=== PATIENT | male | born 1965 | race Caucasian/White ===

== ENCOUNTER 2022-12-29 11:16 | Emergency (ER) | payer MEDICARE, MEDICAID, SELFPAY ==
--- NOTE | ~2022-12-29 | XR_ITS ---
EXAMINATION: XR CHEST CLINICAL INFORMATION: Weakness COMPARISON: 12/10/[address] from 11/22/2015. TECHNIQUE: Frontal view of the chest was obtained. FINDINGS: Cardiac leads overlie the chest. The lungs are well expanded. No consolidation, edema, or effusion. There are adjacent 0.7 cm nodular opacities at the peripheral right base. No pneumothorax. The cardiomediastinal silhouette is within normal limits. Chronic dislocation at the left glenohumeral joint with chronic Hill-Sachs deformity of the left humeral head. XR/XR chest 1V IMPRESSION: 1. No acute pulmonary disease. 2. 0.7 cm nodular opacities at the peripheral right base are not seen on previous. Consider follow-up chest CT.
--- NOTE | ~2022-12-29 | CT_ITS ---
EXAMINATION: CT HEAD WITHOUT CONTRAST CLINICAL INFORMATION: Lethargy. Generalized weakness. COMPARISON: 11/09/2013 TECHNIQUE: Contiguous axial imaging was performed from the skull base to vertex without intravenous contrast. This CT examination was performed using dose optimization techniques as appropriate, variously including the following: * Automated exposure control * Adjustment of mA and/or kV according to patient size (this includes techniques or standardized protocols for targeted exams where dose is matched to indication/reason for exam; i.e. extremities or head) Use of iterative reconstruction technique DLP: 700 mGy-cm. FINDINGS: Postsurgical changes of right frontal craniectomy with mesh. Underlying gliosis which is increased from previous. There is no evidence of acute intracranial hemorrhage or territorial infarction. No abnormal mass effect or midline shift is seen. George to white matter differentiation is well preserved. No extra-axial fluid collections are identified. No hydrocephalus. Proportional prominence of the ventricles and sulcal spaces is consistent with moderate volume loss. Patchy periventricular and deep white matter hypoattenuation is consistent with mild small vessel ischemic changes. No acute osseous or soft tissue abnormality. Multiple sebaceous cysts are identified, increased in size from prior. Overlying the left zygomatic region this measures 2.7 cm. Overlying the right occipital region this measures 4.6 cm.. The mastoid air cells and visualized portions of the paranasal sinuses are well aerated. CT/CT head/brain wo IV con IMPRESSION: No acute intracranial pathology. Chronic volume loss with small vessel ischemic change. Chronic postsurgical changes.
--- NOTE | ~2022-12-29 | CT_ITS ---
EXAMINATION: CT CHEST WITHOUT CONTRAST CLINICAL INFORMATION: Rule out pneumonia. Lethargy. Evaluate opacities. COMPARISON: Radiograph from today. CT 11/22/2015. TECHNIQUE: Multidetector volumetric CT imaging of the chest was done. Axial MIP volume rendering provided. Sagittal and coronal reformatted images were obtained. This CT examination was performed using dose optimization techniques as appropriate, variously including the following: *Automated exposure control *Adjustment of mA and/or kV according to patient size (this includes techniques or standardized protocols for targeted exams where dose is matched to indication/reason for exam; i.e. extremities or head) *Use of iterative reconstruction technique DLP: 752 mGy-cm FINDINGS: LUNGS: The central airways are patent. Dependent atelectasis bilaterally. Mild bronchiectasis in the perihilar regions and lower lobes. No dense consolidation. Some cystic changes are seen along the right major fissure. The nodular densities seen on the prior radiograph likely are associated with the anterior aspect of the right fifth rib. These are present on prior. MEDIASTINUM: Normal heart size. No pericardial effusion. No mediastinal lymphadenopathy. CORONARY ARTERY CALCIFICATION: Mild. PLEURA: There is no pleural effusion. No pneumothorax. AXILLA: No lymphadenopathy. UPPER ABDOMEN: Unremarkable. OSSEOUS STRUCTURES: No acute or suspicious osseous abnormality. Mild degenerative change throughout the spine. CT/CT chest wo IV con IMPRESSION: 1. No acute pulmonary finding. No consolidation. Mild bronchiectasis. 2. The nodular densities seen on the prior radiograph are associated with the anterior aspect of the right fifth rib. These sclerotic foci are present on prior. Fleischner guidelines were followed.
--- NOTE | 2022-12-29 11:35 | ED_ITS ---
HPI - General Adult General Chief complaint: Weakness Stated complaint: Lethargic after breakfast per EMS Time Seen by Provider: 12/29/22 11:35 Source: patient and EMS Mode of arrival: EMS History of Present Illness HPI narrative: 57-year-old male with a past medical history of schizophrenia, diabetes, HLD, dysphagia, anemia, osteoarthritis, hypothyroid, HTN, CVA with left-sided residual deficits, wheelchair-bound, presenting to the ED via EMS from SNF for increased lethargy s/p eating breakfast this morning. Per [facility] staff p atient was increasingly lethargic, reported he was tired, had difficulty transferring from wheelchair to bed which is unlike patient. Denies focal weakness, headache, CP/SOB, abdominal pain, nausea/vomiting, fever, cough Onset (ago): day(s) Related Data Allergies Allergy/AdvReac Type Severity Reaction Status Date / Time piperacillin [From Zosyn] Allergy Mild RASH Unverified 07/15/20 17:36 tazobactam [From Zosyn] Allergy Mild RASH Unverified 07/15/20 17:36 Sulfa (Sulfonamide Allergy Unknown Verified 07/12/16 00:00 Antibiotics) Piperacillin-Tazobactam in Allergy Unknown Uncoded 07/12/16 00:00 D5W Review of Systems Review of Systems: Constitutional: No Fever, No Chills, + Fatigue, + Malaise ENT/Mouth: No Ear Pain, No sore throat, No Rhinorrhea, No Swallowing Difficulty Eyes: No Eye Pain, No Swelling, No Redness, No Vision Changes Cardiovascular: No Chest Pain, No SOB, No Edema, No Palpitations Respiratory: No Cough, No Wheezing, No Dyspnea Gastrointestinal: No Nausea, No Vomiting, No Diarrhea, No Constipation, No Abdominal pain Genitourinary: No irregular bleeding, No Dysuria, No Hematuria, No Urinary Incontinence/retention, No Flank Pain Musculoskeletal: No joint pain, No Myalgias, No Joint Swelling Skin: No Skin Lesions, No rash Neuro: + Weakness, No Numbness, No Paresthesias, No Loss of Consciousness, No Dizziness, No Headache Yes all other systems are reviewed and are negative Constitutional: Constitutional: Reports as per [facility] Past Medical History Attestation statement: The following information was validated with the patient. Social History Social History Alcohol intake: never Smoked in Last 30 Days: No Use of substances other than those prescribed or required for medical reasons: No Advance Directives: No Advance Directives Information Provided: No Physical Exam ED Vital Signs: Vital Signs - 24 hr 12/29/22 11:39 12/29/22 12:50 12/29/22 14:58 Temperature 98.5 F 97.0 F 98.4 F Pulse Rate 67 70 73 Respiratory Rate 18 13 20 Blood Pressure 98/55 L 128/78 108/59 L Pulse Oximetry 100 98 99 Oxygen Delivery Method Room Air Room Air Room Air BMI result Body Mass Index 34.0 Const Other: Easily arousable General: cooperative, comfortable, no acute distress, alert and lethargic Orientation/consciousness: patient oriented x3 and lethargic Limitations: no limitations HENMT Head: Yes normal to inspection and Yes atraumatic Ears: hearing grossly normal bilaterally General nose exam: Normal external nose present Face and sinus: Yes normal facial exam Eyes General: appearance normal, both eyes and all related structures Pupils: Equal, round and reactive pupils present EOM: EOMs intact bilaterally Neck Neck: Yes normal visual inspection and Yes no meningeal signs Resp Effort & Inspection: normal respiratory effort and no respiratory distress Auscultation: clear to auscultation bilaterally, no crackles, no rales, no rhonchi and no wheezes Cardio Rate: regular rate Heart sounds: S1 normal heart sound present and S2 normal heart sound present GI Inspection: Yes normal to inspection Palpation (GI): Soft to palpation, nontender, no guarding and not rigid Skin Rashes: no rashes Wounds: no wounds Neuro Other: Baseline left-sided weakness General: patient oriented x3, tone normal and no meningeal signs Cranial nerves: Yes Equal, round and reactive pupils present Extrem General: Yes normal to inspection and Yes no pedal edema Course Course Course Narrative: -1334--leukocytosis of 14.5 > still low suspicion for severe sepsis at this time. H&H stable. Troponin negative. COVID and influenza negative XR chest 1V IMPRESSION: 1.? No acute pulmonary disease. 2.? 0.7 cm nodular opacities at the peripheral right base are not seen on previous. Consider follow-up chest CT. >> will obtain chest CT for further evaluation CT head/brain wo IV con IMPRESSION: No acute intracranial pathology. Chronic volume loss with small vessel ischemic change. Chronic postsurgical changes. ? -lactic acid negative. Troponin x2 negative. UA negative -1509--on re-evaluation patient awake and alert, conversational, ready for discharge. CT chest wo IV con IMPRESSION: 1.? No acute pulmonary finding. No consolidation. Mild bronchiectasis. 2.? The nodular densities seen on the prior radiograph are associated with the anterior aspect of the right fifth rib. These sclerotic foci are present on prior. ? Fleischner guidelines were followed. >> [facility] Results discussed with patient including worrisome signs and symptoms and strict return precautions, and when to return to the emergency department. They verbalized understanding and feel safe for discharge at this time. Medical Decision Making Medical Decision Making [facility] Narrative: 57-year-old male with a past medical history of schizophrenia, diabetes, HLD, dysphagia, anemia, osteoarthritis, hypothyroid, HTN, CVA with left-sided residual deficits, wheelchair-bound, presenting to the ED via EMS from SNF for increased lethargy s/p eating breakfast this morning. On exam initial blood pressure soft, lethargic however easily arousable, A&O x3, no evidence of trauma, lungs CTA. Concern for metabolic/infectious etiologies vs ?CVA although no focal weakness. Lower suspicion for TIA, encephalitis/meningitis. Low suspicion for severe sepsis at this time Plan: EKG, labs, UA, CXR, head CT, reassess Please refer to course for remaining clinical decision making, interpretation of labs/imaging results, and discussions with consultants and/or family members. Differential Diagnosis Differential Diagnoses: The differential diagnosis associated with the presentation includes as above Admission/Observation Consideration of admission/observation: Escalation of care including admission/observation considered Lab Data [facility] Lab Attestation statement: I reviewed the patient's lab results. 12/29/22 12:25 12/29/22 12:25 Labs: Lab Results 12/29/22 12/29/22 12/29/22 Range/Units 12:25 12:25 12:25 WBC 14.5 H (4.8-10.8) X10*3/uL RBC 4.22 L (4.60-5.80) X10*6/uL Hgb 12.7 L (14.0-18.0) g/dl Hct 38.3 L (42.0-52.0) % MCV 90.8 (80.0-98.0) fL MCH 30.1 (27.0-33.0) pg MCHC 33.2 (31.0-36.0) g/dl RDW 13.1 (11.0-16.0) % Plt Count 190 (160-400) X10*3/uL MPV 9.2 L (9.4-12.4) fL Immature Gran % (Auto) 0.8 H (0.0-0.4) % Neut % (Auto) 74.1 H (45-73) % Lymph % (Auto) 17.8 L (20-40) % [place] % (Auto) 6.6 (2-11) % Eos % (Auto) 0.4 (0-4) % Baso % (Auto) 0.3 (0-2) % Lymph # (Auto) 2.6 (1.2-4.9) X10*3/uL [place] # (Auto) 1.0 (0.1-1.2) X10*3/uL Eos # (Auto) 0.1 (0.0-0.4) X10*3/uL Baso # (Auto) 0.1 (0.0-0.2) X10*3/uL Abs Immat Gran (auto) 0.12 H (0.00-0.03) X10*3/uL Absolute Neuts (auto) 10.7 H (2.0-8.3) x10*3/uL Absolute Nucleated RBC 0.000 (0.0-0.012) X10*3/uL Nucleated RBC % (auto) 0.0 (0.0-0.2) /100WBC PT 13.9 H (10.0-13.1) SEC INR 1.2 H (0.9-1.1) Sodium 136 (135-145) mmol/L Potassium 4.0 (3.3-5.1) mmol/L Chloride 105 (96-108) mmol/L Carbon Dioxide 24 (22-29) mmol/L Anion Gap 11 L (12-20) BUN 17 H (9-16) mg/dL Creatinine 0.79 (0.5-1.4) mg/dL Estim Creat Clear Calc 119.8 Estimated GFR > 60 Random Glucose 97 (60-115) mg/dL Lactic Acid (0.5-2.0) mmol/L Calcium 9.1 (8.4-10.2) mg/dL Magnesium 2.0 (1.6-2.6) mg/dL Total Bilirubin 0.3 (0.0-1.0) mg/dL Direct Bilirubin < 0.2 (0.0-0.5) mg/dL AST 22 (5-37) U/L ALT 39 (0-40) U/L Alkaline Phosphatase 103 (39-117) U/L Ammonia (13-55) umol/L Troponin I High Sens (<3.5-35.0) ng/L B-Natriuretic Peptide (<100) pg/mL Total Protein 6.7 (6.5-8.0) g/dL Albumin 3.6 (3.5-5.0) g/dL Urine Color Urine Appearance Urine pH (5.0-9.0) Ur Specific [place] (1.005-1.025) Urine Protein (Neg-Trace) mg/dL Urine Glucose (UA) (Negative) mg/dL Urine Ketones (Negative) mg/dL Urine Blood (Negative) Urine Nitrite (Negative) Ur Leukocyte Esterase (Negative) Urine Opiates Screen (Not Detect) Urine Fentanyl Screen (Not Detect) Ur Barbiturates Screen (Not Detect) Ur Phencyclidine Scrn (Not Detect) Ur Amphetamines Screen (Not Detect) U Benzodiazepines Scrn (Not Detect) Urine Cocaine Screen (Not Detect) U Marijuana (THC) Screen (Not Detect) COVID-19 (SAMAN) (Negative) COVID-19 Clin Com Influenza Type A (LAMAR) (Negative) Influenza Type B (LAMAR) (Negative) Influenza A & B Note 12/29/22 12/29/22 12/29/22 Range/Units 12:25 12:25 12:25 WBC (4.8-10.8) X10*3/uL RBC (4.60-5.80) X10*6/uL Hgb (14.0-18.0) g/dl Hct (42.0-52.0) % MCV (80.0-98.0) fL MCH (27.0-33.0) pg MCHC (31.0-36.0) g/dl RDW (11.0-16.0) % Plt Count (160-400) X10*3/uL MPV (9.4-12.4) fL Immature Gran % (Auto) (0.0-0.4) % Neut % (Auto) (45-73) % Lymph % (Auto) (20-40) % [place] % (Auto) (2-11) % Eos % (Auto) (0-4) % Baso % (Auto) (0-2) % Lymph # (Auto) (1.2-4.9) X10*3/uL [place] # (Auto) (0.1-1.2) X10*3/uL Eos # (Auto) (0.0-0.4) X10*3/uL Baso # (Auto) (0.0-0.2) X10*3/uL Abs Immat Gran (auto) (0.00-0.03) X10*3/uL Absolute Neuts (auto) (2.0-8.3) x10*3/uL Absolute Nucleated RBC (0.0-0.012) X10*3/uL Nucleated RBC % (auto) (0.0-0.2) /100WBC PT (10.0-13.1) SEC INR (0.9-1.1) Sodium (135-145) mmol/L Potassium (3.3-5.1) mmol/L Chloride (96-108) mmol/L Carbon Dioxide (22-29) mmol/L Anion Gap (12-20) BUN (9-16) mg/dL Creatinine (0.5-1.4) mg/dL Estim Creat Clear Calc Estimated GFR Random Glucose (60-115) mg/dL Lactic Acid (0.5-2.0) mmol/L Calcium (8.4-10.2) mg/dL Magnesium (1.6-2.6) mg/dL Total Bilirubin (0.0-1.0) mg/dL Direct Bilirubin (0.0-0.5) mg/dL AST (5-37) U/L ALT (0-40) U/L Alkaline Phosphatase (39-117) U/L Ammonia 37 (13-55) umol/L Troponin I High Sens < 3.5 (<3.5-35.0) ng/L B-Natriuretic Peptide 30 (<100) pg/mL Total Protein (6.5-8.0) g/dL Albumin (3.5-5.0) g/dL Urine Color Urine Appearance Urine pH (5.0-9.0) Ur Specific [place] (1.005-1.025) Urine Protein (Neg-Trace) mg/dL Urine Glucose (UA) (Negative) mg/dL Urine Ketones (Negative) mg/dL Urine Blood (Negative) Urine Nitrite (Negative) Ur Leukocyte Esterase (Negative) Urine Opiates Screen (Not Detect) Urine Fentanyl Screen (Not Detect) Ur Barbiturates Screen (Not Detect) Ur Phencyclidine Scrn (Not Detect) Ur Amphetamines Screen (Not Detect) U Benzodiazepines Scrn (Not Detect) Urine Cocaine Screen (Not Detect) U Marijuana (THC) Screen (Not Detect) COVID-19 (SAMAN) (Negative) COVID-19 Clin Com Influenza Type A (LAMAR) (Negative) Influenza Type B (LAMAR) (Negative) Influenza A & B Note 12/29/22 12/29/22 12/29/22 Range/Units 12:25 12:25 14:09 WBC (4.8-10.8) X10*3/uL RBC (4.60-5.80) X10*6/uL Hgb (14.0-18.0) g/dl Hct (42.0-52.0) % MCV (80.0-98.0) fL MCH (27.0-33.0) pg MCHC (31.0-36.0) g/dl RDW (11.0-16.0) % Plt Count (160-400) X10*3/uL MPV (9.4-12.4) fL Immature Gran % (Auto) (0.0-0.4) % Neut % (Auto) (45-73) % Lymph % (Auto) (20-40) % [place] % (Auto) (2-11) % Eos % (Auto) (0-4) % Baso % (Auto) (0-2) % Lymph # (Auto) (1.2-4.9) X10*3/uL [place] # (Auto) (0.1-1.2) X10*3/uL Eos # (Auto) (0.0-0.4) X10*3/uL Baso # (Auto) (0.0-0.2) X10*3/uL Abs Immat Gran (auto) (0.00-0.03) X10*3/uL Absolute Neuts (auto) (2.0-8.3) x10*3/uL Absolute Nucleated RBC (0.0-0.012) X10*3/uL Nucleated RBC % (auto) (0.0-0.2) /100WBC PT (10.0-13.1) SEC INR (0.9-1.1) Sodium (135-145) mmol/L Potassium (3.3-5.1) mmol/L Chloride (96-108) mmol/L Carbon Dioxide (22-29) mmol/L Anion Gap (12-20) BUN (9-16) mg/dL Creatinine (0.5-1.4) mg/dL Estim Creat Clear Calc Estimated GFR Random Glucose (60-115) mg/dL Lactic Acid 1.8 (0.5-2.0) mmol/L Calcium (8.4-10.2) mg/dL Magnesium (1.6-2.6) mg/dL Total Bilirubin (0.0-1.0) mg/dL Direct Bilirubin (0.0-0.5) mg/dL AST (5-37) U/L ALT (0-40) U/L Alkaline Phosphatase (39-117) U/L Ammonia (13-55) umol/L Troponin I High Sens (<3.5-35.0) ng/L B-Natriuretic Peptide (<100) pg/mL Total Protein (6.5-8.0) g/dL Albumin (3.5-5.0) g/dL Urine Color Urine Appearance Urine pH (5.0-9.0) Ur Specific [place] (1.005-1.025) Urine Protein (Neg-Trace) mg/dL Urine Glucose (UA) (Negative) mg/dL Urine Ketones (Negative) mg/dL Urine Blood (Negative) Urine Nitrite (Negative) Ur Leukocyte Esterase (Negative) Urine Opiates Screen (Not Detect) Urine Fentanyl Screen (Not Detect) Ur Barbiturates Screen (Not Detect) Ur Phencyclidine Scrn (Not Detect) Ur Amphetamines Screen (Not Detect) U Benzodiazepines Scrn (Not Detect) Urine Cocaine Screen (Not Detect) U Marijuana (THC) Screen (Not Detect) COVID-19 (SAMAN) Negative (Negative) COVID-19 Clin Com See Note Influenza Type A (LAMAR) Negative (Negative) Influenza Type B (LAMAR) Negative (Negative) Influenza A & B Note See Note 12/29/22 12/29/22 12/29/22 Range/Units 14:09 14:21 14:21 WBC (4.8-10.8) X10*3/uL RBC (4.60-5.80) X10*6/uL Hgb (14.0-18.0) g/dl Hct (42.0-52.0) % MCV (80.0-98.0) fL MCH (27.0-33.0) pg MCHC (31.0-36.0) g/dl RDW (11.0-16.0) % Plt Count (160-400) X10*3/uL MPV (9.4-12.4) fL Immature Gran % (Auto) (0.0-0.4) % Neut % (Auto) (45-73) % Lymph % (Auto) (20-40) % [place] % (Auto) (2-11) % Eos % (Auto) (0-4) % Baso % (Auto) (0-2) % Lymph # (Auto) (1.2-4.9) X10*3/uL [place] # (Auto) (0.1-1.2) X10*3/uL Eos # (Auto) (0.0-0.4) X10*3/uL Baso # (Auto) (0.0-0.2) X10*3/uL Abs Immat Gran (auto) (0.00-0.03) X10*3/uL Absolute Neuts (auto) (2.0-8.3) x10*3/uL Absolute Nucleated RBC (0.0-0.012) X10*3/uL Nucleated RBC % (auto) (0.0-0.2) /100WBC PT (10.0-13.1) SEC INR (0.9-1.1) Sodium (135-145) mmol/L Potassium (3.3-5.1) mmol/L Chloride (96-108) mmol/L Carbon Dioxide (22-29) mmol/L Anion Gap (12-20) BUN (9-16) mg/dL Creatinine (0.5-1.4) mg/dL Estim Creat Clear Calc Estimated GFR Random Glucose (60-115) mg/dL Lactic Acid (0.5-2.0) mmol/L Calcium (8.4-10.2) mg/dL Magnesium (1.6-2.6) mg/dL Total Bilirubin (0.0-1.0) mg/dL Direct Bilirubin (0.0-0.5) mg/dL AST (5-37) U/L ALT (0-40) U/L Alkaline Phosphatase (39-117) U/L Ammonia (13-55) umol/L Troponin I High Sens < 3.5 (<3.5-35.0) ng/L B-Natriuretic Peptide (<100) pg/mL Total Protein (6.5-8.0) g/dL Albumin (3.5-5.0) g/dL Urine Color Yellow Urine Appearance Clear Urine pH 7.0 (5.0-9.0) Ur Specific [place] 1.015 (1.005-1.025) Urine Protein Negative (Neg-Trace) mg/dL Urine Glucose (UA) Negative (Negative) mg/dL Urine Ketones Negative (Negative) mg/dL Urine Blood Negative (Negative) Urine Nitrite Negative (Negative) Ur Leukocyte Esterase Negative (Negative) Urine Opiates Screen Not Detected (Not Detect) Urine Fentanyl Screen Not Detected (Not Detect) Ur Barbiturates Screen Not Detected (Not Detect) Ur Phencyclidine Scrn Not Detected (Not Detect) Ur Amphetamines Screen Not Detected (Not Detect) U Benzodiazepines Scrn Not Detected (Not Detect) Urine Cocaine Screen Not Detected (Not Detect) U Marijuana (THC) Screen Not Detected (Not Detect) COVID-19 (SAMAN) (Negative) COVID-19 Clin Com Influenza Type A (ALMAR) (Negative) Influenza Type B (LAMAR) (Negative) Influenza A & B Note Independent Interpretation I performed an independent interpretation of an: EKG Interpretation: My interpretation normal sinus rhythm with right bundle branch block. Rate is 67. QTC 407. No STEMI. External Record Review External record reviewed: Prior outpatient labs, Prior outpatient radiology and Outside ED record Discharge Plan Discharge Clinical Impression: Lethargy Patient Disposition: Xfer SNF Instructions: Fatigue (ED) Additional Instructions: Your blood work and imaging studies were reassuring. Continue home prescribed medications. If symptoms persist or worsen return to the emergency department. Referrals: August Baldwin DO [Primary Care Provider] - 2 days
[2022-12-29 11:39] VITALS: BP 98/55; PULSE 67; RESP 18; TEMP 36.9; O2SAT 100; BMI 34.0
[2022-12-29 11:43] VITALS: BP 108/58; PULSE 73; O2SAT 98
--- NOTE | 2022-12-29 11:44 | ECG_ITS ---
Test Reason : Generalized weakness Blood Pressure : / mmHG Vent. Rate : 067 BPM Atrial Rate : 067 BPM P-R Int : 152 ms QRS Dur : 122 ms QT Int : 386 ms P-R-T Axes : 047 043 049 degrees QTc Int : 407 ms Normal sinus rhythm Right bundle branch block Abnormal ECG When compared with ECG of 16-DEC-2014 15:54, Right bundle branch block has replaced Incomplete right bundle branch block Referred By: Alfreda Jaimes Electronically Signed By:JOSELO CADENA MD
[2022-12-29 12:34] LABS: Basophils Absolute Auto 0.1 X10*3/uL (0.0-0.2); Basophils Percent Auto 0.3 % (0-2); Eosinophils Absolute Auto 0.1 X10*3/uL (0.0-0.4); Eosinophils Percent Auto 0.4 % (0-4); Hematocrit 38.3 % (42.0-52.0); Hemoglobin 12.7 g/dl (14.0-18.0); Imm Gran Abs Auto 0.12 X10*3/uL (0.00-0.03); Imm Gran Pct Auto 0.8 % (0.0-0.4); Lymphocytes Absolute Auto 2.6 X10*3/uL (1.2-4.9); Lymphocytes Percent Auto 17.8 % (20-40); MANUAL DIFF FLAG NO; Mean Corpuscular HGB Conc 33.2 g/dl (31.0-36.0); Mean Corpuscular Hemoglobin 30.1 pg (27.0-33.0); Mean Corpuscular Volume 90.8 fL (80.0-98.0); Mean Platelet Volume 9.2 fL (9.4-12.4); Monocytes Percent Auto 6.6 % (2-11); Neutrophils Absolute Auto 10.7 x10*3/uL (2.0-8.3); Neutrophils Percent Auto 74.1 % (45-73); Platelet Count 190 X10*3/uL (160-400); Red Blood Count 4.22 X10*6/uL (4.60-5.80); Red Cell Distribution Width 13.1 % (11.0-16.0); White Blood Count 14.5 X10*3/uL (4.8-10.8)
[2022-12-29 12:43] LABS: Ammonia 37 umol/L (13-55)
[2022-12-29 12:50] VITALS: BP 128/78; PULSE 70; RESP 13; TEMP 36.1; O2SAT 98
[2022-12-29 12:52] LABS: Alanine Aminotransferase 39 U/L (0-40); Albumin Level 3.6 g/dL (3.5-5.0); Alkaline Phosphatase 103 U/L (39-117); Anion Gap 11 (12-20); Aspartate Amino Transferase 22 U/L (5-37); Bilirubin Direct < 0.2 mg/dL (0.0-0.5); Bilirubin Total 0.3 mg/dL (0.0-1.0); Blood Urea Nitrogen 17 mg/dL (9-16); Calcium 9.1 mg/dL (8.4-10.2); Carbon Dioxide 24 mmol/L (22-29); Chloride 105 mmol/L (96-108); Creatinine Clr Calc Pharmacy 119.8; Estimated Glomerular Filt Rate > 60; Glucose Random 97 mg/dL (60-115); Sodium 136 mmol/L (135-145); Total Protein 6.7 g/dL (6.5-8.0)
[2022-12-29 12:56] LABS: INTERNATIONAL NORM RATIO 1.2 (0.9-1.1); Prothrombin Time 13.9 SEC (10.0-13.1)
[2022-12-29 12:58] LABS: B Type Natriuretic Peptide 30 pg/mL (<100); Troponin-I High Sensitivity < 3.5 ng/L (<3.5-35.0)
[2022-12-29 13:04] LABS: IDNOW Serial# BCCEAD1C; Influenza B2 Negative (Negative)
[2022-12-29 13:05] LABS: COVID-19 Test Negative (Negative); IDNOW Serial# 16C4AD1C; Influenza A Negative (Negative)
[2022-12-29 14:30] LABS: Lactic Acid 1.8 mmol/L (0.5-2.0)
[2022-12-29 14:30] LABS: Appearance Urine Clear; Color Urine Yellow; Glucose Urine UA Negative (Negative); Leukocyte Esterase Urine Negative (Negative); Nitrite Urine Negative (Negative); Specific Gravity - Urine 1.015 (1.005-1.025); Urine Blood Negative (Negative); Urine Ketones Negative (Negative); Urine Protein Negative (Neg-Trace)
[2022-12-29 14:39] LABS: Amphetamine Screen Urine Not Detected (Not Detect); Barbiturates, Urine Not Detected (Not Detect); Benzodiazepines Screen Urine Not Detected (Not Detect); Cannabinoid Screen Urine Not Detected (Not Detect); Cocaine Screen Urine Not Detected (Not Detect); Fentanyl, urine Not Detected (Not Detect); Opiate Screen Urine Not Detected (Not Detect); Phencyclidine Screen Urine Not Detected (Not Detect)
[2022-12-29 14:42] LABS: Troponin-I High Sensitivity < 3.5 ng/L (<3.5-35.0)
--- NOTE | 2022-12-29 14:50 | PC.NURSE ---
pt alert and oriented, speaking in full clear sentences, no visible facial droop, hand grasp at baseline for the pt, slightly weaker on the left-hx of old stroke, no visible drift, moving all extremities, denies headache/pain and nausea
[2022-12-29 14:58] VITALS: BP 108/59; PULSE 73; RESP 20; TEMP 36.9; O2SAT 99
--- NOTE | 2022-12-29 19:25 | PC.NURSE ---
pt continues to await ambulance for transport back to [facility]
[2022-12-29 20:00] VITALS: PULSE 74; RESP 18; O2SAT 97
== END 2022-12-29 20:57 | disposition skilled nursing facility (03) ==
PROVIDERS: Physician Assistant; Emergency Provider Emergency Medicine Emergency Medical Services; PCP Hospitalist
DX: R53.83 Other fatigue (principal); R06.02 Shortness of breath; R51.9 Headache, unspecified; M54.6 Pain in thoracic spine; R94.31 Abnormal electrocardiogram [ECG] [EKG]; Z20.822 Contact with and (suspected) exposure to COVID-19; Z20.828 Contact with and (suspected) exposure to other viral communicable diseases; Z79.899 Other long term (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
CPT/HCPCS: 36415; 70450; 71045; 71250; 80048; 80076; 80307; 81003; 82140; 83605; 83735; 83880; 84484; 85025; 85610; 87040; 87077; 87147; 87186; 87205; 87502; 87635; 93005; 99285

== ENCOUNTER 2022-12-30 10:52 | Observation (INO) | payer MEDICARE, MEDICAID, SELFPAY ==
--- NOTE | ~2022-12-30 | XR_ITS ---
EXAMINATION: XR CHEST CLINICAL INFORMATION: Positive blood culture. Rule out pneumonia COMPARISON: None TECHNIQUE: Frontal view of the chest was obtained. FINDINGS: The lungs are well-expanded and clear of acute process. The heart size and pulmonary vascularity is normal. There is chronic left shoulder dislocation with superimposed degenerative arthritic changes. XR/XR chest 1V IMPRESSION: 1. No acute cardiopulmonary process seen. 2. Chronic left shoulder dislocation with superimposed degenerative arthritic changes.
[2022-12-30 11:06] VITALS: BP 103/61; BP 110/60; PULSE 76; PULSE 90; RESP 16; TEMP 36.4; O2SAT 96; BMI 32.8
[2022-12-30 11:31] VITALS: PULSE 76; RESP 16; TEMP 36.6; O2SAT 96
--- NOTE | 2022-12-30 11:32 | ED_ITS ---
HPI - General Adult General Chief complaint: Recheck/Abnormal Lab/Rx Stated complaint: Abnormal labs per EMS Time Seen by Provider: 12/30/22 11:20 Source: patient, EMS, RN notes reviewed and old records reviewed Mode of arrival: EMS Limitations: no limitations History of Present Illness HPI narrative: 57-year-old male with past medical history significant for schizophrenia, dm, HLD, anemia, osteoarthritis, HTN, CVA with left-sided residual deficits patient is wheelchair bound patient presented by EMS after he was called for growing to positive blood cultures, patient is [facility] resident and according to the [facility] staff patient has been lethargic and confused with generalized weakness. Patient was seen and evaluated in the emergency department 2 days ago for the above symptoms had to blood culture positive with no clear source of infection. Patient otherwise decline any nausea, vomiting, fever, coughing, CP, SOB, or abdominal pain. Related Data Home Medications Medication Instructions Recorded Confirmed acetaminophen 325 mg tablet 650 mg PO Q4H PRN Pain 12/30/22 12/30/22 amlodipine 10 mg tablet 10 mg PO DAILY 12/30/22 12/30/22 aripiprazole 2 mg tablet 1 tab PO DAILY 12/30/22 12/30/22 atorvastatin 10 mg tablet 10 mg PO BEDTIME 12/30/22 12/30/22 clotrimazole-betamethasone 1 1 appl topical BID PRN Rash 12/30/22 12/30/22 %-0.05 % topical cream clozapine 200 mg tablet 200 mg PO BID 12/30/22 12/30/22 clozapine 50 mg tablet 50 mg PO BID 12/30/22 12/30/22 ferrous sulfate 325 mg (65 mg 325 mg PO DAILY 12/30/22 12/30/22 iron) tablet furosemide 40 mg tablet 40 mg PO BID 12/30/22 12/30/22 gabapentin 400 mg capsule 400 mg PO TID 12/30/22 12/30/22 hydrocortisone 1 % topical cream 1 appl topical Q12H PRN ECZEMA 12/30/22 12/30/22 levetiracetam 750 mg tablet 750 mg PO BID 12/30/22 12/30/22 levothyroxine 100 mcg tablet 100 mcg PO DAILY 12/30/22 12/30/22 lisinopril 5 mg tablet 5 mg PO DAILY 12/30/22 12/30/22 metoprolol succinate 25 mg 25 mg PO BID 12/30/22 12/30/22 tablet,extended release 24 hr multivitamin 1 tab PO DAILY 12/30/22 12/30/22 omeprazole 20 mg tablet,delayed 20 mg PO DAILY 12/30/22 12/30/22 release oxycodone-acetaminophen 10 mg-325 1 tab PO TID 12/30/22 12/30/22 mg tablet potassium chloride 20 mEq/15 mL 20 meq PO BID 12/30/22 12/30/22 oral liquid sennosides 8.6 mg tablet (senna) 8.6 mg PO DAILY PRN Constipation 12/30/22 12/30/22 Allergies Allergy/AdvReac Type Severity Reaction Status Date / Time piperacillin [From Zosyn] Allergy Mild RASH Unverified 07/15/20 17:36 tazobactam [From Zosyn] Allergy Mild RASH Unverified 07/15/20 17:36 Sulfa (Sulfonamide Allergy Unknown Verified 07/12/16 00:00 Antibiotics) Piperacillin-Tazobactam in Allergy Unknown Uncoded 07/12/16 00:00 D5W Review of Systems Review of Systems: All other systems are reviewed and are negative Constitutional: Reports as per HPI and Reports no additional constitutional complaints Eyes: Reports as per HPI and Reports no additional eye complaints Reports system reviewed and no additional complaints, except as documented Cardiovascular: Reports as per HPI and Reports no additional cardiovascular complaints Respiratory: Reports as per HPI and Reports no additional respiratory complaints Gastrointestinal: Reports as per HPI and Reports no additional gastrointestinal complaints Genitourinary: Reports no additional female genitourinary complaints Musculoskeletal: Reports no additional musculoskeletal complaints Skin/Breast: Reports system reviewed and no additional complaints, except as docu Psychiatric: Reports no additional psychiatric complaints Endocrine: Reports no additional endocrine complaints Hematologic/Lymphatic: Reports no additional hematologic/lymphatic complaints Allergic/Immunologic: Reports no additional allergic/immunologic complaints Reports system reviewed and no additional complaints, except as documented and Reports Abnormal speech present [facility] Social History Social History Alcohol intake: never Advance Directives: No Advance Directives Information Provided: No Physical Exam ED Vital Signs: Vital Signs - 24 hr 12/30/22 11:06 12/30/22 11:31 12/30/22 12:23 Temperature 97.6 F 97.9 F 98.0 F Pulse Rate 76 76 79 Respiratory Rate 16 16 16 Blood Pressure 103/61 110/72 Pulse Oximetry 96 96 96 Oxygen Delivery Method Room Air Room Air Room Air 12/30/22 13:20 Temperature 98.3 F Pulse Rate 76 Respiratory Rate 18 Blood Pressure 116/68 Pulse Oximetry 98 Oxygen Delivery Method Room Air BMI result Body Mass Index 32.8 Vital signs have been reviewed as appeared to be correct. Blood pressure normal. Heart rate normal. Respiration rate normal. Temperature normal. Oxygen saturation normal. Appearance: Alert. Oriented X3. No acute distress. Head: Normal external exam. Normocephalic. Atraumatic. No Perez signs noted. No raccoon eyes noted Eyes: PERRLA. EOMI. Conjunctiva and sclera normal. Eyelids normal. ENT: TM's Normal. Pharynx normal. Uvula midline. Moist mucous membranes. No trismus noted. No drooling noted. No muffled voice noted. Neck: Normal inspection. Neck supple. FROM. No adenopathy. Thyroid Normal. No meningeal signs. No neck mass noted. CVS: Normal heart rate and rhythm. Heart sound normal. No murmurs noted. Pulses normal throughout. Respiratory: No respiratory distress. Painless inspiration. Breath sounds normal. No wheezes/rales/rhonchi noted. Chest nontender. No accessory muscle usage noted or decreased air movement noted. Abdomen: Soft and nontender. Bowel sounds normal in all 4 quadrants. No distention noted. No organomegaly noted. No visible injury noted. Back: No CVA tenderness. Full range of motion noted. Skin: Skin warm and dry. Normal skin color. Normal skin turgor. No rashes/lesions/lacerations noted. Extremities: No lower extremity edema. Extremities exhibit normal range of motion. Extremities nontender. Neuro: Oriented X 3. Cranial nerve exam: II-XII are grossly intact No motor deficit. No sensory deficit. Reflexes normal. Course Course Course Narrative: 57[facility] blood culture x2, according to the nursing report patient is more confused and incoherent more than his baseline, workup revealed no source of infection patient has leukocytosis. Will start the patient on vancomycin and doxycycline. Medications Administered Generic Name Dose Route Start Last Admin Trade Name Freq PRN Reason Stop Dose Admin Vancomycin HCl 2,000 mg in 520 mls @ 260 mls/hr 12/30/22 12:00 12/30/22 13:38 Vancomycin/Ns IV 12/30/22 13:59 260 mls/hr ONCE ONE Administration Discontinued Medications Generic Name Dose Route Start Last Admin Trade Name Freq PRN Reason Stop Dose Admin Sodium Chloride 1,000 mls @ 999 mls/hr 12/30/22 11:36 12/30/22 13:16 Ns IV 12/30/22 12:36 Infused .Q1H1M ONE Infusion Doxycycline Hyclate 100 mg/ 250 mls @ 166.67 mls/hr 12/30/22 11:36 12/30/22 13:37 Sodium Chloride IV 12/30/22 13:05 Infused ONCE ONE Infusion Medical Decision Making Differential Diagnosis Differential Diagnoses: The differential diagnosis associated with the presentation includes (Bacteremia, UTI, pneumonia.) Admission/Observation Consideration of admission/observation: Escalation of care including admission/observation considered Consult Healthcare Provider Management of the patient was discussed with: Hospitalist Lab Data MDM Lab Attestation statement: I reviewed the patient's lab results. 12/30/22 11:29 12/30/22 11:29 Labs: Lab Results 12/30/22 12/30/22 12/30/22 Range/Units 11:29 11:29 11:29 WBC 13.9 H (4.8-10.8) X10*3/uL RBC 4.47 L (4.60-5.80) X10*6/uL Hgb 13.2 L (14.0-18.0) g/dl Hct 40.1 L (42.0-52.0) % MCV 89.7 (80.0-98.0) fL MCH 29.5 (27.0-33.0) pg MCHC 32.9 (31.0-36.0) g/dl RDW 13.1 (11.0-16.0) % Plt Count 180 (160-400) X10*3/uL MPV 9.3 L (9.4-12.4) fL Absolute Nucleated RBC 0.000 (0.0-0.012) X10*3/uL Nucleated RBC % (auto) 0.0 (0.0-0.2) /100WBC Sodium 142 (135-145) mmol/L Potassium 4.2 (3.3-5.1) mmol/L Chloride 105 (96-108) mmol/L Carbon Dioxide 24 (22-29) mmol/L Anion Gap 17 (12-20) BUN 16 (9-16) mg/dL Creatinine 0.77 (0.5-1.4) mg/dL Estim Creat Clear Calc 99.0 Estimated GFR > 60 Random Glucose 80 (60-115) mg/dL Lactic Acid (0.5-2.0) mmol/L Calcium 9.5 (8.4-10.2) mg/dL Total Bilirubin (0.0-1.0) mg/dL Direct Bilirubin (0.0-0.5) mg/dL AST (5-37) U/L ALT (0-40) U/L Alkaline Phosphatase (39-117) U/L B-Natriuretic Peptide (<100) pg/mL Total Protein (6.5-8.0) g/dL Albumin (3.5-5.0) g/dL Lipase (8-78) U/L Urine Color Urine Appearance Urine pH (5.0-9.0) Ur Specific [place] (1.005-1.025) Urine Protein (Neg-Trace) mg/dL Urine Glucose (UA) (Negative) mg/dL Urine Ketones (Negative) mg/dL Urine Blood (Negative) Urine Nitrite (Negative) Ur Leukocyte Esterase (Negative) COVID-19 (SAMAN) Negative (Negative) COVID-19 Clin Com See Note 12/30/22 12/30/22 12/30/22 Range/Units 11:58 11:58 11:58 WBC (4.8-10.8) X10*3/uL RBC (4.60-5.80) X10*6/uL Hgb (14.0-18.0) g/dl Hct (42.0-52.0) % MCV (80.0-98.0) fL MCH (27.0-33.0) pg MCHC (31.0-36.0) g/dl RDW (11.0-16.0) % Plt Count (160-400) X10*3/uL MPV (9.4-12.4) fL Absolute Nucleated RBC (0.0-0.012) X10*3/uL Nucleated RBC % (auto) (0.0-0.2) /100WBC Sodium 141 (135-145) mmol/L Potassium 4.1 (3.3-5.1) mmol/L Chloride 106 (96-108) mmol/L Carbon Dioxide 25 (22-29) mmol/L Anion Gap 14 (12-20) BUN 16 (9-16) mg/dL Creatinine 0.76 (0.5-1.4) mg/dL Estim Creat Clear Calc 100.3 Estimated GFR > 60 Random Glucose 85 (60-115) mg/dL Lactic Acid 1.1 (0.5-2.0) mmol/L Calcium 9.3 (8.4-10.2) mg/dL Total Bilirubin 0.4 (0.0-1.0) mg/dL Direct Bilirubin < 0.2 (0.0-0.5) mg/dL AST 23 (5-37) U/L ALT 45 H (0-40) U/L Alkaline Phosphatase 103 (39-117) U/L B-Natriuretic Peptide < 10 (<100) pg/mL Total Protein 6.8 (6.5-8.0) g/dL Albumin 3.8 (3.5-5.0) g/dL Lipase 23 (8-78) U/L Urine Color Urine Appearance Urine pH (5.0-9.0) Ur Specific [place] (1.005-1.025) Urine Protein (Neg-Trace) mg/dL Urine Glucose (UA) (Negative) mg/dL Urine Ketones (Negative) mg/dL Urine Blood (Negative) Urine Nitrite (Negative) Ur Leukocyte Esterase (Negative) COVID-19 (SAMAN) (Negative) COVID-19 Clin Com 12/30/22 Range/Units 13:23 WBC (4.8-10.8) X10*3/uL RBC (4.60-5.80) X10*6/uL Hgb (14.0-18.0) g/dl Hct (42.0-52.0) % MCV (80.0-98.0) fL MCH (27.0-33.0) pg MCHC (31.0-36.0) g/dl RDW (11.0-16.0) % Plt Count (160-400) X10*3/uL MPV (9.4-12.4) fL Absolute Nucleated RBC (0.0-0.012) X10*3/uL Nucleated RBC % (auto) (0.0-0.2) /100WBC Sodium (135-145) mmol/L Potassium (3.3-5.1) mmol/L Chloride (96-108) mmol/L Carbon Dioxide (22-29) mmol/L Anion Gap (12-20) BUN (9-16) mg/dL Creatinine (0.5-1.4) mg/dL Estim Creat Clear Calc Estimated GFR Random Glucose (60-115) mg/dL Lactic Acid (0.5-2.0) mmol/L Calcium (8.4-10.2) mg/dL Total Bilirubin (0.0-1.0) mg/dL Direct Bilirubin (0.0-0.5) mg/dL AST (5-37) U/L ALT (0-40) U/L Alkaline Phosphatase (39-117) U/L B-Natriuretic Peptide (<100) pg/mL Total Protein (6.5-8.0) g/dL Albumin (3.5-5.0) g/dL Lipase (8-78) U/L Urine Color Yellow Urine Appearance Clear Urine pH 6.5 (5.0-9.0) Ur Specific [place] 1.015 (1.005-1.025) Urine Protein Negative (Neg-Trace) mg/dL Urine Glucose (UA) Negative (Negative) mg/dL Urine Ketones Negative (Negative) mg/dL Urine Blood Negative (Negative) Urine Nitrite Negative (Negative) Ur Leukocyte Esterase Negative (Negative) COVID-19 (SAMAN) (Negative) COVID-19 Clin Com Independent Interpretation I performed an independent interpretation of an: Plain X-Ray (Chest: No acute intrathoracic pathology.) Radiology Impression Discussion of test interpretation with radiology: I have reviewed the radiologist's reading. Discharge Plan Discharge Clinical Impression: Bacteremia Patient Disposition: Admitted As Inpatient
--- NOTE | 2022-12-30 11:33 | PC.NURSE ---
brought in via ems for 2/2 + blood cx, vss, afebrile, denies fever chills at snf. hx of schizophrenia, alert and oriented x 2 during triage, repeating phrases in between interactions w this rn. ems linens removed, brief removed. pt incontinent of very small amount dry stool. cleaned and placed on l side lying w pillow under r side bottom. iv placed and basic labs drawn and sent. no obvious distress noted. awaiting primary eval.
[2022-12-30 11:34] LABS: Hematocrit 40.1 % (42.0-52.0); Hemoglobin 13.2 g/dl (14.0-18.0); Mean Corpuscular HGB Conc 32.9 g/dl (31.0-36.0); Mean Corpuscular Hemoglobin 29.5 pg (27.0-33.0); Mean Corpuscular Volume 89.7 fL (80.0-98.0); Mean Platelet Volume 9.3 fL (9.4-12.4); Platelet Count 180 X10*3/uL (160-400); Red Blood Count 4.47 X10*6/uL (4.60-5.80); Red Cell Distribution Width 13.1 % (11.0-16.0); White Blood Count 13.9 X10*3/uL (4.8-10.8)
[2022-12-30 11:49] LABS: COVID-19 Test Negative (Negative); IDNOW Serial# 9DB6401D
[2022-12-30 11:52] LABS: Anion Gap 17 (12-20); Blood Urea Nitrogen 16 mg/dL (9-16); Calcium 9.5 mg/dL (8.4-10.2); Carbon Dioxide 24 mmol/L (22-29); Chloride 105 mmol/L (96-108); Estimated Glomerular Filt Rate > 60; Glucose Random 80 mg/dL (60-115); Potassium 4.2 mmol/L (3.3-5.1); Sodium 142 mmol/L (135-145)
[2022-12-30] MEDS: 0.9 % Sodium Chloride 1,000 ML 999 ML IV (12:03)
[2022-12-30 12:20] LABS: Lactic Acid 1.1 mmol/L (0.5-2.0)
[2022-12-30] MEDS: Doxycycline Hyclate 100 MG in 0.9 % Sodium Chloride 250 ML 166.67 MG IV (12:22)
[2022-12-30 12:23] VITALS: BP 110/72; PULSE 79; RESP 16; TEMP 36.7; O2SAT 96
[2022-12-30 12:24] LABS: Alanine Aminotransferase 45 U/L (0-40); Albumin Level 3.8 g/dL (3.5-5.0); Alkaline Phosphatase 103 U/L (39-117); Anion Gap 14 (12-20); Aspartate Amino Transferase 23 U/L (5-37); Bilirubin Direct < 0.2 mg/dL (0.0-0.5); Bilirubin Total 0.4 mg/dL (0.0-1.0); Blood Urea Nitrogen 16 mg/dL (9-16); Calcium 9.3 mg/dL (8.4-10.2); Carbon Dioxide 25 mmol/L (22-29); Chloride 106 mmol/L (96-108); Creatinine Clr Calc Pharmacy 100.3; Estimated Glomerular Filt Rate > 60; Glucose Random 85 mg/dL (60-115); Lipase 23 U/L (8-78); Potassium 4.1 mmol/L (3.3-5.1); Sodium 141 mmol/L (135-145); Total Protein 6.8 g/dL (6.5-8.0)
[2022-12-30 12:30] LABS: B Type Natriuretic Peptide < 10 pg/mL (<100)
--- NOTE | 2022-12-30 12:51 | PHA.MEDREC ---
Pharmacy Consult ? Medication Reconciliation Pharmacy has completed the medication reconciliation. Patient came from [facility] with medication list. Nirmala Bowman, SarahD
[2022-12-30 13:20] VITALS: BP 116/68; PULSE 76; RESP 18; TEMP 36.8; O2SAT 98
[2022-12-30 13:32] LABS: Appearance Urine Clear; Color Urine Yellow; Glucose Urine UA Negative (Negative); Leukocyte Esterase Urine Negative (Negative); Nitrite Urine Negative (Negative); PH 6.5 (5.0-9.0); Specific Gravity - Urine 1.015 (1.005-1.025); Urine Blood Negative (Negative); Urine Ketones Negative (Negative); Urine Protein Negative (Neg-Trace)
[2022-12-30 14:15] LABS: MANUAL DIFF FLAG NO
[2022-12-30 14:16] LABS: Basophils Percent Auto 0.2 % (0-2); Eosinophils Absolute Auto 0.1 X10*3/uL (0.0-0.4); Eosinophils Percent Auto 0.5 % (0-4); Imm Gran Abs Auto 0.13 X10*3/uL (0.00-0.03); Imm Gran Pct Auto 0.9 % (0.0-0.4); Lymphocytes Absolute Auto 2.2 X10*3/uL (1.2-4.9); Lymphocytes Percent Auto 16.1 % (20-40); Monocytes Percent Auto 7.3 % (2-11); Neutrophils Absolute Auto 10.3 x10*3/uL (2.0-8.3)
--- NOTE | 2022-12-30 14:41 | PM.IMHP ---
History of Present Illness Date of Service: 12/30/22 Chief Complaint: blood cultures positive 57M pmh schizophrenia, diabetes, HLD, dysphagia, anemia, osteoarthritis, hypothyroid, HTN, CVA with left-sided residual deficits, wheelchair-bound sent back to hospital for 2/2 GPC in clusters in blood. patient denies any symptoms. afebrile, mild leukocytosis Review of Systems Review of Systems: Yes all other systems are reviewed and are negative [facility] Social History Alcohol intake: never Advance Directives: No Advance Directives Information Provided: No Meds Allergies Allergy/AdvReac Type Severity Reaction Status Date / Time piperacillin [From Zosyn] Allergy Mild RASH Unverified 07/15/20 17:36 tazobactam [From Zosyn] Allergy Mild RASH Unverified 07/15/20 17:36 Sulfa (Sulfonamide Allergy Unknown Unknown Verified 12/30/22 14:41 Antibiotics) Active Medications: Current Medications Amlodipine Besylate (Amlodipine Besylate 10 Mg Tablet) 10 mg PO DAILY RUCHI; Protocol Aripiprazole (Aripiprazole 2 Mg Tablet) 2 mg PO DAILY RUCHI Atorvastatin Calcium (Atorvastatin Calcium 10 Mg Tablet) 10 mg PO BEDTIME RUCHI Clozapine (Clozapine 25 Mg Tablet) 50 mg PO BID RUCHI Clozapine (Clozapine 100 Mg Tablet) 200 mg PO BID RUCHI Enoxaparin Sodium (Enoxaparin Sodium 40 Mg/0.4 Ml Syringe) 40 mg SUBCUT Q24H RUCHI Ferrous Sulfate (Ferrous Sulfate 324 Mg Tablet.Dr) 324 mg PO DAILY RUCHI Furosemide (Furosemide 40 Mg Tablet) 40 mg PO BID RUCHI; Protocol Gabapentin (Gabapentin 400 Mg Capsule) 400 mg PO TID RUCHI Vancomycin HCl 1,000 mg/ (Sodium Chloride) 270 mls @ 270 mls/hr IV Q12H RUCHI Levetiracetam (Levetiracetam 250 Mg Tablet) 750 mg PO BID RUCHI Levothyroxine Sodium (Levothyroxine Sodium 100 Mcg Tablet) 100 mcg PO DAILY@0600 RUCHI Lisinopril (Lisinopril 5 Mg Tablet) 5 mg PO DAILY RUCHI; Protocol Metoprolol Succinate (Metoprolol Succinate Er 25 Mg Tab.Er.24h) 25 mg PO BID RUCHI; Protocol Multivitamins/Vitamin C (Multivitamin Tablet) 1 tab PO DAILY RUCHI Non-Formulary Medication (Potassium Chloride) 20 meq PO BID [facility] Omeprazole (Omeprazole 20 Mg Capsule.) 20 mg PO DAILY@0630 [facility] Pharmacy Consult (Consult Rx Vancomycin Dosing) 1 each MISCELLANE DAILY PRN PRN Reason: Consult order Senna (Sennosides 8.6 Mg Tablet) 8.6 mg PO DAILY PRN PRN Reason: Constipation Sodium Chloride (0.9 % Sodium Chloride Flush 3 Ml Syringe) 3 ml IVFLUSH QSHIFT [facility] Home Medications Medication Instructions Recorded Confirmed Last Taken Type acetaminophen 325 mg tablet 650 mg PO Q4H PRN Pain 12/30/22 12/30/22 Unknown History amlodipine 10 mg tablet 10 mg PO DAILY 12/30/22 12/30/22 Unknown History aripiprazole 2 mg tablet 1 tab PO DAILY 12/30/22 12/30/22 Unknown History atorvastatin 10 mg tablet 10 mg PO BEDTIME 12/30/22 12/30/22 Unknown History clotrimazole-betamethasone 1 1 appl topical BID PRN Rash 12/30/22 12/30/22 Unknown History %-0.05 % topical cream clozapine 200 mg tablet 200 mg PO BID 12/30/22 12/30/22 Unknown History clozapine 50 mg tablet 50 mg PO BID 12/30/22 12/30/22 Unknown History ferrous sulfate 325 mg (65 mg 325 mg PO DAILY 12/30/22 12/30/22 Unknown History iron) tablet furosemide 40 mg tablet 40 mg PO BID 12/30/22 12/30/22 Unknown History gabapentin 400 mg capsule 400 mg PO TID 12/30/22 12/30/22 Unknown History hydrocortisone 1 % topical cream 1 appl topical Q12H PRN ECZEMA 12/30/22 12/30/22 Unknown History levetiracetam 750 mg tablet 750 mg PO BID 12/30/22 12/30/22 Unknown History levothyroxine 100 mcg tablet 100 mcg PO DAILY 12/30/22 12/30/22 Unknown History lisinopril 5 mg tablet 5 mg PO DAILY 12/30/22 12/30/22 Unknown History metoprolol succinate 25 mg 25 mg PO BID 12/30/22 12/30/22 Unknown History tablet,extended release 24 hr multivitamin 1 tab PO DAILY 12/30/22 12/30/22 Unknown History omeprazole 20 mg tablet,delayed 20 mg PO DAILY 12/30/22 12/30/22 Unknown History release oxycodone-acetaminophen 10 mg-325 1 tab PO TID 12/30/22 12/30/22 Unknown History mg tablet potassium chloride 20 mEq/15 mL 20 meq PO BID 12/30/22 12/30/22 Unknown History oral liquid sennosides 8.6 mg tablet (senna) 8.6 mg PO DAILY PRN Constipation 12/30/22 12/30/22 Unknown History Physical Exam Vital Signs and Narrative: Vital Signs: Last Vital Signs Temp 98.3 F 12/30/22 13:20 Pulse 76 12/30/22 13:20 Resp 18 12/30/22 13:20 BP 116/68 12/30/22 13:20 Pulse Ox 98 12/30/22 13:20 O2 Del Method 12/30/22 13:20 BMI result Body Mass Index 32.8 General: AO X 3, no acute distress, large left facial mass, ?lipoma Resp: CTA bilateral, no accessory muscles used CVS: S1,S2,RRR left hemiparesis Results Labs 12/30/22 11:29 12/30/22 11:58 Labs: Laboratory Results - last 24 hr 12/30/22 12/30/22 12/30/22 11:29 11:29 11:29 MCV 89.7 MCH 29.5 MCHC 32.9 RDW 13.1 Plt Count 180 MPV 9.3 L Immature Gran % (Auto) 0.9 H Neut % (Auto) 75.0 H Lymph % (Auto) 16.1 L [place] % (Auto) 7.3 Eos % (Auto) 0.5 Baso % (Auto) 0.2 Lymph # (Auto) 2.2 Grant # (Auto) 1.0 Eos # (Auto) 0.1 Baso # (Auto) 0.0 Abs Immat Gran (auto) 0.13 H Absolute Neuts (auto) 10.3 H Absolute Nucleated RBC 0.000 Nucleated RBC % (auto) 0.0 Anion Gap 17 Estim Creat Clear Calc 99.0 Estimated GFR > 60 Random Glucose 80 Lactic Acid Calcium 9.5 Total Bilirubin Direct Bilirubin AST ALT Alkaline Phosphatase B-Natriuretic Peptide Total Protein Albumin Lipase Urine Color Urine Appearance Urine pH Ur Specific [place] Urine Protein Urine Glucose (UA) Urine Ketones Urine Blood Urine Nitrite Ur Leukocyte Esterase COVID-19 (SAMAN) Negative COVID-19 Clin Com See Note 12/30/22 12/30/22 12/30/22 11:58 11:58 11:58 MCV MCH MCHC RDW Plt Count MPV Immature Gran % (Auto) Neut % (Auto) Lymph % (Auto) [place] % (Auto) Eos % (Auto) Baso % (Auto) Lymph # (Auto) Grant # (Auto) Eos # (Auto) Baso # (Auto) Abs Immat Gran (auto) Absolute Neuts (auto) Absolute Nucleated RBC Nucleated RBC % (auto) Anion Gap 14 Estim Creat Clear Calc 100.3 Estimated GFR > 60 Random Glucose 85 Lactic Acid 1.1 Calcium 9.3 Total Bilirubin 0.4 Direct Bilirubin < 0.2 AST 23 ALT 45 H Alkaline Phosphatase 103 B-Natriuretic Peptide < 10 Total Protein 6.8 Albumin 3.8 Lipase 23 Urine Color Urine Appearance Urine pH Ur Specific [place] Urine Protein Urine Glucose (UA) Urine Ketones Urine Blood Urine Nitrite Ur Leukocyte Esterase COVID-19 (SAMAN) COVID-19 [employer] Com 12/30/22 13:23 MCV MCH MCHC RDW Plt Count MPV Immature Gran % (Auto) Neut % (Auto) Lymph % (Auto) [place] % (Auto) Eos % (Auto) Baso % (Auto) Lymph # (Auto) Grant # (Auto) Eos # (Auto) Baso # (Auto) Abs Immat Gran (auto) Absolute Neuts (auto) Absolute Nucleated RBC Nucleated RBC % (auto) Anion Gap Estim Creat Clear Calc Estimated GFR Random Glucose Lactic Acid Calcium Total Bilirubin Direct Bilirubin AST ALT Alkaline Phosphatase B-Natriuretic Peptide Total Protein Albumin Lipase Urine Color Yellow Urine Appearance Clear Urine pH 6.5 Ur Specific [place] 1.015 Urine Protein Negative Urine Glucose (UA) Negative Urine Ketones Negative Urine Blood Negative Urine Nitrite Negative Ur Leukocyte Esterase Negative COVID-19 (SAMAN) COVID-19 [employer] [facility] Radiologist's Impressions: Impressions Chest X-Ray 12/30/22 12:36 IMPRESSION: 1. No acute cardiopulmonary process seen. 2. Chronic left shoulder dislocation with superimposed degenerative arthritic changes. Assessment and Plan (1) Bacteremia: Status: Acute Plan 57M pmh schizophrenia, diabetes, HLD, dysphagia, anemia, osteoarthritis, hypothyroid, HTN, CVA with left-sided residual deficits gram posistive blood cultures empiric vanc, follow up speciation, repeat ?DM not on meds, not hyperglycemic, check a1c htn toprol, lisinopirl, amlodipine obesity wegith loss schiophrenia continue clozaril, arippirazole, keppra, hld statin dvt prophylais - lovenox full code Time Spent With Patient Time: Total time managing care of this patient today ____ minutes. Quality Stroke Does the patient have a stroke diagnosis?: No VTE Prior VTE?: No VTE Risk Level:: Medical - moderate - high VTE Device Contraindication: Treatment Not Indicated VTE Drug Contraindication: N/A - Med Ordered
[2022-12-30] MEDS: Gabapentin 400 MG CAPSULE PO ×2 (15:47→21:59)
[2022-12-30 16:22] LABS: Estimated Average Glucose 100 mg/dL; Hemoglobin A1c % 5.1 %
[2022-12-30 18:09] VITALS: BP 106/78; PULSE 74; RESP 12; TEMP 36.8; O2SAT 99
--- NOTE | 2022-12-30 19:22 | PC.NURSE ---
assumed care of pt pt calling out to staff instructed pt how to use the call light pt stated he was ready to go to sleep lights dimmed for pt
--- NOTE | 2022-12-30 19:39 | PC.NURSE ---
this nurse changed en and linens pt clean and dry pt repositioned
[2022-12-30 20:00] VITALS: BP 125/63; PULSE 77; RESP 16; TEMP 37.4; O2SAT 97
--- NOTE | 2022-12-30 20:00 | MHC.EDTECH ---
this pct assumed care of pt at 1900 ,pt vitals sign taken pt resting quietly in bed .
--- NOTE | 2022-12-30 20:08 | PC.NURSE ---
pt requested sandwich and anuja ian given
[2022-12-30] MEDS: Potassium Chloride Packet 20 MEQ PACKET PO (21:59)
[2022-12-30] MEDS: Furosemide 40 MG TABLET PO (21:59)
[2022-12-30] MEDS: Metoprolol Succinate ER 25 MG TAB.ER.24H PO (21:59)
[2022-12-30] MEDS: levETIRAcetam 250 MG TABLET 750 MG PO (21:59)
[2022-12-30] MEDS: Atorvastatin Calcium 10 MG TABLET PO (21:59)
--- NOTE | 2022-12-30 21:59 | PC.NURSE ---
called pharmacy- no clozapine in ED pyxis
[2022-12-30] MEDS: cloZAPine 100 MG TABLET 200 MG PO (22:15)
[2022-12-30] MEDS: cloZAPine 25 MG TABLET 50 MG PO (22:15)
--- NOTE | 2022-12-30 22:17 | PC.NURSE ---
pt requested a sunbutter jelly sandwich- given
--- NOTE | 2022-12-30 22:18 | PC.NURSE ---
Ivon Deras RN from [facility] calling for update on pt.
--- NOTE | 2022-12-30 22:20 | MHC.EDTECH ---
PT RANG FOR A SNACK ,HAD SUN BUTTER AND JELLY SANDWICH AND A TENA ANNITA ,DRANK A CAN OF GIINGER ANNITA ,PT WAS HELP TO USE THE URINAL ,VOIDED 500 ML .
--- NOTE | 2022-12-30 23:04 | PC.NURSE ---
pt sleeping, no apparent distress
[2022-12-31] MEDS: 0.9 % Sodium Chloride Flush 3 ML SYRINGE IVFLUSH ×2 (00:26→09:16)
--- NOTE | 2022-12-31 00:26 | PC.NURSE ---
pt soiled pt cleaned, [facility] attire changed pt repositioned to right side and boosted no apparent distress warm blanket provided
[2022-12-31 01:26] VITALS: BP 91/45; PULSE 76; RESP 16; TEMP 36.6; O2SAT 97
[2022-12-31] MEDS: vancomycin HCL 1,000 MG in 0.9 % Sodium Chloride 250 ML 270 MG IV (01:45)
[2022-12-31] MEDS: Levothyroxine Sodium 100 MCG TABLET PO (06:03)
[2022-12-31 06:09] LABS: Hematocrit 39.7 % (42.0-52.0); Hemoglobin 13.1 g/dl (14.0-18.0); Mean Corpuscular Hemoglobin 29.8 pg (27.0-33.0); Mean Corpuscular Volume 90.4 fL (80.0-98.0); Mean Platelet Volume 10.2 fL (9.4-12.4); Platelet Count 183 X10*3/uL (160-400); Red Blood Count 4.39 X10*6/uL (4.60-5.80); Red Cell Distribution Width 13.1 % (11.0-16.0); White Blood Count 12.2 X10*3/uL (4.8-10.8)
[2022-12-31 06:26] LABS: Anion Gap 15 (12-20); Blood Urea Nitrogen 18 mg/dL (9-16); Calcium 9.1 mg/dL (8.4-10.2); Carbon Dioxide 20 mmol/L (22-29); Chloride 109 mmol/L (96-108); Creatinine Clr Calc Pharmacy 103.1; Estimated Glomerular Filt Rate > 60; Glucose Fasting 101 mg/dL (60-99); Sodium 140 mmol/L (135-145)
[2022-12-31] MEDS: Omeprazole 20 MG CAPSULE.DR PO (07:18)
[2022-12-31 07:53] VITALS: BP 121/70; PULSE 87; RESP 12; TEMP 36.8; O2SAT 100
--- NOTE | 2022-12-31 09:00 | PC.NURSE ---
Pt repositioned in the bed, multiple requests for cereal. Voided 100mL.
[2022-12-31] MEDS: cloZAPine 100 MG TABLET 200 MG PO (09:14)
[2022-12-31] MEDS: cloZAPine 25 MG TABLET 50 MG PO (09:14)
[2022-12-31] MEDS: ARIPiprazole 2 MG TABLET PO (09:14)
[2022-12-31] MEDS: Multivitamin TABLET 1 TAB PO (09:15)
[2022-12-31] MEDS: Gabapentin 400 MG CAPSULE PO (09:15)
[2022-12-31] MEDS: Furosemide 40 MG TABLET PO (09:15)
[2022-12-31] MEDS: lisinopriL 5 MG TABLET PO (09:15)
[2022-12-31] MEDS: Ferrous Sulfate 324 MG TABLET.DR PO (09:15)
[2022-12-31] MEDS: levETIRAcetam 250 MG TABLET 750 MG PO (09:15)
[2022-12-31] MEDS: Potassium Chloride Packet 20 MEQ PACKET PO (09:15)
[2022-12-31] MEDS: amLODIPine Besylate 10 MG TABLET PO (09:15)
[2022-12-31] MEDS: Metoprolol Succinate ER 25 MG TAB.ER.24H PO (09:16)
--- NOTE | 2022-12-31 09:43 | PC.NURSE ---
Ate breakfast with assistance, purewick in place. Took medications individually, watching tv with call chew in reach.
--- NOTE | 2022-12-31 09:50 | P.DS_ITS ---
DS: Providers Provider Date of Service: 12/31/22 Date of admission: 12/30/22 14:39 Primary care physician: August Baldwin DO DS: Diagnosis Discharge Diagnosis (1) Bacteremia: Status: Acute DS: Summary Hospital Course Hospital Course: 57M pmh schizophrenia, diabetes, HLD, dysphagia, anemia, osteoarthritis, hypothyroid, HTN, CVA with left-sided residual deficits, wheelchair-bound sent back to hospital for 2/2 GPC in clusters in blood. patient denies any symptoms. afebrile, mild leukocytosis hospital course: Patient was observed on empiric IV vancomycin for 2/2 blood culture positive for gram-positive cocci in clusters. Species came back as coag-negative Staph, lik sanket contaminant, no further treatment is indicated. Diabetes was mentioned in his past medical history, however, he is not on meds and hemoglobin A1c is 5.1, currently no evidence of active diabetes. For hypertension he was continued on Toprol, lisinopril, amlodipine. For obesity weight loss recommended. For schizophrenia he was continue on Clozaril, aripiprazole, Keppra. For his hyperlipidemia is continue on statin. Patient will be discharged back to [facility]. Time Spent with Patient Time attestation: Total time managing care of this patient today ____ minutes. Discharge coordination time: Greater than 30 minutes Quality: Safe Use of Opioids Does Pt have an Active Cancer Diagnosis on the Problem List?: No Quality: Stroke Does the patient have a stroke diagnosis?: No Physical Exam Vital Signs: Vital Signs: Last Vital Signs Temp 98.2 F 12/31/22 07:53 Pulse 87 12/31/22 07:53 Resp 12 12/31/22 07:53 BP 121/70 12/31/22 07:53 Pulse Ox 100 12/31/22 07:53 O2 Del Method 12/31/22 07:53 BMI result Body Mass Index 32.8 General: AO X 3, no acute distress, large left facial mass, ?lipoma Resp:? CTA bilateral, no accessory muscles used CVS: S1,S2,RRR left hemiparesis DS: Data Data Completed and Pending Labs on day of discharge: Laboratory Results - last 24 hr 12/30/22 12/30/22 12/30/22 11:29 11:29 11:29 WBC 13.9 H RBC 4.47 L Hgb 13.2 L Hct 40.1 L MCV 89.7 MCH 29.5 MCHC 32.9 RDW 13.1 Plt Count 180 MPV 9.3 L Immature Gran % (Auto) 0.9 H Neut % (Auto) 75.0 H Lymph % (Auto) 16.1 L Mccormick % (Auto) 7.3 Eos % (Auto) 0.5 Baso % (Auto) 0.2 Lymph # (Auto) 2.2 Mccormick # (Auto) 1.0 Eos # (Auto) 0.1 Baso # (Auto) 0.0 Abs Immat Gran (auto) 0.13 H Absolute Neuts (auto) 10.3 H Absolute Nucleated RBC 0.000 Nucleated RBC % (auto) 0.0 Sodium 142 Potassium 4.2 Chloride 105 Carbon Dioxide 24 Anion Gap 17 BUN 16 Creatinine 0.77 Estim Creat Clear Calc 99.0 Estimated GFR > 60 Random Glucose 80 Fasting Glucose Estimat Average Glucose Hemoglobin A1c % Lactic Acid Calcium 9.5 Total Bilirubin Direct Bilirubin AST ALT Alkaline Phosphatase B-Natriuretic Peptide Total Protein Albumin Lipase Urine Color Urine Appearance Urine pH Ur Specific Gilead Urine Protein Urine Glucose (UA) Urine Ketones Urine Blood Urine Nitrite Ur Leukocyte Esterase COVID-19 (SAMAN) Negative COVID-19 Clin Com See Note 12/30/22 12/30/22 12/30/22 11:29 11:58 11:58 WBC RBC Hgb Hct MCV MCH MCHC RDW Plt Count MPV Immature Gran % (Auto) Neut % (Auto) Lymph % (Auto) Mccormick % (Auto) Eos % (Auto) Baso % (Auto) Lymph # (Auto) Mccormick # (Auto) Eos # (Auto) Baso # (Auto) Abs Immat Gran (auto) Absolute Neuts (auto) Absolute Nucleated RBC Nucleated RBC % (auto) Sodium 141 Potassium 4.1 Chloride 106 Carbon Dioxide 25 Anion Gap 14 BUN 16 Creatinine 0.76 Estim Creat Clear Calc 100.3 Estimated GFR > 60 Random Glucose 85 Fasting Glucose Estimat Average Glucose 100 Hemoglobin A1c % 5.1 Lactic Acid 1.1 Calcium 9.3 Total Bilirubin 0.4 Direct Bilirubin < 0.2 AST 23 ALT 45 H Alkaline Phosphatase 103 B-Natriuretic Peptide Total Protein 6.8 Albumin 3.8 Lipase 23 Urine Color Urine Appearance Urine pH Ur Specific Gilead Urine Protein Urine Glucose (UA) Urine Ketones Urine Blood Urine Nitrite Ur Leukocyte Esterase COVID-19 (SAMAN) COVID-19 Network Game Interaction Com 12/30/22 12/30/22 12/31/22 11:58 13:23 05:29 WBC 12.2 H RBC 4.39 L Hgb 13.1 L Hct 39.7 L MCV 90.4 MCH 29.8 MCHC 33.0 RDW 13.1 Plt Count 183 MPV 10.2 Immature Gran % (Auto) Neut % (Auto) Lymph % (Auto) Mccormick % (Auto) Eos % (Auto) Baso % (Auto) Lymph # (Auto) Mccormick # (Auto) Eos # (Auto) Baso # (Auto) Abs Immat Gran (auto) Absolute Neuts (auto) Absolute Nucleated RBC 0.000 Nucleated RBC % (auto) 0.0 Sodium Potassium Chloride Carbon Dioxide Anion Gap BUN Creatinine Estim Creat Clear Calc Estimated GFR Random Glucose Fasting Glucose Estimat Average Glucose Hemoglobin A1c % Lactic Acid Calcium Total Bilirubin Direct Bilirubin AST ALT Alkaline Phosphatase B-Natriuretic Peptide < 10 Total Protein Albumin Lipase Urine Color Yellow Urine Appearance Clear Urine pH 6.5 Ur Specific Gilead 1.015 Urine Protein Negative Urine Glucose (UA) Negative Urine Ketones Negative Urine Blood Negative Urine Nitrite Negative Ur Leukocyte Esterase Negative COVID-19 (SAMAN) COVID-19 Network Game Interaction Com 12/31/22 05:29 WBC RBC Hgb Hct MCV MCH MCHC RDW Plt Count MPV Immature Gran % (Auto) Neut % (Auto) Lymph % (Auto) Mccormick % (Auto) Eos % (Auto) Baso % (Auto) Lymph # (Auto) Mccormick # (Auto) Eos # (Auto) Baso # (Auto) Abs Immat Gran (auto) Absolute Neuts (auto) Absolute Nucleated RBC Nucleated RBC % (auto) Sodium 140 Potassium 4.0 Chloride 109 H Carbon Dioxide 20 L Anion Gap 15 BUN 18 H Creatinine 0.74 Estim Creat Clear Calc 103.1 Estimated GFR > 60 Random Glucose Fasting Glucose 101 H Estimat Average Glucose Hemoglobin A1c % Lactic Acid Calcium 9.1 Total Bilirubin Direct Bilirubin AST ALT Alkaline Phosphatase B-Natriuretic Peptide Total Protein Albumin Lipase Urine Color Urine Appearance Urine pH Ur Specific Gilead Urine Protein Urine Glucose (UA) Urine Ketones Urine Blood Urine Nitrite Ur Leukocyte Esterase COVID-19 (SAMAN) COVID-19 Clin Com Discharge Plan Discharge Anticipated Discharge Date/Time: 12/31/22 09:49 Patient Disposition: Xfer [facility] Discharge Diagnosis: coag negative contaminant in blood culture Referrals: August Baldwin DO [Primary Care Provider] - 1 Week Discharge Medications: Continued multivitamin Tablet 1 tab PO DAILY furosemide 40 mg Tablet 40 mg PO BID sennosides [senna] 8.6 mg Tablet 8.6 mg PO DAILY PRN (Reason: Constipation) acetaminophen 325 mg Tablet 650 mg PO Q4H PRN (Reason: Pain) atorvastatin 10 mg Tablet 10 mg PO BEDTIME gabapentin 400 mg Capsule 400 mg PO TID potassium chloride 20 mEq/15 mL Liquid 20 meq PO BID levothyroxine 100 mcg Tablet 100 mcg PO DAILY oxycodone-acetaminophen 10-325 mg Tablet 1 tab PO TID amlodipine 10 mg Tablet 10 mg PO DAILY hydrocortisone 1 % Cream 1 appl TOPICAL Q12H PRN (Reason: ECZEMA) ferrous sulfate 325 mg (65 mg iron) Tablet 325 mg PO DAILY clotrimazole-betamethasone 1-0.05 % Cream 1 appl TOPICAL BID PRN (Reason: Rash) levetiracetam 750 mg Tablet 750 mg PO BID lisinopril 5 mg Tablet 5 mg PO DAILY metoprolol succinate 25 mg Tablet Extended Release 24 Hr 25 mg PO BID clozapine 50 mg tablet 50 mg PO BID aripiprazole 2 mg tablet 1 tab PO DAILY clozapine 200 mg tablet 200 mg PO BID omeprazole 20 mg Tablet,Delayed Release (Dr/Ec) 20 mg PO DAILY Discharge Orders: Discharge Order (Routine); Ordered 12/31/22 Ordered By: Hipolito Dailey Diet: Advance to usual diet Activity on Discharge: As tolerated Stand Alone Forms: Patient Portal Discharge page Care Plan Goals: no acute issues Health Concerns: chronic comorbidities Plan of Treatment: no changes Assessment: see above
== END 2022-12-31 11:18 | disposition skilled nursing facility (03) ==
LOC: HO.ED 13:55 → HO.EDOVER 14:49
PROVIDERS: Admitting Provider Internal Medicine; Emergency Provider Emergency Medicine; PCP Hospitalist; Visit Provider Internal Medicine
DX: R78.81 Bacteremia (principal); I69.354 Hemiplegia and hemiparesis following cerebral infarction affecting left non-dominant side; I10 Essential (primary) hypertension; F20.9 Schizophrenia, unspecified; Z99.3 Dependence on wheelchair; E78.5 Hyperlipidemia, unspecified; E11.9 Type 2 diabetes mellitus without complications; M19.90 Unspecified osteoarthritis, unspecified site; Z79.899 Other long term (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; D72.829 Elevated white blood cell count, unspecified; Z20.822 Contact with and (suspected) exposure to COVID-19
CPT/HCPCS: 36415; 71045; 80048; 80076; 81003; 83036; 83605; 83690; 83880; 85025; 85027; 87040; 87635; 96365; 96367; 99221; 99285; J3370

== ENCOUNTER 2024-12-24 09:54 | Outpatient (AMB) | payer MEDICARE, MEDICAID, SELFPAY ==
[2024-12-24 10:03] VITALS: BP 87/55; PULSE 73
--- NOTE | 2024-12-24 10:03 | A.OFFVIS_ITS ---
Vital Signs 12/24/24 10:03 Height 5 ft 3 in BMI Reason not done Patient refused/unable BP 87/55 L Blood Pressure Location Lt brachial Position Sitting Pulse 73 Comment wheelchair bound Intake Visit Reasons: pre colonoscopy Intake Note: Norris presents in office today as a new patient for colonoscopy screening. CC: Denies having any GI symptoms or concerns today. Banquet Prep Cook Required: No Accompanied by: Employee Allergies piperacillin [From Zosyn] Allergy (Mild, Verified 12/24/24 10:04) RASH tazobactam [From Zosyn] Allergy (Mild, Verified 12/24/24 10:04) RASH Sulfa (Sulfonamide Antibiotics) Allergy (Unknown, Verified 12/24/24 10:04) Unknown sulfamethoxazole [From Bactrim] Allergy (Unknown, Verified 12/24/24 10:26) Unknown trimethoprim [From Bactrim] Allergy (Unknown, Verified 12/24/24 10:26) Unknown HPI HPI pre colonoscopy: Details: 59-year-old male will with past medical history of schizophrenia, history of head injury, seizures, anemia, lymphedema, hypertension, hyperlipidemia, hyperthyroidism, diabetes is here today for pre colonoscopy screening.? Patient was sent to us by his PCP.? This is his first colonoscopy screening.? Patient is here from [facility]. Patient is accompanied by staff member who does not know the patient. She works on a different floor. Call made to speak with patient is nurse. All information pertaining to patient was ask of the nurse. Known known history of colonoscopy in the past. No issues with moving his bowels. Occasional Senokot given about wants to twice a day month as needed. Patient is on daily omeprazole and is not complaining of any acid reflux. No blood reported in his stools. No known family history of CRC. Patient denies any gastrointestinal symptoms in the past or at present.?Denies history of difficulty with sedation or anesthesia in the past.? Negative for history of sleep apnea.? No documented history of cardiac, renal, pulmonary, or hepatic disease.?? No history of infectious? diseases like hepatitis A, B, C, HIV or tuberculosis.? Patient is not on any anticoagulation PFSH Social History Alcohol intake: unknown Patient Tobacco Use Status: Tobacco use Unknown Review of Systems Const Denies weight gain and Denies weight loss ENT Reports no additional complaints, Denies dysphagia and Denies odynophagia Card Reports no additional complaints Resp Reports no additional complaints GI Denies abdominal pain, Denies belching, Denies melena, Denies bloating, Denies change in bowel habits, Denies dysphagia, Denies excessive flatus, Denies dyspepsia, Denies heartburn, Denies diarrhea, Denies loose stools, Denies nausea, Denies odynophagia and Denies vomiting Reports no additional complaints Musc Reports no additional complaints Neuro Reports no additional complaints Psych Reports no additional complaints Endo Reports no additional complaints Physical Exam Vital Signs: Last Vital Signs Pulse 73 12/24/24 10:03 BP 87/55 L 12/24/24 10:03 Const Other: Patient is sitting in the wheelchair General: healthy appearing and no acute distress Nutritional Appearance: well nourished Resp Effort & Inspection: normal respiratory effort, able to speak in complete sentences, no tracheal deviation and symmetric chest movement Auscultation: clear to auscultation bilaterally Cardio Rate: regular rate GI Inspection: Yes normal to inspection and No distended Palpation (GI): Soft to palpation, not firm, nontender and No hepatosplenomegaly present Auscultation: normal bowel sounds General: Yes no CVA tenderness Back/Spine/Pelvis Back: no CVA tenderness Skin General skin exam: elasticity normal, turgor normal and dry skin Psych Appearance: grossly normal Mental Status: mental status grossly normal Assessment & Plan Assessment & Plan (1) Screen for colon cancer: Code(s): Z12.11 - Encounter for screening for malignant neoplasm of colon Plan Patient denies any GI, cardiac or respiratory symptoms.? Denies any issues with anesthesia in the past.? Denies any history of sleep apnea.? No history infectious diseases in the past or present.? Not on any anticoagulation therapy.? No family or personal history of colon cancer or polyps.? Patient denies melena, hematochezia, unintentional weight loss or ribbon like stools.? Discussed at length the pre-procedure,? prep, diet & medications as well as what to expect prior, during and after the procedure with staff. Informational pamphlet given to staff member with additional instructions.?? Stressed the importance of good bowel prep.? Recommended the use of Vaseline or Calmoseptine OTC & baby wipes with bowel movements to promote comfort.? ?Patient verbalizes understanding and agrees to plan of care.? Both patient and staff member were given the opportunity to ask questions and all questions answered. Thank you for allowing me to participate in his care Medications: New bisacodyl (Dulcolax (bisacodyl)) take 4 tabs at noon the day before your colonoscopy 20 mg (4 x 5 mg) PO ONCE 1 day 4 tabs 0RF Z12.11 - Encounter for screening for malignant neoplasm of colon polyethylene glycol 3350 (Miralax) As directed by gastroenterology department at [facility] 238 grams PO ONCE 238 grams 0RF Z12.11 - Encounter for screening for malignant neoplasm of colon Coding Level of Care Code New Pt Level 3 (00951) Diagnoses Screen for colon cancer Z12.11 Time Spent (min) 40 Comment 30 minutes spent with patient and additional 10 minutes spent reviewing his records
--- OUTSIDE RECORDS SUMMARY | 2024-12-24 11:46 | XMS_ITS | Encounter Summary ---
Author Organization [facility] Address [address] [place] [address] Care Team Providers Care Underwriting Service Representative Name Role Phone August Baldwin MD Primary Care Provider [phone] Encounter Details Date Type Department Care Team (Late st Contact Info) Description 09/05/2024 Lab Requisition [facility] - Main Lab [address] [place] [address] August Baldwin MD [address] [place] [address] [address] [place], [place] Essential (primary) hypertension Social History Tobacco Use Types Packs/Day Years Used Date Smoking Tobacco: Never Assessed Sex and Gender Information Value Date Recorded Sex Assigned at Not on file Legal Sex Male 10:29 AM EST Gender Identity Not on file Sexual Orientation Not on file documented as of this encounter Plan of Treatment Not on file documented as of this encounter Procedures Procedure Name Priority Date/Time Associated Diagnosis Comments MAGNESIUM Routine 09/05/2024 5:05 AM EST Essential (primary) hypertension BASIC METABOLIC PANEL Routine 09/05/2024 5:05 AM EST Essential (primary) hypertension documented in this encounter Results * Magnesium (09/05/2024 5:05 AM EST) Magnesium 2.3 1.9 - 2.6 mg/dL LAB CHEMISTRY METHOD 09/05/2024 7:08 AM EST [facility] ([facility] Blood Venous blood specimen / Unknown 09/05/2024 5:05 AM EST 09/05/2024 6:01 AM EST us August Baldwin MD LAB BLOOD ORDERABLES Final Resul t [facility] [address] [place] [address], * (ABNORMAL) Basic metabolic panel (09/05/2024 5:05 AM EST) Sodium 137 133 - 145 mmol/L LAB CHEMISTRY METHOD 09/05/2024 7:[address] [facility] Potassium 3.4(L) 3.5 - 5.5 mmol/L LAB CHEMISTRY METHOD 09/05/2024 7:[address] [facility] Chloride 101 96 - 110 mmol/L LAB CHEMISTRY METHOD 09/05/2024 7:[address] [facility] CO2 28 21 - 32 mmol/L LAB CHEMISTRY METHOD 09/05/2024 7:[address] [facility] Anion Gap 8 3 - 11 LAB CHEMISTRY METHOD 09/05/2024 7:[address] [facility] Glucose 77 70 - 100 mg/dL LAB CHEMISTRY METHOD 09/05/2024 7:[address] [facility] BUN 20 5 - 25 mg/dL LAB CHEMISTRY METHOD 09/05/2024 7:[address] [facility] Creatinine 0.94 0.70 - 1.30 mg/dL LAB CHEMISTRY METHOD 09/05/2024 7:[address] [facility] eGFR 92 >=60 mL/min/1. 73m2 LAB CHEMISTRY METHOD 09/05/2024 7:[address] [facility] Comment:Calculation based on the??Chronic Kidney Disease Epidemiology Collaboration (CKD-EPI) equation refit??without adjustment for race. BUN/Creatinine Ratio 21.3 LAB CHEMISTRY METHOD 09/05/2024 7:[address] [facility] Calcium 9.8 8.5 - 10.5 mg/dL LAB CHEMISTRY METHOD 09/05/2024 7:[address] [facility] Blood Venous blood specimen / Unknown 09/05/2024 5:05 AM EST 09/05/2024 6:01 AM EST August Baldwin MD LAB BLOOD ORDERABLES Final Resul t [facility] ([facility]) [facility] [address] [place] [address], documented in this encounter Visit Diagnoses Diagnosis Essential (primary) hypertension Unspecified essential hypertension documented in this encounter Care Teams Underwriting Service Representative Relationship Specialty Start Date End Date August Baldwin MD [address] [place] [address] Dr [address] [place], [place] PCP - General Internal Medicine 12/09/24 documented as of this encounter
--- OUTSIDE RECORDS SUMMARY | 2024-12-24 11:46 | XMS_ITS | Encounter Summary ---
Author Organization [facility] Address [address] [place] [id number] Care Team Providers Care Production Staff Worker Name Role Phone August Baldwin MD Primary Care Provider [phone] Encounter Details Date Type Department Care Team (Late st Contact Info) Description 10/23/2024 Lab Requisition [facility] Lab [address] [place] [address] August Baldwin MD [address] [place] [address] [address] [place], [place] Schizophrenia, unspecified (CMS/HCC) Social History Tobacco Use Types Packs/Day Years [...] Procedure Name Priority Date/Time Associated Diagnosis Comments BASIC METABOLIC PANEL Routine 10/23/2024 1:10 PM EST Schizophrenia, unspecified (CMS/HCC) documented in this encounter Results * (ABNORMAL) Basic metabolic panel (10/23/2024 1:10 PM EST) Sodium 136 133 - 145 mmol/L LAB CHEMISTRY METHOD 10/23/2024 2:25 PM EST [facility] Potassium 4.0 3.5 - 5.5 mmol/L LAB CHEMISTRY METHOD 10/23/2024 2:25 PM EST [facility] Chloride 104 96 - 110 mmol/L LAB CHEMISTRY METHOD 10/23/2024 2:25 PM EST [facility] CO2 28 21 - 32 mmol/L LAB CHEMISTRY METHOD 10/23/2024 2:25 PM [facility] Anion Gap 4 3 - 11 LAB CHEMISTRY METHOD 10/23/2024 2:25 PM [facility] Glucose 114(H) 70 - 100 mg/dL LAB CHEMISTRY METHOD 10/23/2024 2:25 PM [facility] BUN 19 5 - 25 mg/dL LAB CHEMISTRY METHOD 10/23/2024 2:25 PM [facility] Creatinine 0.76 0.70 - 1.30 mg/dL LAB CHEMISTRY METHOD 10/23/2024 2:25 PM [facility] eGFR 102 >=60 mL/min/1. 73m2 LAB CHEMISTRY METHOD 10/23/2024 2:25 PM [facility] Comment:Calculation based on the??Chronic Kidney Disease Epidemiology Collaboration (CKD-EPI) equation refit??without adjustment for race. BUN/Creatinine Ratio 25.0 LAB CHEMISTRY METHOD 10/23/2024 2:25 PM [facility] Calcium 9.0 8.5 - 10.5 mg/dL LAB CHEMISTRY METHOD 10/23/2024 2:25 PM [facility] Blood Venous blood specimen / Unknown 10/23/2024 1:10 PM EST 10/23/2024 1:52 PM EST us August Baldwin MD LAB BLOOD ORDERABLES Final Resul t [facility] [address] [place] [address], documented in this encounter Visit Diagnoses Diagnosis Schizophrenia, unspecified (CMS/HCC) documented in this encounter Care Teams Production Staff Worker Relationship Specialty Start Date End Date August Baldwin MD [address] [place] [address] Dr [place] [place] THI Sparks PCP - General Internal Medicine 12/09/24 documented as of this encounter
--- OUTSIDE RECORDS SUMMARY | 2024-12-24 11:46 | XMS_ITS | Encounter Summary ---
Author Organization [facility] Address [address] [place] [id number] Care Team Providers Care Printed Circuit Board Panels Trimmer Name Role Phone August Baldwin MD Primary Care Provider Encounter Details Date Type Department Care Team (Late st Contact Info) Description 10/14/2024 Lab Requisition [facility] - Main Lab [address] [place] [address] August Baldwin MD [address] [place] [address] [address] [place] Other long term care administrator (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 Social History Tobacco Use Types Packs/Day Years [...] Procedure Name Priority Date/Time Associated Diagnosis Comments CBC WITH AUTO DIFFERENTIAL Routine 10/14/2024 7:26 AM EST Other care home (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 CBC AND DIFFERENTIAL Routine 10/14/2024 7:26 AM EST Other care home (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 documented in this encounter Results * (ABNORMAL) CBC auto differential (10/14/2024 7:26 AM EST) WBC 14.2(H) 4.8 - 10.8 K/[facility] LAB HEMETOLOGY METHOD 10/14/2024 8:26 AM EST [facility] RBC 4.40(L) 4.50 - 5.50 M/[facility] LAB HEMETOLOGY METHOD 10/14/2024 8:26 AM EST [facility] Hemoglobin 12.9(L) 13.5 - 17.5 g/dL LAB HEMETOLOGY METHOD 10/14/2024 8:[address] [facility] Hematocrit 40.2(L) 42.0 - 54.0 % LAB HEMETOLOGY METHOD 10/14/2024 8:[address] [facility] MCV 91.6 79.0 - 98.0 FL LAB HEMETOLOGY METHOD 10/14/2024 8:[address] [facility] MCH 29.4 27.0 - 32.0 pcg LAB HEMETOLOGY METHOD 10/14/2024 8:[address] [facility] MCHC 32.1 32.0 - 37.0 g/dL LAB HEMETOLOGY METHOD 10/14/2024 8:[address] [facility] RDW 13.3 11.0 - 15.0 % LAB HEMETOLOGY METHOD 10/14/2024 8:[address] [facility] Platelets 202 130 - 400 K/mcL LAB HEMETOLOGY METHOD 10/14/2024 8:[address] [facility] MPV 9.8 7.0 - 11.0 FL LAB HEMETOLOGY METHOD 10/14/2024 8:[address] [facility] NRBC 0.0 <1.0 % LAB HEMETOLOGY METHOD 10/14/2024 8:[address] [facility] NRBC Absolute 0.00 <0.10 K/mcL LAB HEMETOLOGY METHOD 10/14/2024 8:[address] [facility] Neutrophils Relative 71.8 % LAB HEMETOLOGY METHOD 10/14/2024 8:[address] [facility] Lymphocytes Relative 17.7 % LAB HEMETOLOGY METHOD 10/14/2024 8:[address] [facility] Monocytes Relative 7.8 % LAB HEMETOLOGY METHOD 10/14/2024 8:26 AM EST [facility] Eosinophils Relative 1.1 % LAB HEMETOLOGY METHOD 10/14/2024 8:[address] [facility] Basophils Relative 0.4 % LAB HEMETOLOGY METHOD 10/14/2024 8:[address] [facility] Immature Granulocytes Relative 1.2 % LAB HEMETOLOGY METHOD 10/14/2024 8:[address] [facility] Neutrophils Absolute 10.16(H) 1.50 - 7.00 K/mcL LAB HEMETOLOGY METHOD 10/14/2024 8:[address] [facility] Lymphocytes Absolute 2.50 1.00 - 5.00 K/mcL LAB HEMETOLOGY METHOD 10/14/2024 8:[address] [facility] Monocytes Absolute 1.10(H) 0.20 - 1.00 K/mcL LAB HEMETOLOGY METHOD 10/14/2024 8:[address] [facility] Eosinophils Absolute 0.16 0.00 - 0.50 K/mcL LAB HEMETOLOGY METHOD 10/14/2024 8:[address] [facility] Basophils Absolute 0.06 0.00 - 0.20 K/mcL LAB HEMETOLOGY METHOD 10/14/2024 8:[address] [facility] Immature Granulocytes Absolute 0.17(H) 0.00 - 0.03 K/mcL LAB HEMETOLOGY METHOD 10/14/2024 8:[address] [facility] Blood Venous blood specimen / Unknown 10/14/2024 7:26 AM EST 10/14/2024 8:12 AM EST us August Baldwin MD LAB BLOOD ORDERABLES Final Resul t [facility] [address] [place] [address], documented in this encounter Visit Diagnoses Diagnosis Other care home (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 documented in this encounter Care Teams Printed Circuit Board Panels Trimmer Relationship Specialty Start Date End Date August Baldwin MD [address] THI Sparks PCP - General Internal Medicine 12/09/24 documented as of this encounter
--- OUTSIDE RECORDS SUMMARY | 2024-12-24 11:46 | XMS_ITS | Encounter Summary ---
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 Social History Tobacco Use [...] Diagnosis Comments CBC WITH AUTO DIFFERENTIAL Routine 12/09/2024 6:05 AM EST Essential (primary) hypertension Hypothyroidism, unspecified 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 CBC AND DIFFERENTIAL Routine 12/09/2024 6:05 AM EST Essential (primary) hypertension Hypothyroidism, unspecified 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 THYROID STIMULATING HORMONE Routine 12/09/2024 6:05 AM EST Essential (primary) hypertension Hypothyroidism, unspecified Other residential (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 THYROXINE FREE Routine 12/09/2024 6:05 AM EST Essential (primary) hypertension Hypothyroidism, unspecified Other residential (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 MAGNESIUM Routine 12/09/2024 6:05 AM EST Essential (primary) hypertension Hypothyroidism, unspecified Other residential (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 BASIC METABOLIC PANEL Routine 12/09/2024 6:05 AM EST Essential (primary) hypertension Hypothyroidism, unspecified Other residential (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 documented in this encounter Results * (ABNORMAL) CBC auto differential (12/09/2024 6:05 AM EST) [facility] WBC 12.1(H) 4.8 - 10.8 K/mcL LAB HEMETOLOGY METHOD 12/09/2024 6:48 AM [facility] RBC 4.00(L) 4.50 - 5.50 M/mcL LAB HEMETOLOGY METHOD 12/09/2024 6:48 AM [facility] Hemoglobin 11.9(L) 13.5 - 17.5 g/dL LAB HEMETOLOGY METHOD 12/09/2024 6:48 AM [facility] Hematocrit 36.6(L) 42.0 - 54.0 % LAB HEMETOLOGY METHOD 12/09/2024 6:48 AM [facility] MCV 92.0 79.0 - 98.0 FL LAB HEMETOLOGY METHOD 12/09/2024 6:48 AM [facility] LAB MCH 29.9 27.0 - 32.0 pcg LAB HEMETOLOGY METHOD 12/09/2024 6:48 AM [facility] LAB MCHC 32.5 32.0 - 37.0 g/dL LAB HEMETOLOGY METHOD 12/09/2024 6:48 AM [facility] RDW 13.4 11.0 - 15.0 % LAB HEMETOLOGY METHOD 12/09/2024 6:48 AM [facility] Platelets 169 130 - 400 K/mcL LAB HEMETOLOGY METHOD 12/09/2024 6:48 AM [facility] MPV 9.6 7.0 - 11.0 FL LAB HEMETOLOGY METHOD 12/09/2024 6:48 AM [facility] NRBC 0.0 <1.0 % LAB HEMETOLOGY METHOD 12/09/2024 6:48 AM [facility] NRBC Absolute 0.00 <0.10 K/mcL LAB HEMETOLOGY METHOD 12/09/2024 6:48 AM [facility] Neutrophils Relative 68.1 % LAB HEMETOLOGY METHOD 12/09/2024 6:48 AM [facility] Lymphocytes Relative 17.7 % LAB HEMETOLOGY METHOD 12/09/2024 6:48 AM [facility] Monocytes Relative 11.9 % LAB HEMETOLOGY METHOD 12/09/2024 6:48 AM [facility] Eosinophils Relative 1.1 % LAB HEMETOLOGY METHOD 12/09/2024 6:48 AM [facility] Basophils Relative 0.4 % LAB HEMETOLOGY METHOD 12/09/2024 6:48 AM [facility] Immature Granulocytes Relative 0.8 % LAB HEMETOLOGY METHOD 12/09/2024 6:48 AM [facility] Neutrophils Absolute 8.22(H) 1.50 - 7.00 K/mcL LAB HEMETOLOGY METHOD 12/09/2024 6:48 AM [facility] Lymphocytes Absolute 2.14 1.00 - 5.00 K/mcL LAB HEMETOLOGY METHOD 12/09/2024 6:48 AM [facility] Monocytes Absolute 1.44(H) 0.20 - 1.00 K/mcL LAB HEMETOLOGY METHOD 12/09/2024 6:48 AM [facility] Eosinophils Absolute 0.13 0.00 - 0.50 K/mcL LAB HEMETOLOGY METHOD 12/09/2024 6:48 AM [facility] Basophils Absolute 0.05 0.00 - 0.20 K/[facility] LAB HEMETOLOGY METHOD 12/09/2024 6:48 AM EST [facility] Immature Granulocytes Absolute 0.10(H) 0.00 - 0.03 K/[facility] LAB HEMETOLOGY METHOD 12/09/2024 6:48 AM EST [facility] Blood Venous blood specimen / Unknown 12/09/2024 6:05 AM EST 12/09/2024 6:36 AM EST us August Baldwin MD LAB BLOOD ORDERABLES Final Resul t [facility] [address] [place] [address], [place] [phone] * Thyroid stimulating hormone (12/09/2024 6:05 AM EST) TSH 1.50 0.40 - 4.00 mcIU/mL LAB CHEMISTRY METHOD 12/09/2024 7:31 AM EST [facility] Blood Venous blood specimen / Unknown 12/09/2024 6:05 AM EST 12/09/2024 6:36 AM EST us August Baldwin MD LAB BLOOD ORDERABLES Final Resul t [facility] [address] [place] [address], [place] [phone] * (ABNORMAL) Magnesium (12/09/2024 6:05 AM EST) Magnesium 1.8(L) 1.9 - 2.6 mg/dL LAB CHEMISTRY METHOD 12/09/2024 7:18 AM EST [facility] Blood Venous blood specimen / Unknown 12/09/2024 6:05 AM EST 12/09/2024 6:36 AM EST us August Baldwin MD LAB BLOOD ORDERABLES Final Resul t Performing Organization Address [facility]/ZIP Co de Phone Number [facility] [address] [place] [address], * Thyroxine free (12/09/2024 6:05 AM EST) Free T4 1.10 0.70 - 1.80 ng/dL LAB CHEMISTRY METHOD 12/09/2024 7:31 AM EST [facility] Blood Venous blood specimen / Unknown 12/09/2024 6:05 AM EST 12/09/2024 6:36 AM EST August Baldwin MD LAB BLOOD ORDERABLES Final Resul t Performing Organization Address [facility] de Phone Number [facility] [address] [place] [address], [place] [phone] * (ABNORMAL) Basic metabolic panel (12/09/2024 6:05 AM EST) Pathologist [facility] Sodium 137 133 - 145 mmol/L LAB CHEMISTRY METHOD 12/09/2024 7:18 AM [facility] Potassium 3.4(L) 3.5 - 5.5 mmol/L LAB CHEMISTRY METHOD 12/09/2024 7:18 AM [facility] Chloride 105 96 - 110 mmol/L LAB CHEMISTRY METHOD 12/09/2024 7:18 AM [facility] CO2 27 21 - 32 mmol/L LAB CHEMISTRY METHOD 12/09/2024 7:18 AM [facility] Anion Gap 5 3 - 11 LAB CHEMISTRY METHOD 12/09/2024 7:18 AM [facility] Glucose 88 70 - 100 mg/dL LAB CHEMISTRY METHOD 12/09/2024 7:18 AM [facility] BUN 20 5 - 25 mg/dL LAB CHEMISTRY METHOD 12/09/2024 7:18 AM [facility] Creatinine 0.74 0.70 - 1.30 mg/dL LAB CHEMISTRY METHOD 12/09/2024 7:18 AM EST [facility] eGFR 103 >=60 mL/min/1. 73m2 LAB CHEMISTRY METHOD 12/09/2024 7:18 AM [facility] Comment:Calculation based on the??Chronic Kidney Disease Epidemiology Collaboration (CKD-EPI) equation refit??without adjustment for race. BUN/Creatinine Ratio 27.0 LAB CHEMISTRY METHOD 12/09/2024 7:18 AM [facility] Calcium 8.9 8.5 - 10.5 mg/dL LAB CHEMISTRY METHOD 12/09/2024 7:18 AM [facility] Blood Venous blood specimen / Unknown 12/09/2024 6:05 AM EST 12/09/2024 6:36 AM EST us August Baldwin MD LAB BLOOD ORDERABLES Final Resul t [facility] [address] [place] [address], documented in this encounter Visit Diagnoses Diagnosis Essential (primary) hypertension Unspecified essential hypertension Hypothyroidism, unspecified Other residential (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 documented in this encounter Care Teams Financial Foundations Associate Relationship Specialty Start Date End Date August Baldwin MD [address] [place] [address] Dr [address] [place] PCP - General Internal Medicine 12/09/24 documented as of this encounter
--- OUTSIDE RECORDS SUMMARY | 2024-12-24 11:47 | XMS_ITS | Encounter Summary ---
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 Social History Tobacco Use [...] Diagnosis Comments CBC WITH AUTO DIFFERENTIAL Routine 09/16/2024 7:00 AM EST Other penitentiary (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 CBC AND DIFFERENTIAL Routine 09/16/2024 7:00 AM EST Other penitentiary (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 documented in this encounter Results * (ABNORMAL) CBC auto differential (09/16/2024 7:00 AM EST) WBC 16.5(H) 4.8 - 10.8 K/[facility] LAB HEMETOLOGY METHOD 09/16/2024 8:31 AM EST [facility] RBC 4.10(L) 4.50 - 5.50 M/[facility] LAB HEMETOLOGY METHOD 09/16/2024 8:31 AM EST [facility] Hemoglobin 12.1(L) 13.5 - 17.5 g/dL LAB HEMETOLOGY METHOD 09/16/2024 8:31 AM [facility] LAB Hematocrit 38.6(L) 42.0 - 54.0 % LAB HEMETOLOGY METHOD 09/16/2024 8:31 AM [facility] LAB MCV 93.9 79.0 - 98.0 FL LAB HEMETOLOGY METHOD 09/16/2024 8:31 AM [facility] MCH 29.4 27.0 - 32.0 pcg LAB HEMETOLOGY METHOD 09/16/2024 8:31 AM [facility] LAB MCHC 31.3(L) 32.0 - 37.0 g/dL LAB HEMETOLOGY METHOD 09/16/2024 8:31 AM [facility] RDW 13.8 11.0 - 15.0 % LAB HEMETOLOGY METHOD 09/16/2024 8:31 AM [facility] Platelets 202 130 - 400 K/mcL LAB HEMETOLOGY METHOD 09/16/2024 8:31 AM [facility] MPV 10.1 7.0 - 11.0 FL LAB HEMETOLOGY METHOD 09/16/2024 8:31 AM [facility] NRBC 0.0 <1.0 % LAB HEMETOLOGY METHOD 09/16/2024 8:31 AM [facility] NRBC Absolute 0.00 <0.10 K/mcL LAB HEMETOLOGY METHOD 09/16/2024 8:31 AM [facility] Neutrophils Relative 68.3 % LAB HEMETOLOGY METHOD 09/16/2024 8:31 AM [facility] Lymphocytes Relative 19.9 % LAB HEMETOLOGY METHOD 09/16/2024 8:31 AM [facility] Monocytes Relative 9.2 % LAB HEMETOLOGY METHOD 09/16/2024 8:31 AM EST [facility] Eosinophils Relative 1.2 % LAB HEMETOLOGY METHOD 09/16/2024 8:31 AM [facility] Basophils Relative 0.4 % LAB HEMETOLOGY METHOD 09/16/2024 8:31 AM [facility] Immature Granulocytes Relative 1.0 % LAB HEMETOLOGY METHOD 09/16/2024 8:31 AM EST [facility] Neutrophils Absolute 11.25(H) 1.50 - 7.00 K/mcL LAB HEMETOLOGY METHOD 09/16/2024 8:31 AM [facility] Lymphocytes Absolute 3.27 1.00 - 5.00 K/mcL LAB HEMETOLOGY METHOD 09/16/2024 8:31 AM [facility] Monocytes Absolute 1.52(H) 0.20 - 1.00 K/mcL LAB HEMETOLOGY METHOD 09/16/2024 8:31 AM EST [facility] Eosinophils Absolute 0.20 0.00 - 0.50 K/mcL LAB HEMETOLOGY METHOD 09/16/2024 8:31 AM EST [facility] Basophils Absolute 0.07 0.00 - 0.20 K/mcL LAB HEMETOLOGY METHOD 09/16/2024 8:31 AM [facility] Immature Granulocytes Absolute 0.16(H) 0.00 - 0.03 K/mcL LAB HEMETOLOGY METHOD 09/16/2024 8:31 AM EST [facility] Blood Venous blood specimen / Unknown 09/16/2024 7:00 AM EST 09/16/2024 8:04 AM EST us August Baldwin MD LAB BLOOD ORDERABLES Final Resul t [facility] [address] [place] [address], documented in this encounter Visit Diagnoses Diagnosis Other penitentiary (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 documented in this encounter Care Teams Marketing Budget Analyst Relationship Specialty Start Date End Date August Baldwin MD [address] [place] [address] Dr [address] [place] PCP - General Internal Medicine 12/09/24 documented as of this encounter
--- OUTSIDE RECORDS SUMMARY | 2024-12-24 11:47 | XMS_ITS | Encounter Summary ---
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; Type 2 diabetes mellitus without complications (CMS/HCC) Social History Tobacco Use Types Packs/Day [...] Diagnosis Comments CBC WITH AUTO DIFFERENTIAL Routine 11/07/2024 12:00 AM EST Other halfway (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 Type 2 diabetes mellitus without complications (CMS/HCC) LAVENDER - EDTA Routine 11/07/2024 12:00 AM EST Other halfway (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 Type 2 diabetes mellitus without complications (CMS/HCC) CBC AND DIFFERENTIAL Routine 11/07/2024 12:00 AM EST Other halfway (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 Type 2 diabetes mellitus without complications (CMS/HCC) MAGNESIUM Routine 11/07/2024 12:00 AM EST 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 11/07/2024 9:01 AM EST [facility] Comment:Auto resulted. Blood Venous blood specimen / Unknown 11/07/2024 11/07/2024 7:28 AM EST us August Baldwin MD LAB BLOOD ORDERABLES Final Resul t [facility] [address] [place] [address], [place] [phone] * (ABNORMAL) CBC auto differential (11/07/2024 12:00 AM EST) [facility] WBC 14.3(H) 4.8 - 10.8 K/mcL LAB HEMETOLOGY METHOD 11/07/2024 7:39 AM [facility] RBC 4.10(L) 4.50 - 5.50 M/mcL LAB HEMETOLOGY METHOD 11/07/2024 7:39 AM [facility] Hemoglobin 12.0(L) 13.5 - 17.5 g/dL LAB HEMETOLOGY METHOD 11/07/2024 7:39 AM [facility] Hematocrit 37.6(L) 42.0 - 54.0 % LAB HEMETOLOGY METHOD 11/07/2024 7:39 AM [facility] MCV 92.6 79.0 - 98.0 FL LAB HEMETOLOGY METHOD 11/07/2024 7:39 AM [facility] MCH 29.6 27.0 - 32.0 pcg LAB HEMETOLOGY METHOD 11/07/2024 7:39 AM [facility] MCHC 31.9(L) 32.0 - 37.0 g/dL LAB HEMETOLOGY METHOD 11/07/2024 7:39 AM [facility] RDW 13.0 11.0 - 15.0 % LAB HEMETOLOGY METHOD 11/07/2024 7:39 AM [facility] Platelets 200 130 - 400 K/mcL LAB HEMETOLOGY METHOD 11/07/2024 7:39 AM [facility] MPV 9.7 7.0 - 11.0 FL LAB HEMETOLOGY METHOD 11/07/2024 7:39 AM [facility] NRBC 0.0 <1.0 % LAB HEMETOLOGY METHOD 11/07/2024 7:39 AM [facility] NRBC Absolute 0.00 <0.10 K/mcL LAB HEMETOLOGY METHOD 11/07/2024 7:39 AM [facility] Neutrophils Relative 67.3 % LAB HEMETOLOGY METHOD 11/07/2024 7:39 AM [facility] Lymphocytes Relative 21.2 % LAB HEMETOLOGY METHOD 11/07/2024 7:39 AM [facility] Monocytes Relative 8.5 % LAB HEMETOLOGY METHOD 11/07/2024 7:39 AM [facility] Eosinophils Relative 1.3 % LAB HEMETOLOGY METHOD 11/07/2024 7:39 AM [facility] Basophils Relative 0.4 % LAB HEMETOLOGY METHOD 11/07/2024 7:39 AM [facility] Immature Granulocytes Relative 1.3 % LAB HEMETOLOGY METHOD 11/07/2024 7:39 AM [facility] Neutrophils Absolute 9.58(H) 1.50 - 7.00 K/mcL LAB HEMETOLOGY METHOD 11/07/2024 7:39 AM EST [facility] Lymphocytes Absolute 3.02 1.00 - 5.00 K/mcL LAB HEMETOLOGY METHOD 11/07/2024 7:39 AM EST [facility] Monocytes Absolute 1.21(H) 0.20 - 1.00 K/mcL LAB HEMETOLOGY METHOD 11/07/2024 7:39 AM EST [facility] Eosinophils Absolute 0.19 0.00 - 0.50 K/[facility] LAB HEMETOLOGY METHOD 11/07/2024 7:39 AM EST [facility] Basophils Absolute 0.06 0.00 - 0.20 K/mcL LAB HEMETOLOGY METHOD 11/07/2024 7:39 AM [facility] Immature Granulocytes Absolute 0.19(H) 0.00 - 0.03 K/[facility] LAB HEMETOLOGY METHOD 11/07/2024 7:39 AM EST [facility] Blood Venous blood specimen / Unknown 11/07/2024 11/07/2024 7:28 AM EST us August Baldwin MD LAB BLOOD ORDERABLES Final Resul t Performing Organization Address City/[facility]/ZIP Co de Phone Number [facility] [address] [place] [address], * Magnesium (11/07/2024 12:00 AM EST) Magnesium 2.2 1.9 - 2.6 mg/dL LAB CHEMISTRY METHOD 11/07/2024 8:14 AM EST [facility] Blood Venous blood specimen / Unknown 11/07/2024 11/07/2024 7:28 AM EST us August Baldwin MD LAB BLOOD ORDERABLES Final Resul t [facility] [address] [place] [address], [place] [phone] * Hemoglobin A1c (11/07/2024 12:00 AM EST) Hemoglobin A1C 5.4 <6.5 % LAB CHEMISTRY METHOD 11/07/2024 12:49 PM EST [facility] Mean Bld Glu Estim. 108 mg/dL LAB CHEMISTRY METHOD 11/07/2024 12:49 PM [facility] Blood Venous blood specimen / Unknown 11/07/2024 11/07/2024 7:28 AM EST August Baldwin MD LAB BLOOD ORDERABLES Final Resul t Performing Organization Address [facility] de Phone Number [facility] [address] [place] [address], [place] [phone] * (ABNORMAL) Basic metabolic panel (11/07/2024 12:00 AM EST) Pathologist [facility] Sodium 136 133 - 145 mmol/L LAB CHEMISTRY METHOD 11/07/2024 8:14 AM [facility] Potassium 3.4(L) 3.5 - 5.5 mmol/L LAB CHEMISTRY METHOD 11/07/2024 8:14 AM [facility] Chloride 102 96 - 110 mmol/L LAB CHEMISTRY METHOD 11/07/2024 8:14 AM [facility] CO2 28 21 - 32 mmol/L LAB CHEMISTRY METHOD 11/07/2024 8:14 AM [facility] Anion Gap 6 3 - 11 LAB CHEMISTRY METHOD 11/07/2024 8:14 AM [facility] Glucose 83 70 - 100 mg/dL LAB CHEMISTRY METHOD 11/07/2024 8:14 AM [facility] BUN 19 5 - 25 mg/dL LAB CHEMISTRY METHOD 11/07/2024 8:14 AM EST [facility] Creatinine 0.81 0.70 - 1.30 mg/dL LAB CHEMISTRY METHOD 11/07/2024 8:14 AM EST [facility] eGFR 100 >=60 mL/min/1. 73m2 LAB CHEMISTRY METHOD 11/07/2024 8:14 AM [facility] Comment:Calculation based on the??Chronic Kidney Disease Epidemiology Collaboration (CKD-EPI) equation refit??without adjustment for race. BUN/Creatinine Ratio 23.5 LAB CHEMISTRY METHOD 11/07/2024 8:14 AM [facility] Calcium 8.9 8.5 - 10.5 mg/dL LAB CHEMISTRY METHOD 11/07/2024 8:14 AM [facility] Blood Venous blood specimen / Unknown 11/07/2024 11/07/2024 7:28 AM EST us August Baldwin MD LAB BLOOD ORDERABLES Final Resul t [facility] [address] [place] [address], documented in this encounter Visit Diagnoses Diagnosis Other halfway (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 Type 2 diabetes mellitus without complications (CMS/HCC) documented in this encounter Care Teams [employer] Relationship Specialty Start Date End Date August Baldwin MD [address] [place], [place] PCP - General Internal Medicine 12/09/24 documented as of this encounter
--- OUTSIDE RECORDS SUMMARY | 2024-12-24 11:47 | XMS_ITS | Clinical Summary ---
Author Organization [address] Address [address] [place] [address] Phone Care Team Providers Care Liver Trimmer Name Role Phone August Baldwin MD Primary Care Provider [phone] Encounters Date Type Department Care Team Description 12/09/2024 Lab Requisition [facility] Lab [address] [place] [phone] August Baldwin MD Essential (primary) hypertension; Hypothyroidism, unspecified; Other residential (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 12/01/2024 Lab Requisition [facility] Lab [address] [place] [phone] August Baldwin MD Other residential (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 11/07/2024 Lab Requisition [facility] Lab [address] [place] [phone] August Baldwin MD Other residential (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; Type 2 diabetes mellitus without complications ([facility]) 10/23/2024 Lab Requisition [facility] Lab [address] [place] [phone] August Baldwin MD Schizophrenia, unspecified (CMS/HCC) 10/14/2024 Lab Requisition [facility] Main Lab [address] [place] [phone] August Baldwin MD Other residential (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 10/07/2024 Lab Requisition [facility] Lab [address] [place] [phone] August Baldwin MD Diarrhea, unspecified from Last 3 Months Social History Tobacco Use Types Packs/Day Years Used Date Smoking Tobacco: Never Assessed Sex and Gender Information Value Date Recorded Sex Assigned at Not on file Legal Sex Male 10:29 AM EST Gender Identity Not on file Sexual Orientation Not on file Plan of Treatment Health Maintenance Due Date Last Done Comments Diabetes: Annual Foot Exam 1973 Diabetes: Annual Retina Eye Exam 1973 DTaP,Tdap,and Td Vaccines (1 - Tdap) 1982 Pneumococcal Vaccine: 50+ Years (1 of 2 - PCV) 1982 Pneumococcal Vaccine: Pediatrics (0 to 5 Years) and At-Risk Patients (6 to 64 Years) (1 of 2 - PCV) 1982 Zoster Vaccines (1 of 2) 2013 Cholesterol Screening (Lipid Panel) 09/26/2022 Colorectal Cancer Screening: Colonoscopy 09/26/2022 Depression Screening 09/26/2022 HIV Screening 09/26/2022 Hepatitis C Screening 09/26/2022 Medicare Annual Wellness Visit 09/26/2022 Social Influencers of Health Screening 09/26/2022 COVID-19 Vaccine ( - 2023- season) 2024 Influenza Vaccine (#1) 2024 Diabetes: Annual Urine Albumin-Creatinine Ratio (uACR) 11/07/2024 Diabetes: Blood Sugar Control Test (HGBA1C) 05/07/2025 11/07/2024 Diabetes: Annual GFR (Glomerular Filtration Rate) 12/09/2025 12/09/2024, 11/07/2024, 10/23/2024, Additional history exists Hypertension/CHF/CAD Annual BMP Blood Test 12/09/2025 12/09/2024, 11/07/2024, 10/23/2024, Additional history exists RSV Immunization Patients 60+ Years Old (1 - 1-dose 75+ series) 2038 HIB Vaccines Aged Out No longer eligi ble based on patient's age to complete this topic HPV Vaccines Aged Out No longer eligi ble based on patient's age to complete this topic Hepatitis A Vaccines Aged Out No long er eligible based on patient's age to complete this topic Hepatitis B Vaccines Aged Out No long er eligible based on patient's age to complete this topic IPV Vaccines Aged Out No longer eligi ble based on patient's age to complete this topic MMR Vaccines Aged Out No longer eligi ble based on patient's age to complete this topic Meningococcal ACWY Vaccine Aged Out N o longer eligible based on patient's age to complete this topic Meningococcal B Vacine Aged Out No lo nger eligible based on patient's age to complete this topic RSV Immunization Patients Under 20 months Aged Out No longer eligible based on patient's age to complete this topic Varicella Vaccines Aged Out No longer eligible based on patient's age to complete this topic Procedures Procedure Name Priority Date/Time Associated Diagnosis Comments CBC WITH AUTO DIFFERENTIAL Routine 12/09/2024 6:05 AM EST Essential (primary) hypertension Hypothyroidism, unspecified Other world travel counselor (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 THYROID STIMULATING HORMONE Routine 12/09/2024 6:05 AM EST Essential (primary) hypertension Hypothyroidism, unspecified Other residential (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 MAGNESIUM Routine 12/09/2024 6:05 AM EST Essential (primary) hypertension Hypothyroidism, unspecified Other world travel counselor (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 THYROXINE FREE Routine 12/09/2024 6:05 AM EST Essential (primary) hypertension Hypothyroidism, unspecified Other residential (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 CBC AND DIFFERENTIAL Routine 12/09/2024 6:05 AM EST Essential (primary) hypertension Hypothyroidism, unspecified Other residential (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 BASIC METABOLIC PANEL Routine 12/09/2024 6:05 AM EST Essential (primary) hypertension Hypothyroidism, unspecified Other world travel counselor (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 LEVETIRACETAM LEVEL Routine 12/01/2024 6 :40 AM EST Other residential (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 LAVENDER - EDTA Routine 11/07/2024 12:00 AM EST Other world travel counselor (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 Type 2 diabetes mellitus without complications (CMS/HCC) CBC WITH AUTO DIFFERENTIAL Routine 11/07/2024 12:00 AM EST Other residential (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 Type 2 diabetes mellitus without complications (CMS/HCC) MAGNESIUM Routine 11/07/2024 12:00 AM EST Other residential (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 Type 2 diabetes mellitus without complications (CMS/HCC) HEMOGLOBIN A1C Routine 11/07/2024 12:00 AM EST Other world travel counselor (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 Type 2 diabetes mellitus without complications (CMS/HCC) CBC AND DIFFERENTIAL Routine 11/07/2024 12:00 AM EST Other world travel counselor (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 Type 2 diabetes mellitus without complications (CMS/HCC) BASIC METABOLIC PANEL Routine 11/07/2024 12:00 AM EST Other residential (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 Type 2 diabetes mellitus without complications (CMS/HCC) BASIC METABOLIC PANEL Routine 10/23/2024 1:10 PM EST Schizophrenia, unspecified (CMS/HCC) CBC WITH AUTO DIFFERENTIAL Routine 10/14/2024 7:26 AM EST Other world travel counselor (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 CBC AND DIFFERENTIAL Routine 10/14/2024 7:26 AM EST Other world travel counselor (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 MAGNESIUM Routine 10/07/2024 5:55 AM EST Diarrhea, unspecified BASIC METABOLIC PANEL Routine 10/07/2024 5:55 AM EST Diarrhea, unspecified from Last 3 Months Results * (ABNORMAL) CBC auto differential (12/09/2024 6:05 AM EST) Only the most recent of3 resultswithin the time period is included. WBC 12.1(H) 4.8 - 10.8 K/mcL LAB HEMETOLOGY METHOD 12/09/2024 6:48 AM EST [facility] RBC 4.00(L) 4.50 - 5.50 M/mcL LAB HEMETOLOGY METHOD 12/09/2024 6:48 AM EST [facility] Hemoglobin 11.9(L) 13.5 - 17.5 g/dL LAB HEMETOLOGY METHOD 12/09/2024 6:48 AM [facility] Hematocrit 36.6(L) 42.0 - 54.0 % LAB HEMETOLOGY METHOD 12/09/2024 6:48 AM [facility] MCV 92.0 79.0 - 98.0 FL LAB HEMETOLOGY METHOD 12/09/2024 6:48 AM [facility] MCH 29.9 27.0 - 32.0 pcg LAB HEMETOLOGY METHOD 12/09/2024 6:48 AM [facility] MCHC 32.5 32.0 - 37.0 g/dL LAB HEMETOLOGY METHOD 12/09/2024 6:48 AM [facility] RDW 13.4 11.0 - 15.0 % LAB HEMETOLOGY METHOD 12/09/2024 6:48 AM [facility] Platelets 169 130 - 400 K/mcL LAB HEMETOLOGY METHOD 12/09/2024 6:48 AM [facility] MPV 9.6 7.0 - 11.0 FL LAB HEMETOLOGY METHOD 12/09/2024 6:48 AM [facility] NRBC 0.0 <1.0 % LAB HEMETOLOGY METHOD 12/09/2024 6:48 AM [facility] NRBC Absolute 0.00 <0.10 K/mcL LAB HEMETOLOGY METHOD 12/09/2024 6:48 AM [facility] Neutrophils Relative 68.1 % LAB HEMETOLOGY METHOD 12/09/2024 6:48 AM [facility] Lymphocytes Relative 17.7 % LAB HEMETOLOGY METHOD 12/09/2024 6:48 AM [facility] Monocytes Relative 11.9 % LAB HEMETOLOGY METHOD 12/09/2024 6:48 AM [facility] Eosinophils Relative 1.1 % LAB HEMETOLOGY METHOD 12/09/2024 6:48 AM [facility] Basophils Relative 0.4 % LAB HEMETOLOGY METHOD 12/09/2024 6:48 AM [facility] Immature Granulocytes Relative 0.8 % LAB HEMETOLOGY METHOD 12/09/2024 6:48 AM [facility] Neutrophils Absolute 8.22(H) 1.50 - 7.00 K/mcL LAB HEMETOLOGY METHOD 12/09/2024 6:48 AM [facility] Lymphocytes Absolute 2.14 1.00 - 5.00 K/mcL LAB HEMETOLOGY METHOD 12/09/2024 6:48 AM [facility] Monocytes Absolute 1.44(H) 0.20 - 1.00 K/mcL LAB HEMETOLOGY METHOD 12/09/2024 6:48 AM [facility] Eosinophils Absolute 0.13 0.00 - 0.50 K/mcL LAB HEMETOLOGY METHOD 12/09/2024 6:48 AM [facility] Basophils Absolute 0.05 0.00 - 0.20 K/mcL LAB HEMETOLOGY METHOD 12/09/2024 6:48 AM [facility] Immature Granulocytes Absolute 0.10(H) 0.00 - 0.03 K/mcL LAB HEMETOLOGY METHOD 12/09/2024 6:48 AM [facility] Blood Venous blood specimen / Unknown 12/09/2024 6:05 AM EST 12/09/2024 6:36 AM EST us August Baldwin MD LAB BLOOD ORDERABLES Final Resul t [facility] [address] [place] [address], * Thyroid stimulating hormone (12/09/2024 6:05 AM EST) TSH 1.50 0.40 - 4.00 mcIU/mL LAB CHEMISTRY METHOD 12/09/2024 7:31 AM EST [facility] Blood Venous blood specimen / Unknown 12/09/2024 6:05 AM EST 12/09/2024 6:36 AM EST us August Baldwin MD LAB BLOOD ORDERABLES Final Resul t Performing Organization Address [facility] de Phone Number [facility] [address] [place] [address], [place] [phone] * Thyroxine free (12/09/2024 6:05 AM EST) Free T4 1.10 0.70 - 1.80 ng/dL LAB CHEMISTRY METHOD 12/09/2024 7:31 AM EST [facility] Blood Venous blood specimen / Unknown 12/09/2024 6:05 AM EST 12/09/2024 6:36 AM EST us August Baldwin MD LAB BLOOD ORDERABLES Final Resul t Performing Organization Address [facility] de Phone Number [facility] [address] [place] [address], [place] [phone] * (ABNORMAL) Magnesium (12/09/2024 6:05 AM EST) Only the most recent of3 resultswithin the time period is included. Pathologist [facility] Magnesium 1.8(L) 1.9 - 2.6 mg/dL LAB CHEMISTRY METHOD 12/09/2024 7:18 AM EST [facility] Blood Venous blood specimen / Unknown 12/09/2024 6:05 AM EST 12/09/2024 6:36 AM EST us August Baldwin MD LAB BLOOD ORDERABLES Final Resul t Performing Organization Address [facility] Co de Phone Number [facility] [address] [place] [address], * (ABNORMAL) Basic metabolic panel (12/09/2024 6:05 AM EST) Only the most recent of4 resultswithin the time period is included. Sodium 137 133 - 145 mmol/L LAB CHEMISTRY METHOD 12/09/2024 7:18 AM [facility] Potassium 3.4(L) 3.5 - 5.5 mmol/L LAB CHEMISTRY METHOD 12/09/2024 7:18 AM [facility] Chloride 105 96 - 110 mmol/L LAB CHEMISTRY METHOD 12/09/2024 7:18 AM [facility] CO2 27 21 - 32 mmol/L LAB CHEMISTRY METHOD 12/09/2024 7:18 AM [facility] Anion Gap 5 3 - 11 LAB CHEMISTRY METHOD 12/09/2024 7:18 AM [facility] Glucose 88 70 - 100 mg/dL LAB CHEMISTRY METHOD 12/09/2024 7:18 AM [facility] BUN 20 5 - 25 mg/dL LAB CHEMISTRY METHOD 12/09/2024 7:18 AM [facility] Creatinine 0.74 0.70 - 1.30 mg/dL LAB CHEMISTRY METHOD 12/09/2024 7:18 AM [facility] eGFR 103 >=60 mL/min/1. 73m2 LAB CHEMISTRY METHOD 12/09/2024 7:18 AM [facility] Comment:Calculation based on the??Chronic Kidney Disease Epidemiology Collaboration (CKD-EPI) equation refit??without adjustment for race. BUN/Creatinine Ratio 27.0 LAB CHEMISTRY METHOD 12/09/2024 7:18 AM [facility] Calcium 8.9 8.5 - 10.5 mg/dL LAB CHEMISTRY METHOD 12/09/2024 7:18 AM [facility] Blood Venous blood specimen / Unknown 12/09/2024 6:05 AM EST 12/09/2024 6:36 AM EST us August Baldwin MD LAB BLOOD ORDERABLES Final Resul t Performing Organization Address [facility] Co de Phone Number [facility] [address] [place] [address], [place] [phone] * Levetiracetam level (12/01/2024 6:40 AM EST) Levetiracetam 21.8 3.0 - 60.0 ug/mL 12/03/2024 7:12 AM EST [facility] Comment: Steady state trough serum or plasma levels following doses of 1000 to 3000 mg/Day: ??3 to 37 ug/mL. The same dosage regimen will typically result in peak levels of 10 to 60 ug/mL, at approximately 1.5 hours post dose. If applicable, any drug confirmation testing reported here was developed and the performance characteristics determined by [facility]. This confirmation testing has not been cleared or approved by the FDA. The laboratory is regulated under CLIA as qualified to perform high-complexity testing. This test is used for patient testing purposes. It should not be regarded as investigational or for research. Test performed at [facility], [address] , [place], [place] ??[address] ? [phone] Mckenna Lubin MD, PhD - Donor Services Team Leader Blood Venous blood specimen / Unknown 12/01/2024 6:40 AM EST 12/01/2024 7:27 AM EST us August Baldwin MD LAB BLOOD ORDERABLES Final Resul t [facility] [address] [place] [address] * Lavender tube (11/07/2024 12:00 AM EST) Extra Tube Hold for add-ons. 11/07/2024 9:01 AM EST [facility] Comment:Auto resulted. Blood Venous blood specimen / Unknown 11/07/2024 11/07/2024 7:28 AM EST us August Baldwin MD LAB BLOOD ORDERABLES Final Resul t Performing Organization Address [facility]/ZIP Co de Phone Number [facility] [address] [place] [address], [place] [phone] * Hemoglobin A1c (11/07/2024 12:00 AM EST) Hemoglobin A1C 5.4 <6.5 % LAB CHEMISTRY METHOD 11/07/2024 12:49 PM EST [facility] Mean Bld Glu Estim. 108 mg/dL LAB CHEMISTRY METHOD 11/07/2024 12:49 PM EST [facility] Blood Venous blood specimen / Unknown 11/07/2024 11/07/2024 7:28 AM EST us August Baldwin MD LAB BLOOD ORDERABLES Final Resul t Performing Organization Address [facility]/ZIP Co de Phone Number [facility] [address] [place] [address], [place] [phone] from Last [address] [place] [address] MEDICARE Care Teams Liver Trimmer Relationship Specialty Start Date End Date August Baldwin MD [address] [place] [address] Dr [address] [place] [address] [place] PCP - General Internal Medicine 12/09/24
--- OUTSIDE RECORDS SUMMARY | 2024-12-24 11:47 | XMS_ITS | Encounter Summary ---
Author Organization [facility] Address [id number] [place] [address] Care Team Providers Care Chemical Operations And Training Name Role Phone August Baldwin MD Primary Care Provider [phone] Encounter Details Date Type Department Care Team (Late st Contact Info) Description 12/01/2024 Lab Requisition [facility] - Main Lab [address] [facility] [place] [address] August Baldwin MD [address] [place] [address] Dr [address] [place] Other marine oil terminal superintendent (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 Social History Tobacco Use [...] Procedure Name Priority Date/Time Associated Diagnosis Comments LEVETIRACETAM LEVEL Routine 12/01/2024 6 :40 AM EST Other prison (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 documented in this encounter Results * Levetiracetam level (12/01/2024 6:40 AM EST) Levetiracetam 21.8 3.0 - 60.0 ug/mL 12/03/2024 7:12 AM EST [facility] Comment: Steady state trough serum or plasma levels following doses of 1000 to 3000 mg/Day: ??3 to 37 ug/mL. The same dosage regimen will typically result in peak levels of 10 to 60 ug/mL, at approximately 1.5 hours post dose. If applicable, any drug confirmation testing reported here was developed and the performance characteristics determined by [facility]. This confirmation testing has not been cleared or approved by the FDA. The laboratory is regulated under CLIA as qualified to perform high-complexity testing. This test is used for patient testing purposes. It should not be regarded as investigational or for research. Test performed at [facility], [address] [place], [place], [place] ??[address] ? [phone] Mckenna Lubin MD, PhD - Internet Network Specialist Blood Venous blood specimen / Unknown 12/01/2024 6:40 AM EST 12/01/2024 7:27 AM EST us August Baldwin MD LAB BLOOD ORDERABLES Final Resul t [facility] [address] [place] [address] documented in this encounter Visit Diagnoses Diagnosis Other marine oil terminal superintendent (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 documented in this encounter Care Teams Chemical Operations And Training Relationship Specialty Start Date End Date August Baldwin MD [address] [place] [address] Dr [address] [place] PCP - General Internal Medicine 12/09/24 documented as of this encounter
--- OUTSIDE RECORDS SUMMARY | 2024-12-24 11:47 | XMS_ITS | Encounter Summary ---
Author Organization [facility] Address [address] [place] [address] Care Team Providers Care Port Warden Name Role Phone August Baldwin MD Primary Care Provider [phone] Encounter Details Date Type Department Care Team (Late st Contact Info) Description 10/07/2024 Lab Requisition [facility] - Main Lab [address] [place] [address] August Baldwin MD [address] [place] [address] [address] [place], [place] Diarrhea, unspecified Social History Tobacco Use Types Packs/Day Years [...] Priority Date/Time Associated Diagnosis Comments MAGNESIUM Routine 10/07/2024 5:55 AM EST Diarrhea, unspecified BASIC METABOLIC PANEL Routine 10/07/2024 5:55 AM EST Diarrhea, unspecified documented in this encounter Results * Magnesium (10/07/2024 5:55 AM EST) Magnesium 2.2 1.9 - 2.6 mg/dL LAB CHEMISTRY METHOD 10/07/2024 7:04 AM EST [facility] Blood Venous blood specimen / Unknown 10/07/2024 5:55 AM EST 10/07/2024 6:33 AM EST us August Baldwin MD LAB BLOOD ORDERABLES Final Resul t [facility] [address] [place] [address], [place] [phone] * Basic metabolic panel (10/07/2024 5:55 AM EST) Sodium 140 133 - 145 mmol/L LAB CHEMISTRY METHOD 10/07/2024 7:04 AM [facility] Potassium 3.8 3.5 - 5.5 mmol/L LAB CHEMISTRY METHOD 10/07/2024 7:04 AM [facility] Chloride 104 96 - 110 mmol/L LAB CHEMISTRY METHOD 10/07/2024 7:04 AM [facility] CO2 27 21 - 32 mmol/L LAB CHEMISTRY METHOD 10/07/2024 7:04 AM [facility] Anion Gap 9 3 - 11 LAB CHEMISTRY METHOD 10/07/2024 7:04 AM [facility] Glucose 88 70 - 100 mg/dL LAB CHEMISTRY METHOD 10/07/2024 7:04 AM [facility] BUN 13 5 - 25 mg/dL LAB CHEMISTRY METHOD 10/07/2024 7:04 AM [facility] Creatinine 0.96 0.70 - 1.30 mg/dL LAB CHEMISTRY METHOD 10/07/2024 7:04 AM [facility] eGFR 90 >=60 mL/min/1. 73m2 LAB CHEMISTRY METHOD 10/07/2024 7:04 AM [facility] Comment:Calculation based on the??Chronic Kidney Disease Epidemiology Collaboration (CKD-EPI) equation refit??without adjustment for race. BUN/Creatinine Ratio 13.5 LAB CHEMISTRY METHOD 10/07/2024 7:04 AM [facility] Calcium 9.8 8.5 - 10.5 mg/dL LAB CHEMISTRY METHOD 10/07/2024 7:04 AM [facility] Blood Venous blood specimen / Unknown 10/07/2024 5:55 AM EST 10/07/2024 6:33 AM EST us August Baldwin MD LAB BLOOD ORDERABLES [facility] [address] [place] [address], documented in this encounter Visit Diagnoses Diagnosis Diarrhea, unspecified documented in this encounter Care Teams Port Warden Relationship Specialty Start Date End Date August Baldwin MD [address] [place] [address] [address] [place], [place] PCP - General Internal Medicine 12/09/24 documented as of this encounter
== END 2024-12-24 11:07 | disposition home or self-care (01) ==
PROVIDERS: Visit Provider Nurse Practitioner Family
DX: Z01.818 Encounter for other preprocedural examination (principal); Z12.11 Encounter for screening for malignant neoplasm of colon
CPT/HCPCS: 99024

== ENCOUNTER → 2024-12-24 09:54 | Outpatient (BNVA) | payer MEDICARE, MEDICAID, SELFPAY | PROVIDERS: Visit Provider Nurse Practitioner Family | DX: Z01.818 Encounter for other preprocedural examination (principal) | CPT/HCPCS: 99212 ==

== ENCOUNTER 2025-07-02 14:42 | Outpatient (AMB) | payer MEDICARE, SELFPAY ==
--- NOTE | 2025-07-02 14:49 | MHC.OFFVIS ---
Vital Signs 07/02/25 14:57 BP 102/55 L Blood Pressure Location Rt brachial Position Sitting Pulse 88 Intake Visit Reasons: cyst on left cheek Intake Note: Patient referred by Dr. Baldwin for evaluation of cyst on left cheek. Present for 8mo. Patient c/o: oozing, bleeding, tender to touch. Inside Barrel Polisher Required: No Accompanied by: Patsy Muñoz at [place]. Allergies piperacillin (From Zosyn) Allergy (Mild, Verified 07/02/25 14:55) RASH Sulfa (Sulfonamide Antibiotics) Allergy (Mild, Verified 07/02/25 14:55) Rash sulfamethoxazole (From Bactrim) Allergy (Mild, Verified 07/02/25 14:55) Rash tazobactam (From Zosyn) Allergy (Mild, Verified 07/02/25 14:55) RASH trimethoprim (From Bactrim) Allergy (Mild, Verified 07/02/25 14:55) Rash HPI HPI cyst on left cheek: Details: 60-year-old male referred for a left cheek cyst. He has had this for several months. This keeps draining and getting swollen periodically. This has been bothering him and he wants this removed. He does have a history of multiple cysts in the past. He has other subcutaneous masses on the rest of this body but he says this has only 1 that bothers him. He is a resident of [facility]. He has multiple medical problems including schizophrenia, hidradenitis suppurativa, and has limited level of activity. He is mostly in a wheelchair although he is able to transfer with difficulty. [facility] Medical History (Updated 07/02/25 @ 15:26 by ASHLYN Ponce) Hyperlipidemia, unspecified Unspecified dislocation of left shoulder joint, subsequent encounter Type 2 diabetes mellitus without complication Lymphedema, not elsewhere classified Unspecified convulsions Cataracts, bilateral Hidradenitis suppurativa Epidermal cyst of face History of head injury Anemia Lymphedema Diabetes Hypothyroid Seizures Elevated cholesterol HTN (hypertension) Schizophrenia Surgical History History of surgery History of bone marrow biopsy Social History Alcohol intake: unknown Patient Tobacco Use Status: Tobacco use Unknown Review of Systems Const Denies chills and Denies fever(s) Card Denies chest pain Resp Denies cough GI Denies abdominal pain Denies dysuria Musc Reports abnormal gait and Reports muscle weakness Skin/Breast Details: Has had multiple cysts in the past with a hidradenitis Neuro Reports abnormal gait Physical Exam Vital Signs: Last Vital Signs Pulse 88 07/02/25 14:57 BP 102/55 L 07/02/25 14:57 Const Other: On wheelchair, answers simple questions General: comfortable and no acute distress HEENT Other: Large cystic induration in the left cyst, about 3 cm, with note of sinus and scanty discharge, purulent Resp Effort & Inspection: normal respiratory effort Cardio Rate: regular rate GI Palpation (GI): Soft to palpation, not firm and nontender Assessment & Plan Assessment & Plan (1) Epidermal cyst of face: Code(s): L72.0 - Epidermal cyst Category: Medical Plan: He has this large cyst in the left cheek which he has had for several months. This keeps swelling up and draining. He says that he wants to proceed with the excision in view of this recurrent problem. I explained the technique of excision under anesthesia in view of the size of the cyst. I reviewed the risks including but not limited to bleeding, infections, scar formation and deformity. I actually discussed this with his mom Brooke Cervantes ([phone]) who is the responsible constitution party for him. He says he understands the above and has given the consent on his behalf. We will schedule this for him in the OR under anesthesia. Coding Level of Care Code New Pt Level 3 (02934) Diagnoses Epidermal cyst of face L72.0
[2025-07-02 14:57] VITALS: BP 102/55; PULSE 88
--- OUTSIDE RECORDS SUMMARY | 2025-07-02 15:54 | XMS_ITS | Encounter Summary ---
Author Organization [facility] Address [address] [place] [address] Care Team Providers Care Supervisor Vat House Name Role Phone August Baldwin MD Primary Care Provider [phone] Encounter Details Date Type Department Care Team (Late st Contact Info) Description 10/07/2024 Lab Requisition [facility] - Main Lab [address] [place] [address] August Baldwin MD [address] [place] [address] Dr [address] THI Sparks Diarrhea, unspecified Social History Tobacco Use Types [...] LAB CHEMISTRY METHOD 10/07/2024 7:04 AM EST [facility] [place] ([facility]) [facility] Blood Venous blood specimen / Unknown 10/07/2024 5:55 AM EST 10/07/2024 6:33 AM EST us August Baldwin MD LAB BLOOD ORDERABLES Final Resul t [facility] [address] [place] [address], * Basic metabolic panel (10/07/2024 5:55 AM EST) Sodium 140 133 - 145 mmol/L LAB CHEMISTRY METHOD 10/07/2024 7:04 AM [facility] Potassium 3.8 3.5 - 5.5 mmol/L LAB CHEMISTRY METHOD 10/07/2024 7:04 AM [facility] Chloride 104 96 - 110 mmol/L LAB CHEMISTRY METHOD 10/07/2024 7:04 AM [facility] CO2 27 21 - 32 mmol/L LAB CHEMISTRY METHOD 10/07/2024 7:04 AM [facility] Anion Gap 9 3 - 11 LAB CHEMISTRY METHOD 10/07/2024 7:04 AM [facility] Glucose 88 70 - 100 mg/dL LAB CHEMISTRY METHOD 10/07/2024 7:04 AM [facility] BUN 13 5 - 25 mg/dL LAB CHEMISTRY METHOD 10/07/2024 7:04 AM [facility] Creatinine 0.96 0.70 - 1.30 mg/dL LAB CHEMISTRY METHOD 10/07/2024 7:04 AM [facility] eGFR 90 >=60 mL/min/1. 73m2 LAB CHEMISTRY METHOD 10/07/2024 7:04 AM [facility] Comment:Calculation based on the Chronic Kidney Disease Epidemiology Collaboration (CKD-EPI) equation refit without adjustment for race. BUN/Creatinine Ratio 13.5 LAB CHEMISTRY METHOD 10/07/2024 7:04 AM [facility] Calcium 9.8 8.5 - 10.5 mg/dL LAB CHEMISTRY METHOD 10/07/2024 7:04 AM [facility] Blood Venous blood specimen / Unknown 10/07/2024 5:55 AM EST 10/07/2024 6:33 AM EST us August Baldwin MD LAB BLOOD ORDERABLES Final Resul t [facility] ([facility]) [facility] [address] [place] [address], documented in this encounter Visit Diagnoses Diagnosis Diarrhea, unspecified documented in this encounter Care Teams Supervisor Vat House Relationship Specialty Start Date End Date August Baldwin MD [address] [place] [address] Dr [address] [place], [place] PCP - General Internal Medicine 12/09/24 documented as of this encounter
--- OUTSIDE RECORDS SUMMARY | 2025-07-02 15:54 | XMS_ITS | Encounter Summary ---
Author Organization [facility] Address [address] [place] [address] Care Team Providers Care Reinforced Steel Placing Supervisor Name Role Phone August Baldwin MD Primary Care Provider [phone] Encounter Details Date Type Department Care Team (Late st Contact Info) Description 09/05/2024 Lab Requisition [facility] - Main Lab [address] [place] [address] August Baldwin MD [address] [place] [address] Dr [address] [place], [place] Essential (primary) hypertension Social History Tobacco Use [...] LAB CHEMISTRY METHOD 09/05/2024 7:08 AM EST [facility] ([facility] Blood Venous blood specimen / Unknown 09/05/2024 5:05 AM EST 09/05/2024 6:01 AM EST us August Baldwin MD LAB BLOOD ORDERABLES Final Resul t [facility] [address] [place] [address], * (ABNORMAL) Basic metabolic panel (09/05/2024 5:05 AM EST) Sodium 137 133 - 145 mmol/L LAB CHEMISTRY METHOD 09/05/2024 7:08 AM [facility] Potassium 3.4(L) 3.5 - 5.5 mmol/L LAB CHEMISTRY METHOD 09/05/2024 7:08 AM [facility] Chloride 101 96 - 110 mmol/L LAB CHEMISTRY METHOD 09/05/2024 7:08 AM [facility] CO2 28 21 - 32 mmol/L LAB CHEMISTRY METHOD 09/05/2024 7:08 AM [facility] Anion Gap 8 3 - 11 LAB CHEMISTRY METHOD 09/05/2024 7:08 AM [facility] Glucose 77 70 - 100 mg/dL LAB CHEMISTRY METHOD 09/05/2024 7:08 AM [facility] BUN 20 5 - 25 mg/dL LAB CHEMISTRY METHOD 09/05/2024 7:08 AM [facility] Creatinine 0.94 0.70 - 1.30 mg/dL LAB CHEMISTRY METHOD 09/05/2024 7:08 AM [facility] eGFR 92 >=60 mL/min/1. 73m2 LAB CHEMISTRY METHOD 09/05/2024 7:08 AM [facility] Comment:Calculation based on the Chronic Kidney Disease Epidemiology Collaboration (CKD-EPI) equation refit without adjustment for race. BUN/Creatinine Ratio 21.3 LAB CHEMISTRY METHOD 09/05/2024 7:08 AM [facility] Calcium 9.8 8.5 - 10.5 mg/dL LAB CHEMISTRY METHOD 09/05/2024 7:08 AM [facility] Blood Venous blood specimen / Unknown 09/05/2024 5:05 AM EST 09/05/2024 6:01 AM EST us August Baldwin MD LAB BLOOD ORDERABLES Final Resul t [facility] ([facility]) [facility] [address] [place] [address], [place] [phone] documented in this encounter Visit Diagnoses Diagnosis Essential (primary) hypertension Unspecified essential hypertension documented in this encounter Care Teams Reinforced Steel Placing Supervisor Relationship Specialty Start Date End Date August Baldwin MD [address] [place] [address] Dr [address] [place] PCP - General Internal Medicine 12/09/24 documented as of this encounter
--- OUTSIDE RECORDS SUMMARY | 2025-07-02 15:54 | XMS_ITS | Encounter Summary ---
Author Organization Address [address] [place] [address] Care Team Providers Care Geospatial Systems Integrator Name Role Phone August Baldwin MD Primary Care Provider [phone] Encounter Details Date Type Department Care Team (Late st Contact Info) Description 11/07/2024 Lab Requisition [facility] - Main Lab [address] [facility] [place] [address] August Baldwin MD [address] [place] [address] [address] THI Sparks Other prison (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; Type 2 diabetes mellitus without complications (CMS/HCC V24, CMS/HCC V28) Social History Tobacco Use Types Packs/Day Years [...] DIFFERENTIAL Routine 11/07/2024 12:00 AM EST Other [employer] (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 Type 2 diabetes mellitus without complications (CMS/HCC) LAVENDER - EDTA Routine 11/07/2024 12:00 AM EST Other prison (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 Type 2 diabetes mellitus without complications (CMS/HCC) CBC AND DIFFERENTIAL Routine 11/07/2024 12:00 AM EST Other [employer] (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 Type 2 diabetes mellitus without complications (CMS/HCC) MAGNESIUM Routine 11/07/2024 12:00 AM EST Other [employer] (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 Type 2 diabetes mellitus without complications (CMS/HCC) HEMOGLOBIN A1C Routine 11/07/2024 12:00 AM EST Other [employer] (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 Type 2 diabetes mellitus without complications (CMS/HCC) BASIC METABOLIC PANEL Routine 11/07/2024 12:00 AM EST Other prison (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 Type 2 diabetes mellitus without complications (CMS/HCC) documented in this encounter Results * Lavender tube (11/07/2024 12:00 AM EST) Pathologist [facility] Extra Tube Hold for add-ons. 11/07/2024 9:01 AM EST [facility] Comment:Auto resulted. Blood Venous blood specimen / Unknown 11/07/2024 11/07/2024 7:28 AM EST us August Baldwin MD LAB BLOOD ORDERABLES Final Resul t [facility] [address] [place] [address], [place] [phone] * (ABNORMAL) CBC auto differential (11/07/2024 12:00 AM EST) [facility] WBC 14.3(H) 4.8 - 10.8 K/mcL LAB HEMETOLOGY METHOD 11/07/2024 7:39 AM [facility] RBC 4.10(L) 4.50 - 5.50 M/mcL LAB HEMETOLOGY METHOD 11/07/2024 7:39 AM [facility] Hemoglobin 12.0(L) 13.5 - 17.5 g/dL LAB HEMETOLOGY METHOD 11/07/2024 7:39 AM [facility] Hematocrit 37.6(L) 42.0 - 54.0 % LAB HEMETOLOGY METHOD 11/07/2024 7:39 AM [facility] MCV 92.6 79.0 - 98.0 FL LAB HEMETOLOGY METHOD 11/07/2024 7:39 AM [facility] MCH 29.6 27.0 - 32.0 pcg LAB HEMETOLOGY METHOD 11/07/2024 7:39 AM [facility] MCHC 31.9(L) 32.0 - 37.0 g/dL LAB HEMETOLOGY METHOD 11/07/2024 7:39 AM [facility] RDW 13.0 11.0 - 15.0 % LAB HEMETOLOGY METHOD 11/07/2024 7:39 AM [facility] Platelets 200 130 - 400 K/mcL LAB HEMETOLOGY METHOD 11/07/2024 7:39 AM [facility] MPV 9.7 7.0 - 11.0 FL LAB HEMETOLOGY METHOD 11/07/2024 7:39 AM [facility] NRBC 0.0 <1.0 % LAB HEMETOLOGY METHOD 11/07/2024 7:39 AM [facility] NRBC Absolute 0.00 <0.10 K/mcL LAB HEMETOLOGY METHOD 11/07/2024 7:39 AM [facility] Neutrophils Relative 67.3 % LAB HEMETOLOGY METHOD 11/07/2024 7:39 AM [facility] Lymphocytes Relative 21.2 % LAB HEMETOLOGY METHOD 11/07/2024 7:39 AM [facility] Monocytes Relative 8.5 % LAB HEMETOLOGY METHOD 11/07/2024 7:39 AM [facility] Eosinophils Relative 1.3 % LAB HEMETOLOGY METHOD 11/07/2024 7:39 AM [facility] Basophils Relative 0.4 % LAB HEMETOLOGY METHOD 11/07/2024 7:39 AM [facility] Immature Granulocytes Relative 1.3 % LAB HEMETOLOGY METHOD 11/07/2024 7:39 AM [facility] Neutrophils Absolute 9.58(H) 1.50 - 7.00 K/mcL LAB HEMETOLOGY METHOD 11/07/2024 7:39 AM EST [facility] Lymphocytes Absolute 3.02 1.00 - 5.00 K/mcL LAB HEMETOLOGY METHOD 11/07/2024 7:39 AM EST [facility] Monocytes Absolute 1.21(H) 0.20 - 1.00 K/mcL LAB HEMETOLOGY METHOD 11/07/2024 7:39 AM EST [facility] Eosinophils Absolute 0.19 0.00 - 0.50 K/[facility] LAB HEMETOLOGY METHOD 11/07/2024 7:39 AM EST [facility] Basophils Absolute 0.06 0.00 - 0.20 K/mcL LAB HEMETOLOGY METHOD 11/07/2024 7:39 AM [facility] Immature Granulocytes Absolute 0.19(H) 0.00 - 0.03 K/[facility] LAB HEMETOLOGY METHOD 11/07/2024 7:39 AM EST [facility] Blood Venous blood specimen / Unknown 11/07/2024 11/07/2024 7:28 AM EST us August Baldwin MD LAB BLOOD ORDERABLES Final Resul t Performing Organization Address City/[facility]/ZIP Co de Phone Number [facility] [address] [place] [address], * Magnesium (11/07/2024 12:00 AM EST) Magnesium 2.2 1.9 - 2.6 mg/dL LAB CHEMISTRY METHOD 11/07/2024 8:14 AM EST [facility] Blood Venous blood specimen / Unknown 11/07/2024 11/07/2024 7:28 AM EST us August Baldwin MD LAB BLOOD ORDERABLES Final Resul t [facility] [address] [place] [address], [place] [phone] * Hemoglobin A1c (11/07/2024 12:00 AM EST) Hemoglobin A1C 5.4 <6.5 % LAB CHEMISTRY METHOD 11/07/2024 12:49 PM EST [facility] Mean Bld Glu Estim. 108 mg/dL LAB CHEMISTRY METHOD 11/07/2024 12:49 PM [facility] Blood Venous blood specimen / Unknown 11/07/2024 11/07/2024 7:28 AM EST August Baldwin MD LAB BLOOD ORDERABLES Final Resul t Performing Organization Address [facility] de Phone Number [facility] [address] [place] [address], [place] [phone] * (ABNORMAL) Basic metabolic panel (11/07/2024 12:00 AM EST) Pathologist [facility] Sodium 136 133 - 145 mmol/L LAB CHEMISTRY METHOD 11/07/2024 8:14 AM [facility] Potassium 3.4(L) 3.5 - 5.5 mmol/L LAB CHEMISTRY METHOD 11/07/2024 8:14 AM [facility] Chloride 102 96 - 110 mmol/L LAB CHEMISTRY METHOD 11/07/2024 8:14 AM [facility] CO2 28 21 - 32 mmol/L LAB CHEMISTRY METHOD 11/07/2024 8:14 AM [facility] Anion Gap 6 3 - 11 LAB CHEMISTRY METHOD 11/07/2024 8:14 AM [facility] Glucose 83 70 - 100 mg/dL LAB CHEMISTRY METHOD 11/07/2024 8:14 AM [facility] BUN 19 5 - 25 mg/dL LAB CHEMISTRY METHOD 11/07/2024 8:14 AM EST [facility] Creatinine 0.81 0.70 - 1.30 mg/dL LAB CHEMISTRY METHOD 11/07/2024 8:14 AM EST [facility] eGFR 100 >=60 mL/min/1. 73m2 LAB CHEMISTRY METHOD 11/07/2024 8:14 AM [facility] Comment:Calculation based on the Chronic Kidney Disease Epidemiology Collaboration (CKD-EPI) equation refit without adjustment for race. BUN/Creatinine Ratio 23.5 LAB CHEMISTRY METHOD 11/07/2024 8:14 AM EST [facility] Calcium 8.9 8.5 - 10.5 mg/dL LAB CHEMISTRY METHOD 11/07/2024 8:14 AM [facility] Blood Venous blood specimen / Unknown 11/07/2024 11/07/2024 7:28 AM EST us August Baldwin MD LAB BLOOD ORDERABLES Final Resul t [facility] [address] [place] [address], documented in this encounter Visit Diagnoses Diagnosis Other [employer] (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 Type 2 diabetes mellitus without complications (CMS/HCC V24, CMS/HCC V28) documented in this encounter Care Teams Geospatial Systems Integrator Relationship Specialty Start Date End Date August Baldwin MD [address] [place] [address] Dr [address] [place] PCP - General Internal Medicine 12/09/24 documented as of this encounter
--- OUTSIDE RECORDS SUMMARY | 2025-07-02 15:54 | XMS_ITS | Encounter Summary ---
Author Organization [facility] Address [address] [place] [address] Care Team Providers Care Lead Driver Name Role Phone August Baldwin MD Primary Care Provider Encounter Details Date Type Department Care Team (Late st Contact Info) Description 01/21/2025 Lab Requisition [facility] - Main Lab [address] [place] [address] August Baldwin MD [address] [place] [address] Dr [address] [place] Essential (primary) hypertension Social History Tobacco Use [...] Procedure Name Priority Date/Time Associated Diagnosis Comments COMPREHENSIVE METABOLIC PANEL Routine 01/21/2025 5:00 AM EDT Essential (primary) hypertension documented in this encounter Results * (ABNORMAL) Comprehensive metabolic panel (01/21/2025 5:00 AM EDT) Sodium 138 133 - 145 mmol/L LAB CHEMISTRY METHOD 01/21/2025 6:03 AM EDT [facility] Potassium 5.0 3.5 - 5.5 mmol/L LAB CHEMISTRY METHOD 01/21/2025 6:03 AM EDT [facility] Comment:Hemolysis present Chloride 107 96 - 110 mmol/L LAB CHEMISTRY METHOD 01/21/2025 6:[address] [facility] CO2 26 21 - 32 mmol/L LAB CHEMISTRY METHOD 01/21/2025 6:[address] [facility] Anion Gap 5 3 - 11 LAB CHEMISTRY METHOD 01/21/2025 6:[address] [facility] Glucose 82 70 - 100 mg/dL LAB CHEMISTRY METHOD 01/21/2025 6:[address] [facility] BUN 12 5 - 25 mg/dL LAB CHEMISTRY METHOD 01/21/2025 6:[address] [facility] Creatinine 0.76 0.70 - 1.30 mg/dL LAB CHEMISTRY METHOD 01/21/2025 6:[address] [facility] eGFR 102 >=60 mL/min/1. 73m2 LAB CHEMISTRY METHOD 01/21/2025 6:[address] [facility] Comment:Calculation based on the Chronic Kidney Disease Epidemiology Collaboration (CKD-EPI) equation refit without adjustment for race. BUN/Creatinine Ratio 15.8 LAB CHEMISTRY METHOD 01/21/2025 6:[address] [facility] Calcium 9.1 8.5 - 10.5 mg/dL LAB CHEMISTRY METHOD 01/21/2025 6:[address] [facility] AST (SGOT) 44(H) 10 - 42 unit/L LAB CHEMISTRY METHOD 01/21/2025 6:[address] [facility] Comment:Hemolysis present ALT (SGPT) 48 10 - 60 unit/L LAB CHEMISTRY METHOD 01/21/2025 6:[address] [facility] Alkaline Phosphatase 123(H) 42 - 121 unit/L LAB CHEMISTRY METHOD 01/21/2025 6:[address] [facility] Total Protein 7.1 6.0 - 8.0 g/dL LAB CHEMISTRY METHOD 01/21/2025 6:[address] [facility] Albumin 3.1(L) 3.2 - 5.0 g/dL LAB CHEMISTRY METHOD 01/21/2025 6:[address] [facility] Total Bilirubin 0.5 0.0 - 1.4 mg/dL LAB CHEMISTRY METHOD 01/21/2025 6:03 AM EDT [facility] Blood Venous blood specimen / Unknown 01/21/2025 5:00 AM EDT 01/21/2025 5:25 AM EDT us August Baldwin MD LAB BLOOD ORDERABLES Final Resul t [facility] [address] [place] [address], [place] [phone] documented in this encounter Visit Diagnoses Diagnosis Essential (primary) hypertension Unspecified essential hypertension documented in this encounter Care Teams Lead Driver Relationship Specialty Start Date End Date August Baldwin MD [address] [place] [address] Dr [address] [place] PCP - General Internal Medicine 12/09/24 documented as of this encounter
--- OUTSIDE RECORDS SUMMARY | 2025-07-02 15:54 | XMS_ITS | Encounter Summary ---
Author Organization [facility] Address [address] [place] [address] Care Team Providers Care Job Site Superintendent Name Role Phone August Baldwin MD Primary Care Provider [phone] Encounter Details Date Type Department Care Team (Late st Contact Info) Description 05/25/2025 Lab Requisition [facility] - Main Lab [address] [place] [address] August Baldwin MD [address] [place] [address] Dr [address] THI Sparks Other assisted (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 Social History Tobacco Use [...] Diagnosis Comments CBC WITH AUTO DIFFERENTIAL Routine 05/25/2025 6:50 AM EDT Other termite control representative (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 CBC AND DIFFERENTIAL Routine 05/25/2025 6:50 AM EDT Other assisted (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 MAGNESIUM Routine 05/25/2025 6:50 AM EDT Other termite control representative (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 BASIC METABOLIC PANEL Routine 05/25/2025 6:50 AM EDT Other termite control representative (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 documented in this encounter Results * (ABNORMAL) CBC auto differential (05/25/2025 6:50 AM EDT) WBC 10.6 4.8 - 10.8 K/[facility] LAB HEMETOLOGY METHOD 05/25/2025 7:16 AM [facility] RBC 4.10(L) 4.50 - 5.50 M/mcL LAB HEMETOLOGY METHOD 05/25/2025 7:16 AM [facility] Hemoglobin 12.2(L) 13.5 - 17.5 g/dL LAB HEMETOLOGY METHOD 05/25/2025 7:16 AM [facility] LAB Hematocrit 37.4(L) 42.0 - 54.0 % LAB HEMETOLOGY METHOD 05/25/2025 7:16 AM [facility] MCV 90.8 79.0 - 98.0 FL LAB HEMETOLOGY METHOD 05/25/2025 7:16 AM [facility] LAB MCH 29.6 27.0 - 32.0 pcg LAB HEMETOLOGY METHOD 05/25/2025 7:16 AM [facility] MCHC 32.6 32.0 - 37.0 g/dL LAB HEMETOLOGY METHOD 05/25/2025 7:16 AM [facility] RDW 13.5 11.0 - 15.0 % LAB HEMETOLOGY METHOD 05/25/2025 7:16 AM [facility] Platelets 188 130 - 400 K/mcL LAB HEMETOLOGY METHOD 05/25/2025 7:16 AM [facility] LAB MPV 9.6 7.0 - 11.0 FL LAB HEMETOLOGY METHOD 05/25/2025 7:16 AM [facility] NRBC 0.0 <1.0 % LAB HEMETOLOGY METHOD 05/25/2025 7:16 AM [facility] NRBC Absolute 0.00 <0.10 K/mcL LAB HEMETOLOGY METHOD 05/25/2025 7:16 AM [facility] Neutrophils Relative 64.0 % LAB HEMETOLOGY METHOD 05/25/2025 7:16 AM [facility] Lymphocytes Relative 25.7 % LAB HEMETOLOGY METHOD 05/25/2025 7:16 AM [facility] Monocytes Relative 7.2 % LAB HEMETOLOGY METHOD 05/25/2025 7:16 AM [facility] Eosinophils Relative 1.6 % LAB HEMETOLOGY METHOD 05/25/2025 7:16 AM [facility] Basophils Relative 0.6 % LAB HEMETOLOGY METHOD 05/25/2025 7:16 AM [facility] Immature Granulocytes Relative 0.9 % LAB HEMETOLOGY METHOD 05/25/2025 7:16 AM [facility] Neutrophils Absolute 6.79 1.50 - 7.00 K/mcL LAB HEMETOLOGY METHOD 05/25/2025 7:16 AM [facility] Lymphocytes Absolute 2.72 1.00 - 5.00 K/mcL LAB HEMETOLOGY METHOD 05/25/2025 7:16 AM [facility] Monocytes Absolute 0.76 0.20 - 1.00 K/mcL LAB HEMETOLOGY METHOD 05/25/2025 7:16 AM [facility] Eosinophils Absolute 0.17 0.00 - 0.50 K/mcL LAB HEMETOLOGY METHOD 05/25/2025 7:16 AM [facility] Basophils Absolute 0.06 0.00 - 0.20 K/mcL LAB HEMETOLOGY METHOD 05/25/2025 7:16 AM [facility] Immature Granulocytes Absolute 0.10(H) 0.00 - 0.03 K/mcL LAB HEMETOLOGY METHOD 05/25/2025 7:16 AM [facility] Blood Venous blood specimen / Unknown 05/25/2025 6:50 AM EDT 05/25/2025 6:51 AM EDT us August Baldwin MD LAB BLOOD ORDERABLES Final Resul t Performing Organization Address City/[facility]/ZIP Co de Phone Number [facility] [address] [place] [address], [place] [phone] * Magnesium (05/25/2025 6:50 AM EDT) Pathologist [facility] Magnesium 2.3 1.9 - 2.6 mg/dL LAB CHEMISTRY METHOD 05/25/2025 7:47 AM EDT [facility] Blood Venous blood specimen / Unknown 05/25/2025 6:50 AM EDT 05/25/2025 6:51 AM EDT us August Baldwin MD LAB BLOOD ORDERABLES Final Resul t Performing Organization Address [facility] Co de Phone Number [facility] [address] [place] [address], [place] [phone] * Basic metabolic panel (05/25/2025 6:50 AM EDT) Pathologist [facility] Sodium 138 133 - 145 mmol/L LAB CHEMISTRY METHOD 05/25/2025 7:47 AM [facility] Potassium 4.1 3.5 - 5.5 mmol/L LAB CHEMISTRY METHOD 05/25/2025 7:47 AM [facility] Chloride 109 96 - 110 mmol/L LAB CHEMISTRY METHOD 05/25/2025 7:47 AM [facility] CO2 25 21 - 32 mmol/L LAB CHEMISTRY METHOD 05/25/2025 7:47 AM [facility] Anion Gap 4 3 - 11 LAB CHEMISTRY METHOD 05/25/2025 7:47 AM [facility] Glucose 76 70 - 100 mg/dL LAB CHEMISTRY METHOD 05/25/2025 7:47 AM [facility] BUN 12 5 - 25 mg/dL LAB CHEMISTRY METHOD 05/25/2025 7:47 AM EDT [facility] Creatinine 0.76 0.70 - 1.30 mg/dL LAB CHEMISTRY METHOD 05/25/2025 7:47 AM EDT [facility] eGFR 102 >=60 mL/min/1. 73m2 LAB CHEMISTRY METHOD 05/25/2025 7:47 AM EDT [facility] Comment:Calculation based on the Chronic Kidney Disease Epidemiology Collaboration (CKD-EPI) equation refit without adjustment for race. BUN/Creatinine Ratio 15.8 LAB CHEMISTRY METHOD 05/25/2025 7:47 AM T [facility] Calcium 9.5 8.5 - 10.5 mg/dL LAB CHEMISTRY METHOD 05/25/2025 7:47 AM T [facility] Blood Venous blood specimen / Unknown 05/25/2025 6:50 AM EDT 05/25/2025 6:51 AM EDT us August Baldwin MD LAB BLOOD ORDERABLES Final Resul t [facility] [address] [place] [address], documented in this encounter Visit Diagnoses Diagnosis Other assisted (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 documented in this encounter Care Teams Job Site Superintendent Relationship Specialty Start Date End Date August Baldwin MD [address] [place] [address] Dr Teresa [facility] [place], [place] PCP - General Internal Medicine 12/09/24 documented as of this encounter
--- OUTSIDE RECORDS SUMMARY | 2025-07-02 15:54 | XMS_ITS | Encounter Summary ---
Author Organization [facility] Address [address] [place] [address] Care Team Providers Care Personal Care Worker Name Role Phone August Baldwin MD Primary Care Provider Encounter Details Date Type Department Care Team (Late st Contact Info) Description 12/09/2024 Lab Requisition [facility] - Main Lab [address] [facility] [place] [address] August Baldwin MD [address] [place] [address] [address] THI Sparks Essential (primary) hypertension; Hypothyroidism, unspecified; Other halfway (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 Social History Tobacco Use [...] EST Essential (primary) hypertension Hypothyroidism, unspecified Other halfway (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 CBC AND DIFFERENTIAL Routine 12/09/2024 6:05 AM EST Essential (primary) hypertension Hypothyroidism, unspecified Other intermediate designer (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 THYROID STIMULATING HORMONE Routine 12/09/2024 6:05 AM EST Essential (primary) hypertension Hypothyroidism, unspecified Other halfway (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 THYROXINE FREE Routine 12/09/2024 6:05 AM EST Essential (primary) hypertension Hypothyroidism, unspecified Other halfway (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 MAGNESIUM Routine 12/09/2024 6:05 AM EST Essential (primary) hypertension Hypothyroidism, unspecified Other halfway (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 BASIC METABOLIC PANEL Routine 12/09/2024 6:05 AM EST Essential (primary) hypertension Hypothyroidism, unspecified Other intermediate designer (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 documented in this encounter Results * (ABNORMAL) CBC auto differential (12/09/2024 6:05 AM EST) WBC 12.1(H) 4.8 - 10.8 K/mcL LAB HEMETOLOGY METHOD 12/09/2024 6:48 AM [facility] RBC 4.00(L) 4.50 - 5.50 M/mcL LAB HEMETOLOGY METHOD 12/09/2024 6:48 AM [facility] Hemoglobin 11.9(L) 13.5 - 17.5 g/dL LAB HEMETOLOGY METHOD 12/09/2024 6:48 AM [facility] Hematocrit 36.6(L) 42.0 - 54.0 % LAB HEMETOLOGY METHOD 12/09/2024 6:48 AM [facility] LAB MCV 92.0 79.0 - 98.0 FL LAB HEMETOLOGY METHOD 12/09/2024 6:48 AM [facility] MCH 29.9 27.0 - 32.0 pcg LAB HEMETOLOGY METHOD 12/09/2024 6:48 AM [facility] MCHC 32.5 32.0 - 37.0 g/dL LAB HEMETOLOGY METHOD 12/09/2024 6:48 AM [facility] RDW 13.4 11.0 - 15.0 % LAB HEMETOLOGY METHOD 12/09/2024 6:48 AM [facility] Platelets 169 130 - 400 K/mcL LAB HEMETOLOGY METHOD 12/09/2024 6:48 AM [facility] MPV 9.6 7.0 - 11.0 FL LAB HEMETOLOGY METHOD 12/09/2024 6:48 AM [facility] NRBC 0.0 <1.0 % LAB HEMETOLOGY METHOD 12/09/2024 6:48 AM [facility] NRBC Absolute 0.00 <0.10 K/mcL LAB HEMETOLOGY METHOD 12/09/2024 6:48 AM [facility] Neutrophils Relative 68.1 % LAB HEMETOLOGY METHOD 12/09/2024 6:48 AM [facility] Lymphocytes Relative 17.7 % LAB HEMETOLOGY METHOD 12/09/2024 6:48 AM [facility] Monocytes Relative 11.9 % LAB HEMETOLOGY METHOD 12/09/2024 6:48 AM [facility] Eosinophils Relative 1.1 % LAB HEMETOLOGY METHOD 12/09/2024 6:48 AM [facility] Basophils Relative 0.4 % LAB HEMETOLOGY METHOD 12/09/2024 6:48 AM [facility] Immature Granulocytes Relative 0.8 % LAB HEMETOLOGY METHOD 12/09/2024 6:48 AM [facility] Neutrophils Absolute 8.22(H) 1.50 - 7.00 K/mcL LAB HEMETOLOGY METHOD 12/09/2024 6:48 AM [facility] Lymphocytes Absolute 2.14 1.00 - 5.00 K/mcL LAB HEMETOLOGY METHOD 12/09/2024 6:48 AM [facility] Monocytes Absolute 1.44(H) 0.20 - 1.00 K/mcL LAB HEMETOLOGY METHOD 12/09/2024 6:48 AM [facility] Eosinophils Absolute 0.13 0.00 - 0.50 K/mcL LAB HEMETOLOGY METHOD 12/09/2024 6:48 AM [facility] Basophils Absolute 0.05 0.00 - 0.20 K/mcL LAB HEMETOLOGY METHOD 12/09/2024 6:48 AM EST [facility] Immature Granulocytes Absolute 0.10(H) 0.00 - 0.03 K/mcL LAB HEMETOLOGY METHOD 12/09/2024 6:48 AM EST [facility] Blood Venous blood specimen / Unknown 12/09/2024 6:05 AM EST 12/09/2024 6:36 AM EST us August Baldwin MD LAB BLOOD ORDERABLES Final Resul t Performing Organization Address [facility] Co de Phone Number [facility] [address] [place] [address], [place] [phone] * Thyroid stimulating hormone (12/09/2024 6:05 AM EST) TSH 1.50 0.40 - 4.00 mcIU/mL LAB CHEMISTRY METHOD 12/09/2024 7:31 AM EST [facility] Blood Venous blood specimen / Unknown 12/09/2024 6:05 AM EST 12/09/2024 6:36 AM EST us August Baldwin MD LAB BLOOD ORDERABLES Final Resul t Performing Organization Address [facility] de Phone Number [facility] [address] [place] [address], [place] [phone] * (ABNORMAL) Magnesium (12/09/2024 6:05 AM EST) Magnesium 1.8(L) 1.9 - 2.6 mg/dL LAB CHEMISTRY METHOD 12/09/2024 7:18 AM EST [facility] Blood Venous blood specimen / Unknown 12/09/2024 6:05 AM EST 12/09/2024 6:36 AM EST us August Baldwin MD LAB BLOOD ORDERABLES Final Resul t Performing Organization Address City/[facility]/ZIP Co de Phone Number [facility] [address] [place] [address], [place] [phone] * Thyroxine free (12/09/2024 6:05 AM EST) Free T4 1.10 0.70 - 1.80 ng/dL LAB CHEMISTRY METHOD 12/09/2024 7:31 AM EST [facility] Blood Venous blood specimen / Unknown 12/09/2024 6:05 AM EST 12/09/2024 6:36 AM EST August Baldwin MD LAB BLOOD ORDERABLES Final Resul t Performing Organization Address [facility] Co de Phone Number [facility] [address] [place] [address], [place] [phone] * (ABNORMAL) Basic metabolic panel (12/09/2024 6:05 AM EST) [facility] Sodium 137 133 - 145 mmol/L LAB CHEMISTRY METHOD 12/09/2024 7:18 AM [facility] Potassium 3.4(L) 3.5 - 5.5 mmol/L LAB CHEMISTRY METHOD 12/09/2024 7:18 AM [facility] Chloride 105 96 - 110 mmol/L LAB CHEMISTRY METHOD 12/09/2024 7:18 AM [facility] CO2 27 21 - 32 mmol/L LAB CHEMISTRY METHOD 12/09/2024 7:18 AM [facility] Anion Gap 5 3 - 11 LAB CHEMISTRY METHOD 12/09/2024 7:18 AM [facility] Glucose 88 70 - 100 mg/dL LAB CHEMISTRY METHOD 12/09/2024 7:18 AM [facility] BUN 20 5 - 25 mg/dL LAB CHEMISTRY METHOD 12/09/2024 7:18 AM [facility] Creatinine 0.74 0.70 - 1.30 mg/dL LAB CHEMISTRY METHOD 12/09/2024 7:18 AM EST [facility] eGFR 103 >=60 mL/min/1. 73m2 LAB CHEMISTRY METHOD 12/09/2024 7:18 AM EST [facility] Comment:Calculation based on the Chronic Kidney Disease Epidemiology Collaboration (CKD-EPI) equation refit without adjustment for race. BUN/Creatinine Ratio 27.0 LAB CHEMISTRY METHOD 12/09/2024 7:18 AM EST [facility] Calcium 8.9 8.5 - 10.5 mg/dL LAB CHEMISTRY METHOD 12/09/2024 7:18 AM [facility] Blood Venous blood specimen / Unknown 12/09/2024 6:05 AM EST 12/09/2024 6:36 AM EST us August Baldwin MD LAB BLOOD ORDERABLES Final Resul t [facility] [address] [place] [address], documented in this encounter Visit Diagnoses Diagnosis Essential (primary) hypertension Unspecified essential hypertension Hypothyroidism, unspecified Other halfway (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 documented in this encounter Care Teams Personal Care Worker Relationship Specialty Start Date End Date August Baldwin MD [address] [place] [address] [address] [place], [place] PCP - General Internal Medicine 12/09/24 documented as of this encounter
--- OUTSIDE RECORDS SUMMARY | 2025-07-02 15:54 | XMS_ITS | Encounter Summary ---
Author Organization [facility] Address [address] [place] [address] Care Team Providers Care Spreader Box Operator Name Role Phone August Baldwin MD Primary Care Provider [phone] Encounter Details Date Type Department Care Team (Late st Contact Info) Description 10/14/2024 Lab Requisition [facility] - Main Lab [address] [place] [address] August Baldwin MD [address] [place] [address] [address] THI Sparks Other group home (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 Social History Tobacco Use [...] DIFFERENTIAL Routine 10/14/2024 7:26 AM EST Other oil heaterman (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 CBC AND DIFFERENTIAL Routine 10/14/2024 7:26 AM EST Other group home (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 documented in this encounter Results * (ABNORMAL) CBC auto differential (10/14/2024 7:26 AM EST) WBC 14.2(H) 4.8 - 10.8 K/[facility] LAB HEMETOLOGY METHOD 10/14/2024 8:26 AM EST [facility] RBC 4.40(L) 4.50 - 5.50 M/[facility] LAB HEMETOLOGY METHOD 10/14/2024 8:26 AM EST [facility] Hemoglobin 12.9(L) 13.5 - 17.5 g/dL LAB HEMETOLOGY METHOD 10/14/2024 8:26 AM [facility] Hematocrit 40.2(L) 42.0 - 54.0 % LAB HEMETOLOGY METHOD 10/14/2024 8:26 AM [facility] MCV 91.6 79.0 - 98.0 FL LAB HEMETOLOGY METHOD 10/14/2024 8:26 AM [facility] MCH 29.4 27.0 - 32.0 pcg LAB HEMETOLOGY METHOD 10/14/2024 8:26 AM [facility] MCHC 32.1 32.0 - 37.0 g/dL LAB HEMETOLOGY METHOD 10/14/2024 8:26 AM [facility] RDW 13.3 11.0 - 15.0 % LAB HEMETOLOGY METHOD 10/14/2024 8:26 AM [facility] Platelets 202 130 - 400 K/mcL LAB HEMETOLOGY METHOD 10/14/2024 8:26 AM [facility] MPV 9.8 7.0 - 11.0 FL LAB HEMETOLOGY METHOD 10/14/2024 8:26 AM [facility] NRBC 0.0 <1.0 % LAB HEMETOLOGY METHOD 10/14/2024 8:26 AM [facility] NRBC Absolute 0.00 <0.10 K/mcL LAB HEMETOLOGY METHOD 10/14/2024 8:26 AM [facility] Neutrophils Relative 71.8 % LAB HEMETOLOGY METHOD 10/14/2024 8:26 AM [facility] Lymphocytes Relative 17.7 % LAB HEMETOLOGY METHOD 10/14/2024 8:26 AM [facility] Monocytes Relative 7.8 % LAB HEMETOLOGY METHOD 10/14/2024 8:26 AM [facility] Eosinophils Relative 1.1 % LAB HEMETOLOGY METHOD 10/14/2024 8:26 AM [facility] Basophils Relative 0.4 % LAB HEMETOLOGY METHOD 10/14/2024 8:26 AM [facility] Immature Granulocytes Relative 1.2 % LAB HEMETOLOGY METHOD 10/14/2024 8:26 AM [facility] Neutrophils Absolute 10.16(H) 1.50 - 7.00 K/mcL LAB HEMETOLOGY METHOD 10/14/2024 8:26 AM [facility] Lymphocytes Absolute 2.50 1.00 - 5.00 K/mcL LAB HEMETOLOGY METHOD 10/14/2024 8:26 AM [facility] Monocytes Absolute 1.10(H) 0.20 - 1.00 K/mcL LAB HEMETOLOGY METHOD 10/14/2024 8:26 AM [facility] Eosinophils Absolute 0.16 0.00 - 0.50 K/mcL LAB HEMETOLOGY METHOD 10/14/2024 8:26 AM [facility] Basophils Absolute 0.06 0.00 - 0.20 K/mcL LAB HEMETOLOGY METHOD 10/14/2024 8:26 AM [facility] Immature Granulocytes Absolute 0.17(H) 0.00 - 0.03 K/mcL LAB HEMETOLOGY METHOD 10/14/2024 8:26 AM [facility] Blood Venous blood specimen / Unknown 10/14/2024 7:26 AM EST 10/14/2024 8:12 AM EST us August Baldwin MD LAB BLOOD ORDERABLES Final Resul t [facility] [address] [place] [address], documented in this encounter Visit Diagnoses Diagnosis Other oil heaterman (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 documented in this encounter Care Teams Spreader Box Operator Relationship Specialty Start Date End Date August Baldwin MD [address] [place] [address] Dr [address] THI Sparks PCP - General Internal Medicine 12/09/24 documented as of this encounter
--- OUTSIDE RECORDS SUMMARY | 2025-07-02 15:54 | XMS_ITS | Encounter Summary ---
Author Organization [facility] Address [address] [place] [address] Care Team Providers Care Spray Gun Striper Name Role Phone August Baldwin MD Primary Care Provider [phone] Encounter Details Date Type Department Care Team (Late st Contact Info) Description 06/01/2025 Lab Requisition [facility] - Main Lab [address] [facility] [place] [address] August Baldwin MD [address] [place] [address] Dr [address] THI Sparks Hypothyroidism, unspecified; Other skilled nursing (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 Social History Tobacco Use [...] Date/Time Associated Diagnosis Comments LEVETIRACETAM LEVEL Routine 06/01/2025 6 :16 AM EDT Hypothyroidism, unspecified Other terminal gauger supervisor (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 THYROID STIMULATING HORMONE Routine 06/01/2025 6:16 AM EDT Hypothyroidism, unspecified Other terminal gauger supervisor (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 THYROXINE FREE Routine 06/01/2025 6:16 AM EDT Hypothyroidism, unspecified Other terminal gauger supervisor (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 MAGNESIUM Routine 06/01/2025 6:16 AM EDT Hypothyroidism, unspecified Other skilled nursing (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 BASIC METABOLIC PANEL Routine 06/01/2025 6:16 AM EDT Hypothyroidism, unspecified Other skilled nursing (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 documented in this encounter Results * Magnesium (06/01/2025 6:16 AM EDT) Magnesium 2.1 1.9 - 2.6 mg/dL LAB CHEMISTRY METHOD 06/02/2025 8:16 AM [facility] Blood Venous blood specimen / Unknown 06/01/2025 6:16 AM EDT 06/01/2025 7:59 AM EDT us August Baldwin MD LAB BLOOD ORDERABLES Final Resul t [facility] [address] [place] [address], [place] [phone] * Basic metabolic panel (06/01/2025 6:16 AM EDT) Sodium 137 133 - 145 mmol/L LAB CHEMISTRY METHOD 06/02/2025 8:16 AM [facility] Potassium 3.8 3.5 - 5.5 mmol/L LAB CHEMISTRY METHOD 06/02/2025 8:16 AM [facility] Chloride 102 96 - 110 mmol/L LAB CHEMISTRY METHOD 06/02/2025 8:16 AM [facility] CO2 26 21 - 32 mmol/L LAB CHEMISTRY METHOD 06/02/2025 8:16 AM [facility] Anion Gap 9 3 - 11 LAB CHEMISTRY METHOD 06/02/2025 8:16 AM [facility] Glucose 73 70 - 100 mg/dL LAB CHEMISTRY METHOD 06/02/2025 8:16 AM [facility] BUN 15 5 - 25 mg/dL LAB CHEMISTRY METHOD 06/02/2025 8:16 AM [facility] Creatinine 0.80 0.70 - 1.30 mg/dL LAB CHEMISTRY METHOD 06/02/2025 8:16 AM [facility] eGFR 100 >=60 mL/min/1. 73m2 LAB CHEMISTRY METHOD 06/02/2025 8:[address] [facility] Comment:Calculation based on the Chronic Kidney Disease Epidemiology Collaboration (CKD-EPI) equation refit without adjustment for race. BUN/Creatinine Ratio 18.8 LAB CHEMISTRY METHOD 06/02/2025 8:[address] [facility] Calcium 9.2 8.5 - 10.5 mg/dL LAB CHEMISTRY METHOD 06/02/2025 8:[address] [facility] Blood Venous blood specimen / Unknown 06/01/2025 6:16 AM EDT 06/01/2025 7:59 AM EDT us August Baldwin MD LAB BLOOD ORDERABLES Final Resul t Performing Organization Address [facility]/ZIP Co de Phone Number [facility] [address] [place] [address], [place] [phone] * Thyroxine free (06/01/2025 6:16 AM EDT) Free T4 1.16 0.70 - 1.80 ng/dL LAB CHEMISTRY METHOD 06/01/2025 9:[address] [facility] Blood Venous blood specimen / Unknown 06/01/2025 6:16 AM EDT 06/01/2025 7:59 AM EDT us August Baldwin MD LAB BLOOD ORDERABLES Final Resul t Performing Organization Address City/[facility]/ZIP Co de Phone Number [facility] [address] [place] [address], [place] [phone] * Levetiracetam level (06/01/2025 6:16 AM EDT) Levetiracetam 26.8 3.0 - 60.0 ug/mL 06/03/2025 6:00 AM EDT [facility] Comment: Steady state trough serum or plasma levels following doses of 1000 to 3000 mg/Day: 3 to 37 ug/mL. The same dosage regimen will typically result in peak levels of 10 to 60 ug/mL, at approximately 1.5 hours post dose. If applicable, any drug confirmation testing reported here was developed and the performance characteristics determined by [facility]. This confirmation testing has not been cleared or approved by the FDA. The laboratory is regulated under CLIA as qualified to perform high-complexity testing. This test is used for patient testing purposes. It should not be regarded as investigational or for research. Test performed at [facility], [address] , [place] [address] Mckenna Lubin MD, PhD - Sas Administrator Blood Venous blood specimen / Unknown 06/01/2025 6:16 AM EDT 06/01/2025 7:59 AM EDT us August Baldwin MD LAB BLOOD ORDERABLES Final Resul t Performing Organization Address City/[facility]/ZIP Co de Phone Number [facility] [address] [place] [address] * Thyroid stimulating hormone (06/01/2025 6:16 AM EDT) TSH 2.14 0.40 - 4.00 mcIU/mL LAB CHEMISTRY METHOD 06/01/2025 9:[address] [facility] Blood Venous blood specimen / Unknown 06/01/2025 6:16 AM EDT 06/01/2025 7:59 AM EDT us August Baldwin MD LAB BLOOD ORDERABLES Final Resul t [facility] [address] [place] [address], [place] [phone] documented in this encounter Visit Diagnoses Diagnosis Hypothyroidism, unspecified Other skilled nursing (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 documented in this encounter Care Teams Spray Gun Striper Relationship Specialty Start Date End Date August Baldwin MD [address] [place] [address] Dr Suite [facility] [place] [place] PCP - General Internal Medicine 12/09/24 documented as of this encounter
--- OUTSIDE RECORDS SUMMARY | 2025-07-02 15:54 | XMS_ITS | Encounter Summary ---
Author Organization [facility] Address [address] [place] [address] Care Team Providers Care Oyster Sorter Name Role Phone August Baldwin MD Primary Care Provider [phone] Encounter Details Date Type Department Care Team (Late st Contact Info) Description 02/03/[address] [facility] Lab [address] [facility] [place] [address] August Baldwin MD [address] [place] [address] [address] THI Sparks Type 2 diabetes mellitus without complications (CMS/HCC V24, CMS/HCC V28); Essential (primary) hypertension; Other detention (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 Social History Tobacco Use [...] Diagnosis Comments CBC WITH AUTO DIFFERENTIAL Routine 02/03/2025 7:00 AM EDT Type 2 diabetes mellitus without complications Essential (primary) hypertension Other detention (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 CBC AND DIFFERENTIAL Routine 02/03/2025 7:00 AM EDT Type 2 diabetes mellitus without complications Essential (primary) hypertension Other salvage determiner (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 MAGNESIUM Routine 02/03/2025 7:00 AM EDT Type 2 diabetes mellitus without complications Essential (primary) hypertension Other salvage determiner (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 HEMOGLOBIN A1C Routine 02/03/2025 7:00 AM EDT Type 2 diabetes mellitus without complications Essential (primary) hypertension Other detention (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 BASIC METABOLIC PANEL Routine 02/03/2025 7:00 AM EDT Type 2 diabetes mellitus without complications Essential (primary) hypertension Other detention (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 documented in this encounter Results * Hemoglobin A1c (02/03/2025 7:00 AM EDT) [facility] Hemoglobin A1C 5.4 <6.5 % LAB CHEMISTRY METHOD 02/03/2025 1:55 PM EDT [facility] Mean Bld Glu Estim. 108 mg/dL LAB CHEMISTRY METHOD 02/03/2025 1:55 PM EDT [facility] Blood Venous blood specimen / Unknown 02/03/2025 7:00 AM EDT 02/03/2025 7:50 AM EDT us August Baldwin MD LAB BLOOD ORDERABLES Final Resul t [facility] [address] [place] [address], [place] [phone] * (ABNORMAL) CBC auto differential (02/03/2025 7:00 AM EDT) [facility] WBC 14.4(H) 4.8 - 10.8 K/mcL LAB HEMETOLOGY METHOD 02/03/2025 7:56 AM EDT [facility] RBC 4.40(L) 4.50 - 5.50 M/mcL LAB HEMETOLOGY METHOD 02/03/2025 7:56 AM EDT [facility] Hemoglobin 12.9(L) 13.5 - 17.5 g/dL LAB HEMETOLOGY METHOD 02/03/2025 7:56 AM EDT [facility] Hematocrit 40.2(L) 42.0 - 54.0 % LAB HEMETOLOGY METHOD 02/03/2025 7:56 AM EDT [facility] MCV 91.8 79.0 - 98.0 FL LAB HEMETOLOGY METHOD 02/03/2025 7:[address] [facility] MCH 29.5 27.0 - 32.0 pcg LAB HEMETOLOGY METHOD 02/03/2025 7:[address] [facility] MCHC 32.1 32.0 - 37.0 g/dL LAB HEMETOLOGY METHOD 02/03/2025 7:[address] [facility] RDW 14.1 11.0 - 15.0 % LAB HEMETOLOGY METHOD 02/03/2025 7:[address] [facility] Platelets 185 130 - 400 K/mcL LAB HEMETOLOGY METHOD 02/03/2025 7:[address] [facility] MPV 9.4 7.0 - 11.0 FL LAB HEMETOLOGY METHOD 02/03/2025 7:[address] [facility] NRBC 0.0 <1.0 % LAB HEMETOLOGY METHOD 02/03/2025 7:[address] [facility] NRBC Absolute 0.00 <0.10 K/mcL LAB HEMETOLOGY METHOD 02/03/2025 7:[address] [facility] Neutrophils Relative 73.4 % LAB HEMETOLOGY METHOD 02/03/2025 7:[address] [facility] Lymphocytes Relative 17.3 % LAB HEMETOLOGY METHOD 02/03/2025 7:[address] [facility] Monocytes Relative 6.9 % LAB HEMETOLOGY METHOD 02/03/2025 7:[address] [facility] Eosinophils Relative 1.1 % LAB HEMETOLOGY METHOD 02/03/2025 7:[address] [facility] Basophils Relative 0.5 % LAB HEMETOLOGY METHOD 02/03/2025 7:[address] [facility] Immature Granulocytes Relative 0.8 % LAB HEMETOLOGY METHOD 02/03/2025 7:56 AM EDT [facility] Neutrophils Absolute 10.56(H) 1.50 - 7.00 K/[facility] LAB HEMETOLOGY METHOD 02/03/2025 7:56 AM EDT [facility] Lymphocytes Absolute 2.49 1.00 - 5.00 K/[facility] LAB HEMETOLOGY METHOD 02/03/2025 7:56 AM EDT [facility] Monocytes Absolute 1.00 0.20 - 1.00 K/[facility] LAB HEMETOLOGY METHOD 02/03/2025 7:56 AM EDT [facility] Eosinophils Absolute 0.16 0.00 - 0.50 K/[facility] LAB HEMETOLOGY METHOD 02/03/2025 7:56 AM EDT [facility] Basophils Absolute 0.07 0.00 - 0.20 K/[facility] LAB HEMETOLOGY METHOD 02/03/2025 7:56 AM EDT [facility] Immature Granulocytes Absolute 0.12(H) 0.00 - 0.03 K/[facility] LAB HEMETOLOGY METHOD 02/03/2025 7:56 AM EDT [facility] Blood Venous blood specimen / Unknown 02/03/2025 7:00 AM EDT 02/03/2025 7:50 AM EDT August Baldwin MD LAB BLOOD ORDERABLES Final Resul t [facility] [address] [place] [address], * Magnesium (02/03/2025 7:00 AM EDT) Magnesium 2.1 1.9 - 2.6 mg/dL LAB CHEMISTRY METHOD 02/03/2025 8:19 AM EDT [facility] Blood Venous blood specimen / Unknown 02/03/2025 7:00 AM EDT 02/03/2025 7:50 AM EDT us August Baldwin MD LAB BLOOD ORDERABLES Final Resul t [facility] [address] [place] [address], [place] [phone] * (ABNORMAL) Basic metabolic panel (02/03/2025 7:00 AM EDT) Sodium 139 133 - 145 mmol/L LAB CHEMISTRY METHOD 02/03/2025 8:[address] [facility] Potassium 3.8 3.5 - 5.5 mmol/L LAB CHEMISTRY METHOD 02/03/2025 8:[address] [facility] Chloride 105 96 - 110 mmol/L LAB CHEMISTRY METHOD 02/03/2025 8:[address] [facility] CO2 28 21 - 32 mmol/L LAB CHEMISTRY METHOD 02/03/2025 8:[address] [facility] Anion Gap 6 3 - 11 LAB CHEMISTRY METHOD 02/03/2025 8:[address] [facility] Glucose 87 70 - 100 mg/dL LAB CHEMISTRY METHOD 02/03/2025 8:[address] [facility] BUN 13 5 - 25 mg/dL LAB CHEMISTRY METHOD 02/03/2025 8:[address] [facility] Creatinine 0.67(L) 0.70 - 1.30 mg/dL LAB CHEMISTRY METHOD 02/03/2025 8:[address] [facility] eGFR 106 >=60 mL/min/1. 73m2 LAB CHEMISTRY METHOD 02/03/2025 8:[address] [facility] Comment:Calculation based on the Chronic Kidney Disease Epidemiology Collaboration (CKD-EPI) equation refit without adjustment for race. BUN/Creatinine Ratio 19.4 LAB CHEMISTRY METHOD 02/03/2025 8:[address] [facility] Calcium 9.7 8.5 - 10.5 mg/dL LAB CHEMISTRY METHOD 02/03/2025 8:19 AM EDT [facility] Blood Venous blood specimen / Unknown 02/03/2025 7:00 AM EDT 02/03/2025 7:50 AM EDT us August Baldwin MD LAB BLOOD ORDERABLES Final Resul t [facility] [address] [place] [address], [place] [phone] documented in this encounter Visit Diagnoses Diagnosis Type 2 diabetes mellitus without complications (CMS/HCC V24, CMS/HCC V28) Essential (primary) hypertension Unspecified essential hypertension Other salvage determiner (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 documented in this encounter Care Teams Oyster Sorter Relationship Specialty Start Date End Date August Baldwin MD [address] [facility] [place], [place] PCP - General Internal Medicine 12/09/24 documented as of this encounter
--- OUTSIDE RECORDS SUMMARY | 2025-07-02 15:54 | XMS_ITS | Clinical Summary ---
Author Organization [address] Address [address] [place] [address] Phone Care Team Providers Care Head Waitress Name Role Phone August Baldwin MD Primary Care Provider [phone] Encounters Date Type Department Care Team Description 06/22/2025 Lab Requisition [facility] [address] [place] [phone] August Baldwin MD Other longterm (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 06/01/2025 Lab Requisition [facility] [address] [place] [phone] August Baldwin MD Hypothyroidism, unspecified; Other watermelon inspector (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 05/25/2025 Lab Requisition [facility] [address] [place] [phone] August Baldwin MD Other watermelon inspector (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 04/27/2025 Lab Requisition [facility] [address] [place] [phone] August Baldwin MD Other watermelon inspector (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; Type 2 diabetes mellitus without complications (CMS/HCC V24, CMS/HCC V28) from Last 3 Months Social History Tobacco [...] Years (1 of 2 - PCV) 1982 Zoster Vaccines (1 of 2) 2013 Cholesterol Screening (Lipid Panel) 09/26/2022 Colorectal Cancer Screening: Colonoscopy 09/26/2022 HIV Screening 09/26/2022 Hepatitis C Screening 09/26/2022 Medicare Annual Wellness Visit 09/26/2022 Social Influencers of Health Screening 09/26/2022 COVID-19 Vaccine ( season) 2024 Depression Screening 10/29/2024 Diabetes: Annual Urine Albumin-Creatinine Ratio (uACR) 11/07/2024 Influenza Vaccine (#1) 2025 Diabetes: Blood Sugar Control Test (HGBA1C) 10/27/2025 04/27/2025, 02/03/2025, 11/07/2024 Diabetes: Annual GFR (Glomerular Filtration Rate) 06/22/2026 06/22/2025, 06/01/2025, 05/25/2025, Additional history exists Hypertension/CHF/CAD Annual BMP Blood Test 06/22/2026 06/22/2025, 06/01/2025, 05/25/2025, Additional history exists RSV Immunization Adult Patients (1 - 1-dose 75+ series) 2038 HIB [...] age to complete this topic Meningococcal B Vaccine Aged Out No l onger eligible based on patient's age to complete this topic RSV Immunization Patients Under 20 months Aged Out No longer eligible based on patient's age to complete this topic Varicella Vaccines Aged Out No longer eligible based on patient's age to complete this topic Procedures Procedure Name Priority Date/Time Associated Diagnosis Comments CBC WITH AUTO DIFFERENTIAL Routine 06/22/2025 6:50 AM EDT Other longterm (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 MAGNESIUM Routine 06/22/2025 6:50 AM EDT Other watermelon inspector (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 CBC AND DIFFERENTIAL Routine 06/22/2025 6:50 AM EDT Other longterm (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 BASIC METABOLIC PANEL Routine 06/22/2025 6:50 AM EDT Other longterm (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 MAGNESIUM Routine 06/01/2025 6:16 AM EDT Hypothyroidism, unspecified Other watermelon inspector (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 BASIC METABOLIC PANEL Routine 06/01/2025 6:16 AM EDT Hypothyroidism, unspecified Other longterm (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 THYROXINE FREE Routine 06/01/2025 6:16 AM EDT Hypothyroidism, unspecified Other longterm (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 LEVETIRACETAM LEVEL Routine 06/01/2025 6 :16 AM EDT Hypothyroidism, unspecified Other longterm (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 THYROID STIMULATING HORMONE Routine 06/01/2025 6:16 AM EDT Hypothyroidism, unspecified Other watermelon inspector (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 CBC WITH AUTO DIFFERENTIAL Routine 05/25/2025 6:50 AM EDT Other longterm (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 MAGNESIUM Routine 05/25/2025 6:50 AM EDT Other watermelon inspector (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 CBC AND DIFFERENTIAL Routine 05/25/2025 6:50 AM EDT Other longterm (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 BASIC METABOLIC PANEL Routine 05/25/2025 6:50 AM EDT Other longterm (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 CBC WITH AUTO DIFFERENTIAL Routine 04/27/2025 6:00 AM EDT Other watermelon inspector (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 Type 2 diabetes mellitus without complications (CMS/HCC V24, CMS/HCC V28) MAGNESIUM Routine 04/27/2025 6:00 AM EDT Other longterm (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 Type 2 diabetes mellitus without complications (CMS/HCC V24, CMS/HCC V28) HEMOGLOBIN A1C Routine 04/27/2025 6:00 AM EDT Other watermelon inspector (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 Type 2 diabetes mellitus without complications (CMS/HCC V24, CMS/HCC V28) CBC AND DIFFERENTIAL Routine 04/27/2025 6:00 AM EDT Other longterm (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 Type 2 diabetes mellitus without complications (CMS/HCC V24, CMS/HCC V28) COMPREHENSIVE METABOLIC PANEL Routine 04/27/2025 6:00 AM EDT Other watermelon inspector (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 Type 2 diabetes mellitus without complications (CMS/HCC V24, CMS/HCC V28) from Last 3 Months Results * (ABNORMAL) CBC auto differential (06/22/2025 6:50 AM EDT) Only the most recent of3 resultswithin the time period is included. WBC 13.6(H) 4.8 - 10.8 K/mcL LAB HEMETOLOGY METHOD 06/22/2025 7:21 AM T [facility] RBC 4.30(L) 4.50 - 5.50 M/mcL LAB HEMETOLOGY METHOD 06/22/2025 7:21 AM T [facility] Hemoglobin 12.5(L) 13.5 - 17.5 g/dL LAB HEMETOLOGY METHOD 06/22/2025 7:21 AM [facility] Hematocrit 38.4(L) 42.0 - 54.0 % LAB HEMETOLOGY METHOD 06/22/2025 7:21 AM [facility] MCV 89.9 79.0 - 98.0 FL LAB HEMETOLOGY METHOD 06/22/2025 7:21 AM [facility] MCH 29.3 27.0 - 32.0 pcg LAB HEMETOLOGY METHOD 06/22/2025 7:21 AM [facility] MCHC 32.6 32.0 - 37.0 g/dL LAB HEMETOLOGY METHOD 06/22/2025 7:21 AM [facility] RDW 13.3 11.0 - 15.0 % LAB HEMETOLOGY METHOD 06/22/2025 7:21 AM [facility] Platelets 203 130 - 400 K/mcL LAB HEMETOLOGY METHOD 06/22/2025 7:21 AM [facility] MPV 9.4 7.0 - 11.0 FL LAB HEMETOLOGY METHOD 06/22/2025 7:21 AM [facility] NRBC 0.0 <1.0 % LAB HEMETOLOGY METHOD 06/22/2025 7:21 AM [facility] NRBC Absolute 0.00 <0.10 K/mcL LAB HEMETOLOGY METHOD 06/22/2025 7:21 AM [facility] Neutrophils Relative 71.6 % LAB HEMETOLOGY METHOD 06/22/2025 7:21 AM [facility] Lymphocytes Relative 18.4 % LAB HEMETOLOGY METHOD 06/22/2025 7:21 AM [facility] Monocytes Relative 7.3 % LAB HEMETOLOGY METHOD 06/22/2025 7:21 AM [facility] Eosinophils Relative 1.1 % LAB HEMETOLOGY METHOD 06/22/2025 7:21 AM [facility] Basophils Relative 0.4 % LAB HEMETOLOGY METHOD 06/22/2025 7:21 AM [facility] Immature Granulocytes Relative 1.2 % LAB HEMETOLOGY METHOD 06/22/2025 7:21 AM EDT [facility] Neutrophils Absolute 9.74(H) 1.50 - 7.00 K/mcL LAB HEMETOLOGY METHOD 06/22/2025 7:21 AM EDT [facility] Lymphocytes Absolute 2.50 1.00 - 5.00 K/mcL LAB HEMETOLOGY METHOD 06/22/2025 7:21 AM EDT [facility] Monocytes Absolute 0.99 0.20 - 1.00 K/mcL LAB HEMETOLOGY METHOD 06/22/2025 7:21 AM EDT [facility] Eosinophils Absolute 0.15 0.00 - 0.50 K/[facility] LAB HEMETOLOGY METHOD 06/22/2025 7:21 AM EDT [facility] Basophils Absolute 0.06 0.00 - 0.20 K/mcL LAB HEMETOLOGY METHOD 06/22/2025 7:21 AM EDT [facility] Immature Granulocytes Absolute 0.17(H) 0.00 - 0.03 K/[facility] LAB HEMETOLOGY METHOD 06/22/2025 7:21 AM EDT [facility] Blood Venous blood specimen / Unknown 06/22/2025 6:50 AM EDT 06/22/2025 7:12 AM EDT us August Baldwin MD LAB BLOOD ORDERABLES Final Resul t [facility] [address] [place] [address], * Magnesium (06/22/2025 6:50 AM EDT) Only the most recent of4 resultswithin the time period is included. Magnesium 2.4 1.9 - 2.6 mg/dL LAB CHEMISTRY METHOD 06/22/2025 7:38 AM EDT [facility] Blood Venous blood specimen / Unknown 06/22/2025 6:50 AM EDT 06/22/2025 7:12 AM EDT us August Baldwin MD LAB BLOOD ORDERABLES Final Resul t [facility] [address] [place] [address], [place] [phone] * Basic metabolic panel (06/22/2025 6:50 AM EDT) Only the most recent of3 resultswithin the time period is included. Sodium 137 133 - 145 mmol/L LAB CHEMISTRY METHOD 06/22/2025 7:38 AM [facility] Potassium 3.9 3.5 - 5.5 mmol/L LAB CHEMISTRY METHOD 06/22/2025 7:38 AM [facility] Chloride 102 96 - 110 mmol/L LAB CHEMISTRY METHOD 06/22/2025 7:38 AM [facility] CO2 29 21 - 32 mmol/L LAB CHEMISTRY METHOD 06/22/2025 7:38 AM [facility] Anion Gap 6 3 - 11 LAB CHEMISTRY METHOD 06/22/2025 7:38 AM [facility] Glucose 90 70 - 100 mg/dL LAB CHEMISTRY METHOD 06/22/2025 7:38 AM [facility] BUN 17 5 - 25 mg/dL LAB CHEMISTRY METHOD 06/22/2025 7:38 AM [facility] Creatinine 0.73 0.70 - 1.30 mg/dL LAB CHEMISTRY METHOD 06/22/2025 7:38 AM [facility] eGFR 103 >=60 mL/min/1. 73m2 LAB CHEMISTRY METHOD 06/22/2025 7:38 AM [facility] Comment:Calculation based on the Chronic Kidney Disease Epidemiology Collaboration (CKD-EPI) equation refit without adjustment for race. BUN/Creatinine Ratio 23.3 LAB CHEMISTRY METHOD 06/22/2025 7:38 AM EDT [facility] Calcium 9.8 8.5 - 10.5 mg/dL LAB CHEMISTRY METHOD 06/22/2025 7:38 AM EDT [facility] Blood Venous blood specimen / Unknown 06/22/2025 6:50 AM EDT 06/22/2025 7:12 AM EDT us August Baldwin MD LAB BLOOD ORDERABLES Final Resul t Performing Organization Address [facility] Co de Phone Number [facility] [address] [place] [address], [place] [phone] * Levetiracetam level (06/01/2025 6:16 AM EDT) Levetiracetam 26.8 3.0 - 60.0 ug/mL 06/03/2025 6:00 AM EDT [facility] Comment: Steady state trough serum or plasma levels following doses of 1000 to 3000 mg/Day: 3 to 37 ug/mL. The same dosage regimen will typically result in peak levels of 10 to 60 ug/mL, at approximately 1.5 hours post dose. If applicable, any drug confirmation testing reported here was developed and the performance characteristics determined by [facility]. This confirmation testing has not been cleared or approved by the FDA. The laboratory is regulated under CLIA as qualified to perform high-complexity testing. This test is used for patient testing purposes. It should not be regarded as investigational or for research. Test performed at [facility], [address], [place] [address] Mckenna Lubin MD, PhD - General Maintenance Technician Blood Venous blood specimen / Unknown 06/01/2025 6:16 AM EDT 06/01/2025 7:59 AM EDT us August Baldwin MD LAB BLOOD ORDERABLES Final Resul t Performing Organization Address [facility]/ZIP Co de Phone Number [facility] [address] [place] [address] * Thyroid stimulating hormone (06/01/2025 6:16 AM EDT) TSH 2.14 0.40 - 4.00 mcIU/mL LAB CHEMISTRY METHOD 06/01/2025 9:59 AM EDT [facility] Blood Venous blood specimen / Unknown 06/01/2025 6:16 AM EDT 06/01/2025 7:59 AM EDT us August Baldwin MD LAB BLOOD ORDERABLES Final Resul t Performing Organization Address City/[facility]/ZIP Co de Phone Number [facility] [address] [place] [address], * Thyroxine free (06/01/2025 6:16 AM EDT) Free T4 1.16 0.70 - 1.80 ng/dL LAB CHEMISTRY METHOD 06/01/2025 9:59 AM EDT [facility] Blood Venous blood specimen / Unknown 06/01/2025 6:16 AM EDT 06/01/2025 7:59 AM EDT us August Baldwin MD LAB BLOOD ORDERABLES Final Resul t Performing Organization Address City/[facility]/ZIP Co de Phone Number [facility] [address] [place] [address], [place] [phone] * Hemoglobin A1c (04/27/2025 6:00 AM EDT) Pathologist [facility] Hemoglobin A1C 5.5 <6.5 % LAB CHEMISTRY METHOD 04/27/2025 12:43 PM EDT [facility] Mean Bld Glu Estim. 111 mg/dL LAB CHEMISTRY METHOD 04/27/2025 12:43 PM EDT [facility] Blood Venous blood specimen / Unknown 04/27/2025 6:00 AM EDT 04/27/2025 6:52 AM EDT us August Baldwin MD LAB BLOOD ORDERABLES Final Resul t [facility] [address] [place] [address], * (ABNORMAL) Comprehensive metabolic panel (04/27/2025 6:00 AM EDT) Sodium 136 133 - 145 mmol/L LAB CHEMISTRY METHOD 04/27/2025 7:51 AM [facility] Potassium 3.8 3.5 - 5.5 mmol/L LAB CHEMISTRY METHOD 04/27/2025 7:51 AM [facility] Chloride 102 96 - 110 mmol/L LAB CHEMISTRY METHOD 04/27/2025 7:51 AM [facility] CO2 26 21 - 32 mmol/L LAB CHEMISTRY METHOD 04/27/2025 7:51 AM [facility] Anion Gap 8 3 - 11 LAB CHEMISTRY METHOD 04/27/2025 7:51 AM [facility] Glucose 87 70 - 100 mg/dL LAB CHEMISTRY METHOD 04/27/2025 7:51 AM [facility] BUN 18 5 - 25 mg/dL LAB CHEMISTRY METHOD 04/27/2025 7:51 AM [facility] Creatinine 0.85 0.70 - 1.30 mg/dL LAB CHEMISTRY METHOD 04/27/2025 7:51 AM [facility] eGFR 98 >=60 mL/min/1. 73m2 LAB CHEMISTRY METHOD 04/27/2025 7:51 AM [facility] Comment:Calculation based on the Chronic Kidney Disease Epidemiology Collaboration (CKD-EPI) equation refit without adjustment for race. BUN/Creatinine Ratio 21.2 LAB CHEMISTRY METHOD 04/27/2025 7:51 AM [facility] Calcium 9.4 8.5 - 10.5 mg/dL LAB CHEMISTRY METHOD 04/27/2025 7:51 AM EDT [facility] AST (SGOT) 28 10 - 42 unit/L LAB CHEMISTRY METHOD 04/27/2025 7:51 AM EDT [facility] ALT (SGPT) 44 10 - 60 unit/L LAB CHEMISTRY METHOD 04/27/2025 7:51 AM EDT [facility] Alkaline Phosphatase 139(H) 42 - 121 unit/L LAB CHEMISTRY METHOD 04/27/2025 7:51 AM EDT [facility] Total Protein 7.2 6.0 - 8.0 g/dL LAB CHEMISTRY METHOD 04/27/2025 7:51 AM EDT [facility] Albumin 3.6 3.2 - 5.0 g/dL LAB CHEMISTRY METHOD 04/27/2025 7:51 AM T [facility] Total Bilirubin 0.4 0.0 - 1.4 mg/dL LAB CHEMISTRY METHOD 04/27/2025 7:51 AM EDT [facility] Blood Venous blood specimen / Unknown 04/27/2025 6:00 AM EDT 04/27/2025 6:52 AM EDT us August Baldwin MD LAB BLOOD ORDERABLES Final Resul t [facility] [address] [place] [address], from Last 3 Months Insurance MEDICARE MEDICAID - [place] Care Teams Head Waitress Relationship Specialty Start Date End Date August Baldwin MD [address] [place] [address] Dr [address] THI Sparks PCP - General Internal Medicine 12/09/24
--- OUTSIDE RECORDS SUMMARY | 2025-07-02 15:54 | XMS_ITS | Encounter Summary ---
Author Organization [facility] Address [address] [place] [address] Care Team Providers Care Fruit Rancher Name Role Phone August Baldwin MD Primary Care Provider [phone] Encounter Details Date Type Department Care Team (Late st Contact Info) Description 10/23/2024 Lab Requisition [facility] - Main Lab [address] [place] [address] August Baldwin MD [address] [place] [address] Dr [address] THI Sparks Schizophrenia, unspecified (CMS/HCC V24, CMS/HCC V28) Social History Tobacco [...] LAB CHEMISTRY METHOD 10/23/2024 2:25 PM EST [facility] Potassium 4.0 3.5 - 5.5 mmol/L LAB CHEMISTRY METHOD 10/23/2024 2:25 PM EST [facility] Chloride 104 96 - 110 mmol/L LAB CHEMISTRY METHOD 10/23/2024 2:25 PM EST [facility] CO2 28 21 - 32 mmol/L LAB CHEMISTRY METHOD 10/23/2024 2:[address] [facility] Anion Gap 4 3 - 11 LAB CHEMISTRY METHOD 10/23/2024 2:[address] [facility] Glucose 114(H) 70 - 100 mg/dL LAB CHEMISTRY METHOD 10/23/2024 2:[address] [facility] BUN 19 5 - 25 mg/dL LAB CHEMISTRY METHOD 10/23/2024 2:[address] [facility] Creatinine 0.76 0.70 - 1.30 mg/dL LAB CHEMISTRY METHOD 10/23/2024 2:[address] [facility] eGFR 102 >=60 mL/min/1. 73m2 LAB CHEMISTRY METHOD 10/23/2024 2:[address] [facility] Comment:Calculation based on the Chronic Kidney Disease Epidemiology Collaboration (CKD-EPI) equation refit without adjustment for race. BUN/Creatinine Ratio 25.0 LAB CHEMISTRY METHOD 10/23/2024 2:[address] [facility] Calcium 9.0 8.5 - 10.5 mg/dL LAB CHEMISTRY METHOD 10/23/2024 2:[address] [facility] Blood Venous blood specimen / Unknown 10/23/2024 1:10 PM EST 10/23/2024 1:52 PM EST us August Baldwin MD LAB BLOOD ORDERABLES Final Resul t [facility] [address] [place] [address], documented in this encounter Visit Diagnoses Diagnosis Schizophrenia, unspecified (CMS/HCC V24, CMS/HCC V28) documented in this encounter Care Teams Fruit Rancher Relationship Specialty Start Date End Date August Baldwin MD [address] [place] [address] Dr Malick Sparks [place] PCP - General Internal Medicine 12/09/24 documented as of this encounter
--- OUTSIDE RECORDS SUMMARY | 2025-07-02 15:54 | XMS_ITS | Encounter Summary ---
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 CBC AND DIFFERENTIAL Routine 09/16/2024 7:00 AM EST Other snf (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 documented in this encounter Results * (ABNORMAL) CBC auto differential (09/16/2024 7:00 AM EST) WBC 16.5(H) 4.8 - 10.8 K/[facility] LAB HEMETOLOGY METHOD 09/16/2024 8:31 AM EST [facility] RBC 4.10(L) 4.50 - 5.50 /[facility] LAB HEMETOLOGY METHOD 09/16/2024 8:31 AM EST [facility] Hemoglobin 12.1(L) 13.5 - 17.5 g/dL LAB HEMETOLOGY METHOD 09/16/2024 8:31 AM [facility] Hematocrit 38.6(L) 42.0 - 54.0 % LAB HEMETOLOGY METHOD 09/16/2024 8:31 AM [facility] MCV 93.9 79.0 - 98.0 FL LAB HEMETOLOGY METHOD 09/16/2024 8:31 AM [facility] MCH 29.4 27.0 - 32.0 pcg LAB HEMETOLOGY METHOD 09/16/2024 8:31 AM [facility] MCHC 31.3(L) 32.0 - 37.0 g/dL LAB HEMETOLOGY METHOD 09/16/2024 8:31 AM [facility] RDW 13.8 11.0 - 15.0 % LAB HEMETOLOGY METHOD 09/16/2024 8:31 AM [facility] Platelets 202 130 - 400 K/mcL LAB HEMETOLOGY METHOD 09/16/2024 8:31 AM [facility] MPV 10.1 7.0 - 11.0 FL LAB HEMETOLOGY METHOD 09/16/2024 8:31 AM [facility] NRBC 0.0 <1.0 % LAB HEMETOLOGY METHOD 09/16/2024 8:31 AM [facility] NRBC Absolute 0.00 <0.10 K/mcL LAB HEMETOLOGY METHOD 09/16/2024 8:31 AM [facility] Neutrophils Relative 68.3 % LAB HEMETOLOGY METHOD 09/16/2024 8:31 AM [facility] Lymphocytes Relative 19.9 % LAB HEMETOLOGY METHOD 09/16/2024 8:31 AM [facility] Monocytes Relative 9.2 % LAB HEMETOLOGY METHOD 09/16/2024 8:31 AM EST [facility] Eosinophils Relative 1.2 % LAB HEMETOLOGY METHOD 09/16/2024 8:31 AM [facility] Basophils Relative 0.4 % LAB HEMETOLOGY METHOD 09/16/2024 8:31 AM [facility] Immature Granulocytes Relative 1.0 % LAB HEMETOLOGY METHOD 09/16/2024 8:31 AM [facility] Neutrophils Absolute 11.25(H) 1.50 - 7.00 K/mcL LAB HEMETOLOGY METHOD 09/16/2024 8:31 AM [facility] Lymphocytes Absolute 3.27 1.00 - 5.00 K/mcL LAB HEMETOLOGY METHOD 09/16/2024 8:31 AM [facility] Monocytes Absolute 1.52(H) 0.20 - 1.00 K/mcL LAB HEMETOLOGY METHOD 09/16/2024 8:31 AM [facility] Eosinophils Absolute 0.20 0.00 - 0.50 K/mcL LAB HEMETOLOGY METHOD 09/16/2024 8:31 AM [facility] Basophils Absolute 0.07 0.00 - 0.20 K/mcL LAB HEMETOLOGY METHOD 09/16/2024 8:31 AM [facility] Immature Granulocytes Absolute 0.16(H) 0.00 - 0.03 K/mcL LAB HEMETOLOGY METHOD 09/16/2024 8:31 AM [facility] Blood Venous blood specimen / Unknown 09/16/2024 7:00 AM EST 09/16/2024 8:04 AM EST us August Baldwin MD LAB BLOOD ORDERABLES Final Resul t [facility] [address] [place] [address], documented in this encounter Visit Diagnoses Diagnosis Other snf (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 documented in this encounter Care Teams Rn Discharge Relationship Specialty Start Date End Date August Baldwin MD [address] [place] [address] Dr [address] THI Sparks PCP - General Internal Medicine 12/09/24 documented as of this encounter
--- OUTSIDE RECORDS SUMMARY | 2025-07-02 15:54 | XMS_ITS | Encounter Summary ---
Author Organization [facility] Address [address] [place] [address] Care Team Providers Care Mining Plant Operator Name Role Phone August Baldwin MD Primary Care Provider [phone] Encounter Details Date Type Department Care Team (Late st Contact Info) Description 03/02/2025 Lab Requisition [facility] - Main Lab [address] [facility] [place] [address] August Baldwin MD [address] [place] [address] Dr [address] THI Sparks Other residential (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; Essential (primary) hypertension Social History Tobacco Use [...] Diagnosis Comments CBC WITH AUTO DIFFERENTIAL Routine 03/02/2025 5:07 AM EDT Other residential (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 Essential (primary) hypertension CBC AND DIFFERENTIAL Routine 03/02/2025 5:07 AM EDT Other residential (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 Essential (primary) hypertension MAGNESIUM Routine 03/02/2025 5:07 AM EDT Other residential (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 Essential (primary) hypertension BASIC METABOLIC PANEL Routine 03/02/2025 5:07 AM EDT Other residential (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 Essential (primary) hypertension documented in this encounter Results * (ABNORMAL) CBC auto differential (03/02/2025 5:07 AM EDT) WBC 13.0(H) 4.8 - 10.8 K/mcL LAB HEMETOLOGY METHOD 03/02/2025 6:59 AM [facility] RBC 4.10(L) 4.50 - 5.50 M/mcL LAB HEMETOLOGY METHOD 03/02/2025 6:59 AM [facility] Hemoglobin 11.8(L) 13.5 - 17.5 g/dL LAB HEMETOLOGY METHOD 03/02/2025 6:59 AM [facility] Hematocrit 36.7(L) 42.0 - 54.0 % LAB HEMETOLOGY METHOD 03/02/2025 6:59 AM [facility] MCV 90.6 79.0 - 98.0 FL LAB HEMETOLOGY METHOD 03/02/2025 6:59 AM [facility] MCH 29.1 27.0 - 32.0 pcg LAB HEMETOLOGY METHOD 03/02/2025 6:59 AM [facility] MCHC 32.2 32.0 - 37.0 g/dL LAB HEMETOLOGY METHOD 03/02/2025 6:59 AM [facility] RDW 13.5 11.0 - 15.0 % LAB HEMETOLOGY METHOD 03/02/2025 6:59 AM [facility] Platelets 201 130 - 400 K/mcL LAB HEMETOLOGY METHOD 03/02/2025 6:59 AM [facility] MPV 9.8 7.0 - 11.0 FL LAB HEMETOLOGY METHOD 03/02/2025 6:59 AM [facility] NRBC 0.0 <1.0 % LAB HEMETOLOGY METHOD 03/02/2025 6:59 AM [facility] NRBC Absolute 0.00 <0.10 K/mcL LAB HEMETOLOGY METHOD 03/02/2025 6:59 AM [facility] Neutrophils Relative 67.3 % LAB HEMETOLOGY METHOD 03/02/2025 6:59 AM [facility] Lymphocytes Relative 21.9 % LAB HEMETOLOGY METHOD 03/02/2025 6:59 AM [facility] Monocytes Relative 7.8 % LAB HEMETOLOGY METHOD 03/02/2025 6:59 AM [facility] Eosinophils Relative 1.3 % LAB HEMETOLOGY METHOD 03/02/2025 6:59 AM [facility] Basophils Relative 0.5 % LAB HEMETOLOGY METHOD 03/02/2025 6:59 AM [facility] Immature Granulocytes Relative 1.2 % LAB HEMETOLOGY METHOD 03/02/2025 6:59 AM [facility] Neutrophils Absolute 8.74(H) 1.50 - 7.00 K/mcL LAB HEMETOLOGY METHOD 03/02/2025 6:59 AM [facility] Lymphocytes Absolute 2.85 1.00 - 5.00 K/mcL LAB HEMETOLOGY METHOD 03/02/2025 6:59 AM [facility] Monocytes Absolute 1.02(H) 0.20 - 1.00 K/mcL LAB HEMETOLOGY METHOD 03/02/2025 6:59 AM [facility] Eosinophils Absolute 0.17 0.00 - 0.50 K/mcL LAB HEMETOLOGY METHOD 03/02/2025 6:59 AM [facility] Basophils Absolute 0.07 0.00 - 0.20 K/mcL LAB HEMETOLOGY METHOD 03/02/2025 6:59 AM [facility] Immature Granulocytes Absolute 0.15(H) 0.00 - 0.03 K/mcL LAB HEMETOLOGY METHOD 03/02/2025 6:59 AM [facility] Blood Venous blood specimen / Unknown 03/02/2025 5:07 AM EDT 03/02/2025 6:24 AM EDT us August Baldwin MD LAB BLOOD ORDERABLES Final Resul t Performing Organization Address [facility]/ZIP Co de Phone Number [facility] [address] [place] [address], [place] [phone] * Magnesium (03/02/2025 5:07 AM EDT) Magnesium 2.1 1.9 - 2.6 mg/dL LAB CHEMISTRY METHOD 03/02/2025 6:[address] [facility] Blood Venous blood specimen / Unknown 03/02/2025 5:07 AM EDT 03/02/2025 6:24 AM EDT us August Baldwin MD LAB BLOOD ORDERABLES Final Resul t Performing Organization Address [facility]/ZIP Co de Phone Number [facility] [address] [place] [address], [place] [phone] * Basic metabolic panel (03/02/2025 5:07 AM EDT) Sodium 137 133 - 145 mmol/L LAB CHEMISTRY METHOD 03/02/2025 6:[address] [facility] Potassium 3.5 3.5 - 5.5 mmol/L LAB CHEMISTRY METHOD 03/02/2025 6:[address] [facility] Chloride 104 96 - 110 mmol/L LAB CHEMISTRY METHOD 03/02/2025 6:[address] [facility] CO2 28 21 - 32 mmol/L LAB CHEMISTRY METHOD 03/02/2025 6:[address] [facility] Anion Gap 5 3 - 11 LAB CHEMISTRY METHOD 03/02/2025 6:[address] [facility] Glucose 82 70 - 100 mg/dL LAB CHEMISTRY METHOD 03/02/2025 6:[address] [facility] BUN 15 5 - 25 mg/dL LAB CHEMISTRY METHOD 03/02/2025 6:[address] [facility] Creatinine 0.76 0.70 - 1.30 mg/dL LAB CHEMISTRY METHOD 03/02/2025 6:[address] [facility] eGFR 102 >=60 mL/min/1. 73m2 LAB CHEMISTRY METHOD 03/02/2025 6:[address] [facility] Comment:Calculation based on the Chronic Kidney Disease Epidemiology Collaboration (CKD-EPI) equation refit without adjustment for race. BUN/Creatinine Ratio 19.7 LAB CHEMISTRY METHOD 03/02/2025 6:[address] [facility] Calcium 9.6 8.5 - 10.5 mg/dL LAB CHEMISTRY METHOD 03/02/2025 6:[address] [facility] Blood Venous blood specimen / Unknown 03/02/2025 5:07 AM EDT 03/02/2025 6:24 AM EDT us August Baldwin MD LAB BLOOD ORDERABLES Final Resul t [facility] [address] [place] [address], documented in this encounter Visit Diagnoses Diagnosis Other supervisor intermediates (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 Essential (primary) hypertension Unspecified essential hypertension documented in this encounter Care Teams Mining Plant Operator Relationship Specialty Start Date End Date August Baldwin MD [address] [facility] [address] THI Sparks PCP - General Internal Medicine 12/09/24 documented as of this encounter
--- OUTSIDE RECORDS SUMMARY | 2025-07-02 15:54 | XMS_ITS | Encounter Summary ---
Author Organization [facility] Address [address] [place] [address] Care Team Providers Care Furnace Roaster Name Role Phone August Baldwin MD Primary Care Provider [phone] Encounter Details Date Type Department Care Team (Late st Contact Info) Description 04/27/2025 Lab Requisition [facility] - Main Lab [address] [facility] [place] [address] August Baldwin MD [address] [place] [address] [address] THI Sparks Other custodial (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; Type 2 diabetes mellitus [...] Diagnosis Comments CBC WITH AUTO DIFFERENTIAL Routine 04/27/2025 6:00 AM EDT Other dedicated intermodal truck driver (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 Type 2 diabetes mellitus without complications (CMS/HCC V24, CMS/HCC V28) CBC AND DIFFERENTIAL Routine 04/27/2025 6:00 AM EDT Other dedicated intermodal truck driver (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 Type 2 diabetes mellitus without complications (CMS/HCC V24, CMS/HCC V28) MAGNESIUM Routine 04/27/2025 6:00 AM EDT Other dedicated intermodal truck driver (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 Type 2 diabetes mellitus without complications (CMS/HCC V24, CMS/HCC V28) HEMOGLOBIN A1C Routine 04/27/2025 6:00 AM EDT Other custodial (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 Type 2 diabetes mellitus without complications (CMS/HCC V24, CMS/HCC V28) COMPREHENSIVE METABOLIC PANEL Routine 04/27/2025 6:00 AM EDT Other custodial (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 Type 2 diabetes mellitus without complications (CMS/HCC V24, CMS/HCC V28) documented in this encounter Results * (ABNORMAL) CBC auto differential (04/27/2025 6:00 AM EDT) [facility] WBC 15.5(H) 4.8 - 10.8 K/mcL LAB HEMETOLOGY METHOD 04/27/2025 6:58 AM [facility] RBC 4.30(L) 4.50 - 5.50 M/mcL LAB HEMETOLOGY METHOD 04/27/2025 6:58 AM [facility] Hemoglobin 13.0(L) 13.5 - 17.5 g/dL LAB HEMETOLOGY METHOD 04/27/2025 6:58 AM [facility] Hematocrit 39.8(L) 42.0 - 54.0 % LAB HEMETOLOGY METHOD 04/27/2025 6:58 AM [facility] MCV 92.1 79.0 - 98.0 FL LAB HEMETOLOGY METHOD 04/27/2025 6:58 AM [facility] MCH 30.1 27.0 - 32.0 pcg LAB HEMETOLOGY METHOD 04/27/2025 6:58 AM [facility] MCHC 32.7 32.0 - 37.0 g/dL LAB HEMETOLOGY METHOD 04/27/2025 6:58 AM [facility] RDW 13.4 11.0 - 15.0 % LAB HEMETOLOGY METHOD 04/27/2025 6:58 AM [facility] Platelets 203 130 - 400 K/mcL LAB HEMETOLOGY METHOD 04/27/2025 6:[address] [facility] MPV 9.9 7.0 - 11.0 FL LAB HEMETOLOGY METHOD 04/27/2025 6:58 AM [facility] NRBC 0.0 <1.0 % LAB HEMETOLOGY METHOD 04/27/2025 6:58 AM [facility] NRBC Absolute 0.00 <0.10 K/mcL LAB HEMETOLOGY METHOD 04/27/2025 6:58 AM [facility] Neutrophils Relative 77.0 % LAB HEMETOLOGY METHOD 04/27/2025 6:58 AM [facility] Lymphocytes Relative 13.9 % LAB HEMETOLOGY METHOD 04/27/2025 6:58 AM [facility] Monocytes Relative 7.5 % LAB HEMETOLOGY METHOD 04/27/2025 6:58 AM [facility] Eosinophils Relative 0.6 % LAB HEMETOLOGY METHOD 04/27/2025 6:58 AM [facility] Basophils Relative 0.3 % LAB HEMETOLOGY METHOD 04/27/2025 6:58 AM [facility] Immature Granulocytes Relative 0.7 % LAB HEMETOLOGY METHOD 04/27/2025 6:58 AM [facility] Neutrophils Absolute 11.96(H) 1.50 - 7.00 K/mcL LAB HEMETOLOGY METHOD 04/27/2025 6:58 AM [facility] Lymphocytes Absolute 2.16 1.00 - 5.00 K/mcL LAB HEMETOLOGY METHOD 04/27/2025 6:58 AM [facility] Monocytes Absolute 1.16(H) 0.20 - 1.00 K/mcL LAB HEMETOLOGY METHOD 04/27/2025 6:58 AM [facility] Eosinophils Absolute 0.09 0.00 - 0.50 K/mcL LAB HEMETOLOGY METHOD 04/27/2025 6:[address] [facility] Basophils Absolute 0.04 0.00 - 0.20 K/[facility] LAB HEMETOLOGY METHOD 04/27/2025 6:[address] [facility] Immature Granulocytes Absolute 0.11(H) 0.00 - 0.03 K/[facility] LAB HEMETOLOGY METHOD 04/27/2025 6:[address] [facility] Blood Venous blood specimen / Unknown 04/27/2025 6:00 AM EDT 04/27/2025 6:52 AM EDT us August Baldwin MD LAB BLOOD ORDERABLES Final Resul t Performing Organization Address [facility]/ZIP Co de Phone Number [facility] [address] [place] [address], [place] [phone] * Magnesium (04/27/2025 6:00 AM EDT) Magnesium 2.2 1.9 - 2.6 mg/dL LAB CHEMISTRY METHOD 04/27/2025 7:[address] [facility] Blood Venous blood specimen / Unknown 04/27/2025 6:00 AM EDT 04/27/2025 6:52 AM EDT us August Baldwin MD LAB BLOOD ORDERABLES Final Resul t Performing Organization Address City/[facility]/ZIP Co de Phone Number [facility] [address] [place] [address], [place] [phone] * Hemoglobin A1c (04/27/2025 6:00 AM EDT) Hemoglobin A1C 5.5 <6.5 % LAB CHEMISTRY METHOD 04/27/2025 12:[address] [facility] Mean Bld Glu Estim. 111 mg/dL LAB CHEMISTRY METHOD 04/27/2025 12:[address] [facility] Blood Venous blood specimen / Unknown 04/27/2025 6:00 AM EDT 04/27/2025 6:52 AM EDT us August Baldwin MD LAB BLOOD ORDERABLES Final Resul t [facility] [address] [place] [address], * (ABNORMAL) Comprehensive metabolic panel (04/27/2025 6:00 AM EDT) Sodium 136 133 - 145 mmol/L LAB CHEMISTRY METHOD 04/27/2025 7:51 AM [facility] Potassium 3.8 3.5 - 5.5 mmol/L LAB CHEMISTRY METHOD 04/27/2025 7:51 AM [facility] Chloride 102 96 - 110 mmol/L LAB CHEMISTRY METHOD 04/27/2025 7:51 AM [facility] CO2 26 21 - 32 mmol/L LAB CHEMISTRY METHOD 04/27/2025 7:51 AM [facility] Anion Gap 8 3 - 11 LAB CHEMISTRY METHOD 04/27/2025 7:51 AM [facility] Glucose 87 70 - 100 mg/dL LAB CHEMISTRY METHOD 04/27/2025 7:51 AM [facility] BUN 18 5 - 25 mg/dL LAB CHEMISTRY METHOD 04/27/2025 7:51 AM [facility] Creatinine 0.85 0.70 - 1.30 mg/dL LAB CHEMISTRY METHOD 04/27/2025 7:51 AM [facility] eGFR 98 >=60 mL/min/1. 73m2 LAB CHEMISTRY METHOD 04/27/2025 7:51 AM [facility] Comment:Calculation based on the Chronic Kidney Disease Epidemiology Collaboration (CKD-EPI) equation refit without adjustment for race. BUN/Creatinine Ratio 21.2 LAB CHEMISTRY METHOD 04/27/2025 7:51 AM [facility] Calcium 9.4 8.5 - 10.5 mg/dL LAB CHEMISTRY METHOD 04/27/2025 7:51 AM [facility] AST (SGOT) 28 10 - 42 unit/L LAB CHEMISTRY METHOD 04/27/2025 7:51 AM [facility] ALT (SGPT) 44 10 - 60 unit/L LAB CHEMISTRY METHOD 04/27/2025 7:51 AM [facility] Alkaline Phosphatase 139(H) 42 - 121 unit/L LAB CHEMISTRY METHOD 04/27/2025 7:51 AM [facility] Total Protein 7.2 6.0 - 8.0 g/dL LAB CHEMISTRY METHOD 04/27/2025 7:51 AM [facility] Albumin 3.6 3.2 - 5.0 g/dL LAB CHEMISTRY METHOD 04/27/2025 7:51 AM [facility] Total Bilirubin 0.4 0.0 - 1.4 mg/dL LAB CHEMISTRY METHOD 04/27/2025 7:51 AM [facility] Blood Venous blood specimen / Unknown 04/27/2025 6:00 AM EDT 04/27/2025 6:52 AM EDT us August Baldwin MD LAB BLOOD ORDERABLES Final Resul t [facility] [address] [place] [address], [place] [phone] documented in this encounter Visit Diagnoses Diagnosis Other custodial (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 Type 2 diabetes mellitus without complications (CMS/HCC V24, CMS/HCC V28) documented in this encounter Care Teams Furnace Roaster Relationship Specialty Start Date End Date August Baldwin MD [address] [facility] [place] PCP - General Internal Medicine 12/09/24 documented as of this encounter
--- OUTSIDE RECORDS SUMMARY | 2025-07-02 15:54 | XMS_ITS | Encounter Summary ---
Author Organization [facility] Address [address] [place] [address] Care Team Providers Care Nickel Plater Name Role Phone August Baldwin MD Primary Care Provider [phone] Encounter Details Date Type Department Care Team (Late st Contact Info) Description 03/30/2025 Lab Requisition [facility] - Main Lab [address] [facility] [place] [address] August Baldwin MD [address] [place] [address] [address] THI Sparks Encounter for therapeutic drug level monitoring; Essential (primary) hypertension Social History Tobacco Use [...] Diagnosis Comments CBC WITH AUTO DIFFERENTIAL Routine 03/30/2025 6:53 AM EDT Encounter for therapeutic drug level monitoring Essential (primary) hypertension CBC AND DIFFERENTIAL Routine 03/30/2025 6:53 AM EDT Encounter for therapeutic drug level monitoring Essential (primary) hypertension MAGNESIUM Routine 03/30/2025 6:53 AM EDT Encounter for therapeutic drug level monitoring Essential (primary) hypertension BASIC METABOLIC PANEL Routine 03/30/2025 6:53 AM EDT Encounter for therapeutic drug level monitoring Essential (primary) hypertension documented in this encounter Results * (ABNORMAL) CBC auto differential (03/30/2025 6:53 AM EDT) WBC 11.0(H) 4.8 - 10.8 K/mcL LAB HEMETOLOGY METHOD 03/30/2025 7:56 AM [facility] RBC 4.40(L) 4.50 - 5.50 M/mcL LAB HEMETOLOGY METHOD 03/30/2025 7:56 AM [facility] Hemoglobin 13.2(L) 13.5 - 17.5 g/dL LAB HEMETOLOGY METHOD 03/30/2025 7:56 AM [facility] Hematocrit 40.3(L) 42.0 - 54.0 % LAB HEMETOLOGY METHOD 03/30/2025 7:56 AM [facility] MCV 91.0 79.0 - 98.0 FL LAB HEMETOLOGY METHOD 03/30/2025 7:56 AM [facility] MCH 29.8 27.0 - 32.0 pcg LAB HEMETOLOGY METHOD 03/30/2025 7:56 AM [facility] MCHC 32.8 32.0 - 37.0 g/dL LAB HEMETOLOGY METHOD 03/30/2025 7:56 AM [facility] RDW 13.1 11.0 - 15.0 % LAB HEMETOLOGY METHOD 03/30/2025 7:56 AM [facility] Platelets 195 130 - 400 K/mcL LAB HEMETOLOGY METHOD 03/30/2025 7:56 AM [facility] MPV 9.6 7.0 - 11.0 FL LAB HEMETOLOGY METHOD 03/30/2025 7:56 AM [facility] NRBC 0.0 <1.0 % LAB HEMETOLOGY METHOD 03/30/2025 7:56 AM [facility] NRBC Absolute 0.00 <0.10 K/mcL LAB HEMETOLOGY METHOD 03/30/2025 7:56 AM [facility] Neutrophils Relative 67.6 % LAB HEMETOLOGY METHOD 03/30/2025 7:56 AM [facility] Lymphocytes Relative 21.1 % LAB HEMETOLOGY METHOD 03/30/2025 7:56 AM [facility] Monocytes Relative 7.9 % LAB HEMETOLOGY METHOD 03/30/2025 7:56 AM [facility] Eosinophils Relative 1.4 % LAB HEMETOLOGY METHOD 03/30/2025 7:56 AM [facility] Basophils Relative 0.5 % LAB HEMETOLOGY METHOD 03/30/2025 7:56 AM [facility] Immature Granulocytes Relative 1.5 % LAB HEMETOLOGY METHOD 03/30/2025 7:56 AM [facility] Neutrophils Absolute 7.44(H) 1.50 - 7.00 K/mcL LAB HEMETOLOGY METHOD 03/30/2025 7:56 AM [facility] Lymphocytes Absolute 2.32 1.00 - 5.00 K/mcL LAB HEMETOLOGY METHOD 03/30/2025 7:56 AM [facility] Monocytes Absolute 0.87 0.20 - 1.00 K/mcL LAB HEMETOLOGY METHOD 03/30/2025 7:56 AM [facility] Eosinophils Absolute 0.15 0.00 - 0.50 K/mcL LAB HEMETOLOGY METHOD 03/30/2025 7:56 AM [facility] Basophils Absolute 0.05 0.00 - 0.20 K/mcL LAB HEMETOLOGY METHOD 03/30/2025 7:56 AM [facility] Immature Granulocytes Absolute 0.16(H) 0.00 - 0.03 K/mcL LAB HEMETOLOGY METHOD 03/30/2025 7:56 AM [facility] Blood Venous blood specimen / Unknown 03/30/2025 6:53 AM EDT 03/30/2025 7:31 AM EDT us August Baldwin MD LAB BLOOD ORDERABLES Final Resul t Performing Organization Address [facility]/ZIP Co de Phone Number [facility] [address] [place] [address], [place] [phone] * Magnesium (03/30/2025 6:53 AM EDT) Pathologist [facility] Magnesium 2.2 1.9 - 2.6 mg/dL LAB CHEMISTRY METHOD 03/30/2025 8:21 AM EDT [facility] Blood Venous blood specimen / Unknown 03/30/2025 6:53 AM EDT 03/30/2025 7:31 AM EDT us August Baldwin MD LAB BLOOD ORDERABLES Final Resul t Performing Organization Address [facility]/ZIP Co de Phone Number [facility] [address] [place] [address], [place] [phone] * (ABNORMAL) Basic metabolic panel (03/30/2025 6:53 AM EDT) [facility] Sodium 135 133 - 145 mmol/L LAB CHEMISTRY METHOD 03/30/2025 8:21 AM T [facility] Potassium 3.6 3.5 - 5.5 mmol/L LAB CHEMISTRY METHOD 03/30/2025 8:21 AM EDT [facility] Chloride 103 96 - 110 mmol/L LAB CHEMISTRY METHOD 03/30/2025 8:21 AM EDT [facility] CO2 26 21 - 32 mmol/L LAB CHEMISTRY METHOD 03/30/2025 8:21 AM T [facility] Anion Gap 6 3 - 11 LAB CHEMISTRY METHOD 03/30/2025 8:21 AM T [facility] Glucose 105(H) 70 - 100 mg/dL LAB CHEMISTRY METHOD 03/30/2025 8:21 AM EDT [facility] BUN 13 5 - 25 mg/dL LAB CHEMISTRY METHOD 03/30/2025 8:21 AM T [facility] Creatinine 0.66(L) 0.70 - 1.30 mg/dL LAB CHEMISTRY METHOD 03/30/2025 8:21 AM [facility] eGFR 107 >=60 mL/min/1. 73m2 LAB CHEMISTRY METHOD 03/30/2025 8:21 AM T [facility] Comment:Calculation based on the Chronic Kidney Disease Epidemiology Collaboration (CKD-EPI) equation refit without adjustment for race. BUN/Creatinine Ratio 19.7 LAB CHEMISTRY METHOD 03/30/2025 8:21 AM [facility] Calcium 9.6 8.5 - 10.5 mg/dL LAB CHEMISTRY METHOD 03/30/2025 8:21 AM [facility] Blood Venous blood specimen / Unknown 03/30/2025 6:53 AM EDT 03/30/2025 7:31 AM EDT us August Baldwin MD LAB BLOOD ORDERABLES Final Resul t [facility] [address] [place] [address], documented in this encounter Visit Diagnoses Diagnosis Encounter for therapeutic drug level monitoring Essential (primary) hypertension Unspecified essential hypertension documented in this encounter Care Teams Nickel Plater Relationship Specialty Start Date End Date August Baldwin MD [address] [facility] [address] [place] PCP - General Internal Medicine 12/09/24 documented as of this encounter
--- OUTSIDE RECORDS SUMMARY | 2025-07-02 15:54 | XMS_ITS | Encounter Summary ---
Author Organization [facility] Address [address] [place] [address] Care Team Providers Care On Awake Counselor Name Role Phone August Baldwin MD Primary Care Provider [phone] Encounter Details Date Type Department Care Team (Late st Contact Info) Description 06/22/2025 Lab Requisition [facility] - Main Lab [address] [place] [address] August Baldwin MD [address] [place] [address] Dr [address] THI Sparks Other correction (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 Social History Tobacco Use [...] DIFFERENTIAL Routine 06/22/2025 6:50 AM EDT Other terminal computer operator (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 CBC AND DIFFERENTIAL Routine 06/22/2025 6:50 AM EDT Other correction (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 MAGNESIUM Routine 06/22/2025 6:50 AM EDT Other terminal computer operator (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 BASIC METABOLIC PANEL Routine 06/22/2025 6:50 AM EDT Other terminal computer operator (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 documented in this encounter Results * (ABNORMAL) CBC auto differential (06/22/2025 6:50 AM EDT) WBC 13.6(H) 4.8 - 10.8 K/[facility] LAB HEMETOLOGY METHOD 06/22/2025 7:21 AM [facility] RBC 4.30(L) 4.50 - 5.50 M/mcL LAB HEMETOLOGY METHOD 06/22/2025 7:21 AM [facility] Hemoglobin 12.5(L) 13.5 - 17.5 g/dL LAB HEMETOLOGY METHOD 06/22/2025 7:21 AM [facility] Hematocrit 38.4(L) 42.0 - 54.0 % LAB HEMETOLOGY METHOD 06/22/2025 7:21 AM [facility] MCV 89.9 79.0 - 98.0 FL LAB HEMETOLOGY METHOD 06/22/2025 7:21 AM [facility] MCH 29.3 27.0 - 32.0 pcg LAB HEMETOLOGY METHOD 06/22/2025 7:21 AM [facility] MCHC 32.6 32.0 - 37.0 g/dL LAB HEMETOLOGY METHOD 06/22/2025 7:21 AM [facility] RDW 13.3 11.0 - 15.0 % LAB HEMETOLOGY METHOD 06/22/2025 7:21 AM [facility] Platelets 203 130 - 400 K/mcL LAB HEMETOLOGY METHOD 06/22/2025 7:21 AM [facility] MPV 9.4 7.0 - 11.0 FL LAB HEMETOLOGY METHOD 06/22/2025 7:21 AM [facility] NRBC 0.0 <1.0 % LAB HEMETOLOGY METHOD 06/22/2025 7:21 AM [facility] NRBC Absolute 0.00 <0.10 K/mcL LAB HEMETOLOGY METHOD 06/22/2025 7:21 AM [facility] Neutrophils Relative 71.6 % LAB HEMETOLOGY METHOD 06/22/2025 7:21 AM [facility] Lymphocytes Relative 18.4 % LAB HEMETOLOGY METHOD 06/22/2025 7:21 AM [facility] Monocytes Relative 7.3 % LAB HEMETOLOGY METHOD 06/22/2025 7:21 AM [facility] Eosinophils Relative 1.1 % LAB HEMETOLOGY METHOD 06/22/2025 7:21 AM [facility] Basophils Relative 0.4 % LAB HEMETOLOGY METHOD 06/22/2025 7:21 AM [facility] Immature Granulocytes Relative 1.2 % LAB HEMETOLOGY METHOD 06/22/2025 7:21 AM [facility] Neutrophils Absolute 9.74(H) 1.50 - 7.00 K/mcL LAB HEMETOLOGY METHOD 06/22/2025 7:21 AM [facility] Lymphocytes Absolute 2.50 1.00 - 5.00 K/mcL LAB HEMETOLOGY METHOD 06/22/2025 7:21 AM [facility] Monocytes Absolute 0.99 0.20 - 1.00 K/mcL LAB HEMETOLOGY METHOD 06/22/2025 7:21 AM [facility] Eosinophils Absolute 0.15 0.00 - 0.50 K/mcL LAB HEMETOLOGY METHOD 06/22/2025 7:21 AM [facility] Basophils Absolute 0.06 0.00 - 0.20 K/mcL LAB HEMETOLOGY METHOD 06/22/2025 7:21 AM [facility] Immature Granulocytes Absolute 0.17(H) 0.00 - 0.03 K/mcL LAB HEMETOLOGY METHOD 06/22/2025 7:21 AM [facility] Blood Venous blood specimen / Unknown 06/22/2025 6:50 AM EDT 06/22/2025 7:12 AM EDT us August Baldwin MD LAB BLOOD ORDERABLES Final Resul t Performing Organization Address City/[facility]/ZIP Co de Phone Number [facility] [address] [place] [address], [place] [phone] * Magnesium (06/22/2025 6:50 AM EDT) [facility] Magnesium 2.4 1.9 - 2.6 mg/dL LAB CHEMISTRY METHOD 06/22/2025 7:38 AM EDT [facility] Blood Venous blood specimen / Unknown 06/22/2025 6:50 AM EDT 06/22/2025 7:12 AM EDT us August Baldwin MD LAB BLOOD ORDERABLES Final Resul t Performing Organization Address [facility] de Phone Number [facility] [address] [place] [address], [place] [phone] * Basic metabolic panel (06/22/2025 6:50 AM EDT) [facility] Sodium 137 133 - 145 mmol/L LAB CHEMISTRY METHOD 06/22/2025 7:38 AM [facility] Potassium 3.9 3.5 - 5.5 mmol/L LAB CHEMISTRY METHOD 06/22/2025 7:38 AM [facility] Chloride 102 96 - 110 mmol/L LAB CHEMISTRY METHOD 06/22/2025 7:38 AM [facility] CO2 29 21 - 32 mmol/L LAB CHEMISTRY METHOD 06/22/2025 7:38 AM [facility] Anion Gap 6 3 - 11 LAB CHEMISTRY METHOD 06/22/2025 7:38 AM [facility] Glucose 90 70 - 100 mg/dL LAB CHEMISTRY METHOD 06/22/2025 7:38 AM [facility] BUN 17 5 - 25 mg/dL LAB CHEMISTRY METHOD 06/22/2025 7:38 AM EDT [facility] Creatinine 0.73 0.70 - 1.30 mg/dL LAB CHEMISTRY METHOD 06/22/2025 7:38 AM EDT [facility] eGFR 103 >=60 mL/min/1. 73m2 LAB CHEMISTRY METHOD 06/22/2025 7:38 AM EDT [facility] Comment:Calculation based on the Chronic Kidney Disease Epidemiology Collaboration (CKD-EPI) equation refit without adjustment for race. BUN/Creatinine Ratio 23.3 LAB CHEMISTRY METHOD 06/22/2025 7:38 AM EDT [facility] Calcium 9.8 8.5 - 10.5 mg/dL LAB CHEMISTRY METHOD 06/22/2025 7:38 AM EDT [facility] Blood Venous blood specimen / Unknown 06/22/2025 6:50 AM EDT 06/22/2025 7:12 AM EDT us August Baldwin MD LAB BLOOD ORDERABLES Final Resul t [facility] [address] [place] [address], documented in this encounter Visit Diagnoses Diagnosis Other terminal computer operator (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 documented in this encounter Care Teams On Awake Counselor Relationship Specialty Start Date End Date Augsut Baldwin MD [address] [place] [address] Dr Teresa [facility] [place], [place] PCP - General Internal Medicine 12/09/24 documented as of this encounter
--- OUTSIDE RECORDS SUMMARY | 2025-07-02 15:54 | XMS_ITS | Encounter Summary ---
Author Organization [facility] Address [address] [place] [address] Care Team Providers Care Mounted Police Name Role Phone August Baldwin MD Primary Care Provider [phone] Encounter Details Date Type Department Care Team (Late st Contact Info) Description 01/05/2025 Lab Requisition [facility] - Main Lab [address] [place] [address] August Baldwin MD [address] [place] [address] [address] THI Sparks Urinary tract infection, site not specified Social History Tobacco Use Types Packs/Day Years [...] Diagnosis Comments CBC WITH AUTO DIFFERENTIAL Routine 01/05/2025 6:55 AM EDT Urinary tract infection, site not specified CBC AND DIFFERENTIAL Routine 01/05/2025 6:55 AM EDT Urinary tract infection, site not specified MAGNESIUM Routine 01/05/2025 6:55 AM EDT Urinary tract infection, site not specified BASIC METABOLIC PANEL Routine 01/05/2025 6:55 AM EDT Urinary tract infection, site not specified documented in this encounter Results * (ABNORMAL) CBC auto differential (01/05/2025 6:55 AM EDT) WBC 12.9(H) 4.8 - 10.8 K/[facility] LAB HEMETOLOGY METHOD 01/05/2025 8:[address] [facility] RBC 4.00(L) 4.50 - 5.50 M/mcL LAB HEMETOLOGY METHOD 01/05/2025 8:[address] [facility] Hemoglobin 11.8(L) 13.5 - 17.5 g/dL LAB HEMETOLOGY METHOD 01/05/2025 8:[address] [facility] Hematocrit 36.8(L) 42.0 - 54.0 % LAB HEMETOLOGY METHOD 01/05/2025 8:[address] [facility] MCV 91.3 79.0 - 98.0 FL LAB HEMETOLOGY METHOD 01/05/2025 8:[address] [facility] MCH 29.3 27.0 - 32.0 pcg LAB HEMETOLOGY METHOD 01/05/2025 8:[address] [facility] MCHC 32.1 32.0 - 37.0 g/dL LAB HEMETOLOGY METHOD 01/05/2025 8:[address] [facility] RDW 13.8 11.0 - 15.0 % LAB HEMETOLOGY METHOD 01/05/2025 8:[address] [facility] Platelets 189 130 - 400 K/mcL LAB HEMETOLOGY METHOD 01/05/2025 8:[address] [facility] MPV 10.0 7.0 - 11.0 FL LAB HEMETOLOGY METHOD 01/05/2025 8:[address] [facility] NRBC 0.0 <1.0 % LAB HEMETOLOGY METHOD 01/05/2025 8:[address] [facility] NRBC Absolute 0.00 <0.10 K/mcL LAB HEMETOLOGY METHOD 01/05/2025 8:[address] [facility] Neutrophils Relative 69.2 % LAB HEMETOLOGY METHOD 01/05/2025 8:[address] [facility] Lymphocytes Relative 20.6 % LAB HEMETOLOGY METHOD 01/05/2025 8:[address] [facility] Monocytes Relative 7.6 % LAB HEMETOLOGY METHOD 01/05/2025 8:[address] [facility] Eosinophils Relative 1.2 % LAB HEMETOLOGY METHOD 01/05/2025 8:[address] [facility] Basophils Relative 0.4 % LAB HEMETOLOGY METHOD 01/05/2025 8:[address] [facility] Immature Granulocytes Relative 1.0 % LAB HEMETOLOGY METHOD 01/05/2025 8:[address] [facility] Neutrophils Absolute 8.92(H) 1.50 - 7.00 K/mcL LAB HEMETOLOGY METHOD 01/05/2025 8:[address] [facility] Lymphocytes Absolute 2.66 1.00 - 5.00 K/mcL LAB HEMETOLOGY METHOD 01/05/2025 8:[address] [facility] Monocytes Absolute 0.98 0.20 - 1.00 K/mcL LAB HEMETOLOGY METHOD 01/05/2025 8:[address] [facility] Eosinophils Absolute 0.16 0.00 - 0.50 K/mcL LAB HEMETOLOGY METHOD 01/05/2025 8:[address] [facility] Basophils Absolute 0.05 0.00 - 0.20 K/mcL LAB HEMETOLOGY METHOD 01/05/2025 8:[address] [facility] Immature Granulocytes Absolute 0.13(H) 0.00 - 0.03 K/mcL LAB HEMETOLOGY METHOD 01/05/2025 8:[address] [facility] Blood Venous blood specimen / Unknown 01/05/2025 6:55 AM EDT 01/05/2025 7:56 AM EDT us August Baldwin MD LAB BLOOD ORDERABLES Final Resul t [facility] [address] [place] [address], * Basic metabolic panel (01/05/2025 6:55 AM EDT) Sodium 137 133 - 145 mmol/L LAB CHEMISTRY METHOD 01/05/2025 8:[address] [facility] Potassium 3.6 3.5 - 5.5 mmol/L LAB CHEMISTRY METHOD 01/05/2025 8:[address] [facility] Chloride 101 96 - 110 mmol/L LAB CHEMISTRY METHOD 01/05/2025 8:[address] [facility] CO2 28 21 - 32 mmol/L LAB CHEMISTRY METHOD 01/05/2025 8:[address] [facility] Anion Gap 8 3 - 11 LAB CHEMISTRY METHOD 01/05/2025 8:[address] [facility] Glucose 76 70 - 100 mg/dL LAB CHEMISTRY METHOD 01/05/2025 8:[address] [facility] BUN 13 5 - 25 mg/dL LAB CHEMISTRY METHOD 01/05/2025 8:[address] [facility] Creatinine 0.71 0.70 - 1.30 mg/dL LAB CHEMISTRY METHOD 01/05/2025 8:[address] [facility] eGFR 104 >=60 mL/min/1. 73m2 LAB CHEMISTRY METHOD 01/05/2025 8:[address] [facility] Comment:Calculation based on the Chronic Kidney Disease Epidemiology Collaboration (CKD-EPI) equation refit without adjustment for race. BUN/Creatinine Ratio 18.3 LAB CHEMISTRY METHOD 01/05/2025 8:[address] [facility] Calcium 9.5 8.5 - 10.5 mg/dL LAB CHEMISTRY METHOD 01/05/2025 8:47 AM EDT [facility] Blood Venous blood specimen / Unknown 01/05/2025 6:55 AM EDT 01/05/2025 7:56 AM EDT us August Baldwin MD LAB BLOOD ORDERABLES Final Resul t Performing Organization Address City/[facility]/ZIP Co de Phone Number [facility] [address] [place] [address], [place] [phone] * Magnesium (01/05/2025 6:55 AM EDT) Magnesium 2.4 1.9 - 2.6 mg/dL LAB CHEMISTRY METHOD 01/05/2025 8:47 AM EDT [facility] Blood Venous blood specimen / Unknown 01/05/2025 6:55 AM EDT 01/05/2025 7:56 AM EDT us August Baldwin MD LAB BLOOD ORDERABLES Final Resul t Performing Organization Address City/[facility]/ZIP Co de Phone Number [facility] [address] [place] [address], [place] [phone] documented in this encounter Visit Diagnoses Diagnosis Urinary tract infection, site not specified documented in this encounter Care Teams Mounted Police Relationship Specialty Start Date End Date August Baldwin MD [address] [facility] [address] [facility] [place], [place] PCP - General Internal Medicine 12/09/24 documented as of this encounter
--- OUTSIDE RECORDS SUMMARY | 2025-07-02 15:54 | XMS_ITS | Encounter Summary ---
Author Organization [facility] Address [address] [place] [address] Care Team Providers Care Mortgage Assistant Name Role Phone August Baldwin MD Primary Care Provider [phone] Encounter Details Date Type Department Care Team (Late st Contact Info) Description 12/01/2024 Lab Requisition [facility] - Main Lab [address] [place] [address] August Baldwin MD [address] [place] [address] Dr [address] THI Sparks [facility] [place] [facility] (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 Social History Tobacco Use [...] Routine 12/01/2024 6 :40 AM EST Other [place] [facility] (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 documented in this encounter [...] developed and the performance characteristics determined by [facility]. This confirmation testing has not been cleared or approved by the FDA. The laboratory is regulated under CLIA as qualified to perform high-complexity testing. This test is used for patient testing purposes. It should not be regarded as investigational or for research. Test performed at [facility], [address], [place], [place] [id number] Mckenna Lubin MD, PhD - Compliance Clerk Blood Venous blood specimen / Unknown 12/01/2024 6:40 AM EST 12/01/2024 7:27 AM EST us August Baldwin MD LAB BLOOD ORDERABLES Final Resul t [facility] [address] [place] [address] documented in this encounter Visit Diagnoses Diagnosis Other terminal operator (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 documented in this encounter Care Teams Mortgage Assistant Relationship Specialty Start Date End Date August Baldwin MD [address] [place], [place] PCP - General Internal Medicine 12/09/24 documented as of this encounter
== END 2025-07-02 15:09 | disposition home or self-care (01) ==
LOC: HO.HGS 14:43
PROVIDERS: PCP Hospitalist; Visit Provider Surgery
DX: L72.0 Epidermal cyst (principal)
CPT/HCPCS: 99203

== ENCOUNTER → 2025-07-02 14:42 | Outpatient (BNVA) | payer MEDICARE, SELFPAY | PROVIDERS: PCP Hospitalist; Visit Provider Surgery | DX: L72.0 Epidermal cyst (principal) | CPT/HCPCS: 99202 ==

== ENCOUNTER 2025-07-31 12:47 | Day surgery (SDC) | payer MEDICARE, MEDICAID, SELFPAY ==
--- OUTSIDE RECORDS SUMMARY | 2025-07-08 15:53 | XMS_ITS | Encounter Summary ---
Author Organization [facility] Address [address] [place] [address] Care Team Providers Care Mine Boss Name Role Phone August Baldwin MD Primary Care Provider [phone] Encounter Details Date Type Department Care Team (Late st Contact Info) Description 10/14/2024 Lab Requisition [facility] - Main Lab [address] [place] [address] August Baldwin MD [address] [place] [address] Dr [address] THI Sparks Other fci (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 Social History Tobacco Use [...] DIFFERENTIAL Routine 10/14/2024 7:26 AM EST Other fci (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 CBC AND DIFFERENTIAL Routine 10/14/2024 7:26 AM EST Other fci (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 documented in this encounter Results * (ABNORMAL) CBC auto differential (10/14/2024 7:26 AM EST) WBC 14.2(H) 4.8 - 10.8 K/[facility] LAB HEMETOLOGY METHOD 10/14/2024 8:26 AM EST [facility] RBC 4.40(L) 4.50 - 5.50 M/[facility] LAB HEMETOLOGY METHOD 10/14/2024 8:26 AM EST [facility] Hemoglobin 12.9(L) 13.5 - 17.5 g/dL LAB HEMETOLOGY METHOD 10/14/2024 8:26 AM [facility] LAB Hematocrit 40.2(L) 42.0 - 54.0 % LAB HEMETOLOGY METHOD 10/14/2024 8:26 AM [facility] LAB MCV 91.6 79.0 - 98.0 FL LAB HEMETOLOGY METHOD 10/14/2024 8:26 AM [facility] LAB MCH 29.4 27.0 - 32.0 pcg LAB HEMETOLOGY METHOD 10/14/2024 8:26 AM [facility] LAB MCHC 32.1 32.0 - 37.0 g/dL LAB HEMETOLOGY METHOD 10/14/2024 8:26 AM [facility] LAB RDW 13.3 11.0 - 15.0 % LAB HEMETOLOGY METHOD 10/14/2024 8:26 AM [facility] LAB Platelets 202 130 - 400 K/mcL LAB HEMETOLOGY METHOD 10/14/2024 8:26 AM [facility] LAB MPV 9.8 7.0 - 11.0 FL LAB HEMETOLOGY METHOD 10/14/2024 8:26 AM [facility] LAB NRBC 0.0 <1.0 % LAB HEMETOLOGY METHOD 10/14/2024 8:26 AM [facility] LAB NRBC Absolute 0.00 <0.10 K/mcL LAB HEMETOLOGY METHOD 10/14/2024 8:26 AM [facility] Neutrophils Relative 71.8 % LAB HEMETOLOGY METHOD 10/14/2024 8:26 AM [facility] Lymphocytes Relative 17.7 % LAB HEMETOLOGY METHOD 10/14/2024 8:26 AM [facility] Monocytes Relative 7.8 % LAB HEMETOLOGY METHOD 10/14/2024 8:26 AM [facility] Eosinophils Relative 1.1 % LAB HEMETOLOGY METHOD 10/14/2024 8:26 AM [facility] Basophils Relative 0.4 % LAB HEMETOLOGY METHOD 10/14/2024 8:26 AM [facility] LAB Immature Granulocytes Relative 1.2 % LAB HEMETOLOGY METHOD 10/14/2024 8:26 AM [facility] LAB Neutrophils Absolute 10.16(H) 1.50 - 7.00 K/mcL LAB HEMETOLOGY METHOD 10/14/2024 8:26 AM [facility] LAB Lymphocytes Absolute 2.50 1.00 - 5.00 K/mcL LAB HEMETOLOGY METHOD 10/14/2024 8:26 AM [facility] LAB Monocytes Absolute 1.10(H) 0.20 - 1.00 K/mcL LAB HEMETOLOGY METHOD 10/14/2024 8:26 AM [facility] LAB Eosinophils Absolute 0.16 0.00 - 0.50 K/mcL LAB HEMETOLOGY METHOD 10/14/2024 8:26 AM [facility] Basophils Absolute 0.06 0.00 - 0.20 K/mcL LAB HEMETOLOGY METHOD 10/14/2024 8:26 AM [facility] LAB Immature Granulocytes Absolute 0.17(H) 0.00 - 0.03 K/mcL LAB HEMETOLOGY METHOD 10/14/2024 8:26 AM [facility] Blood Venous blood specimen / Unknown 10/14/2024 7:26 AM EST 10/14/2024 8:12 AM EST us August Baldwin MD LAB BLOOD ORDERABLES Final Resul t [facility] [address] [place] [address], documented in this encounter Visit Diagnoses Diagnosis Other fci (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 documented in this encounter Care Teams Mine Boss Relationship Specialty Start Date End Date August Baldwin MD [address] [place] [address] Dr [address] THI Sparks PCP - General Internal Medicine 12/09/24 documented as of this encounter
--- OUTSIDE RECORDS SUMMARY | 2025-07-08 15:53 | XMS_ITS | Encounter Summary ---
Author Organization [facility] Address [address] [place] [address] Care Team Providers Care Proof Technician Helper Name Role Phone August Baldwin MD Primary Care Provider [phone] Encounter Details Date Type Department Care Team (Late st Contact Info) Description 05/25/2025 Lab Requisition [facility] - Main Lab [address] [place] [address] August Baldwin MD [address] [place] [address] Dr [address] THI Sparks Other fpc (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 Social History Tobacco Use [...] DIFFERENTIAL Routine 05/25/2025 6:50 AM EDT Other fpc (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 CBC AND DIFFERENTIAL Routine 05/25/2025 6:50 AM EDT Other fpc (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 MAGNESIUM Routine 05/25/2025 6:50 AM EDT Other fpc (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 BASIC METABOLIC PANEL Routine 05/25/2025 6:50 AM EDT Other long term care phlebotomist (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 documented in this encounter Results * (ABNORMAL) CBC auto differential (05/25/2025 6:50 AM EDT) WBC 10.6 4.8 - 10.8 K/[facility] LAB HEMETOLOGY METHOD 05/25/2025 7:16 AM [facility] RBC 4.10(L) 4.50 - 5.50 M/mcL LAB HEMETOLOGY METHOD 05/25/2025 7:16 AM [facility] Hemoglobin 12.2(L) 13.5 - 17.5 g/dL LAB HEMETOLOGY METHOD 05/25/2025 7:16 AM [facility] LAB Hematocrit 37.4(L) 42.0 - 54.0 % LAB HEMETOLOGY METHOD 05/25/2025 7:16 AM [facility] LAB MCV 90.8 79.0 - 98.0 FL LAB HEMETOLOGY METHOD 05/25/2025 7:16 AM [facility] LAB MCH 29.6 27.0 - 32.0 pcg LAB HEMETOLOGY METHOD 05/25/2025 7:16 AM [facility] LAB MCHC 32.6 32.0 - 37.0 g/dL LAB HEMETOLOGY METHOD 05/25/2025 7:16 AM [facility] RDW 13.5 11.0 - 15.0 % LAB HEMETOLOGY METHOD 05/25/2025 7:16 AM [facility] Platelets 188 130 - 400 K/mcL LAB HEMETOLOGY METHOD 05/25/2025 7:16 AM [facility] LAB MPV 9.6 7.0 - 11.0 FL LAB HEMETOLOGY METHOD 05/25/2025 7:16 AM [facility] NRBC 0.0 <1.0 % LAB HEMETOLOGY METHOD 05/25/2025 7:16 AM [facility] NRBC Absolute 0.00 <0.10 K/mcL LAB HEMETOLOGY METHOD 05/25/2025 7:16 AM [facility] Neutrophils Relative 64.0 % LAB HEMETOLOGY METHOD 05/25/2025 7:16 AM [facility] Lymphocytes Relative 25.7 % LAB HEMETOLOGY METHOD 05/25/2025 7:16 AM [facility] Monocytes Relative 7.2 % LAB HEMETOLOGY METHOD 05/25/2025 7:16 AM [facility] Eosinophils Relative 1.6 % LAB HEMETOLOGY METHOD 05/25/2025 7:16 AM [facility] Basophils Relative 0.6 % LAB HEMETOLOGY METHOD 05/25/2025 7:16 AM [facility] Immature Granulocytes Relative 0.9 % LAB HEMETOLOGY METHOD 05/25/2025 7:16 AM [facility] Neutrophils Absolute 6.79 1.50 - 7.00 K/mcL LAB HEMETOLOGY METHOD 05/25/2025 7:16 AM [facility] Lymphocytes Absolute 2.72 1.00 - 5.00 K/mcL LAB HEMETOLOGY METHOD 05/25/2025 7:16 AM [facility] Monocytes Absolute 0.76 0.20 - 1.00 K/mcL LAB HEMETOLOGY METHOD 05/25/2025 7:16 AM [facility] Eosinophils Absolute 0.17 0.00 - 0.50 K/mcL LAB HEMETOLOGY METHOD 05/25/2025 7:16 AM [facility] Basophils Absolute 0.06 0.00 - 0.20 K/mcL LAB HEMETOLOGY METHOD 05/25/2025 7:16 AM [facility] Immature Granulocytes Absolute 0.10(H) 0.00 - 0.03 K/mcL LAB HEMETOLOGY METHOD 05/25/2025 7:16 AM [facility] Blood Venous blood specimen / Unknown 05/25/2025 6:50 AM EDT 05/25/2025 6:51 AM EDT us August Baldwin MD LAB BLOOD ORDERABLES Final Resul t Performing Organization Address City/[facility]/ZIP Co de Phone Number [facility] [address] [place] [address], [place] [phone] * Magnesium (05/25/2025 6:50 AM EDT) Pathologist [facility] Magnesium 2.3 1.9 - 2.6 mg/dL LAB CHEMISTRY METHOD 05/25/2025 7:47 AM EDT [facility] Blood Venous blood specimen / Unknown 05/25/2025 6:50 AM EDT 05/25/2025 6:51 AM EDT us August Baldwin MD LAB BLOOD ORDERABLES Final Resul t Performing Organization Address [facility] Co de Phone Number [facility] [address] [place] [address], [place] [phone] * Basic metabolic panel (05/25/2025 6:50 AM EDT) Pathologist [facility] Sodium 138 133 - 145 mmol/L LAB CHEMISTRY METHOD 05/25/2025 7:47 AM [facility] Potassium 4.1 3.5 - 5.5 mmol/L LAB CHEMISTRY METHOD 05/25/2025 7:47 AM [facility] Chloride 109 96 - 110 mmol/L LAB CHEMISTRY METHOD 05/25/2025 7:47 AM [facility] CO2 25 21 - 32 mmol/L LAB CHEMISTRY METHOD 05/25/2025 7:47 AM [facility] Anion Gap 4 3 - 11 LAB CHEMISTRY METHOD 05/25/2025 7:47 AM [facility] Glucose 76 70 - 100 mg/dL LAB CHEMISTRY METHOD 05/25/2025 7:47 AM [facility] BUN 12 5 - 25 mg/dL LAB CHEMISTRY METHOD 05/25/2025 7:47 AM EDT [facility] Creatinine 0.76 0.70 - 1.30 mg/dL LAB CHEMISTRY METHOD 05/25/2025 7:47 AM EDT [facility] eGFR 102 >=60 mL/min/1. 73m2 LAB CHEMISTRY METHOD 05/25/2025 7:47 AM EDT [facility] Comment:Calculation based on the Chronic Kidney Disease Epidemiology Collaboration (CKD-EPI) equation refit without adjustment for race. BUN/Creatinine Ratio 15.8 LAB CHEMISTRY METHOD 05/25/2025 7:47 AM T [facility] Calcium 9.5 8.5 - 10.5 mg/dL LAB CHEMISTRY METHOD 05/25/2025 7:47 AM T [facility] Blood Venous blood specimen / Unknown 05/25/2025 6:50 AM EDT 05/25/2025 6:51 AM EDT us August Baldwin MD LAB BLOOD ORDERABLES Final Resul t [facility] [address] [place] [address], documented in this encounter Visit Diagnoses Diagnosis Other long term care phlebotomist (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 documented in this encounter Care Teams Proof Technician Helper Relationship Specialty Start Date End Date August Baldwin MD [address] [place] [address] Dr [facility] [place], [place] PCP - General Internal Medicine 12/09/24 documented as of this encounter
--- OUTSIDE RECORDS SUMMARY | 2025-07-08 15:53 | XMS_ITS | Encounter Summary ---
Author Organization Address [address] [place] [address] Care Team Providers Care Assistant Manager/Embalmer Name Role Phone August Baldwin MD Primary Care Provider [phone] Encounter Details Date Type Department Care Team (Late st Contact Info) Description 09/16/2024 Lab Requisition [facility] - Main Lab [address] [place] [address] August Baldwin MD [address] [place] [address] Dr [address] THI Sparks Other fpc [...] DIFFERENTIAL Routine 09/16/2024 7:00 AM EST Other fpc (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 CBC AND DIFFERENTIAL Routine 09/16/2024 7:00 AM EST Other fpc (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 documented in this encounter Results * (ABNORMAL) CBC auto differential (09/16/2024 7:00 AM EST) WBC 16.5(H) 4.8 - 10.8 K/[facility] LAB HEMETOLOGY METHOD 09/16/2024 8:31 AM EST [facility] RBC 4.10(L) 4.50 - 5.50 /[facility] LAB HEMETOLOGY METHOD 09/16/2024 8:31 AM EST [facility] Hemoglobin 12.1(L) 13.5 - 17.5 g/dL LAB HEMETOLOGY METHOD 09/16/2024 8:31 AM [facility] Hematocrit 38.6(L) 42.0 - 54.0 % LAB HEMETOLOGY METHOD 09/16/2024 8:31 AM [facility] MCV 93.9 79.0 - 98.0 FL LAB HEMETOLOGY METHOD 09/16/2024 8:31 AM [facility] MCH 29.4 27.0 - 32.0 pcg LAB HEMETOLOGY METHOD 09/16/2024 8:31 AM [facility] MCHC 31.3(L) 32.0 - 37.0 g/dL LAB HEMETOLOGY METHOD 09/16/2024 8:31 AM [facility] RDW 13.8 11.0 - 15.0 % LAB HEMETOLOGY METHOD 09/16/2024 8:31 AM [facility] Platelets 202 130 - 400 K/mcL LAB HEMETOLOGY METHOD 09/16/2024 8:31 AM [facility] MPV 10.1 7.0 - 11.0 FL LAB HEMETOLOGY METHOD 09/16/2024 8:31 AM [facility] NRBC 0.0 <1.0 % LAB HEMETOLOGY METHOD 09/16/2024 8:31 AM [facility] NRBC Absolute 0.00 <0.10 K/mcL LAB HEMETOLOGY METHOD 09/16/2024 8:31 AM [facility] Neutrophils Relative 68.3 % LAB HEMETOLOGY METHOD 09/16/2024 8:31 AM [facility] Lymphocytes Relative 19.9 % LAB HEMETOLOGY METHOD 09/16/2024 8:31 AM [facility] Monocytes Relative 9.2 % LAB HEMETOLOGY METHOD 09/16/2024 8:31 AM EST [facility] Eosinophils Relative 1.2 % LAB HEMETOLOGY METHOD 09/16/2024 8:31 AM [facility] Basophils Relative 0.4 % LAB HEMETOLOGY METHOD 09/16/2024 8:31 AM [facility] Immature Granulocytes Relative 1.0 % LAB HEMETOLOGY METHOD 09/16/2024 8:31 AM [facility] Neutrophils Absolute 11.25(H) 1.50 - 7.00 K/mcL LAB HEMETOLOGY METHOD 09/16/2024 8:31 AM [facility] Lymphocytes Absolute 3.27 1.00 - 5.00 K/mcL LAB HEMETOLOGY METHOD 09/16/2024 8:31 AM [facility] Monocytes Absolute 1.52(H) 0.20 - 1.00 K/mcL LAB HEMETOLOGY METHOD 09/16/2024 8:31 AM [facility] Eosinophils Absolute 0.20 0.00 - 0.50 K/mcL LAB HEMETOLOGY METHOD 09/16/2024 8:31 AM [facility] Basophils Absolute 0.07 0.00 - 0.20 K/mcL LAB HEMETOLOGY METHOD 09/16/2024 8:31 AM [facility] Immature Granulocytes Absolute 0.16(H) 0.00 - 0.03 K/mcL LAB HEMETOLOGY METHOD 09/16/2024 8:31 AM [facility] Blood Venous blood specimen / Unknown 09/16/2024 7:00 AM EST 09/16/2024 8:04 AM EST us August Baldwin MD LAB BLOOD ORDERABLES Final Resul t [facility] [address] [place] [address], documented in this encounter Visit Diagnoses Diagnosis Other bed bug exterminator (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 documented in this encounter Care Teams Assistant Manager/Embalmer Relationship Specialty Start Date End Date August Baldwin MD [address] [place] [address] Dr [address] THI Sparks PCP - General Internal Medicine 12/09/24 documented as of this encounter
--- OUTSIDE RECORDS SUMMARY | 2025-07-08 15:53 | XMS_ITS | Encounter Summary ---
Author Organization [facility] Address [address] [place] [address] Care Team Providers Care Commissary Assistant Name Role Phone August Baldwin MD Primary Care Provider Encounter Details Date Type Department Care Team (Late st Contact Info) Description 04/27/2025 Lab Requisition [facility] - Main Lab [address] [facility] [place] [address] August Baldwin MD [address] [place] [address] Dr [address] THI Sparks Other correction (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; Type 2 diabetes mellitus [...] DIFFERENTIAL Routine 04/27/2025 6:00 AM EDT Other watermaster (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 Type 2 diabetes mellitus without complications (CMS/HCC V24, CMS/HCC V28) CBC AND DIFFERENTIAL Routine 04/27/2025 6:00 AM EDT Other watermaster (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 Type 2 diabetes mellitus without complications (CMS/HCC V24, CMS/HCC V28) MAGNESIUM Routine 04/27/2025 6:00 AM EDT Other watermaster (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 Type 2 diabetes mellitus without complications (CMS/HCC V24, CMS/HCC V28) HEMOGLOBIN A1C Routine 04/27/2025 6:00 AM EDT Other correction (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 Type 2 diabetes mellitus without complications (CMS/HCC V24, CMS/HCC V28) COMPREHENSIVE METABOLIC PANEL Routine 04/27/2025 6:00 AM EDT Other correction (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 Type 2 diabetes mellitus without complications (CMS/HCC V24, CMS/HCC V28) documented in this encounter Results * (ABNORMAL) CBC auto differential (04/27/2025 6:00 AM EDT) [facility] WBC 15.5(H) 4.8 - 10.8 K/mcL LAB HEMETOLOGY METHOD 04/27/2025 6:58 AM [facility] RBC 4.30(L) 4.50 - 5.50 M/mcL LAB HEMETOLOGY METHOD 04/27/2025 6:58 AM [facility] Hemoglobin 13.0(L) 13.5 - 17.5 g/dL LAB HEMETOLOGY METHOD 04/27/2025 6:58 AM [facility] Hematocrit 39.8(L) 42.0 - 54.0 % LAB HEMETOLOGY METHOD 04/27/2025 6:58 AM [facility] MCV 92.1 79.0 - 98.0 FL LAB HEMETOLOGY METHOD 04/27/2025 6:58 AM [facility] MCH 30.1 27.0 - 32.0 pcg LAB HEMETOLOGY METHOD 04/27/2025 6:58 AM [facility] MCHC 32.7 32.0 - 37.0 g/dL LAB HEMETOLOGY METHOD 04/27/2025 6:58 AM [facility] RDW 13.4 11.0 - 15.0 % LAB HEMETOLOGY METHOD 04/27/2025 6:58 AM [facility] Platelets 203 130 - 400 K/mcL LAB HEMETOLOGY METHOD 04/27/2025 6:58 AM EDT [facility] MPV 9.9 7.0 - 11.0 FL LAB HEMETOLOGY METHOD 04/27/2025 6:58 AM [facility] NRBC 0.0 <1.0 % LAB HEMETOLOGY METHOD 04/27/2025 6:58 AM [facility] NRBC Absolute 0.00 <0.10 K/mcL LAB HEMETOLOGY METHOD 04/27/2025 6:58 AM [facility] Neutrophils Relative 77.0 % LAB HEMETOLOGY METHOD 04/27/2025 6:58 AM [facility] Lymphocytes Relative 13.9 % LAB HEMETOLOGY METHOD 04/27/2025 6:58 AM [facility] Monocytes Relative 7.5 % LAB HEMETOLOGY METHOD 04/27/2025 6:58 AM [facility] Eosinophils Relative 0.6 % LAB HEMETOLOGY METHOD 04/27/2025 6:58 AM [facility] Basophils Relative 0.3 % LAB HEMETOLOGY METHOD 04/27/2025 6:58 AM [facility] Immature Granulocytes Relative 0.7 % LAB HEMETOLOGY METHOD 04/27/2025 6:58 AM [facility] Neutrophils Absolute 11.96(H) 1.50 - 7.00 K/mcL LAB HEMETOLOGY METHOD 04/27/2025 6:58 AM [facility] Lymphocytes Absolute 2.16 1.00 - 5.00 K/mcL LAB HEMETOLOGY METHOD 04/27/2025 6:58 AM [facility] Monocytes Absolute 1.16(H) 0.20 - 1.00 K/mcL LAB HEMETOLOGY METHOD 04/27/2025 6:58 AM [facility] Eosinophils Absolute 0.09 0.00 - 0.50 K/mcL LAB HEMETOLOGY METHOD 04/27/2025 6:58 AM EDT [facility] Basophils Absolute 0.04 0.00 - 0.20 K/[facility] LAB HEMETOLOGY METHOD 04/27/2025 6:58 AM EDT [facility] Immature Granulocytes Absolute 0.11(H) 0.00 - 0.03 K/[facility] LAB HEMETOLOGY METHOD 04/27/2025 6:58 AM EDT [facility] Blood Venous blood specimen / Unknown 04/27/2025 6:00 AM EDT 04/27/2025 6:52 AM EDT us August Baldwin MD LAB BLOOD ORDERABLES Final Resul t Performing Organization Address [facility]/ZIP Co de Phone Number [facility] [address] [place] [address], [place] [phone] * Magnesium (04/27/2025 6:00 AM EDT) Magnesium 2.2 1.9 - 2.6 mg/dL LAB CHEMISTRY METHOD 04/27/2025 7:51 AM EDT [facility] Blood Venous blood specimen / Unknown 04/27/2025 6:00 AM EDT 04/27/2025 6:52 AM EDT us August Baldwin MD LAB BLOOD ORDERABLES Final Resul t Performing Organization Address City/[facility]/ZIP Co de Phone Number [facility] [address] [place] [address], [place] [phone] * Hemoglobin A1c (04/27/2025 6:00 AM EDT) Hemoglobin A1C 5.5 <6.5 % LAB CHEMISTRY METHOD 04/27/2025 12:43 PM EDT [facility] Mean Bld Glu Estim. 111 mg/dL LAB CHEMISTRY METHOD 04/27/2025 12:43 PM EDT [facility] Blood Venous blood specimen / Unknown 04/27/2025 6:00 AM EDT 04/27/2025 6:52 AM EDT us August Baldwin MD LAB BLOOD ORDERABLES Final Resul t [facility] [address] [place] [address], * (ABNORMAL) Comprehensive metabolic panel (04/27/2025 6:00 AM EDT) Sodium 136 133 - 145 mmol/L LAB CHEMISTRY METHOD 04/27/2025 7:51 AM [facility] Potassium 3.8 3.5 - 5.5 mmol/L LAB CHEMISTRY METHOD 04/27/2025 7:51 AM [facility] Chloride 102 96 - 110 mmol/L LAB CHEMISTRY METHOD 04/27/2025 7:51 AM [facility] CO2 26 21 - 32 mmol/L LAB CHEMISTRY METHOD 04/27/2025 7:51 AM [facility] Anion Gap 8 3 - 11 LAB CHEMISTRY METHOD 04/27/2025 7:51 AM [facility] Glucose 87 70 - 100 mg/dL LAB CHEMISTRY METHOD 04/27/2025 7:51 AM [facility] BUN 18 5 - 25 mg/dL LAB CHEMISTRY METHOD 04/27/2025 7:51 AM [facility] Creatinine 0.85 0.70 - 1.30 mg/dL LAB CHEMISTRY METHOD 04/27/2025 7:51 AM [facility] eGFR 98 >=60 mL/min/1. 73m2 LAB CHEMISTRY METHOD 04/27/2025 7:51 AM [facility] Comment:Calculation based on the Chronic Kidney Disease Epidemiology Collaboration (CKD-EPI) equation refit without adjustment for race. BUN/Creatinine Ratio 21.2 LAB CHEMISTRY METHOD 04/27/2025 7:51 AM [facility] Calcium 9.4 8.5 - 10.5 mg/dL LAB CHEMISTRY METHOD 04/27/2025 7:51 AM [facility] AST (SGOT) 28 10 - 42 unit/L LAB CHEMISTRY METHOD 04/27/2025 7:51 AM [facility] ALT (SGPT) 44 10 - 60 unit/L LAB CHEMISTRY METHOD 04/27/2025 7:51 AM [facility] Alkaline Phosphatase 139(H) 42 - 121 unit/L LAB CHEMISTRY METHOD 04/27/2025 7:51 AM [facility] Total Protein 7.2 6.0 - 8.0 g/dL LAB CHEMISTRY METHOD 04/27/2025 7:51 AM [facility] Albumin 3.6 3.2 - 5.0 g/dL LAB CHEMISTRY METHOD 04/27/2025 7:51 AM [facility] Total Bilirubin 0.4 0.0 - 1.4 mg/dL LAB CHEMISTRY METHOD 04/27/2025 7:51 AM [facility] Blood Venous blood specimen / Unknown 04/27/2025 6:00 AM EDT 04/27/2025 6:52 AM EDT us August Baldwin MD LAB BLOOD ORDERABLES Final Resul t [facility] [address] [place] [address], [place] [phone] documented in this encounter Visit Diagnoses Diagnosis Other watermaster (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 Type 2 diabetes mellitus without complications (CMS/HCC V24, CMS/HCC V28) documented in this encounter Care Teams Commissary Assistant Relationship Specialty Start Date End Date August Baldwin MD [address] [place] PCP - General Internal Medicine 12/09/24 documented as of this encounter
--- OUTSIDE RECORDS SUMMARY | 2025-07-08 15:53 | XMS_ITS | Encounter Summary ---
Author Organization [facility] Address [address] [place] [address] Care Team Providers Care X Ray Technologist Name Role Phone August Baldwin MD Primary Care Provider [phone] Encounter Details Date Type Department Care Team (Late st Contact Info) Description 12/01/2024 Lab Requisition [facility] - Main Lab [address] [place] [address] August Baldwin MD [address] [place] [address] Dr [address] THI Sparks Other fpc [...] Routine 12/01/2024 6 :40 AM EST Other long term care administrator (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 documented in this encounter [...] developed and the performance characteristics determined by [facility]. This confirmation testing has not been cleared or approved by the FDA. The laboratory is regulated under CLIA as qualified to perform high-complexity testing. This test is used for patient testing purposes. It should not be regarded as investigational or for research. Test performed at [facility], [address], [place], [place] [id number] Mckenna Lubin MD, PhD - Corporate Treasurer Blood Venous blood specimen / Unknown 12/01/2024 6:40 AM EST 12/01/2024 7:27 AM EST us August Baldwin MD LAB BLOOD ORDERABLES Final Resul t [facility] [address] [place] [address] documented in this encounter Visit Diagnoses Diagnosis Other long term care administrator (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 documented in this encounter Care Teams X Ray Technologist Relationship Specialty Start Date End Date August Baldwin MD [address] [place], [place] PCP - General Internal Medicine 12/09/24 documented as of this encounter
--- OUTSIDE RECORDS SUMMARY | 2025-07-08 15:53 | XMS_ITS | Encounter Summary ---
Author Organization [facility] Address [address] [place] [address] Care Team Providers Care Director Of Sales Marketing Name Role Phone August Baldwin MD Primary Care Provider [phone] Encounter Details Date Type Department Care Team (Late st Contact Info) Description 01/05/2025 Lab Requisition [facility] - Main Lab [address] [place] [address] August Baldwin MD [address] [place] [address] Dr [address] THI Sparks Urinary tract [...] AM EDT) WBC 12.9(H) 4.8 - 10.8 K/[facility] LAB HEMETOLOGY METHOD 01/05/2025 8:27 AM [facility] LAB RBC 4.00(L) 4.50 - 5.50 M/mcL LAB HEMETOLOGY METHOD 01/05/2025 8:27 AM [facility] LAB Hemoglobin 11.8(L) 13.5 - 17.5 g/dL LAB HEMETOLOGY METHOD 01/05/2025 8:27 AM [facility] LAB Hematocrit 36.8(L) 42.0 - 54.0 % LAB HEMETOLOGY METHOD 01/05/2025 8:27 AM [facility] LAB MCV 91.3 79.0 - 98.0 FL LAB HEMETOLOGY METHOD 01/05/2025 8:27 AM [facility] LAB MCH 29.3 27.0 - 32.0 pcg LAB HEMETOLOGY METHOD 01/05/2025 8:27 AM [facility] LAB MCHC 32.1 32.0 - 37.0 g/dL LAB HEMETOLOGY METHOD 01/05/2025 8:27 AM [facility] LAB RDW 13.8 11.0 - 15.0 % LAB HEMETOLOGY METHOD 01/05/2025 8:27 AM [facility] LAB Platelets 189 130 - 400 K/mcL LAB HEMETOLOGY METHOD 01/05/2025 8:27 AM [facility] LAB MPV 10.0 7.0 - 11.0 FL LAB HEMETOLOGY METHOD 01/05/2025 8:27 AM [facility] LAB NRBC 0.0 <1.0 % LAB HEMETOLOGY METHOD 01/05/2025 8:27 AM [facility] LAB NRBC Absolute 0.00 <0.10 K/mcL LAB HEMETOLOGY METHOD 01/05/2025 8:27 AM [facility] Neutrophils Relative 69.2 % LAB HEMETOLOGY METHOD 01/05/2025 8:27 AM [facility] Lymphocytes Relative 20.6 % LAB HEMETOLOGY METHOD 01/05/2025 8:27 AM [facility] Monocytes Relative 7.6 % LAB HEMETOLOGY METHOD 01/05/2025 8:27 AM [facility] Eosinophils Relative 1.2 % LAB HEMETOLOGY METHOD 01/05/2025 8:27 AM [facility] Basophils Relative 0.4 % LAB HEMETOLOGY METHOD 01/05/2025 8:27 AM [facility] Immature Granulocytes Relative 1.0 % LAB HEMETOLOGY METHOD 01/05/2025 8:27 AM [facility] Neutrophils Absolute 8.92(H) 1.50 - 7.00 K/mcL LAB HEMETOLOGY METHOD 01/05/2025 8:27 AM [facility] Lymphocytes Absolute 2.66 1.00 - 5.00 K/mcL LAB HEMETOLOGY METHOD 01/05/2025 8:27 AM [facility] Monocytes Absolute 0.98 0.20 - 1.00 K/mcL LAB HEMETOLOGY METHOD 01/05/2025 8:27 AM [facility] Eosinophils Absolute 0.16 0.00 - 0.50 K/mcL LAB HEMETOLOGY METHOD 01/05/2025 8:27 AM [facility] Basophils Absolute 0.05 0.00 - 0.20 K/mcL LAB HEMETOLOGY METHOD 01/05/2025 8:27 AM [facility] LAB Immature Granulocytes Absolute 0.13(H) 0.00 - 0.03 K/mcL LAB HEMETOLOGY METHOD 01/05/2025 8:27 AM [facility] Blood Venous blood specimen / Unknown 01/05/2025 6:55 AM EDT 01/05/2025 7:56 AM EDT us August Baldwin MD LAB BLOOD ORDERABLES Final Resul t [facility] [address] [place] [address], * Basic metabolic panel (01/05/2025 6:55 AM EDT) Sodium 137 133 - 145 mmol/L LAB CHEMISTRY METHOD 01/05/2025 8:47 AM [facility] Potassium 3.6 3.5 - 5.5 mmol/L LAB CHEMISTRY METHOD 01/05/2025 8:47 AM [facility] Chloride 101 96 - 110 mmol/L LAB CHEMISTRY METHOD 01/05/2025 8:47 AM [facility] CO2 28 21 - 32 mmol/L LAB CHEMISTRY METHOD 01/05/2025 8:47 AM [facility] Anion Gap 8 3 - 11 LAB CHEMISTRY METHOD 01/05/2025 8:47 AM [facility] Glucose 76 70 - 100 mg/dL LAB CHEMISTRY METHOD 01/05/2025 8:47 AM [facility] BUN 13 5 - 25 mg/dL LAB CHEMISTRY METHOD 01/05/2025 8:47 AM [facility] Creatinine 0.71 0.70 - 1.30 mg/dL LAB CHEMISTRY METHOD 01/05/2025 8:47 AM [facility] LAB eGFR 104 >=60 mL/min/1. 73m2 LAB CHEMISTRY METHOD 01/05/2025 8:47 AM [facility] LAB Comment:Calculation based on the Chronic Kidney Disease Epidemiology Collaboration (CKD-EPI) equation refit without adjustment for race. BUN/Creatinine Ratio 18.3 LAB CHEMISTRY METHOD 01/05/2025 8:47 AM [facility] Calcium 9.5 8.5 - 10.5 mg/dL LAB CHEMISTRY METHOD 01/05/2025 8:47 AM EDT [facility] LAB Blood Venous blood specimen / Unknown 01/05/2025 6:55 AM EDT 01/05/2025 7:56 AM EDT us August Baldwin MD LAB BLOOD ORDERABLES Final Resul t Performing Organization Address [facility]/ZIP Co de Phone Number [facility] LAB [address] [place] [address], [place] [phone] * Magnesium (01/05/2025 6:55 AM EDT) Magnesium 2.4 1.9 - 2.6 mg/dL LAB CHEMISTRY METHOD 01/05/2025 8:47 AM EDT [facility] Blood Venous blood specimen / Unknown 01/05/2025 6:55 AM EDT 01/05/2025 7:56 AM EDT us August Baldwin MD LAB BLOOD ORDERABLES Final Resul t Performing Organization Address [facility]/ZIP Co de Phone Number [facility] [address] [place] [address], [place] [phone] documented in this encounter Visit Diagnoses Diagnosis Urinary tract infection, site not specified documented in this encounter Care Teams Director Of Sales Marketing Relationship Specialty Start Date End Date August Baldwin MD [address] [facility] [place], [place] PCP - General Internal Medicine 12/09/24 documented as of this encounter
--- OUTSIDE RECORDS SUMMARY | 2025-07-08 15:53 | XMS_ITS | Clinical Summary ---
Author Organization [address] Address [address] [place] [address] Phone Care Team Providers Care Pharmacy Messenger Name Role Phone August Baldwin MD Primary Care Provider [phone] Encounters Date Type Department Care Team Description 07/03/2025 Lab Requisition [facility] Lab [address] [place] [phone] August Baldwin MD Encounter for therapeutic drug level monitoring 06/22/2025 Lab Requisition [facility] Lab [address] [place] [phone] August Baldwin MD Other terminal computer operator (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 06/01/2025 Lab Requisition [facility] Lab [address] [place] [phone] August Baldwin MD Hypothyroidism, unspecified; Other terminal computer operator (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 05/25/2025 Lab Requisition [facility] [address] [place] [phone] August Baldwin MD Other terminal computer operator (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 04/27/2025 Lab Requisition [facility] [address] [place] [phone] August Baldwin MD Other terminal computer operator (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; Type 2 diabetes mellitus [...] 09/26/2022 Social Influencers of Health Screening 09/26/2022 Depression Screening 10/29/2024 Diabetes: Annual Urine Albumin-Creatinine Ratio (uACR) 11/07/2024 COVID-19 Vaccine ( season) 2025 Influenza Vaccine (#1) 2025 Diabetes: Blood Sugar Control Test (HGBA1C) 10/27/2025 04/27/2025, 02/03/2025, 11/07/2024 Diabetes: Annual GFR (Glomerular Filtration Rate) 07/03/2026 07/03/2025, 06/22/2025, 06/01/2025, Additional history exists Hypertension/CHF/CAD Annual BMP Blood Test 07/03/2026 07/03/2025, 06/22/2025, 06/01/2025, Additional history exists RSV Immunization Adult Patients [...] Associated Diagnosis Comments BASIC METABOLIC PANEL Routine 07/03/2025 7:20 AM EDT Encounter for therapeutic drug level monitoring CBC WITH AUTO DIFFERENTIAL Routine 06/22/2025 6:50 AM EDT Other mcc (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 MAGNESIUM Routine 06/22/2025 6:50 AM EDT Other mcc (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 CBC AND DIFFERENTIAL Routine 06/22/2025 6:50 AM EDT Other terminal computer operator (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 BASIC METABOLIC PANEL Routine 06/22/2025 6:50 AM EDT Other terminal computer operator (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 MAGNESIUM Routine 06/01/2025 6:16 AM EDT Hypothyroidism, unspecified Other terminal computer operator (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 BASIC METABOLIC PANEL Routine 06/01/2025 6:16 AM EDT Hypothyroidism, unspecified Other mcc (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 THYROXINE FREE Routine 06/01/2025 6:16 AM EDT Hypothyroidism, unspecified Other terminal computer operator (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 LEVETIRACETAM LEVEL Routine 06/01/2025 6 :16 AM EDT Hypothyroidism, unspecified Other terminal computer operator (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 THYROID STIMULATING HORMONE Routine 06/01/2025 6:16 AM EDT Hypothyroidism, unspecified Other mcc (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 CBC WITH AUTO DIFFERENTIAL Routine 05/25/2025 6:50 AM EDT Other terminal computer operator (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 MAGNESIUM Routine 05/25/2025 6:50 AM EDT Other terminal computer operator (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 CBC AND DIFFERENTIAL Routine 05/25/2025 6:50 AM EDT Other mcc (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 BASIC METABOLIC PANEL Routine 05/25/2025 6:50 AM EDT Other mcc (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 CBC WITH AUTO DIFFERENTIAL Routine 04/27/2025 6:00 AM EDT Other mcc (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 Type 2 diabetes mellitus without complications (CMS/HCC V24, CMS/HCC V28) MAGNESIUM Routine 04/27/2025 6:00 AM EDT Other mcc (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 Type 2 diabetes mellitus without complications (CMS/HCC V24, CMS/HCC V28) HEMOGLOBIN A1C Routine 04/27/2025 6:00 AM EDT Other terminal computer operator (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 Type 2 diabetes mellitus without complications (CMS/HCC V24, CMS/HCC V28) CBC AND DIFFERENTIAL Routine 04/27/2025 6:00 AM EDT Other mcc (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 Type 2 diabetes mellitus without complications (CMS/HCC V24, CMS/HCC V28) COMPREHENSIVE METABOLIC PANEL Routine 04/27/2025 6:00 AM EDT Other terminal computer operator (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 Type 2 diabetes mellitus without complications (CMS/HCC V24, CMS/HCC V28) from Last 3 Months Results * Basic metabolic panel (07/03/2025 7:20 AM EDT) Only the most recent of4 resultswithin the time period is included. Sodium 136 133 - 145 mmol/L LAB CHEMISTRY METHOD 07/03/2025 9:01 AM T [facility] Potassium 3.6 3.5 - 5.5 mmol/L LAB CHEMISTRY METHOD 07/03/2025 9:01 AM EDT [facility] Chloride 101 96 - 110 mmol/L LAB CHEMISTRY METHOD 07/03/2025 9:01 AM [facility] CO2 28 21 - 32 mmol/L LAB CHEMISTRY METHOD 07/03/2025 9:01 AM [facility] Anion Gap 7 3 - 11 LAB CHEMISTRY METHOD 07/03/2025 9:01 AM [facility] Glucose 90 70 - 100 mg/dL LAB CHEMISTRY METHOD 07/03/2025 9:01 AM [facility] BUN 13 5 - 25 mg/dL LAB CHEMISTRY METHOD 07/03/2025 9:01 AM [facility] Creatinine 0.73 0.70 - 1.30 mg/dL LAB CHEMISTRY METHOD 07/03/2025 9:01 AM [facility] eGFR 103 >=60 mL/min/1. 73m2 LAB CHEMISTRY METHOD 07/03/2025 9:01 AM [facility] Comment:Calculation based on the Chronic Kidney Disease Epidemiology Collaboration (CKD-EPI) equation refit without adjustment for race. BUN/Creatinine Ratio 17.8 LAB CHEMISTRY METHOD 07/03/2025 9:01 AM [facility] Calcium 9.4 8.5 - 10.5 mg/dL LAB CHEMISTRY METHOD 07/03/2025 9:01 AM [facility] Blood Venous blood specimen / Unknown 07/03/2025 7:20 AM EDT 07/03/2025 8:14 AM EDT us August Baldwin MD LAB BLOOD ORDERABLES Final Resul t [facility] [address] [place] [address], * (ABNORMAL) CBC auto differential (06/22/2025 6:50 AM EDT) Only the most recent of3 resultswithin the time period is included. WBC 13.6(H) 4.8 - 10.8 K/mcL LAB HEMETOLOGY METHOD 06/22/2025 7:21 AM EDT [facility] RBC 4.30(L) 4.50 - 5.50 M/mcL LAB HEMETOLOGY METHOD 06/22/2025 7:21 AM [facility] Hemoglobin 12.5(L) 13.5 - 17.5 g/dL LAB HEMETOLOGY METHOD 06/22/2025 7:21 AM [facility] Hematocrit 38.4(L) 42.0 - 54.0 % LAB HEMETOLOGY METHOD 06/22/2025 7:21 AM [facility] MCV 89.9 79.0 - 98.0 FL LAB HEMETOLOGY METHOD 06/22/2025 7:21 AM [facility] LAB MCH 29.3 27.0 - 32.0 pcg LAB HEMETOLOGY METHOD 06/22/2025 7:21 AM [facility] MCHC 32.6 32.0 - 37.0 g/dL LAB HEMETOLOGY METHOD 06/22/2025 7:21 AM [facility] RDW 13.3 11.0 - 15.0 % LAB HEMETOLOGY METHOD 06/22/2025 7:21 AM [facility] Platelets 203 130 - 400 K/mcL LAB HEMETOLOGY METHOD 06/22/2025 7:21 AM [facility] MPV 9.4 7.0 - 11.0 FL LAB HEMETOLOGY METHOD 06/22/2025 7:21 AM [facility] NRBC 0.0 <1.0 % LAB HEMETOLOGY METHOD 06/22/2025 7:21 AM [facility] NRBC Absolute 0.00 <0.10 K/mcL LAB HEMETOLOGY METHOD 06/22/2025 7:21 AM [facility] Neutrophils Relative 71.6 % LAB HEMETOLOGY METHOD 06/22/2025 7:21 AM [facility] Lymphocytes Relative 18.4 % LAB HEMETOLOGY METHOD 06/22/2025 7:21 AM [facility] Monocytes Relative 7.3 % LAB HEMETOLOGY METHOD 06/22/2025 7:21 AM [facility] Eosinophils Relative 1.1 % LAB HEMETOLOGY METHOD 06/22/2025 7:21 AM [facility] Basophils Relative 0.4 % LAB HEMETOLOGY METHOD 06/22/2025 7:21 AM [facility] Immature Granulocytes Relative 1.2 % LAB HEMETOLOGY METHOD 06/22/2025 7:21 AM [facility] Neutrophils Absolute 9.74(H) 1.50 - 7.00 K/mcL LAB HEMETOLOGY METHOD 06/22/2025 7:21 AM [facility] Lymphocytes Absolute 2.50 1.00 - 5.00 K/mcL LAB HEMETOLOGY METHOD 06/22/2025 7:21 AM [facility] Monocytes Absolute 0.99 0.20 - 1.00 K/mcL LAB HEMETOLOGY METHOD 06/22/2025 7:21 AM [facility] Eosinophils Absolute 0.15 0.00 - 0.50 K/mcL LAB HEMETOLOGY METHOD 06/22/2025 7:21 AM [facility] Basophils Absolute 0.06 0.00 - 0.20 K/mcL LAB HEMETOLOGY METHOD 06/22/2025 7:21 AM [facility] Immature Granulocytes Absolute 0.17(H) 0.00 - 0.03 K/mcL LAB HEMETOLOGY METHOD 06/22/2025 7:21 AM [facility] Blood Venous blood specimen / Unknown 06/22/2025 6:50 AM EDT 06/22/2025 7:12 AM EDT us August Baldwin MD LAB BLOOD ORDERABLES Final Resul t Performing Organization Address [facility] Co de Phone Number [facility] [address] [place] [address], [place] [phone] * Magnesium (06/22/2025 6:50 AM EDT) Only the most recent of4 resultswithin the time period is included. Magnesium 2.4 1.9 - 2.6 mg/dL LAB CHEMISTRY METHOD 06/22/2025 7:38 AM EDT [facility] Blood Venous blood specimen / Unknown 06/22/2025 6:50 AM EDT 06/22/2025 7:12 AM EDT us August Baldwin MD LAB BLOOD ORDERABLES Final Resul t Performing Organization Address [facility] de Phone Number [facility] [address] [place] [address], [place] [phone] * Levetiracetam level (06/01/2025 6:16 AM EDT) Levetiracetam 26.8 3.0 - 60.0 ug/mL 06/03/2025 6:00 AM EDT [facility] Comment: Steady state trough serum or plasma levels following doses of 1000 to 3000 mg/Day: 3 to 37 ug/mL. The same dosage regimen will typically result in peak levels of 10 to 60 ug/mL, at approximately 1.5 hours post dose. If applicable, any drug confirmation testing reported here was developed and the performance characteristics determined by [facility]. This confirmation testing has not been cleared or approved by the FDA. The laboratory is regulated under CLIA as qualified to perform high-complexity testing. This test is used for patient testing purposes. It should not be regarded as investigational or for research. Test performed at [facility], [address] , [place] [address] Mckenna Lubin MD, PhD - [employer] Blood Venous blood specimen / Unknown 06/01/2025 6:16 AM EDT 06/01/2025 7:59 AM EDT us August Baldwin MD LAB BLOOD ORDERABLES Final Resul t Performing Organization Address City/[facility]/ZIP Co de Phone [place] [address] [place] [address] * Thyroid stimulating hormone (06/01/2025 6:16 AM EDT) TSH 2.14 0.40 - 4.00 mcIU/mL LAB CHEMISTRY METHOD 06/01/2025 9:59 AM EDT [facility] Blood Venous blood specimen / Unknown 06/01/2025 6:16 AM EDT 06/01/2025 7:59 AM EDT us August Baldwin MD LAB BLOOD ORDERABLES Final Resul t Performing Organization Address [facility] de Phone Number [facility] [address] [place] [address], [place] [phone] * Thyroxine free (06/01/2025 6:16 AM EDT) Free T4 1.16 0.70 - 1.80 ng/dL LAB CHEMISTRY METHOD 06/01/2025 9:59 AM EDT [facility] Blood Venous blood specimen / Unknown 06/01/2025 6:16 AM EDT 06/01/2025 7:59 AM EDT us August Baldwin MD LAB BLOOD ORDERABLES Final Resul t Performing Organization Address [facility] Co de Phone Number [facility] [address] [place] [address], [place] [phone] * Hemoglobin A1c (04/27/2025 6:00 AM EDT) Hemoglobin A1C 5.5 <6.5 % LAB CHEMISTRY METHOD 04/27/2025 12:43 PM EDT [facility] Mean Bld Glu Estim. 111 mg/dL LAB CHEMISTRY METHOD 04/27/2025 12:43 PM [facility] Blood Venous blood specimen / Unknown 04/27/2025 6:00 AM EDT 04/27/2025 6:52 AM EDT us August Baldwin MD LAB BLOOD ORDERABLES Final Resul t [facility] [address] [place] [address], [place] [phone] * (ABNORMAL) Comprehensive metabolic panel (04/27/2025 6:00 AM EDT) Sodium 136 133 - 145 mmol/L LAB CHEMISTRY METHOD 04/27/2025 7:51 AM [facility] Potassium 3.8 3.5 - 5.5 mmol/L LAB CHEMISTRY METHOD 04/27/2025 7:51 AM [facility] Chloride 102 96 - 110 mmol/L LAB CHEMISTRY METHOD 04/27/2025 7:51 AM [facility] CO2 26 21 - 32 mmol/L LAB CHEMISTRY METHOD 04/27/2025 7:51 AM [facility] Anion Gap 8 3 - 11 LAB CHEMISTRY METHOD 04/27/2025 7:51 AM [facility] Glucose 87 70 - 100 mg/dL LAB CHEMISTRY METHOD 04/27/2025 7:51 AM [facility] BUN 18 5 - 25 mg/dL LAB CHEMISTRY METHOD 04/27/2025 7:51 AM [facility] Creatinine 0.85 0.70 - 1.30 mg/dL LAB CHEMISTRY METHOD 04/27/2025 7:51 AM [facility] eGFR 98 >=60 mL/min/1. 73m2 LAB CHEMISTRY METHOD 04/27/2025 7:51 AM [facility] Comment:Calculation based on the Chronic Kidney Disease Epidemiology Collaboration (CKD-EPI) equation refit without adjustment for race. BUN/Creatinine Ratio 21.2 LAB CHEMISTRY METHOD 04/27/2025 7:51 AM [facility] Calcium 9.4 8.5 - 10.5 mg/dL LAB CHEMISTRY METHOD 04/27/2025 7:51 AM [facility] AST (SGOT) 28 10 - 42 unit/L LAB CHEMISTRY METHOD 04/27/2025 7:51 AM [facility] ALT (SGPT) 44 10 - 60 unit/L LAB CHEMISTRY METHOD 04/27/2025 7:51 AM [facility] Alkaline Phosphatase 139(H) 42 - 121 unit/L LAB CHEMISTRY METHOD 04/27/2025 7:51 AM [facility] Total Protein 7.2 6.0 - 8.0 g/dL LAB CHEMISTRY METHOD 04/27/2025 7:51 AM [facility] Albumin 3.6 3.2 - 5.0 g/dL LAB CHEMISTRY METHOD 04/27/2025 7:51 AM [facility] Total Bilirubin 0.4 0.0 - 1.4 mg/dL LAB CHEMISTRY METHOD 04/27/2025 7:51 AM [facility] Blood Venous blood specimen / Unknown 04/27/2025 6:00 AM EDT 04/27/2025 6:52 AM EDT us August Baldwin MD LAB BLOOD ORDERABLES Final Resul t [facility] [address] [place] [address], from Last 3 Months Insurance MEDICARE MEDICAID - [place] Care Teams Pharmacy Messenger Relationship Specialty Start Date End Date August Baldwin MD [address] [place] [address] [address] THI Sparks PCP - General Internal Medicine 12/09/24
--- OUTSIDE RECORDS SUMMARY | 2025-07-08 15:53 | XMS_ITS | Encounter Summary ---
Author Organization [facility] Address [address] [place] [address] Care Team Providers Care Assistant Professor Of Surgery Name Role Phone August Baldwin MD Primary Care Provider [phone] Encounter Details Date Type Department Care Team (Late st Contact Info) Description 07/03/2025 Lab Requisition [facility] - Main Lab [address] [place] [address] August Baldwin MD [address] [place] [address] [address] [place], [place] Encounter for therapeutic drug level monitoring Social History Tobacco Use Types Packs/Day Years [...] EDT Encounter for therapeutic drug level monitoring documented in this encounter Results * Basic metabolic panel (07/03/2025 7:20 AM EDT) Sodium 136 133 - 145 mmol/L LAB CHEMISTRY METHOD 07/03/2025 9:01 AM EDT [facility] Potassium 3.6 3.5 - 5.5 mmol/L LAB CHEMISTRY METHOD 07/03/2025 9:01 AM EDT [facility] Chloride 101 96 - 110 mmol/L LAB CHEMISTRY METHOD 07/03/2025 9:01 AM EDT [facility] CO2 28 21 - 32 mmol/L LAB CHEMISTRY METHOD 07/03/2025 9:01 AM T [facility] Anion Gap 7 3 - 11 LAB CHEMISTRY METHOD 07/03/2025 9:01 AM [facility] Glucose 90 70 - 100 mg/dL LAB CHEMISTRY METHOD 07/03/2025 9:01 AM [facility] BUN 13 5 - 25 mg/dL LAB CHEMISTRY METHOD 07/03/2025 9:01 AM [facility] Creatinine 0.73 0.70 - 1.30 mg/dL LAB CHEMISTRY METHOD 07/03/2025 9:01 AM [facility] eGFR 103 >=60 mL/min/1. 73m2 LAB CHEMISTRY METHOD 07/03/2025 9:01 AM [facility] Comment:Calculation based on the Chronic Kidney Disease Epidemiology Collaboration (CKD-EPI) equation refit without adjustment for race. BUN/Creatinine Ratio 17.8 LAB CHEMISTRY METHOD 07/03/2025 9:01 AM [facility] Calcium 9.4 8.5 - 10.5 mg/dL LAB CHEMISTRY METHOD 07/03/2025 9:01 AM [facility] Blood Venous blood specimen / Unknown 07/03/2025 7:20 AM EDT 07/03/2025 8:14 AM EDT us August Baldwin MD LAB BLOOD ORDERABLES Final Resul t [facility] [address] [place] [address], documented in this encounter Visit Diagnoses Diagnosis Encounter for therapeutic drug level monitoring documented in this encounter Care Teams Assistant Professor Of Surgery Relationship Specialty Start Date End Date August Baldwin MD [address] [place] [address] Dr Teresa [facility] [place] PCP - General Internal Medicine 12/09/24 documented as of this encounter
--- OUTSIDE RECORDS SUMMARY | 2025-07-08 15:53 | XMS_ITS | Encounter Summary ---
Author Organization [facility] Address [address] [place] [address] Care Team Providers Care Senior Policy Advisor Name Role Phone August Baldwin MD Primary Care Provider [phone] Encounter Details Date Type Department Care Team (Late st Contact Info) Description 11/07/2024 Lab Requisition [facility] - Main Lab 299 [facility] [place] [address] August Baldwin MD [address] [place] [address] [address] THI Sparks Other care home (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; Type 2 diabetes mellitus [...] DIFFERENTIAL Routine 11/07/2024 12:00 AM EST Other care home (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 Type 2 diabetes mellitus without complications (CMS/HCC) LAVENDER - EDTA Routine 11/07/2024 12:00 AM EST Other care home (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 Type 2 diabetes mellitus without complications (CMS/HCC) CBC AND DIFFERENTIAL Routine 11/07/2024 12:00 AM EST Other care home (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 Type 2 diabetes mellitus without complications (CMS/HCC) MAGNESIUM Routine 11/07/2024 12:00 AM EST Other care home (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 Type 2 diabetes mellitus without complications (CMS/HCC) HEMOGLOBIN A1C Routine 11/07/2024 12:00 AM EST Other care home (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 Type 2 diabetes mellitus without complications (CMS/HCC) BASIC METABOLIC PANEL Routine 11/07/2024 12:00 AM EST Other termite inspector (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 Type 2 diabetes mellitus without complications (CMS/HCC) documented in this encounter Results * Lavender tube (11/07/2024 12:00 AM EST) Pathologist [facility] [place] Extra Tube Hold for add-ons. 11/07/2024 9:01 AM EST [facility] Comment:Auto resulted. Blood Venous blood specimen / Unknown 11/07/2024 11/07/2024 7:28 AM EST us August Baldwin MD LAB BLOOD ORDERABLES Final Resul t [facility] [address] [place] [address], [place] [phone] * (ABNORMAL) CBC auto differential (11/07/2024 12:00 AM EST) [facility] WBC 14.3(H) 4.8 - 10.8 K/mcL LAB HEMETOLOGY METHOD 11/07/2024 7:39 AM [facility] RBC 4.10(L) 4.50 - 5.50 M/mcL LAB HEMETOLOGY METHOD 11/07/2024 7:39 AM [facility] Hemoglobin 12.0(L) 13.5 - 17.5 g/dL LAB HEMETOLOGY METHOD 11/07/2024 7:39 AM [facility] Hematocrit 37.6(L) 42.0 - 54.0 % LAB HEMETOLOGY METHOD 11/07/2024 7:39 AM [facility] MCV 92.6 79.0 - 98.0 FL LAB HEMETOLOGY METHOD 11/07/2024 7:39 AM [facility] MCH 29.6 27.0 - 32.0 pcg LAB HEMETOLOGY METHOD 11/07/2024 7:39 AM [facility] MCHC 31.9(L) 32.0 - 37.0 g/dL LAB HEMETOLOGY METHOD 11/07/2024 7:39 AM [facility] RDW 13.0 11.0 - 15.0 % LAB HEMETOLOGY METHOD 11/07/2024 7:39 AM [facility] Platelets 200 130 - 400 K/mcL LAB HEMETOLOGY METHOD 11/07/2024 7:39 AM [facility] MPV 9.7 7.0 - 11.0 FL LAB HEMETOLOGY METHOD 11/07/2024 7:39 AM [facility] NRBC 0.0 <1.0 % LAB HEMETOLOGY METHOD 11/07/2024 7:39 AM [facility] NRBC Absolute 0.00 <0.10 K/mcL LAB HEMETOLOGY METHOD 11/07/2024 7:39 AM [facility] Neutrophils Relative 67.3 % LAB HEMETOLOGY METHOD 11/07/2024 7:39 AM [facility] Lymphocytes Relative 21.2 % LAB HEMETOLOGY METHOD 11/07/2024 7:39 AM [facility] Monocytes Relative 8.5 % LAB HEMETOLOGY METHOD 11/07/2024 7:39 AM [facility] Eosinophils Relative 1.3 % LAB HEMETOLOGY METHOD 11/07/2024 7:39 AM [facility] Basophils Relative 0.4 % LAB HEMETOLOGY METHOD 11/07/2024 7:39 AM [facility] Immature Granulocytes Relative 1.3 % LAB HEMETOLOGY METHOD 11/07/2024 7:39 AM [facility] Neutrophils Absolute 9.58(H) 1.50 - 7.00 K/mcL LAB HEMETOLOGY METHOD 11/07/2024 7:39 AM EST [facility] Lymphocytes Absolute 3.02 1.00 - 5.00 K/mcL LAB HEMETOLOGY METHOD 11/07/2024 7:39 AM EST [facility] Monocytes Absolute 1.21(H) 0.20 - 1.00 K/mcL LAB HEMETOLOGY METHOD 11/07/2024 7:39 AM EST [facility] Eosinophils Absolute 0.19 0.00 - 0.50 K/[facility] LAB HEMETOLOGY METHOD 11/07/2024 7:39 AM EST [facility] Basophils Absolute 0.06 0.00 - 0.20 K/mcL LAB HEMETOLOGY METHOD 11/07/2024 7:39 AM [facility] Immature Granulocytes Absolute 0.19(H) 0.00 - 0.03 K/[facility] LAB HEMETOLOGY METHOD 11/07/2024 7:39 AM EST [facility] Blood Venous blood specimen / Unknown 11/07/2024 11/07/2024 7:28 AM EST us August Baldwin MD LAB BLOOD ORDERABLES Final Resul t Performing Organization Address City/[facility]/ZIP Co de Phone Number [facility] [address] [place] [address], * Magnesium (11/07/2024 12:00 AM EST) Magnesium 2.2 1.9 - 2.6 mg/dL LAB CHEMISTRY METHOD 11/07/2024 8:14 AM EST [facility] Blood Venous blood specimen / Unknown 11/07/2024 11/07/2024 7:28 AM EST us August Baldwin MD LAB BLOOD ORDERABLES Final Resul t [facility] [address] [place] [address], [place] [phone] * Hemoglobin A1c (11/07/2024 12:00 AM EST) Hemoglobin A1C 5.4 <6.5 % LAB CHEMISTRY METHOD 11/07/2024 12:49 PM EST [facility] Mean Bld Glu Estim. 108 mg/dL LAB CHEMISTRY METHOD 11/07/2024 12:49 PM [facility] Blood Venous blood specimen / Unknown 11/07/2024 11/07/2024 7:28 AM EST August Baldwin MD LAB BLOOD ORDERABLES Final Resul t Performing Organization Address [facility] de Phone Number [facility] [address] [place] [address], [place] [phone] * (ABNORMAL) Basic metabolic panel (11/07/2024 12:00 AM EST) Pathologist [facility] [place] Sodium 136 133 - 145 mmol/L LAB CHEMISTRY METHOD 11/07/2024 8:14 AM [facility] Potassium 3.4(L) 3.5 - 5.5 mmol/L LAB CHEMISTRY METHOD 11/07/2024 8:14 AM [facility] Chloride 102 96 - 110 mmol/L LAB CHEMISTRY METHOD 11/07/2024 8:14 AM [facility] CO2 28 21 - 32 mmol/L LAB CHEMISTRY METHOD 11/07/2024 8:14 AM [facility] Anion Gap 6 3 - 11 LAB CHEMISTRY METHOD 11/07/2024 8:14 AM [facility] Glucose 83 70 - 100 mg/dL LAB CHEMISTRY METHOD 11/07/2024 8:14 AM [facility] BUN 19 5 - 25 mg/dL LAB CHEMISTRY METHOD 11/07/2024 8:14 AM EST [facility] Creatinine 0.81 0.70 - 1.30 mg/dL LAB CHEMISTRY METHOD 11/07/2024 8:14 AM EST [facility] eGFR 100 >=60 mL/min/1. 73m2 LAB CHEMISTRY METHOD 11/07/2024 8:14 AM [facility] Comment:Calculation based on the Chronic Kidney Disease Epidemiology Collaboration (CKD-EPI) equation refit without adjustment for race. BUN/Creatinine Ratio 23.5 LAB CHEMISTRY METHOD 11/07/2024 8:14 AM EST [facility] Calcium 8.9 8.5 - 10.5 mg/dL LAB CHEMISTRY METHOD 11/07/2024 8:14 AM [facility] Blood Venous blood specimen / Unknown 11/07/2024 11/07/2024 7:28 AM EST us August Baldwin MD LAB BLOOD ORDERABLES Final Resul t [facility] [address] [place] [address], documented in this encounter Visit Diagnoses Diagnosis Other care home (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 Type 2 diabetes mellitus without complications (CMS/HCC V24, CMS/HCC V28) documented in this encounter Care Teams Senior Policy Advisor Relationship Specialty Start Date End Date August Baldwin MD [address] [place] [address] Dr [address] [place] PCP - General Internal Medicine 12/09/24 documented as of this encounter
--- OUTSIDE RECORDS SUMMARY | 2025-07-08 15:53 | XMS_ITS | Encounter Summary ---
Author Organization [facility] Address [address] [place] [address] Care Team Providers Care Rn House Supervisor Name Role Phone Aguust Baldwin MD Primary Care Provider [phone] Encounter Details Date Type Department Care Team (Late st Contact Info) Description 06/01/2025 Lab Requisition [facility] - Main Lab 299 [facility] [place] [address] August Baldwin MD [address] [place] [address] Dr [address] THI Sparks Hypothyroidism, unspecified; Other correction (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 Social History [...] 6 :16 AM EDT Hypothyroidism, unspecified Other correction (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 THYROID STIMULATING HORMONE Routine 06/01/2025 6:16 AM EDT Hypothyroidism, unspecified Other correction (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 THYROXINE FREE Routine 06/01/2025 6:16 AM EDT Hypothyroidism, unspecified Other continuous churn buttermaker (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 MAGNESIUM Routine 06/01/2025 6:16 AM EDT Hypothyroidism, unspecified Other correction (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 BASIC METABOLIC PANEL Routine 06/01/2025 6:16 AM EDT Hypothyroidism, unspecified Other continuous churn buttermaker (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 documented in this encounter Results * Magnesium (06/01/2025 6:16 AM EDT) Magnesium 2.1 1.9 - 2.6 mg/dL LAB CHEMISTRY METHOD 06/02/2025 8:16 AM [facility] Blood Venous blood specimen / Unknown 06/01/2025 6:16 AM EDT 06/01/2025 7:59 AM EDT us August Baldwin MD LAB BLOOD ORDERABLES Final Resul t [facility] [address] [place] [address], [place] [phone] * Basic metabolic panel (06/01/2025 6:16 AM EDT) Sodium 137 133 - 145 mmol/L LAB CHEMISTRY METHOD 06/02/2025 8:16 AM [facility] Potassium 3.8 3.5 - 5.5 mmol/L LAB CHEMISTRY METHOD 06/02/2025 8:16 AM [facility] Chloride 102 96 - 110 mmol/L LAB CHEMISTRY METHOD 06/02/2025 8:16 AM [facility] CO2 26 21 - 32 mmol/L LAB CHEMISTRY METHOD 06/02/2025 8:16 AM [facility] Anion Gap 9 3 - 11 LAB CHEMISTRY METHOD 06/02/2025 8:16 AM [facility] Glucose 73 70 - 100 mg/dL LAB CHEMISTRY METHOD 06/02/2025 8:16 AM [facility] BUN 15 5 - 25 mg/dL LAB CHEMISTRY METHOD 06/02/2025 8:16 AM [facility] Creatinine 0.80 0.70 - 1.30 mg/dL LAB CHEMISTRY METHOD 06/02/2025 8:16 AM [facility] eGFR 100 >=60 mL/min/1. 73m2 LAB CHEMISTRY METHOD 06/02/2025 8:16 AM EDT [facility] Comment:Calculation based on the Chronic Kidney Disease Epidemiology Collaboration (CKD-EPI) equation refit without adjustment for race. BUN/Creatinine Ratio 18.8 LAB CHEMISTRY METHOD 06/02/2025 8:16 AM EDT [facility] Calcium 9.2 8.5 - 10.5 mg/dL LAB CHEMISTRY METHOD 06/02/2025 8:16 AM EDT [facility] Blood Venous blood specimen / Unknown 06/01/2025 6:16 AM EDT 06/01/2025 7:59 AM EDT us August Baldwin MD LAB BLOOD ORDERABLES Final Resul t Performing Organization Address [facility]/ZIP Co de Phone Number [facility] [address] [place] [address], [place] [phone] * Thyroxine free (06/01/2025 6:16 AM EDT) Free T4 1.16 0.70 - 1.80 ng/dL LAB CHEMISTRY METHOD 06/01/2025 9:59 AM EDT [facility] Blood Venous blood specimen / Unknown 06/01/2025 6:16 AM EDT 06/01/2025 7:59 AM EDT us August Baldwin MD LAB BLOOD ORDERABLES Final Resul t Performing Organization Address City/[facility]/ZIP Co de Phone Number [facility] [address] [place] [address], [place] [phone] * Levetiracetam level (06/01/2025 6:16 AM EDT) [...] developed and the performance characteristics determined by [facility]. This confirmation testing has not been cleared or approved by the FDA. The laboratory is regulated under CLIA as qualified to perform high-complexity testing. This test is used for patient testing purposes. It should not be regarded as investigational or for research. Test performed at [facility], [address] , [place] [address] Mckenna Lubin MD, PhD - Cyber Workforce Developer And Manager Blood Venous blood specimen / Unknown 06/01/2025 6:16 AM EDT 06/01/2025 7:59 AM EDT us August Baldwin MD LAB BLOOD ORDERABLES Final Resul t Performing Organization Address City/[facility]/ZIP Co de Phone Number [facility] [address] [place] [address] * Thyroid stimulating hormone (06/01/2025 6:16 AM EDT) TSH 2.14 0.40 - 4.00 mcIU/mL LAB CHEMISTRY METHOD 06/01/2025 9:59 AM EDT [facility] Blood Venous blood specimen / Unknown 06/01/2025 6:16 AM EDT 06/01/2025 7:59 AM EDT us August Baldwin MD LAB BLOOD ORDERABLES Final Resul t [facility] [address] [place] [address], [place] [phone] documented in this encounter Visit Diagnoses Diagnosis Hypothyroidism, unspecified Other continuous churn buttermaker (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 documented in this encounter Care Teams Rn House Supervisor Relationship Specialty Start Date End Date August Baldwin MD [address] [place] [address] Dr [address] [facility] [place] PCP - General Internal Medicine 12/09/24 documented as of this encounter
--- OUTSIDE RECORDS SUMMARY | 2025-07-08 15:53 | XMS_ITS | Encounter Summary ---
Author Organization [facility] Address [address] [place] [address] Care Team Providers Care Wallpaper Hanger Helper Name Role Phone August Baldwin MD Primary Care Provider [phone] Encounter Details Date Type Department Care Team (Late st Contact Info) Description 03/30/2025 Lab Requisition [facility] - Main Lab 299 [facility] [place] [address] August Baldwin MD [address] [place] [address] Dr [address] THI Sparks Encounter for [...] K/mcL LAB HEMETOLOGY METHOD 03/30/2025 7:56 AM [facility] RBC 4.40(L) 4.50 - 5.50 M/mcL LAB HEMETOLOGY METHOD 03/30/2025 7:56 AM [facility] Hemoglobin 13.2(L) 13.5 - 17.5 g/dL LAB HEMETOLOGY METHOD 03/30/2025 7:56 AM [facility] Hematocrit 40.3(L) 42.0 - 54.0 % LAB HEMETOLOGY METHOD 03/30/2025 7:56 AM [facility] MCV 91.0 79.0 - 98.0 FL LAB HEMETOLOGY METHOD 03/30/2025 7:56 AM [facility] MCH 29.8 27.0 - 32.0 pcg LAB HEMETOLOGY METHOD 03/30/2025 7:56 AM [facility] MCHC 32.8 32.0 - 37.0 g/dL LAB HEMETOLOGY METHOD 03/30/2025 7:56 AM [facility] RDW 13.1 11.0 - 15.0 % LAB HEMETOLOGY METHOD 03/30/2025 7:56 AM [facility] Platelets 195 130 - 400 K/mcL LAB HEMETOLOGY METHOD 03/30/2025 7:56 AM [facility] MPV 9.6 7.0 - 11.0 FL LAB HEMETOLOGY METHOD 03/30/2025 7:56 AM [facility] NRBC 0.0 <1.0 % LAB HEMETOLOGY METHOD 03/30/2025 7:56 AM [facility] NRBC Absolute 0.00 <0.10 K/mcL LAB HEMETOLOGY METHOD 03/30/2025 7:56 AM [facility] Neutrophils Relative 67.6 % LAB HEMETOLOGY METHOD 03/30/2025 7:56 AM [facility] Lymphocytes Relative 21.1 % LAB HEMETOLOGY METHOD 03/30/2025 7:56 AM [facility] Monocytes Relative 7.9 % LAB HEMETOLOGY METHOD 03/30/2025 7:56 AM [facility] Eosinophils Relative 1.4 % LAB HEMETOLOGY METHOD 03/30/2025 7:56 AM [facility] Basophils Relative 0.5 % LAB HEMETOLOGY METHOD 03/30/2025 7:56 AM [facility] Immature Granulocytes Relative 1.5 % LAB HEMETOLOGY METHOD 03/30/2025 7:56 AM [facility] Neutrophils Absolute 7.44(H) 1.50 - 7.00 K/mcL LAB HEMETOLOGY METHOD 03/30/2025 7:56 AM [facility] Lymphocytes Absolute 2.32 1.00 - 5.00 K/mcL LAB HEMETOLOGY METHOD 03/30/2025 7:56 AM [facility] Monocytes Absolute 0.87 0.20 - 1.00 K/mcL LAB HEMETOLOGY METHOD 03/30/2025 7:56 AM [facility] Eosinophils Absolute 0.15 0.00 - 0.50 K/mcL LAB HEMETOLOGY METHOD 03/30/2025 7:56 AM [facility] Basophils Absolute 0.05 0.00 - 0.20 K/mcL LAB HEMETOLOGY METHOD 03/30/2025 7:56 AM [facility] Immature Granulocytes Absolute 0.16(H) 0.00 - 0.03 K/mcL LAB HEMETOLOGY METHOD 03/30/2025 7:56 AM [facility] Blood Venous blood specimen / Unknown 03/30/2025 6:53 AM EDT 03/30/2025 7:31 AM EDT us August Baldwin MD LAB BLOOD ORDERABLES Final Resul t Performing Organization Address [facility]/ZIP Co de Phone Number [facility] [address] [place] [address], [place] [phone] * Magnesium (03/30/2025 6:53 AM EDT) Pathologist [facility] Magnesium 2.2 1.9 - 2.6 mg/dL LAB CHEMISTRY METHOD 03/30/2025 8:21 AM EDT [facility] Blood Venous blood specimen / Unknown 03/30/2025 6:53 AM EDT 03/30/2025 7:31 AM EDT us August Baldwin MD LAB BLOOD ORDERABLES Final Resul t Performing Organization Address [facility]/ZIP Co de Phone Number [facility] [address] [place] [address], [place] [phone] * (ABNORMAL) Basic metabolic panel (03/30/2025 6:53 AM EDT) [facility] Sodium 135 133 - 145 mmol/L LAB CHEMISTRY METHOD 03/30/2025 8:21 AM T [facility] Potassium 3.6 3.5 - 5.5 mmol/L LAB CHEMISTRY METHOD 03/30/2025 8:21 AM EDT [facility] Chloride 103 96 - 110 mmol/L LAB CHEMISTRY METHOD 03/30/2025 8:21 AM EDT [facility] CO2 26 21 - 32 mmol/L LAB CHEMISTRY METHOD 03/30/2025 8:21 AM T [facility] Anion Gap 6 3 - 11 LAB CHEMISTRY METHOD 03/30/2025 8:21 AM T [facility] Glucose 105(H) 70 - 100 mg/dL LAB CHEMISTRY METHOD 03/30/2025 8:21 AM EDT [facility] BUN 13 5 - 25 mg/dL LAB CHEMISTRY METHOD 03/30/2025 8:21 AM T [facility] Creatinine 0.66(L) 0.70 - 1.30 mg/dL LAB CHEMISTRY METHOD 03/30/2025 8:21 AM [facility] eGFR 107 >=60 mL/min/1. 73m2 LAB CHEMISTRY METHOD 03/30/2025 8:21 AM T [facility] Comment:Calculation based on the Chronic Kidney Disease Epidemiology Collaboration (CKD-EPI) equation refit without adjustment for race. BUN/Creatinine Ratio 19.7 LAB CHEMISTRY METHOD 03/30/2025 8:21 AM [facility] Calcium 9.6 8.5 - 10.5 mg/dL LAB CHEMISTRY METHOD 03/30/2025 8:21 AM [facility] Blood Venous blood specimen / Unknown 03/30/2025 6:53 AM EDT 03/30/2025 7:31 AM EDT us August Baldwin MD LAB BLOOD ORDERABLES Final Resul t [facility] [address] [place] [address], documented in this encounter Visit Diagnoses Diagnosis Encounter for therapeutic drug level monitoring Essential (primary) hypertension Unspecified essential hypertension documented in this encounter Care Teams Wallpaper Hanger Helper Relationship Specialty Start Date End Date August Baldwin MD [address] [place] PCP - General Internal Medicine 12/09/24 documented as of this encounter
--- OUTSIDE RECORDS SUMMARY | 2025-07-08 15:53 | XMS_ITS | Encounter Summary ---
Author Organization [facility] Address [address] [place] [address] Care Team Providers Care Trauma Coordinator Name Role Phone Auguts Baldwin MD Primary Care Provider [phone] Encounter Details Date Type Department Care Team (Late st Contact Info) Description 10/07/2024 Lab Requisition [facility] - Main Lab [address] [place] [address] August Baldwin MD [address] [place] [address] [address] THI Sparks Diarrhea, unspecified [...] 10/07/2024 7:04 AM EST PRICILLA BRADEN [place] ([facility]) [facility] Blood Venous blood specimen / Unknown 10/07/2024 5:55 AM EST 10/07/2024 6:33 AM EST us August Baldwin MD LAB BLOOD ORDERABLES Final Resul t [facility] [address] [place] [address], * Basic metabolic panel (10/07/2024 5:55 AM EST) Sodium 140 133 - 145 mmol/L LAB CHEMISTRY METHOD 10/07/2024 7:04 AM [facility] Potassium 3.8 3.5 - 5.5 mmol/L LAB CHEMISTRY METHOD 10/07/2024 7:04 AM [facility] Chloride 104 96 - 110 mmol/L LAB CHEMISTRY METHOD 10/07/2024 7:04 AM [facility] CO2 27 21 - 32 mmol/L LAB CHEMISTRY METHOD 10/07/2024 7:04 AM [facility] Anion Gap 9 3 - 11 LAB CHEMISTRY METHOD 10/07/2024 7:04 AM [facility] Glucose 88 70 - 100 mg/dL LAB CHEMISTRY METHOD 10/07/2024 7:04 AM [facility] BUN 13 5 - 25 mg/dL LAB CHEMISTRY METHOD 10/07/2024 7:04 AM [facility] Creatinine 0.96 0.70 - 1.30 mg/dL LAB CHEMISTRY METHOD 10/07/2024 7:04 AM [facility] eGFR 90 >=60 mL/min/1. 73m2 LAB CHEMISTRY METHOD 10/07/2024 7:04 AM [facility] Comment:Calculation based on the Chronic Kidney Disease Epidemiology Collaboration (CKD-EPI) equation refit without adjustment for race. BUN/Creatinine Ratio 13.5 LAB CHEMISTRY METHOD 10/07/2024 7:04 AM [facility] Calcium 9.8 8.5 - 10.5 mg/dL LAB CHEMISTRY METHOD 10/07/2024 7:04 AM [facility] Blood Venous blood specimen / Unknown 10/07/2024 5:55 AM EST 10/07/2024 6:33 AM EST us August Baldwin MD LAB BLOOD ORDERABLES Final Resul t [facility] ([facility]) [facility] [address] [place] [address], documented in this encounter Visit Diagnoses Diagnosis Diarrhea, unspecified documented in this encounter Care Teams Trauma Coordinator Relationship Specialty Start Date End Date August Baldwin MD [address] [place] [address] [address] [place], [place] PCP - General Internal Medicine 12/09/24 documented as of this encounter
--- OUTSIDE RECORDS SUMMARY | 2025-07-08 15:53 | XMS_ITS | Encounter Summary ---
Author Organization [facility] Address [address] [place] [address] Care Team Providers Care Public Welfare Worker Name Role Phone August Baldwin MD Primary Care Provider [phone] Encounter Details Date Type Department Care Team (Late st Contact Info) Description 03/02/2025 Lab Requisition [facility] - Main Lab 299 [facility] [place] [address] August Baldwin MD [address] [place] [address] [address] THI Sparks Other senior living (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; Essential (primary) hypertension Social [...] DIFFERENTIAL Routine 03/02/2025 5:07 AM EDT 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 Essential (primary) hypertension CBC AND DIFFERENTIAL Routine 03/02/2025 5:07 AM EDT Other senior living (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 Essential (primary) hypertension MAGNESIUM Routine 03/02/2025 5:07 AM EDT 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 Essential (primary) hypertension BASIC METABOLIC PANEL Routine 03/02/2025 5:07 AM EDT Other senior living (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 Essential (primary) hypertension documented in this encounter Results * (ABNORMAL) CBC auto differential (03/02/2025 5:07 AM EDT) WBC 13.0(H) 4.8 - 10.8 K/mcL LAB HEMETOLOGY METHOD 03/02/2025 6:59 AM [facility] RBC 4.10(L) 4.50 - 5.50 M/mcL LAB HEMETOLOGY METHOD 03/02/2025 6:59 AM [facility] Hemoglobin 11.8(L) 13.5 - 17.5 g/dL LAB HEMETOLOGY METHOD 03/02/2025 6:59 AM [facility] Hematocrit 36.7(L) 42.0 - 54.0 % LAB HEMETOLOGY METHOD 03/02/2025 6:59 AM [facility] MCV 90.6 79.0 - 98.0 FL LAB HEMETOLOGY METHOD 03/02/2025 6:59 AM [facility] MCH 29.1 27.0 - 32.0 pcg LAB HEMETOLOGY METHOD 03/02/2025 6:59 AM [facility] MCHC 32.2 32.0 - 37.0 g/dL LAB HEMETOLOGY METHOD 03/02/2025 6:59 AM [facility] RDW 13.5 11.0 - 15.0 % LAB HEMETOLOGY METHOD 03/02/2025 6:59 AM [facility] Platelets 201 130 - 400 K/mcL LAB HEMETOLOGY METHOD 03/02/2025 6:59 AM [facility] MPV 9.8 7.0 - 11.0 FL LAB HEMETOLOGY METHOD 03/02/2025 6:59 AM [facility] NRBC 0.0 <1.0 % LAB HEMETOLOGY METHOD 03/02/2025 6:59 AM [facility] NRBC Absolute 0.00 <0.10 K/mcL LAB HEMETOLOGY METHOD 03/02/2025 6:59 AM [facility] Neutrophils Relative 67.3 % LAB HEMETOLOGY METHOD 03/02/2025 6:59 AM [facility] Lymphocytes Relative 21.9 % LAB HEMETOLOGY METHOD 03/02/2025 6:59 AM [facility] Monocytes Relative 7.8 % LAB HEMETOLOGY METHOD 03/02/2025 6:59 AM [facility] Eosinophils Relative 1.3 % LAB HEMETOLOGY METHOD 03/02/2025 6:59 AM [facility] Basophils Relative 0.5 % LAB HEMETOLOGY METHOD 03/02/2025 6:59 AM [facility] Immature Granulocytes Relative 1.2 % LAB HEMETOLOGY METHOD 03/02/2025 6:59 AM [facility] Neutrophils Absolute 8.74(H) 1.50 - 7.00 K/mcL LAB HEMETOLOGY METHOD 03/02/2025 6:59 AM [facility] Lymphocytes Absolute 2.85 1.00 - 5.00 K/mcL LAB HEMETOLOGY METHOD 03/02/2025 6:59 AM [facility] Monocytes Absolute 1.02(H) 0.20 - 1.00 K/mcL LAB HEMETOLOGY METHOD 03/02/2025 6:59 AM [facility] Eosinophils Absolute 0.17 0.00 - 0.50 K/mcL LAB HEMETOLOGY METHOD 03/02/2025 6:59 AM [facility] Basophils Absolute 0.07 0.00 - 0.20 K/mcL LAB HEMETOLOGY METHOD 03/02/2025 6:59 AM [facility] Immature Granulocytes Absolute 0.15(H) 0.00 - 0.03 K/mcL LAB HEMETOLOGY METHOD 03/02/2025 6:59 AM [facility] Blood Venous blood specimen / Unknown 03/02/2025 5:07 AM EDT 03/02/2025 6:24 AM EDT us August Baldwin MD LAB BLOOD ORDERABLES Final Resul t Performing Organization Address [facility]/ZIP Co de Phone Number [facility] [address] [place] [address], [place] [phone] * Magnesium (03/02/2025 5:07 AM EDT) Magnesium 2.1 1.9 - 2.6 mg/dL LAB CHEMISTRY METHOD 03/02/2025 6:49 AM EDT [facility] Blood Venous blood specimen / Unknown 03/02/2025 5:07 AM EDT 03/02/2025 6:24 AM EDT us August Baldwin MD LAB BLOOD ORDERABLES Final Resul t Performing Organization Address [facility]/ZIP Co de Phone Number [facility] [address] [place] [address], [place] [phone] * Basic metabolic panel (03/02/2025 5:07 AM EDT) Sodium 137 133 - 145 mmol/L LAB CHEMISTRY METHOD 03/02/2025 6:49 AM EDT [facility] Potassium 3.5 3.5 - 5.5 mmol/L LAB CHEMISTRY METHOD 03/02/2025 6:49 AM EDT [facility] Chloride 104 96 - 110 mmol/L LAB CHEMISTRY METHOD 03/02/2025 6:49 AM EDT [facility] CO2 28 21 - 32 mmol/L LAB CHEMISTRY METHOD 03/02/2025 6:49 AM EDT [facility] Anion Gap 5 3 - 11 LAB CHEMISTRY METHOD 03/02/2025 6:49 AM EDT [facility] Glucose 82 70 - 100 mg/dL LAB CHEMISTRY METHOD 03/02/2025 6:49 AM EDT [facility] BUN 15 5 - 25 mg/dL LAB CHEMISTRY METHOD 03/02/2025 6:49 AM EDT [facility] Creatinine 0.76 0.70 - 1.30 mg/dL LAB CHEMISTRY METHOD 03/02/2025 6:49 AM EDT [facility] eGFR 102 >=60 mL/min/1. 73m2 LAB CHEMISTRY METHOD 03/02/2025 6:49 AM EDT [facility] Comment:Calculation based on the Chronic Kidney Disease Epidemiology Collaboration (CKD-EPI) equation refit without adjustment for race. 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
--- OUTSIDE RECORDS SUMMARY | 2025-07-08 15:53 | XMS_ITS | Encounter Summary ---
Author Organization [facility] Address [address] [place] [address] Care Team Providers Care District Traffic Chief Name Role Phone August Baldwin MD Primary Care Provider [phone] Encounter Details Date Type Department Care Team (Late st Contact Info) Description 09/05/2024 Lab Requisition [facility] - Main Lab [address] [place] [address] August Baldwin MD [address] [place] [address] Dr [address] [place], [place] Essential (primary) hypertension Social History Tobacco Use [...] LAB CHEMISTRY METHOD 09/05/2024 7:08 AM EST [id number] Blood Venous blood specimen / Unknown 09/05/2024 5:05 AM EST 09/05/2024 6:01 AM EST us August Baldwin MD LAB BLOOD ORDERABLES Final Resul t [facility] [address] [place] [address], * (ABNORMAL) Basic metabolic panel (09/05/2024 5:05 AM EST) Sodium 137 133 - 145 mmol/L LAB CHEMISTRY METHOD 09/05/2024 7:08 AM [facility] Potassium 3.4(L) 3.5 - 5.5 mmol/L LAB CHEMISTRY METHOD 09/05/2024 7:08 AM [facility] Chloride 101 96 - 110 mmol/L LAB CHEMISTRY METHOD 09/05/2024 7:08 AM [facility] CO2 28 21 - 32 mmol/L LAB CHEMISTRY METHOD 09/05/2024 7:08 AM [facility] Anion Gap 8 3 - 11 LAB CHEMISTRY METHOD 09/05/2024 7:08 AM [facility] Glucose 77 70 - 100 mg/dL LAB CHEMISTRY METHOD 09/05/2024 7:08 AM [facility] BUN 20 5 - 25 mg/dL LAB CHEMISTRY METHOD 09/05/2024 7:08 AM [facility] Creatinine 0.94 0.70 - 1.30 mg/dL LAB CHEMISTRY METHOD 09/05/2024 7:08 AM [facility] eGFR 92 >=60 mL/min/1. 73m2 LAB CHEMISTRY METHOD 09/05/2024 7:08 AM [facility] Comment:Calculation based on the Chronic Kidney Disease Epidemiology Collaboration (CKD-EPI) equation refit without adjustment for race. BUN/Creatinine Ratio 21.3 LAB CHEMISTRY METHOD 09/05/2024 7:08 AM [facility] Calcium 9.8 8.5 - 10.5 mg/dL LAB CHEMISTRY METHOD 09/05/2024 7:08 AM [facility] Blood Venous blood specimen / Unknown 09/05/2024 5:05 AM EST 09/05/2024 6:01 AM EST us August Baldwin MD LAB BLOOD ORDERABLES Final Resul t [facility] ([facility] [address] [place] [address], [place] [phone] documented in this encounter Visit Diagnoses Diagnosis Essential (primary) hypertension Unspecified essential hypertension documented in this encounter Care Teams District Traffic Chief Relationship Specialty Start Date End Date August Baldwin MD [address] [place] [address] Dr [address] [place] PCP - General Internal Medicine 12/09/24 documented as of this encounter
--- OUTSIDE RECORDS SUMMARY | 2025-07-08 15:53 | XMS_ITS | Encounter Summary ---
Author Organization [facility] Address [address] [place] [address] Care Team Providers Care Ore Bridge Operator Name Role Phone August Baldwin MD Primary Care Provider [phone] Encounter Details Date Type Department Care Team (Late st Contact Info) Description 06/22/2025 Lab Requisition [facility] - Main Lab [address] [place] [address] August Baldwin MD [address] [place] [address] Dr [address] THI Sparks Other skilled nursing (current) drug therapy Social [...] DIFFERENTIAL Routine 06/22/2025 6:50 AM EDT Other skilled nursing (current) drug therapy CBC AND DIFFERENTIAL Routine 06/22/2025 6:50 AM EDT Other skilled nursing (current) drug therapy MAGNESIUM Routine 06/22/2025 6:50 AM EDT Other skilled nursing (current) drug therapy BASIC METABOLIC PANEL Routine 06/22/2025 6:50 AM EDT Other dedicated intermodal truck driver (current) drug therapy documented in this encounter Results * (ABNORMAL) CBC auto differential (06/22/2025 6:50 AM EDT) WBC 13.6(H) 4.8 - 10.8 K/[facility] LAB HEMETOLOGY METHOD 06/22/2025 7:21 AM [facility] RBC 4.30(L) 4.50 - 5.50 M/mcL LAB HEMETOLOGY METHOD 06/22/2025 7:21 AM [facility] Hemoglobin 12.5(L) 13.5 - 17.5 g/dL LAB HEMETOLOGY METHOD 06/22/2025 7:21 AM [facility] LAB Hematocrit 38.4(L) 42.0 - 54.0 % LAB HEMETOLOGY METHOD 06/22/2025 7:21 AM [facility] LAB MCV 89.9 79.0 - 98.0 FL LAB HEMETOLOGY METHOD 06/22/2025 7:21 AM [facility] LAB MCH 29.3 27.0 - 32.0 pcg LAB HEMETOLOGY METHOD 06/22/2025 7:21 AM [facility] LAB MCHC 32.6 32.0 - 37.0 g/dL LAB HEMETOLOGY METHOD 06/22/2025 7:21 AM [facility] LAB RDW 13.3 11.0 - 15.0 % LAB HEMETOLOGY METHOD 06/22/2025 7:21 AM [facility] LAB Platelets 203 130 - 400 K/mcL LAB HEMETOLOGY METHOD 06/22/2025 7:21 AM [facility] LAB MPV 9.4 7.0 - 11.0 FL LAB HEMETOLOGY METHOD 06/22/2025 7:21 AM [facility] NRBC 0.0 <1.0 % LAB HEMETOLOGY METHOD 06/22/2025 7:21 AM [facility] NRBC Absolute 0.00 <0.10 K/mcL LAB HEMETOLOGY METHOD 06/22/2025 7:21 AM [facility] Neutrophils Relative 71.6 % LAB HEMETOLOGY METHOD 06/22/2025 7:21 AM [facility] Lymphocytes Relative 18.4 % LAB HEMETOLOGY METHOD 06/22/2025 7:21 AM [facility] Monocytes Relative 7.3 % LAB HEMETOLOGY METHOD 06/22/2025 7:21 AM [facility] Eosinophils Relative 1.1 % LAB HEMETOLOGY METHOD 06/22/2025 7:21 AM [facility] Basophils Relative 0.4 % LAB HEMETOLOGY METHOD 06/22/2025 7:21 AM [facility] Immature Granulocytes Relative 1.2 % LAB HEMETOLOGY METHOD 06/22/2025 7:21 AM [facility] Neutrophils Absolute 9.74(H) 1.50 - 7.00 K/mcL LAB HEMETOLOGY METHOD 06/22/2025 7:21 AM [facility] Lymphocytes Absolute 2.50 1.00 - 5.00 K/mcL LAB HEMETOLOGY METHOD 06/22/2025 7:21 AM [facility] Monocytes Absolute 0.99 0.20 - 1.00 K/mcL LAB HEMETOLOGY METHOD 06/22/2025 7:21 AM [facility] Eosinophils Absolute 0.15 0.00 - 0.50 K/mcL LAB HEMETOLOGY METHOD 06/22/2025 7:21 AM [facility] Basophils Absolute 0.06 0.00 - 0.20 K/mcL LAB HEMETOLOGY METHOD 06/22/2025 7:21 AM [facility] Immature Granulocytes Absolute 0.17(H) 0.00 - 0.03 K/mcL LAB HEMETOLOGY METHOD 06/22/2025 7:21 AM [facility] Blood Venous blood specimen / Unknown 06/22/2025 6:50 AM EDT 06/22/2025 7:12 AM EDT us August Baldwin MD LAB BLOOD ORDERABLES Final Resul t Performing Organization Address City/[facility]/ZIP Co de Phone Number [facility] [address] [place] [address], [place] [phone] * Magnesium (06/22/2025 6:50 AM EDT) [facility] Magnesium 2.4 1.9 - 2.6 mg/dL LAB CHEMISTRY METHOD 06/22/2025 7:38 AM EDT [facility] Blood Venous blood specimen / Unknown 06/22/2025 6:50 AM EDT 06/22/2025 7:12 AM EDT us August Baldwin MD LAB BLOOD ORDERABLES Final Resul t Performing Organization Address [facility] de Phone Number [facility] [address] [place] [address], [place] [phone] * Basic metabolic panel (06/22/2025 6:50 AM EDT) [facility] Sodium 137 133 - 145 mmol/L LAB CHEMISTRY METHOD 06/22/2025 7:38 AM [facility] Potassium 3.9 3.5 - 5.5 mmol/L LAB CHEMISTRY METHOD 06/22/2025 7:38 AM [facility] Chloride 102 96 - 110 mmol/L LAB CHEMISTRY METHOD 06/22/2025 7:38 AM [facility] CO2 29 21 - 32 mmol/L LAB CHEMISTRY METHOD 06/22/2025 7:38 AM [facility] Anion Gap 6 3 - 11 LAB CHEMISTRY METHOD 06/22/2025 7:38 AM [facility] Glucose 90 70 - 100 mg/dL LAB CHEMISTRY METHOD 06/22/2025 7:38 AM [facility] BUN 17 5 - 25 mg/dL LAB CHEMISTRY METHOD 06/22/2025 7:38 AM EDT [facility] Creatinine 0.73 0.70 - 1.30 mg/dL LAB CHEMISTRY METHOD 06/22/2025 7:38 AM EDT [facility] eGFR 103 >=60 mL/min/1. 73m2 LAB CHEMISTRY METHOD 06/22/2025 7:38 AM EDT [facility] Comment:Calculation based on the Chronic Kidney Disease Epidemiology Collaboration (CKD-EPI) equation refit without adjustment for race. BUN/Creatinine Ratio 23.3 LAB CHEMISTRY METHOD 06/22/2025 7:38 AM EDT [facility] Calcium 9.8 8.5 - 10.5 mg/dL LAB CHEMISTRY METHOD 06/22/2025 7:38 AM EDT [facility] Blood Venous blood specimen / Unknown 06/22/2025 6:50 AM EDT 06/22/2025 7:12 AM EDT us August Baldwin MD LAB BLOOD ORDERABLES Final Resul t [facility] [address] [place] [address], documented in this encounter Visit Diagnoses Diagnosis Other skilled nursing (current) drug therapy documented in this encounter Care Teams Ore Bridge Operator Relationship Specialty Start Date End Date August Baldwin MD [address] [place] [address] Dr Teresa [facility] [place], [place] PCP - General Internal Medicine 12/09/24 documented as of this encounter
--- OUTSIDE RECORDS SUMMARY | 2025-07-08 15:53 | XMS_ITS | Encounter Summary ---
Author Organization [facility] Address [address] [place] [address] Care Team Providers Care Filer Metal Patterns Name Role Phone August Baldwin MD Primary Care Provider [phone] Encounter Details Date Type Department Care Team (Late st Contact Info) Description 12/09/2024 Lab Requisition [facility] - Main Lab 299 [facility] [place] [address] August Baldwin MD [address] [place] [address] Dr [address] THI Sparks Essential (primary) hypertension; Hypothyroidism, unspecified; Other senior care (current) drug therapy Social History Tobacco Use [...] EST Essential (primary) hypertension Hypothyroidism, unspecified Other tank terminal gauger (current) drug therapy CBC AND DIFFERENTIAL Routine 12/09/2024 6:05 AM EST Essential (primary) hypertension Hypothyroidism, unspecified Other tank terminal gauger (current) drug therapy THYROID STIMULATING HORMONE Routine 12/09/2024 6:05 AM EST Essential (primary) hypertension Hypothyroidism, unspecified Other tank terminal gauger (current) drug therapy THYROXINE FREE Routine 12/09/2024 6:05 AM EST Essential (primary) hypertension Hypothyroidism, unspecified Other senior care (current) drug therapy MAGNESIUM Routine 12/09/2024 6:05 AM EST Essential (primary) hypertension Hypothyroidism, unspecified Other senior care (current) drug therapy BASIC METABOLIC PANEL Routine 12/09/2024 6:05 AM EST Essential (primary) hypertension Hypothyroidism, unspecified Other senior care (current) drug therapy documented in this encounter Results * (ABNORMAL) CBC auto differential (12/09/2024 6:05 AM EST) WBC 12.1(H) 4.8 - 10.8 K/mcL LAB HEMETOLOGY METHOD 12/09/2024 6:48 AM [facility] RBC 4.00(L) 4.50 - 5.50 M/mcL LAB HEMETOLOGY METHOD 12/09/2024 6:48 AM [facility] Hemoglobin 11.9(L) 13.5 - 17.5 g/dL LAB HEMETOLOGY METHOD 12/09/2024 6:48 AM [facility] Hematocrit 36.6(L) 42.0 - 54.0 % LAB HEMETOLOGY METHOD 12/09/2024 6:48 AM [facility] MCV 92.0 79.0 - 98.0 FL LAB HEMETOLOGY METHOD 12/09/2024 6:48 AM [facility] MCH 29.9 27.0 - 32.0 pcg LAB HEMETOLOGY METHOD 12/09/2024 6:48 AM [facility] MCHC 32.5 32.0 - 37.0 g/dL LAB HEMETOLOGY METHOD 12/09/2024 6:48 AM [facility] RDW 13.4 11.0 - 15.0 % LAB HEMETOLOGY METHOD 12/09/2024 6:48 AM [facility] Platelets 169 130 - 400 K/mcL LAB HEMETOLOGY METHOD 12/09/2024 6:48 AM [facility] MPV 9.6 7.0 - 11.0 FL LAB HEMETOLOGY METHOD 12/09/2024 6:48 AM [facility] NRBC 0.0 <1.0 % LAB HEMETOLOGY METHOD 12/09/2024 6:48 AM [facility] NRBC Absolute 0.00 <0.10 K/mcL LAB HEMETOLOGY METHOD 12/09/2024 6:48 AM [facility] Neutrophils Relative 68.1 % LAB HEMETOLOGY METHOD 12/09/2024 6:48 AM [facility] Lymphocytes Relative 17.7 % LAB HEMETOLOGY METHOD 12/09/2024 6:48 AM [facility] Monocytes Relative 11.9 % LAB HEMETOLOGY METHOD 12/09/2024 6:48 AM [facility] Eosinophils Relative 1.1 % LAB HEMETOLOGY METHOD 12/09/2024 6:48 AM [facility] Basophils Relative 0.4 % LAB HEMETOLOGY METHOD 12/09/2024 6:48 AM [facility] Immature Granulocytes Relative 0.8 % LAB HEMETOLOGY METHOD 12/09/2024 6:48 AM [facility] Neutrophils Absolute 8.22(H) 1.50 - 7.00 K/mcL LAB HEMETOLOGY METHOD 12/09/2024 6:48 AM [facility] Lymphocytes Absolute 2.14 1.00 - 5.00 K/mcL LAB HEMETOLOGY METHOD 12/09/2024 6:48 AM [facility] Monocytes Absolute 1.44(H) 0.20 - 1.00 K/mcL LAB HEMETOLOGY METHOD 12/09/2024 6:48 AM [facility] Eosinophils Absolute 0.13 0.00 - 0.50 K/mcL LAB HEMETOLOGY METHOD 12/09/2024 6:48 AM [facility] Basophils Absolute 0.05 0.00 - 0.20 K/mcL LAB HEMETOLOGY METHOD 12/09/2024 6:48 AM EST [facility] Immature Granulocytes Absolute 0.10(H) 0.00 - 0.03 K/mcL LAB HEMETOLOGY METHOD 12/09/2024 6:48 AM EST [facility] Blood Venous blood specimen / Unknown 12/09/2024 6:05 AM EST 12/09/2024 6:36 AM EST us August Baldwin MD LAB BLOOD ORDERABLES Final Resul t Performing Organization Address [facility] Co de Phone Number [facility] [address] [place] [address], [place] [phone] * Thyroid stimulating hormone (12/09/2024 6:05 AM EST) TSH 1.50 0.40 - 4.00 mcIU/mL LAB CHEMISTRY METHOD 12/09/2024 7:31 AM EST [facility] Blood Venous blood specimen / Unknown 12/09/2024 6:05 AM EST 12/09/2024 6:36 AM EST us August Baldwin MD LAB BLOOD ORDERABLES Final Resul t Performing Organization Address [facility] de Phone Number [facility] [address] [place] [address], [place] [phone] * (ABNORMAL) Magnesium (12/09/2024 6:05 AM EST) Magnesium 1.8(L) 1.9 - 2.6 mg/dL LAB CHEMISTRY METHOD 12/09/2024 7:18 AM EST [facility] Blood Venous blood specimen / Unknown 12/09/2024 6:05 AM EST 12/09/2024 6:36 AM EST us August Baldwin MD LAB BLOOD ORDERABLES Final Resul t Performing Organization Address City/[facility]/ZIP Co de Phone Number [facility] [address] [place] [address], [place] [phone] * Thyroxine free (12/09/2024 6:05 AM EST) Free T4 1.10 0.70 - 1.80 ng/dL LAB CHEMISTRY METHOD 12/09/2024 7:31 AM EST [facility] Blood Venous blood specimen / Unknown 12/09/2024 6:05 AM EST 12/09/2024 6:36 AM EST August Baldwin MD LAB BLOOD ORDERABLES Final Resul t Performing Organization Address [facility] Co de Phone Number [facility] [address] [place] [address], [place] [phone] * (ABNORMAL) Basic metabolic panel (12/09/2024 6:05 AM EST) [facility] Sodium 137 133 - 145 mmol/L LAB CHEMISTRY METHOD 12/09/2024 7:18 AM [facility] Potassium 3.4(L) 3.5 - 5.5 mmol/L LAB CHEMISTRY METHOD 12/09/2024 7:18 AM [facility] Chloride 105 96 - 110 mmol/L LAB CHEMISTRY METHOD 12/09/2024 7:18 AM [facility] CO2 27 21 - 32 mmol/L LAB CHEMISTRY METHOD 12/09/2024 7:18 AM [facility] Anion Gap 5 3 - 11 LAB CHEMISTRY METHOD 12/09/2024 7:18 AM [facility] Glucose 88 70 - 100 mg/dL LAB CHEMISTRY METHOD 12/09/2024 7:18 AM [facility] BUN 20 5 - 25 mg/dL LAB CHEMISTRY METHOD 12/09/2024 7:18 AM [facility] Creatinine 0.74 0.70 - 1.30 mg/dL LAB CHEMISTRY METHOD 12/09/2024 7:18 AM EST [facility] eGFR 103 >=60 mL/min/1. 73m2 LAB CHEMISTRY METHOD 12/09/2024 7:18 AM EST [facility] Comment:Calculation based on the Chronic Kidney Disease Epidemiology Collaboration (CKD-EPI) equation refit without adjustment for race. BUN/Creatinine Ratio 27.0 LAB CHEMISTRY METHOD 12/09/2024 7:18 AM EST [facility] Calcium 8.9 8.5 - 10.5 mg/dL LAB CHEMISTRY METHOD 12/09/2024 7:18 AM [facility] Blood Venous blood specimen / Unknown 12/09/2024 6:05 AM EST 12/09/2024 6:36 AM EST us August Baldwin MD LAB BLOOD ORDERABLES Final Resul t [facility] [address] [place] [address], documented in this encounter Visit Diagnoses Diagnosis Essential (primary) hypertension Unspecified essential hypertension Hypothyroidism, unspecified Other tank terminal gauger (current) drug therapy documented in this encounter Care Teams Filer Metal Patterns Relationship Specialty Start Date End Date August Baldwin MD [address] [place] [address] [address] [place], [place] PCP - General Internal Medicine 12/09/24 documented as of this encounter
--- OUTSIDE RECORDS SUMMARY | 2025-07-08 15:53 | XMS_ITS | Encounter Summary ---
Author Organization [facility] Address [address] [place] [address] Care Team Providers Care Loan Administrator Name Role Phone August Baldwin MD Primary Care Provider [phone] Encounter Details Date Type Department Care Team (Late st Contact Info) Description 10/23/2024 Lab Requisition [facility] - Main Lab [address] [place] [address] August Baldwin MD [address] [place] [address] [address] THI Sparks Schizophrenia, unspecified [...] LAB CHEMISTRY METHOD 10/23/2024 2:25 PM EST [facility] Potassium 4.0 3.5 - 5.5 mmol/L LAB CHEMISTRY METHOD 10/23/2024 2:25 PM EST [facility] Chloride 104 96 - 110 mmol/L LAB CHEMISTRY METHOD 10/23/2024 2:25 PM EST [facility] CO2 28 21 - 32 mmol/L LAB CHEMISTRY METHOD 10/23/2024 2:25 PM [facility] Anion Gap 4 3 - 11 LAB CHEMISTRY METHOD 10/23/2024 2:25 PM [facility] Glucose 114(H) 70 - 100 mg/dL LAB CHEMISTRY METHOD 10/23/2024 2:25 PM [facility] BUN 19 5 - 25 mg/dL LAB CHEMISTRY METHOD 10/23/2024 2:25 PM [facility] Creatinine 0.76 0.70 - 1.30 mg/dL LAB CHEMISTRY METHOD 10/23/2024 2:25 PM [facility] eGFR 102 >=60 mL/min/1. 73m2 LAB CHEMISTRY METHOD 10/23/2024 2:25 PM [facility] Comment:Calculation based on the Chronic Kidney Disease Epidemiology Collaboration (CKD-EPI) equation refit without adjustment for race. BUN/Creatinine Ratio 25.0 LAB CHEMISTRY METHOD 10/23/2024 2:25 PM [facility] Calcium 9.0 8.5 - 10.5 mg/dL LAB CHEMISTRY METHOD 10/23/2024 2:25 PM [facility] Blood Venous blood specimen / Unknown 10/23/2024 1:10 PM EST 10/23/2024 1:52 PM EST us August Baldwin MD LAB BLOOD ORDERABLES Final Resul t [facility] [address] [place] [address], documented in this encounter Visit Diagnoses Diagnosis Schizophrenia, unspecified (CMS/HCC V24, CMS/HCC V28) documented in this encounter Care Teams Loan Administrator Relationship Specialty Start Date End Date August Baldwin MD [address] [place] [address] Dr Malick Sparks [place] PCP - General Internal Medicine 12/09/24 documented as of this encounter
--- OUTSIDE RECORDS SUMMARY | 2025-07-08 15:53 | XMS_ITS | Encounter Summary ---
Author Organization [facility] Address [address] [place] [address] Care Team Providers Care Box Order Person Name Role Phone August Baldwin MD Primary Care Provider [phone] Encounter Details Date Type Department Care Team (Late st Contact Info) Description 02/03/2025 Lab Requisition [facility] - Main Lab [address] [facility] [place] [address] August Baldwin MD [address] [place] [address] Dr [address] THI Sparks Type 2 diabetes mellitus without complications (CMS/HCC V24, CMS/HCC V28); Essential (primary) hypertension; Other long term care phlebotomist (current) drug therapy Social History Tobacco Use [...] mellitus without complications Essential (primary) hypertension Other long term care phlebotomist (current) drug therapy CBC AND DIFFERENTIAL Routine 02/03/2025 7:00 AM EDT Type 2 diabetes mellitus without complications Essential (primary) hypertension Other long term care phlebotomist (current) drug therapy MAGNESIUM Routine 02/03/2025 7:00 AM EDT Type 2 diabetes mellitus without complications Essential (primary) hypertension Other senior care (current) drug therapy HEMOGLOBIN A1C Routine 02/03/2025 7:00 AM EDT Type 2 diabetes mellitus without complications Essential (primary) hypertension Other long term care phlebotomist (current) drug therapy BASIC METABOLIC PANEL Routine 02/03/2025 7:00 AM EDT Type 2 diabetes mellitus without complications Essential (primary) hypertension Other long term care phlebotomist (current) drug therapy documented in this encounter Results * Hemoglobin A1c (02/03/2025 7:00 AM EDT) [facility] Hemoglobin A1C 5.4 <6.5 % LAB CHEMISTRY METHOD 02/03/2025 1:55 PM EDT [facility] Mean Bld Glu Estim. 108 mg/dL LAB CHEMISTRY METHOD 02/03/2025 1:55 PM EDT [facility] Blood Venous blood specimen / Unknown 02/03/2025 7:00 AM EDT 02/03/2025 7:50 AM EDT us August Baldwin MD LAB BLOOD ORDERABLES Final Resul t [facility] [address] [place] [address], [place] [phone] * (ABNORMAL) CBC auto differential (02/03/2025 7:00 AM EDT) [facility] WBC 14.4(H) 4.8 - 10.8 K/mcL LAB HEMETOLOGY METHOD 02/03/2025 7:56 AM EDT [facility] RBC 4.40(L) 4.50 - 5.50 M/mcL LAB HEMETOLOGY METHOD 02/03/2025 7:56 AM EDT [facility] Hemoglobin 12.9(L) 13.5 - 17.5 g/dL LAB HEMETOLOGY METHOD 02/03/2025 7:56 AM EDT [facility] Hematocrit 40.2(L) 42.0 - 54.0 % LAB HEMETOLOGY METHOD 02/03/2025 7:56 AM EDT [facility] MCV 91.8 79.0 - 98.0 FL LAB HEMETOLOGY METHOD 02/03/2025 7:56 AM [facility] MCH 29.5 27.0 - 32.0 pcg LAB HEMETOLOGY METHOD 02/03/2025 7:56 AM [facility] MCHC 32.1 32.0 - 37.0 g/dL LAB HEMETOLOGY METHOD 02/03/2025 7:56 AM [facility] RDW 14.1 11.0 - 15.0 % LAB HEMETOLOGY METHOD 02/03/2025 7:56 AM [facility] Platelets 185 130 - 400 K/mcL LAB HEMETOLOGY METHOD 02/03/2025 7:56 AM [facility] MPV 9.4 7.0 - 11.0 FL LAB HEMETOLOGY METHOD 02/03/2025 7:56 AM [facility] NRBC 0.0 <1.0 % LAB HEMETOLOGY METHOD 02/03/2025 7:56 AM [facility] NRBC Absolute 0.00 <0.10 K/mcL LAB HEMETOLOGY METHOD 02/03/2025 7:56 AM [facility] Neutrophils Relative 73.4 % LAB HEMETOLOGY METHOD 02/03/2025 7:56 AM [facility] Lymphocytes Relative 17.3 % LAB HEMETOLOGY METHOD 02/03/2025 7:56 AM [facility] Monocytes Relative 6.9 % LAB HEMETOLOGY METHOD 02/03/2025 7:56 AM [facility] Eosinophils Relative 1.1 % LAB HEMETOLOGY METHOD 02/03/2025 7:56 AM [facility] Basophils Relative 0.5 % LAB HEMETOLOGY METHOD 02/03/2025 7:56 AM [facility] Immature Granulocytes Relative 0.8 % LAB HEMETOLOGY METHOD 02/03/2025 7:56 AM EDT [facility] Neutrophils Absolute 10.56(H) 1.50 - 7.00 K/[facility] LAB HEMETOLOGY METHOD 02/03/2025 7:56 AM EDT [facility] Lymphocytes Absolute 2.49 1.00 - 5.00 K/[facility] LAB HEMETOLOGY METHOD 02/03/2025 7:56 AM EDT [facility] Monocytes Absolute 1.00 0.20 - 1.00 K/[facility] LAB HEMETOLOGY METHOD 02/03/2025 7:56 AM EDT [facility] Eosinophils Absolute 0.16 0.00 - 0.50 K/[facility] LAB HEMETOLOGY METHOD 02/03/2025 7:56 AM EDT [facility] Basophils Absolute 0.07 0.00 - 0.20 K/[facility] LAB HEMETOLOGY METHOD 02/03/2025 7:56 AM EDT [facility] Immature Granulocytes Absolute 0.12(H) 0.00 - 0.03 K/[facility] LAB HEMETOLOGY METHOD 02/03/2025 7:56 AM EDT [facility] Blood Venous blood specimen / Unknown 02/03/2025 7:00 AM EDT 02/03/2025 7:50 AM EDT August Baldwin MD LAB BLOOD ORDERABLES Final Resul t [facility] [address] [place] [address], * Magnesium (02/03/2025 7:00 AM EDT) Magnesium 2.1 1.9 - 2.6 mg/dL LAB CHEMISTRY METHOD 02/03/2025 8:19 AM EDT [facility] Blood Venous blood specimen / Unknown 02/03/2025 7:00 AM EDT 02/03/2025 7:50 AM EDT us August Baldwin MD LAB BLOOD ORDERABLES Final Resul t [facility] [address] [place] [address], [place] [phone] * (ABNORMAL) Basic metabolic panel (02/03/2025 7:00 AM EDT) Sodium 139 133 - 145 mmol/L LAB CHEMISTRY METHOD 02/03/2025 8:19 AM [facility] Potassium 3.8 3.5 - 5.5 mmol/L LAB CHEMISTRY METHOD 02/03/2025 8:19 AM [facility] Chloride 105 96 - 110 mmol/L LAB CHEMISTRY METHOD 02/03/2025 8:19 AM [facility] CO2 28 21 - 32 mmol/L LAB CHEMISTRY METHOD 02/03/2025 8:19 AM [facility] Anion Gap 6 3 - 11 LAB CHEMISTRY METHOD 02/03/2025 8:19 AM [facility] Glucose 87 70 - 100 mg/dL LAB CHEMISTRY METHOD 02/03/2025 8:19 AM [facility] BUN 13 5 - 25 mg/dL LAB CHEMISTRY METHOD 02/03/2025 8:19 AM [facility] Creatinine 0.67(L) 0.70 - 1.30 mg/dL LAB CHEMISTRY METHOD 02/03/2025 8:19 AM [facility] eGFR 106 >=60 mL/min/1. 73m2 LAB CHEMISTRY METHOD 02/03/2025 8:19 AM [facility] Comment:Calculation based on the Chronic Kidney Disease Epidemiology Collaboration (CKD-EPI) equation refit without adjustment for race. BUN/Creatinine Ratio 19.4 LAB CHEMISTRY METHOD 02/03/2025 8:19 AM [facility] Calcium 9.7 8.5 - 10.5 mg/dL LAB CHEMISTRY METHOD 02/03/2025 8:19 AM EDT [facility] Blood Venous blood specimen / Unknown 02/03/2025 7:00 AM EDT 02/03/2025 7:50 AM EDT us August Baldwin MD LAB BLOOD ORDERABLES Final Resul t [facility] [address] [place] [address], [place] [phone] documented in this encounter Visit Diagnoses Diagnosis Type 2 diabetes mellitus without complications (CMS/HCC V24, CMS/HCC V28) Essential (primary) hypertension Unspecified essential hypertension Other long term care phlebotomist (current) drug therapy documented in this encounter Care Teams Box Order Person Relationship Specialty Start Date End Date August Baldwin MD [address] [place], [place] PCP - General Internal Medicine 12/09/24 documented as of this encounter
--- OUTSIDE RECORDS SUMMARY | 2025-07-08 15:53 | XMS_ITS | Encounter Summary ---
Author Organization [facility] Address [address] [place] [address] Care Team Providers Care Relocation Services Specialist Name Role Phone August Baldwin MD Primary Care Provider [phone] Encounter Details Date Type Department Care Team (Late st Contact Info) Description 01/21/2025 Lab Requisition [facility] - Main Lab [address] [place] [address] August Baldwin MD [address] [place] [address] [address] [place] Essential (primary) hypertension Social History Tobacco Use [...] LAB CHEMISTRY METHOD 01/21/2025 6:03 AM EDT [facility] Potassium 5.0 3.5 - 5.5 mmol/L LAB CHEMISTRY METHOD 01/21/2025 6:03 AM EDT [facility] Comment:Hemolysis present Chloride 107 96 - 110 mmol/L LAB CHEMISTRY METHOD 01/21/2025 6:03 AM [facility] CO2 26 21 - 32 mmol/L LAB CHEMISTRY METHOD 01/21/2025 6:03 AM [facility] Anion Gap 5 3 - 11 LAB CHEMISTRY METHOD 01/21/2025 6:03 AM [facility] Glucose 82 70 - 100 mg/dL LAB CHEMISTRY METHOD 01/21/2025 6:03 AM [facility] BUN 12 5 - 25 mg/dL LAB CHEMISTRY METHOD 01/21/2025 6:03 AM [facility] Creatinine 0.76 0.70 - 1.30 mg/dL LAB CHEMISTRY METHOD 01/21/2025 6:03 AM [facility] eGFR 102 >=60 mL/min/1. 73m2 LAB CHEMISTRY METHOD 01/21/2025 6:03 AM [facility] Comment:Calculation based on the Chronic Kidney Disease Epidemiology Collaboration (CKD-EPI) equation refit without adjustment for race. BUN/Creatinine Ratio 15.8 LAB CHEMISTRY METHOD 01/21/2025 6:03 AM [facility] Calcium 9.1 8.5 - 10.5 mg/dL LAB CHEMISTRY METHOD 01/21/2025 6:03 AM [facility] AST (SGOT) 44(H) 10 - 42 unit/L LAB CHEMISTRY METHOD 01/21/2025 6:03 AM [facility] Comment:Hemolysis present ALT (SGPT) 48 10 - 60 unit/L LAB CHEMISTRY METHOD 01/21/2025 6:03 AM [facility] Alkaline Phosphatase 123(H) 42 - 121 unit/L LAB CHEMISTRY METHOD 01/21/2025 6:03 AM [facility] Total Protein 7.1 6.0 - 8.0 g/dL LAB CHEMISTRY METHOD 01/21/2025 6:03 AM [facility] Albumin 3.1(L) 3.2 - 5.0 g/dL LAB CHEMISTRY METHOD 01/21/2025 6:03 AM [facility] Total Bilirubin 0.5 0.0 - 1.4 mg/dL LAB CHEMISTRY METHOD 01/21/2025 6:03 AM EDT [facility] Blood Venous blood specimen / Unknown 01/21/2025 5:00 AM EDT 01/21/2025 5:25 AM EDT us August Baldwin MD LAB BLOOD ORDERABLES Final Resul t [facility] [address] [place] [address], [place] [phone] documented in this encounter Visit Diagnoses Diagnosis Essential (primary) hypertension Unspecified essential hypertension documented in this encounter Care Teams Relocation Services Specialist Relationship Specialty Start Date End Date August Baldwin MD [address] [place] [address] [address] [place] PCP - General Internal Medicine 12/09/24 documented as of this encounter
--- NOTE | 2025-07-29 14:30 | HO.ANESPROP2 ---
Documented by User: Patt Kay NP 07/30/25 09:14 HPI - Anesthesia Eval Consult details Narrative: 60yo M for Left Excision of Large cyst on Cheek [facility] resident - does not sign own consent [facility] Active Problems Active Problems: All Active Problems Epidermal cyst of face (Acute) Schizophrenia (Acute) History of head injury (Acute) Seizures (Acute) Anemia (Acute) Lymphedema (Acute) Hypertension (Acute) High cholesterol (Acute) Hypothyroid (Acute) Leukocytosis (Acute) Diabetes (Acute) Bacteremia (Acute) Past Medical History Medical History Hyperlipidemia, unspecified Unspecified dislocation of left shoulder joint, subsequent encounter Type 2 diabetes mellitus without complication Lymphedema, not elsewhere classified Unspecified convulsions Cataracts, bilateral Hidradenitis suppurativa Epidermal cyst of face History of head injury Anemia Lymphedema Diabetes Hypothyroid Seizures Elevated cholesterol HTN (hypertension) Schizophrenia Surgical History Surgical History History of surgery History of bone marrow biopsy Social History Social History Alcohol intake: unknown Patient Tobacco Use Status: Tobacco use Unknown Advance Directives: No Advance Directives Information Provided: Yes Meds Allergies Allergy/AdvReac Type Severity Reaction Status Date / Time piperacillin (From Zosyn) Allergy Mild RASH Verified 07/02/25 14:55 Sulfa (Sulfonamide Allergy Mild Rash Verified 07/02/25 14:55 Antibiotics) sulfamethoxazole (From Allergy Mild Rash Verified 07/02/25 14:55 Bactrim) tazobactam (From Zosyn) Allergy Mild RASH Verified 07/02/25 14:55 trimethoprim (From Bactrim) Allergy Mild Rash Verified 07/02/25 14:55 Home Medications ?Medication ?Instructions ?Recorded ?Confirmed ?Last Taken ?Type acetaminophen 325 mg tablet 650 mg PO Q4H PRN Pain 12/30/22 07/31/25 Unknown History amlodipine 10 mg tablet 10 mg PO DAILY 12/30/22 07/31/25 Unknown History aripiprazole 2 mg tablet 1 tab PO DAILY 12/30/22 07/31/25 Unknown History clotrimazole-betamethasone 1 1 appl topical BID PRN Rash 12/30/22 07/31/25 Unknown History %-0.05 % topical cream ferrous sulfate 325 mg (65 mg 325 mg PO DAILY 12/30/22 07/31/25 Unknown History iron) tablet furosemide 40 mg tablet 40 mg PO BID 12/30/22 07/31/25 Unknown History hydrocortisone 1 % topical cream 1 appl topical Q12H PRN ECZEMA 12/30/22 07/31/25 Unknown History levetiracetam 750 mg tablet 750 mg PO BID 12/30/22 07/31/25 Unknown History lisinopril 5 mg tablet 5 mg PO DAILY 12/30/22 07/31/25 Unknown History metoprolol succinate 25 mg 25 mg PO BID 12/30/22 07/31/25 Unknown History tablet,extended release 24 hr multivitamin 1 tab PO DAILY 12/30/22 07/31/25 Unknown History omeprazole 20 mg tablet,delayed 20 mg PO DAILY 12/30/22 07/31/25 Unknown History release potassium chloride 20 mEq/15 mL 20 meq PO BID 12/30/22 07/31/25 Unknown History oral liquid sennosides 8.6 mg tablet (senna) 8.6 mg PO DAILY PRN Constipation 12/30/22 07/31/25 Unknown History atorvastatin 20 mg tablet 20 mg PO DAILY 12/24/24 07/31/25 Unknown History clozapine 100 mg tablet 300 mg PO BID 12/24/24 07/31/25 Unknown History gabapentin 100 mg capsule 200 mg PO TID 12/24/24 07/31/25 Unknown History levothyroxine 112 mcg tablet 112 mcg PO DAILY 12/24/24 07/31/25 Unknown History Assessment and Plan Assessment Anesthesia Assessment: Chart Reviewed Documented by User: Gibson Su MD 07/31/25 13:08 [facility] Past Medical History Medical History Hyperlipidemia, unspecified Unspecified dislocation of left shoulder joint, subsequent encounter Type 2 diabetes mellitus without complication Lymphedema, not elsewhere classified Unspecified convulsions Cataracts, bilateral Hidradenitis suppurativa Epidermal cyst of face History of head injury Anemia Lymphedema Diabetes Hypothyroid Seizures Elevated cholesterol HTN (hypertension) Schizophrenia Functional capacity: independent ambulation Family History Family history of problems with anesthesia: No Surgical History Surgical History History of surgery History of bone marrow biopsy History of Problems with Anesthesia: Unobtainable Social History Social History Alcohol intake: unknown Patient Tobacco Use Status: Tobacco use Unknown Advance Directives: No Advance Directives Information Provided: Yes Meds Allergies Allergy/AdvReac Type Severity Reaction Status Date / Time piperacillin (From Zosyn) Allergy Mild RASH Verified 07/02/25 14:55 Sulfa (Sulfonamide Allergy Mild Rash Verified 07/02/25 14:55 Antibiotics) sulfamethoxazole (From Allergy Mild Rash Verified 07/02/25 14:55 Bactrim) tazobactam (From Zosyn) Allergy Mild RASH Verified 07/02/25 14:55 trimethoprim (From Bactrim) Allergy Mild Rash Verified 07/02/25 14:55 Home Medications ?Medication ?Instructions ?Recorded ?Confirmed ?Last Taken ?Type acetaminophen 325 mg tablet 650 mg PO Q4H PRN Pain 12/30/22 07/31/25 Unknown History amlodipine 10 mg tablet 10 mg PO DAILY 12/30/22 07/31/25 Unknown History aripiprazole 2 mg tablet 1 tab PO DAILY 12/30/22 07/31/25 Unknown History clotrimazole-betamethasone 1 1 appl topical BID PRN Rash 12/30/22 07/31/25 Unknown History %-0.05 % topical cream ferrous sulfate 325 mg (65 mg 325 mg PO DAILY 12/30/22 07/31/25 Unknown History iron) tablet furosemide 40 mg tablet 40 mg PO BID 12/30/22 07/31/25 Unknown History hydrocortisone 1 % topical cream 1 appl topical Q12H PRN ECZEMA 12/30/22 07/31/25 Unknown History levetiracetam 750 mg tablet 750 mg PO BID 12/30/22 07/31/25 Unknown History lisinopril 5 mg tablet 5 mg PO DAILY 12/30/22 07/31/25 Unknown History metoprolol succinate 25 mg 25 mg PO BID 12/30/22 07/31/25 Unknown History tablet,extended release 24 hr multivitamin 1 tab PO DAILY 12/30/22 07/31/25 Unknown History omeprazole 20 mg tablet,delayed 20 mg PO DAILY 12/30/22 07/31/25 Unknown History release potassium chloride 20 mEq/15 mL 20 meq PO BID 12/30/22 07/31/25 Unknown History oral liquid sennosides 8.6 mg tablet (senna) 8.6 mg PO DAILY PRN Constipation 12/30/22 07/31/25 Unknown History atorvastatin 20 mg tablet 20 mg PO DAILY 12/24/24 07/31/25 Unknown History clozapine 100 mg tablet 300 mg PO BID 12/24/24 07/31/25 Unknown History gabapentin 100 mg capsule 200 mg PO TID 12/24/24 07/31/25 Unknown History levothyroxine 112 mcg tablet 112 mcg PO DAILY 12/24/24 07/31/25 Unknown History Exam Exam Date and Time: 07/31/2024 Airway Mallampati Class: III TM Dist: >3cm Neck ROM: Full Heart: normal Lungs: normal Other: normal Assessment and Plan Final Anesthetic Review Family History of Problems with Anesthesia: No History of Problems with Anesthesia: Unobtainable NPO: Yes ASA Class: II Final Preanesthetic Review: No Changes in Pt Med Stat, Meds/Allgs Chart Reviewed, Consent Obtained/Reviewed and Anes Risks/Benef Reviewed Patient Risk: Low Procedure Risk: Low Anesthetic Plan Anesthetic Plan: GA Disposition: Standard PACU
--- NOTE | 2025-07-31 13:10 | PM.ANESCN ---
History of Present Illness Consult details Consult date: 08/20/26 [facility] Past Medical History Medical History Hyperlipidemia, unspecified Unspecified dislocation of left shoulder joint, subsequent encounter Type 2 diabetes mellitus without complication Lymphedema, not elsewhere classified Unspecified convulsions Cataracts, bilateral Hidradenitis suppurativa Epidermal cyst of face History of head injury Anemia Lymphedema Diabetes Hypothyroid Seizures Elevated cholesterol HTN (hypertension) Schizophrenia Functional capacity: independent ambulation Surgical History Surgical History History of surgery History of bone marrow biopsy Social History Social History Alcohol intake: unknown Patient Tobacco Use Status: Tobacco use Unknown Advance Directives: No Advance Directives Information Provided: Yes Meds Allergies Allergy/AdvReac Type Severity Reaction Status Date / Time piperacillin (From Zosyn) Allergy Mild RASH Verified 07/02/25 14:55 Sulfa (Sulfonamide Allergy Mild Rash Verified 07/02/25 14:55 Antibiotics) sulfamethoxazole (From Allergy Mild Rash Verified 07/02/25 14:55 Bactrim) tazobactam (From Zosyn) Allergy Mild RASH Verified 07/02/25 14:55 trimethoprim (From Bactrim) Allergy Mild Rash Verified 07/02/25 14:55 Active Medications: Current Medications Lactated Ringer's (Lr) 1,000 mls @ 100 mls/hr IVCONT .Q10H RUCHI Cefazolin Sodium/Dextrose (Ancef) 2 gm in 50 mls @ 100 mls/hr IV PREOP ONE Stop: 07/31/25 13:17 Home Medications ?Medication ?Instructions ?Recorded ?Confirmed ?Last Taken ?Type acetaminophen 325 mg tablet 650 mg PO Q4H PRN Pain 12/30/22 07/31/25 Unknown History amlodipine 10 mg tablet 10 mg PO DAILY 12/30/22 07/31/25 Unknown History aripiprazole 2 mg tablet 1 tab PO DAILY 12/30/22 07/31/25 Unknown History clotrimazole-betamethasone 1 1 appl topical BID PRN Rash 12/30/22 07/31/25 Unknown History %-0.05 % topical cream ferrous sulfate 325 mg (65 mg 325 mg PO DAILY 12/30/22 07/31/25 Unknown History iron) tablet furosemide 40 mg tablet 40 mg PO BID 12/30/22 07/31/25 Unknown History hydrocortisone 1 % topical cream 1 appl topical Q12H PRN ECZEMA 12/30/22 07/31/25 Unknown History levetiracetam 750 mg tablet 750 mg PO BID 12/30/22 07/31/25 Unknown History lisinopril 5 mg tablet 5 mg PO DAILY 12/30/22 07/31/25 Unknown History metoprolol succinate 25 mg 25 mg PO BID 12/30/22 07/31/25 Unknown History tablet,extended release 24 hr multivitamin 1 tab PO DAILY 12/30/22 07/31/25 Unknown History omeprazole 20 mg tablet,delayed 20 mg PO DAILY 12/30/22 07/31/25 Unknown History release potassium chloride 20 mEq/15 mL 20 meq PO BID 12/30/22 07/31/25 Unknown History oral liquid sennosides 8.6 mg tablet (senna) 8.6 mg PO DAILY PRN Constipation 12/30/22 07/31/25 Unknown History atorvastatin 20 mg tablet 20 mg PO DAILY 12/24/24 07/31/25 Unknown History clozapine 100 mg tablet 300 mg PO BID 12/24/24 07/31/25 Unknown History gabapentin 100 mg capsule 200 mg PO TID 12/24/24 07/31/25 Unknown History levothyroxine 112 mcg tablet 112 mcg PO DAILY 12/24/24 07/31/25 Unknown History Results Labs Labs: All other labs normal. Procedures Date of Service Date of Service: 07/31/25
[2025-07-31] MEDS: Lactated Ringers 1,000 ML 100 ML IVCONT (13:13)
[2025-07-31 13:14] VITALS: BMI 25.1
[2025-07-31 13:19] VITALS: BP 113/68; PULSE 80; RESP 18; TEMP 36.6; O2SAT 96; BMI 25.8
--- NOTE | 2025-07-31 13:39 | MHC.SHP ---
Pre-Procedural Eval Section A - 24 Hr Update-Section A only Date of Service: 07/31/25 Section B - Complete if H&P > 30 days Chief Complaint: Epidermal cyst Details of Present Illness: large cyst Relevant Social History: None Present Medications: see Short Stay Collaborative assessment Medical History: Significant History History of Previous Operations: Relevant previous surgery/procedure and date(s) Allergies: Allergies Allergy/AdvReac Type Severity Reaction Status Date / Time piperacillin (From Zosyn) Allergy Mild RASH Verified 07/02/25 14:55 Sulfa (Sulfonamide Allergy Mild Rash Verified 07/02/25 14:55 Antibiotics) sulfamethoxazole (From Allergy Mild Rash Verified 07/02/25 14:55 Bactrim) tazobactam (From Zosyn) Allergy Mild RASH Verified 07/02/25 14:55 trimethoprim (From Bactrim) Allergy Mild Rash Verified 07/02/25 14:55 Review of Systems Sugical H&P ROS: Negative: Constitution, Cardiovascular and Respiratory Exam Surgical H&P Exam: Normal: HEENT (large cyst on left cheek), Normal: Heart and Normal: Abdomen Plan Diagnosis/Plan: Unchanged I have reviewed the history and physical and performed a pertinent physical examination on my patient. No changes have occurred unless specified. Time Spent With Patient Time: Total time managing care of this patient today ____ minutes.
--- NOTE | 2025-07-31 14:26 | P.OP_ITS ---
Operative Note Operative Note Date of Service: 07/31/25 Narrative: Preop diagnosis: Large epidermal cyst, left cheek Postop diagnosis: Large epidermal cyst, left cheek, possible hidradenitis Procedure: Excision of large epidermal cyst left cheek under anesthesia Surgeon: Killian Bolton MD The patient is a 60-year-old male with schizophrenia, resident of [facility], referred to me because of the recurrent area of swelling and drainage on the left cheek. This appeared to be a large epidermal cyst versus an area of hidradenitis. Consent was given by his mother Rachel who stated that she understood the technique of the planned procedure as well as the risks, benefits, and alternatives. The patient is brought to the operating room placed supine under general anesthesia via endotracheal tube. The head was turned to the right. The area of the left cheek was prepped and draped in the usual sterile fashion. A surgical time-out was done. The patient received cefazolin 2 g IV preoperatively I made an elliptical incision of the skin surrounding this area of induration with a blade 15. This carried down with electrocautery through the full- thickness of the skin and subcutaneous fat to excise this entire indurated area. This was sent as a specimen. There was note of some pockets of pus. The area excised was about 5 cm in longest dimension about 2 cm at with the widest. I irrigated. There were no other areas that appeared to be diseased. I closed the incision with full-thickness nylon 5 0 simple interrupted sutures. Steri- Strips and dressings were applied. The area was infiltrated with Marcaine 0.5% for postop analgesia. The procedure was completed The patient tolerated procedure well. There were no immediate complications. Estimated blood loss was minimal. The patient was extubated without difficulty and transferred to the recovery room with stable vital signs.
[2025-07-31 14:45] VITALS: BP 140/70; PULSE 84; RESP 16; TEMP 36.7; O2SAT 98
[2025-07-31 15:00] VITALS: BP 121/86; PULSE 82; RESP 16; O2SAT 98
[2025-07-31 15:15] VITALS: BP 125/77; PULSE 84; RESP 16; TEMP 36.7; O2SAT 98
[2025-07-31 15:30] VITALS: BP 134/84; PULSE 84; RESP 16; TEMP 36.7; O2SAT 98
== END 2025-07-31 15:45 | disposition home or self-care (01) ==
PROVIDERS: PCP Hospitalist; Visit Provider Surgery
PROC: (CPT 11446; principal; 2025-07-31 14:20)
DX: L72.0 Epidermal cyst (principal); E11.9 Type 2 diabetes mellitus without complications; I10 Essential (primary) hypertension; Z88.1 Allergy status to other antibiotic agents; Z88.2 Allergy status to sulfonamides
CPT/HCPCS: 11446; 88304; J0330; J0690; J1100; J2003; J2405; J2704; J2795; J3010

== ENCOUNTER → 2025-07-31 12:47 | Outpatient (BNV) | payer MEDICARE, MEDICAID, SELFPAY | PROVIDERS: PCP Hospitalist; Visit Provider Surgery | DX: L72.0 Epidermal cyst (principal) | CPT/HCPCS: 11440 ==

== ENCOUNTER → 2025-08-13 09:40 | Outpatient (BNVA) | payer MEDICARE, MEDICAID, SELFPAY | PROVIDERS: PCP Hospitalist; Visit Provider Physician Assistant Surgical | DX: Z48.02 Encounter for removal of sutures (principal); Z87.2 Personal history of diseases of the skin and subcutaneous tissue | CPT/HCPCS: 99211 ==

== ENCOUNTER 2025-09-21 14:03 | Outpatient (AMB) | payer MEDICARE, MEDICAID, SELFPAY ==
--- NOTE | 2025-09-21 14:16 | MHC.OFFVIS ---
Intake Visit Reasons: ? cyst on Lt back Intake Note: This patient presents for an assessment fro cyst on the left back. Pt c/o; reports no complaints at this time. Vest Finisher Required: No Accompanied by: Caregiver-[facility] Allergies piperacillin (From Zosyn) Allergy (Mild, Verified 09/21/25 14:30) RASH Sulfa (Sulfonamide Antibiotics) Allergy (Mild, Verified 09/21/25 14:30) Rash sulfamethoxazole (From Bactrim) Allergy (Mild, Verified 09/21/25 14:30) Rash tazobactam (From Zosyn) Allergy (Mild, Verified 09/21/25 14:30) RASH trimethoprim (From Bactrim) Allergy (Mild, Verified 09/21/25 14:30) Rash Medication List - Last Reconciled 09/21/25 by Killian Bolton MD acetaminophen 650 mg PO Q4H PRN amlodipine 10 mg PO DAILY aripiprazole 1 tab PO DAILY atorvastatin 20 mg PO DAILY bisacodyl (Dulcolax (bisacodyl)) 20 mg (4 x 5 mg) PO ONCE 1 day clotrimazole-betamethasone 1-0.05 % 1 appl topical BID PRN clozapine 300 mg PO BID ferrous sulfate 325 mg PO DAILY furosemide 40 mg PO BID gabapentin 200 mg PO TID hydrocortisone 1% 1 appl topical Q12H PRN levetiracetam 750 mg PO BID levothyroxine 112 mcg PO DAILY lisinopril 5 mg PO DAILY metoprolol succinate ER 25 mg PO BID multivitamin 1 tab PO DAILY omeprazole 20 mg PO DAILY oxycodone-acetaminophen 10-325 mg 1 tab PO TID PRN potassium chloride 20 mEq PO BID sennosides (senna) 8.6 mg PO DAILY PRN tramadol 50 mg PO Q6H PRN HPI HPI ? cyst on Lt back: Details: He is here because of a cyst on the back. He is from [facility]. He has a history of schizophrenia and traumatic brain injury so he is not a good historian. He does not recall how long he has had this cyst on the back He does have a history of multiple cysts before. He had an excision of a large cyst from the left cheek about 2 months ago. [facility] Medical History (Updated 09/21/25 @ 14:34 by Killian Bolton MD) Epidermal cyst Diet-controlled diabetes mellitus Hyperlipidemia, unspecified Unspecified dislocation of left shoulder joint, subsequent encounter Type 2 diabetes mellitus without complication Lymphedema, not elsewhere classified Unspecified convulsions Cataracts, bilateral Hidradenitis suppurativa Epidermal cyst of face History of head injury Anemia Lymphedema Diabetes Hypothyroid Seizures Elevated cholesterol HTN (hypertension) Schizophrenia Surgical History History of surgery History of bone marrow biopsy Social History Alcohol intake: unknown Comment: counts correct Patient Tobacco Use Status: Current everyday Tobacco user Review of Systems Const Details: Patient is a poor historian so review of systems may not be ideal Denies chills and Denies fever(s) Resp Denies cough GI Denies abdominal pain Physical Exam Const Other: On wheelchair, answering questions well General: comfortable and no acute distress Resp Effort & Inspection: normal respiratory effort Cardio Rate: regular rate GI Palpation (GI): Soft to palpation, not firm and nontender Back/Spine/Pelvis Other: Cystic induration on the upper back, about 2.5 cm, non fluctuant, not inflamed Assessment & Plan Assessment & Plan (1) Epidermal cyst: Code(s): L72.0 - Epidermal cyst Category: Medical Plan: He has what appears to be an epidermal cyst on the back as described above. I explained to him the option of proceeding with excision. I explained the technique of excision under local anesthesia in the office. I reviewed the risks, benefits, and alternatives. He says of the cyst does not bother him this time he. He does not want to proceed with the excision. I did tell him that if he changes his mind down the line, he can always come back to the office on a p.r.n. basis. Coding Level of Care Code Est Pt Level 3 (13482) Diagnoses Epidermal cyst L72.0
--- OUTSIDE RECORDS SUMMARY | 2025-09-21 18:59 | XMS_ITS | Encounter Summary ---
Author Organization [facility] Address [address] [place] [address] Care Team Providers Care Veneer Taping Machine Operator Name Role Phone August Baldwin MD Primary Care Provider [phone] Encounter Details Date Type Department Care Team (Late st Contact Info) Description 07/20/2025 Lab Requisition [facility] - Main Lab [address] [facility] [place] [address] August Baldwin MD [address] [place] [address] [address] THI Sparks Other halfway (current) drug therapy; Essential (primary) hypertension; Hyperlipidemia, unspecified Social History Tobacco Use Types Packs/Day [...] Procedure Name Priority Date/Time Associated Diagnosis Comments LIPID PANEL WITH REFLEX TO DIRECT LDL Routine 07/20/2025 5:38 AM EDT Other halfway (current) drug therapy Essential (primary) hypertension Hyperlipidemia, unspecified CBC WITH AUTO DIFFERENTIAL Routine 07/20/2025 5:38 AM EDT Other halfway (current) drug therapy Essential (primary) hypertension Hyperlipidemia, unspecified CBC AND DIFFERENTIAL Routine 07/20/2025 5:38 AM EDT Other halfway (current) drug therapy Essential (primary) hypertension Hyperlipidemia, unspecified MAGNESIUM Routine 07/20/2025 5:38 AM EDT Other terminal operations supervisor (current) drug therapy Essential (primary) hypertension Hyperlipidemia, unspecified COMPREHENSIVE METABOLIC PANEL Routine 07/20/2025 5:38 AM EDT Other halfway (current) drug therapy Essential (primary) hypertension Hyperlipidemia, unspecified documented in this encounter Results * (ABNORMAL) CBC auto differential (07/20/2025 5:38 AM EDT) [facility] WBC 11.7(H) 4.8 - 10.8 K/mcL LAB HEMETOLOGY METHOD 07/20/2025 7:24 AM [facility] RBC 4.20(L) 4.50 - 5.50 M/mcL LAB HEMETOLOGY METHOD 07/20/2025 7:24 AM [facility] Hemoglobin 12.4(L) 13.5 - 17.5 g/dL LAB HEMETOLOGY METHOD 07/20/2025 7:24 AM [facility] Hematocrit 38.3(L) 42.0 - 54.0 % LAB HEMETOLOGY METHOD 07/20/2025 7:24 AM [facility] MCV 90.3 79.0 - 98.0 FL LAB HEMETOLOGY METHOD 07/20/2025 7:24 AM [facility] MCH 29.2 27.0 - 32.0 pcg LAB HEMETOLOGY METHOD 07/20/2025 7:24 AM [facility] MCHC 32.4 32.0 - 37.0 g/dL LAB HEMETOLOGY METHOD 07/20/2025 7:24 AM [facility] RDW 12.9 11.0 - 15.0 % LAB HEMETOLOGY METHOD 07/20/2025 7:24 AM [facility] Platelets 238 130 - 400 K/mcL LAB HEMETOLOGY METHOD 07/20/2025 7:24 AM [facility] MPV 9.2 7.0 - 11.0 FL LAB HEMETOLOGY METHOD 07/20/2025 7:24 AM [facility] NRBC 0.0 <1.0 % LAB HEMETOLOGY METHOD 07/20/2025 7:24 AM [facility] NRBC Absolute 0.00 <0.10 K/mcL LAB HEMETOLOGY METHOD 07/20/2025 7:24 AM [facility] Neutrophils Relative 62.9 % LAB HEMETOLOGY METHOD 07/20/2025 7:24 AM [facility] Lymphocytes Relative 22.9 % LAB HEMETOLOGY METHOD 07/20/2025 7:24 AM [facility] Monocytes Relative 8.2 % LAB HEMETOLOGY METHOD 07/20/2025 7:24 AM [facility] Eosinophils Relative 1.5 % LAB HEMETOLOGY METHOD 07/20/2025 7:24 AM [facility] Basophils Relative 0.6 % LAB HEMETOLOGY METHOD 07/20/2025 7:24 AM [facility] Immature Granulocytes Relative 3.9 % LAB HEMETOLOGY METHOD 07/20/2025 7:24 AM [facility] Neutrophils Absolute 7.32(H) 1.50 - 7.00 K/mcL LAB HEMETOLOGY METHOD 07/20/2025 7:24 AM [facility] Lymphocytes Absolute 2.67 1.00 - 5.00 K/mcL LAB HEMETOLOGY METHOD 07/20/2025 7:24 AM [facility] Monocytes Absolute 0.96 0.20 - 1.00 K/mcL LAB HEMETOLOGY METHOD 07/20/2025 7:24 AM [facility] Eosinophils Absolute 0.18 0.00 - 0.50 K/mcL LAB HEMETOLOGY METHOD 07/20/2025 7:24 AM [facility] Basophils Absolute 0.07 0.00 - 0.20 K/mcL LAB HEMETOLOGY METHOD 07/20/2025 7:24 AM EDT [facility] Immature Granulocytes Absolute 0.45(H) 0.00 - 0.03 K/mcL LAB HEMETOLOGY METHOD 07/20/2025 7:24 AM EDT [facility] Blood Venous blood specimen / Unknown 07/20/2025 5:38 AM EDT 07/20/2025 7:18 AM EDT us August Baldwin MD LAB BLOOD ORDERABLES Final Resul t Performing Organization Address [facility]/ZIP Co de Phone Number [facility] [address] [place] [address], [place] [phone] * Magnesium (07/20/2025 5:38 AM EDT) Magnesium 2.4 1.9 - 2.6 mg/dL LAB CHEMISTRY METHOD 07/20/2025 8:14 AM EDT [facility] Blood Venous blood specimen / Unknown 07/20/2025 5:38 AM EDT 07/20/2025 7:18 AM EDT us August Baldwin MD LAB BLOOD ORDERABLES Final Resul t Performing Organization Address [facility] de Phone Number [facility] [address] [place] [address], [place] [phone] * (ABNORMAL) Lipid panel with reflex to direct LDL (07/20/2025 5:38 AM EDT) Cholesterol 111 0 - 200 mg/dL LAB CHEMISTRY METHOD 07/20/2025 8:14 AM EDT [facility] Triglycerides 176(H) 0 - 150 mg/dL LAB CHEMISTRY METHOD 07/20/2025 8:14 AM EDT [facility] HDL 30(L) >=40 mg/dL LAB CHEMISTRY METHOD 07/20/2025 8:14 AM EDT [facility] LDL Calculated 46 0 - 100 mg/dL LAB CHEMISTRY METHOD 07/20/2025 8:14 AM [facility] Comment:Estimated LDL Calcul ated using equation: Total cholesterol - HDL cholesterol - (Triglycerides/5) VLDL Cholesterol Leonard 35.2 mg/dL LAB CHEMISTRY METHOD 07/20/2025 8:14 AM [facility] Non HDL Chol. (LDL+VLDL) 81 <145 mg/dL LAB CHEMISTRY METHOD 07/20/2025 8:14 AM [facility] Chol/HDL Ratio 3.7 0.0 - 4.4 LAB CHEMISTRY METHOD 07/20/2025 8:14 AM [facility] Blood Venous blood specimen / Unknown 07/20/2025 5:38 AM EDT 07/20/2025 7:18 AM EDT us August Baldwin MD LAB BLOOD ORDERABLES Final Resul t [facility] [address] [place] [address], [place] [phone] * (ABNORMAL) Comprehensive metabolic panel (07/20/2025 5:38 AM EDT) Sodium 137 133 - 145 mmol/L LAB CHEMISTRY METHOD 07/20/2025 8:14 AM [facility] Potassium 3.7 3.5 - 5.5 mmol/L LAB CHEMISTRY METHOD 07/20/2025 8:14 AM [facility] Chloride 102 96 - 110 mmol/L LAB CHEMISTRY METHOD 07/20/2025 8:14 AM [facility] CO2 29 21 - 32 mmol/L LAB CHEMISTRY METHOD 07/20/2025 8:14 AM [facility] Anion Gap 6 3 - 11 LAB CHEMISTRY METHOD 07/20/2025 8:14 AM [facility] Glucose 89 70 - 100 mg/dL LAB CHEMISTRY METHOD 07/20/2025 8:14 AM [facility] BUN 11 5 - 25 mg/dL LAB CHEMISTRY METHOD 07/20/2025 8:14 AM [facility] Creatinine 0.61(L) 0.70 - 1.30 mg/dL LAB CHEMISTRY METHOD 07/20/2025 8:14 AM [facility] eGFR 109 >=60 mL/min/1. 73m2 LAB CHEMISTRY METHOD 07/20/2025 8:14 AM [facility] Comment:Calculation based on the Chronic Kidney Disease Epidemiology Collaboration (CKD-EPI) equation refit without adjustment for race. BUN/Creatinine Ratio 18.0 LAB CHEMISTRY METHOD 07/20/2025 8:14 AM [facility] Calcium 9.3 8.5 - 10.5 mg/dL LAB CHEMISTRY METHOD 07/20/2025 8:14 AM [facility] AST (SGOT) 20 10 - 42 unit/L LAB CHEMISTRY METHOD 07/20/2025 8:14 AM [facility] ALT (SGPT) 45 10 - 60 unit/L LAB CHEMISTRY METHOD 07/20/2025 8:14 AM [facility] Alkaline Phosphatase 115 42 - 121 unit/L LAB CHEMISTRY METHOD 07/20/2025 8:14 AM [facility] Total Protein 7.1 6.0 - 8.0 g/dL LAB CHEMISTRY METHOD 07/20/2025 8:14 AM [facility] Albumin 3.3 3.2 - 5.0 g/dL LAB CHEMISTRY METHOD 07/20/2025 8:14 AM [facility] Total Bilirubin 0.3 0.0 - 1.4 mg/dL LAB CHEMISTRY METHOD 07/20/2025 8:14 AM [facility] Blood Venous blood specimen / Unknown 07/20/2025 5:38 AM EDT 07/20/2025 7:18 AM EDT us August Baldwin MD LAB BLOOD ORDERABLES Final Resul t [facility] ([facility] [address] [place] [address], documented in this encounter Visit Diagnoses Diagnosis Other terminal operations supervisor (current) drug therapy Essential (primary) hypertension Unspecified essential hypertension Hyperlipidemia, unspecified documented in this encounter Care Teams Veneer Taping Machine Operator Relationship Specialty Start Date End Date August Baldwin MD [address] [place] [address] Dr [address] [place], [place] PCP - General Internal Medicine 12/09/24 documented as of this encounter
--- OUTSIDE RECORDS SUMMARY | 2025-09-21 18:59 | XMS_ITS | Encounter Summary ---
Author Organization [facility] Address [address] [place] [address] Care Team Providers Care Talent Development Consultant Name Role Phone August Baldwin MD Primary Care Provider [phone] Encounter Details Date Type Department Care Team (Late st Contact Info) Description 06/01/2025 Lab Requisition [facility] - Main Lab [address] [facility] [place] [address] August Baldwin MD [address] [place] [address] [address] THI Sparks Hypothyroidism, unspecified; [...] 6 :16 AM EDT Hypothyroidism, unspecified Other adjunct faculty for medical terminology (current) drug therapy THYROID STIMULATING HORMONE Routine 06/01/2025 6:16 AM EDT Hypothyroidism, unspecified Other adjunct faculty for medical terminology (current) drug therapy THYROXINE FREE Routine 06/01/2025 6:16 AM EDT Hypothyroidism, unspecified Other adjunct faculty for medical terminology (current) drug therapy MAGNESIUM Routine 06/01/2025 6:16 AM EDT Hypothyroidism, unspecified Other skilled nursing (current) drug therapy BASIC METABOLIC PANEL Routine 06/01/2025 6:16 AM EDT Hypothyroidism, unspecified Other skilled nursing (current) drug therapy documented in this encounter Results * Magnesium (06/01/2025 6:16 AM EDT) Magnesium 2.1 1.9 - 2.6 mg/dL LAB CHEMISTRY METHOD 06/02/2025 8:16 AM [facility] Blood Venous blood specimen / Unknown 06/01/2025 6:16 AM EDT 06/01/2025 7:59 AM EDT us August Baldwin MD LAB BLOOD ORDERABLES Final Resul t [facility] [address] [place] [address], [place] [phone] * Basic metabolic panel (06/01/2025 6:16 AM EDT) Sodium 137 133 - 145 mmol/L LAB CHEMISTRY METHOD 06/02/2025 8:16 AM [facility] Potassium 3.8 3.5 - 5.5 mmol/L LAB CHEMISTRY METHOD 06/02/2025 8:16 AM [facility] Chloride 102 96 - 110 mmol/L LAB CHEMISTRY METHOD 06/02/2025 8:16 AM [facility] CO2 26 21 - 32 mmol/L LAB CHEMISTRY METHOD 06/02/2025 8:16 AM [facility] Anion Gap 9 3 - 11 LAB CHEMISTRY METHOD 06/02/2025 8:16 AM [facility] Glucose 73 70 - 100 mg/dL LAB CHEMISTRY METHOD 06/02/2025 8:16 AM [facility] BUN 15 5 - 25 mg/dL LAB CHEMISTRY METHOD 06/02/2025 8:16 AM [facility] Creatinine 0.80 0.70 - 1.30 mg/dL LAB CHEMISTRY METHOD 06/02/2025 8:16 AM [facility] eGFR 100 >=60 mL/min/1. 73m2 LAB CHEMISTRY METHOD 06/02/2025 8:16 AM EDT [facility] Comment:Calculation based on the Chronic Kidney Disease Epidemiology Collaboration (CKD-EPI) equation refit without adjustment for race. BUN/Creatinine Ratio 18.8 LAB CHEMISTRY METHOD 06/02/2025 8:16 AM EDT [facility] Calcium 9.2 8.5 - 10.5 mg/dL LAB CHEMISTRY METHOD 06/02/2025 8:16 AM EDT [facility] Blood Venous blood specimen / Unknown 06/01/2025 6:16 AM EDT 06/01/2025 7:59 AM EDT us August aBldwin MD LAB BLOOD ORDERABLES Final Resul t Performing Organization Address [facility]/ZIP Co de Phone Number [facility] [address] [place] [address], [place] [phone] * Thyroxine free (06/01/2025 6:16 AM EDT) Free T4 1.16 0.70 - 1.80 ng/dL LAB CHEMISTRY METHOD 06/01/2025 9:59 AM EDT [facility] Blood Venous blood specimen / Unknown 06/01/2025 6:16 AM EDT 06/01/2025 7:59 AM EDT us August Baldwin MD LAB BLOOD ORDERABLES Final Resul t Performing Organization Address City/[facility]/ZIP Co de Phone Number [facility] [address] [place] [address], [place] [phone] * Levetiracetam level (06/01/2025 6:16 AM EDT) [...] developed and the performance characteristics determined by [facility]. This confirmation testing has not been cleared or approved by the FDA. The laboratory is regulated under CLIA as qualified to perform high-complexity testing. This test is used for patient testing purposes. It should not be regarded as investigational or for research. Test performed at [facility], [address] , [place] [address] Mckenna Lubin MD, PhD - Administrative Fellow Blood Venous blood specimen / Unknown 06/01/2025 6:16 AM EDT 06/01/2025 7:59 AM EDT us August Baldwin MD LAB BLOOD ORDERABLES Final Resul t Performing Organization Address City/[facility]/ZIP Co de Phone Number [facility] [address] [place] [address] * Thyroid stimulating hormone (06/01/2025 6:16 AM EDT) TSH 2.14 0.40 - 4.00 mcIU/mL LAB CHEMISTRY METHOD 06/01/2025 9:59 AM EDT [facility] Blood Venous blood specimen / Unknown 06/01/2025 6:16 AM EDT 06/01/2025 7:59 AM EDT us August Baldwin MD LAB BLOOD ORDERABLES Final Resul t [facility] [address] [place] [address], [place] [phone] documented in this encounter Visit Diagnoses Diagnosis Hypothyroidism, unspecified Other skilled nursing (current) drug therapy documented in this encounter Care Teams Talent Development Consultant Relationship Specialty Start Date End Date August Baldwin MD [address] [place] [address] Dr [address] [facility] [employer] PCP - General Internal Medicine 12/09/24 documented as of this encounter
--- OUTSIDE RECORDS SUMMARY | 2025-09-21 18:59 | XMS_ITS | Encounter Summary ---
Author Organization [facility] Address [address] [place] [address] Care Team Providers Care Senior Technical Analyst Name Role Phone August Baldwin MD Primary Care Provider [phone] Encounter Details Date Type Department Care Team (Late st Contact Info) Description 09/14/2025 Lab Requisition [facility] - Main Lab [address] [place] [address] August Baldwin MD [address] [place] [address] Dr [address] THI Sparks Other usp (current) drug therapy Social History Tobacco Use [...] Diagnosis Comments CBC WITH AUTO DIFFERENTIAL Routine 09/14/2025 6:39 AM EST Other roasterman (current) drug therapy CBC AND DIFFERENTIAL Routine 09/14/2025 6:39 AM EST Other usp (current) drug therapy documented in this encounter Results * (ABNORMAL) CBC auto differential (09/14/2025 6:39 AM EST) WBC 11.6(H) 4.8 - 10.8 K/[facility] LAB HEMETOLOGY METHOD 09/14/2025 9:23 AM EST [facility] LAB RBC 4.20(L) 4.50 - 5.50 M/[facility] LAB HEMETOLOGY METHOD 09/14/2025 9:23 AM EST [facility] LAB Hemoglobin 12.3(L) 13.5 - 17.5 g/dL LAB HEMETOLOGY METHOD 09/14/2025 9:23 AM [facility] LAB Hematocrit 38.6(L) 42.0 - 54.0 % LAB HEMETOLOGY METHOD 09/14/2025 9:23 AM [facility] LAB MCV 91.7 79.0 - 98.0 FL LAB HEMETOLOGY METHOD 09/14/2025 9:23 AM [facility] LAB MCH 29.2 27.0 - 32.0 pcg LAB HEMETOLOGY METHOD 09/14/2025 9:23 AM [facility] LAB MCHC 31.9(L) 32.0 - 37.0 g/dL LAB HEMETOLOGY METHOD 09/14/2025 9:23 AM [facility] LAB RDW 13.7 11.0 - 15.0 % LAB HEMETOLOGY METHOD 09/14/2025 9:23 AM [facility] LAB Platelets 178 130 - 400 K/mcL LAB HEMETOLOGY METHOD 09/14/2025 9:23 AM [facility] LAB MPV 10.1 7.0 - 11.0 FL LAB HEMETOLOGY METHOD 09/14/2025 9:23 AM [facility] LAB NRBC 0.0 <1.0 % LAB HEMETOLOGY METHOD 09/14/2025 9:23 AM [facility] LAB NRBC Absolute 0.00 <0.10 K/mcL LAB HEMETOLOGY METHOD 09/14/2025 9:23 AM [facility] LAB Neutrophils Relative 70.0 % LAB HEMETOLOGY METHOD 09/14/2025 9:23 AM [facility] LAB Lymphocytes Relative 19.6 % LAB HEMETOLOGY METHOD 09/14/2025 9:23 AM [facility] LAB Monocytes Relative 7.9 % LAB HEMETOLOGY METHOD 09/14/2025 9:23 AM EST [facility] LAB Eosinophils Relative 1.6 % LAB HEMETOLOGY METHOD 09/14/2025 9:23 AM [facility] LAB Basophils Relative 0.3 % LAB HEMETOLOGY METHOD 09/14/2025 9:23 AM [facility] LAB Immature Granulocytes Relative 0.6 % LAB HEMETOLOGY METHOD 09/14/2025 9:23 AM [facility] LAB Neutrophils Absolute 8.10(H) 1.50 - 7.00 K/mcL LAB HEMETOLOGY METHOD 09/14/2025 9:23 AM [facility] LAB Lymphocytes Absolute 2.27 1.00 - 5.00 K/mcL LAB HEMETOLOGY METHOD 09/14/2025 9:23 AM [facility] LAB Monocytes Absolute 0.92 0.20 - 1.00 K/mcL LAB HEMETOLOGY METHOD 09/14/2025 9:23 AM [facility] LAB Eosinophils Absolute 0.18 0.00 - 0.50 K/mcL LAB HEMETOLOGY METHOD 09/14/2025 9:23 AM [facility] LAB Basophils Absolute 0.04 0.00 - 0.20 K/mcL LAB HEMETOLOGY METHOD 09/14/2025 9:23 AM [facility] LAB Immature Granulocytes Absolute 0.07(H) 0.00 - 0.03 K/mcL LAB HEMETOLOGY METHOD 09/14/2025 9:23 AM [facility] LAB Blood Venous blood specimen / Unknown 09/14/2025 6:39 AM EST 09/14/2025 8:55 AM EST us August Baldwin MD LAB BLOOD ORDERABLES Final Resul t [facility] LAB [address] [place] [address], documented in this encounter Visit Diagnoses Diagnosis Other roasterman (current) drug therapy documented in this encounter Care Teams Senior Technical Analyst Relationship Specialty Start Date End Date August Baldwin MD [address] [place] [address] Dr [address] THI Sparks PCP - General Internal Medicine 12/09/24 documented as of this encounter
--- OUTSIDE RECORDS SUMMARY | 2025-09-21 18:59 | XMS_ITS | Encounter Summary ---
Author Organization [facility] Address [address] [place] [address] Care Team Providers Care Gas Engineer Name Role Phone August Baldwin MD Primary Care Provider [phone] Encounter Details Date Type Department Care Team (Late st Contact Info) Description 06/22/2025 Lab Requisition [facility] - Main Lab [address] [place] [address] August Baldwin MD [address] [place] [address] Dr [address] THI Sparks Other skilled [...] DIFFERENTIAL Routine 06/22/2025 6:50 AM EDT Other director long term care (current) drug therapy CBC AND DIFFERENTIAL Routine 06/22/2025 6:50 AM EDT Other skilled nursing (current) drug therapy MAGNESIUM Routine 06/22/2025 6:50 AM EDT Other director long term care (current) drug therapy BASIC METABOLIC PANEL Routine 06/22/2025 6:50 AM EDT Other director long term care (current) drug therapy documented in this encounter Results * (ABNORMAL) CBC auto differential (06/22/2025 6:50 AM EDT) WBC 13.6(H) 4.8 - 10.8 K/[facility] LAB HEMETOLOGY METHOD 06/22/2025 7:21 AM [facility] LAB RBC 4.30(L) 4.50 - 5.50 M/mcL LAB HEMETOLOGY METHOD 06/22/2025 7:21 AM [facility] LAB Hemoglobin 12.5(L) 13.5 - 17.5 g/dL LAB HEMETOLOGY METHOD 06/22/2025 7:21 AM [facility] LAB Hematocrit 38.4(L) 42.0 - 54.0 % LAB HEMETOLOGY METHOD 06/22/2025 7:21 AM [facility] LAB MCV 89.9 79.0 - 98.0 FL LAB HEMETOLOGY METHOD 06/22/2025 7:21 AM [facility] LAB MCH 29.3 27.0 - 32.0 pcg LAB HEMETOLOGY METHOD 06/22/2025 7:21 AM [facility] LAB MCHC 32.6 32.0 - 37.0 g/dL LAB HEMETOLOGY METHOD 06/22/2025 7:21 AM [facility] LAB RDW 13.3 11.0 - 15.0 % LAB HEMETOLOGY METHOD 06/22/2025 7:21 AM [facility] LAB Platelets 203 130 - 400 K/mcL LAB HEMETOLOGY METHOD 06/22/2025 7:21 AM [facility] LAB MPV 9.4 7.0 - 11.0 FL LAB HEMETOLOGY METHOD 06/22/2025 7:21 AM [facility] LAB NRBC 0.0 <1.0 % LAB HEMETOLOGY METHOD 06/22/2025 7:21 AM [facility] LAB NRBC Absolute 0.00 <0.10 K/mcL LAB HEMETOLOGY METHOD 06/22/2025 7:21 AM [facility] LAB Neutrophils Relative 71.6 % LAB HEMETOLOGY METHOD 06/22/2025 7:21 AM [facility] LAB Lymphocytes Relative 18.4 % LAB HEMETOLOGY METHOD 06/22/2025 7:21 AM [facility] LAB Monocytes Relative 7.3 % LAB HEMETOLOGY METHOD 06/22/2025 7:21 AM [facility] LAB Eosinophils Relative 1.1 % LAB HEMETOLOGY METHOD 06/22/2025 7:21 AM [facility] LAB Basophils Relative 0.4 % LAB HEMETOLOGY METHOD 06/22/2025 7:21 AM [facility] LAB Immature Granulocytes Relative 1.2 % LAB HEMETOLOGY METHOD 06/22/2025 7:21 AM [facility] LAB Neutrophils Absolute 9.74(H) 1.50 - 7.00 K/mcL LAB HEMETOLOGY METHOD 06/22/2025 7:21 AM [facility] LAB Lymphocytes Absolute 2.50 1.00 - 5.00 K/mcL LAB HEMETOLOGY METHOD 06/22/2025 7:21 AM [facility] LAB Monocytes Absolute 0.99 0.20 - 1.00 K/mcL LAB HEMETOLOGY METHOD 06/22/2025 7:21 AM [facility] LAB Eosinophils Absolute 0.15 0.00 - 0.50 K/mcL LAB HEMETOLOGY METHOD 06/22/2025 7:21 AM [facility] LAB Basophils Absolute 0.06 0.00 - 0.20 K/mcL LAB HEMETOLOGY METHOD 06/22/2025 7:21 AM [facility] LAB Immature Granulocytes Absolute 0.17(H) 0.00 - 0.03 K/mcL LAB HEMETOLOGY METHOD 06/22/2025 7:21 AM [facility] LAB Blood Venous blood specimen / Unknown 06/22/2025 6:50 AM EDT 06/22/2025 7:12 AM EDT us August Baldwin MD LAB BLOOD ORDERABLES Final Resul t Performing Organization Address City/[facility]/ZIP Co de Phone Number [facility] LAB [address] [place] [address], [place] [phone] * Magnesium (06/22/2025 6:50 AM EDT) [facility] Magnesium 2.4 1.9 - 2.6 mg/dL LAB CHEMISTRY METHOD 06/22/2025 7:38 AM EDT [facility] LAB Blood Venous blood specimen / Unknown 06/22/2025 6:50 AM EDT 06/22/2025 7:12 AM EDT us August Baldwin MD LAB BLOOD ORDERABLES Final Resul t Performing Organization Address [facility] de Phone Number [facility] [address] [place] [address], [place] [phone] * Basic metabolic panel (06/22/2025 6:50 AM EDT) [facility] Sodium 137 133 - 145 mmol/L LAB CHEMISTRY METHOD 06/22/2025 7:38 AM [facility] LAB Potassium 3.9 3.5 - 5.5 mmol/L LAB CHEMISTRY METHOD 06/22/2025 7:38 AM [facility] LAB Chloride 102 96 - 110 mmol/L LAB CHEMISTRY METHOD 06/22/2025 7:38 AM [facility] LAB CO2 29 21 - 32 mmol/L LAB CHEMISTRY METHOD 06/22/2025 7:38 AM [facility] LAB Anion Gap 6 3 - 11 LAB CHEMISTRY METHOD 06/22/2025 7:38 AM [facility] LAB Glucose 90 70 - 100 mg/dL LAB CHEMISTRY METHOD 06/22/2025 7:38 AM [facility] LAB BUN 17 5 - [...] Resul t [facility] [address] [place] [address], documented in this encounter Visit Diagnoses Diagnosis Other director long term care (current) drug therapy documented in this encounter Care Teams Gas Engineer Relationship Specialty Start Date End Date August Baldwin MD [address] [place] [address] Dr [facility] [place] PCP - General Internal Medicine 12/09/24 documented as of this encounter
--- OUTSIDE RECORDS SUMMARY | 2025-09-21 18:59 | XMS_ITS | Encounter Summary ---
Author Organization [facility] Address [address] [place] [address] Care Team Providers Care Church Administrator Name Role Phone August Baldwin MD Primary Care Provider [phone] Encounter Details Date Type Department Care Team (Late st Contact Info) Description 04/27/2025 Lab Requisition [facility] - Main Lab [address] [facility] [place] [address] August Baldwin MD [address] [place] [address] Dr [address] THI Sparks Other senior care (current) drug therapy; Type 2 diabetes mellitus [...] DIFFERENTIAL Routine 04/27/2025 6:00 AM EDT 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 Type 2 diabetes mellitus without complications (CMS/HCC V24, CMS/HCC V28) CBC AND DIFFERENTIAL Routine 04/27/2025 6:00 AM EDT 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 Type 2 diabetes mellitus without complications (CMS/HCC V24, CMS/HCC V28) MAGNESIUM Routine 04/27/2025 6:00 AM EDT 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 Type 2 diabetes mellitus without complications (CMS/HCC V24, CMS/HCC V28) HEMOGLOBIN A1C Routine 04/27/2025 6:00 AM EDT Other senior care (current) drug therapy Type 2 diabetes mellitus without complications (CMS/HCC V24, CMS/HCC V28) COMPREHENSIVE METABOLIC PANEL Routine 04/27/2025 6:00 AM EDT Other senior care (current) drug therapy Type 2 diabetes mellitus without complications (CMS/HCC V24, CMS/HCC V28) documented in this encounter Results * (ABNORMAL) CBC auto differential (04/27/2025 6:00 AM EDT) [facility] WBC 15.5(H) 4.8 - 10.8 K/mcL LAB HEMETOLOGY METHOD 04/27/2025 6:58 AM [facility] LAB RBC 4.30(L) 4.50 - 5.50 M/mcL LAB HEMETOLOGY METHOD 04/27/2025 6:58 AM [facility] LAB Hemoglobin 13.0(L) 13.5 - 17.5 g/dL LAB HEMETOLOGY METHOD 04/27/2025 6:58 AM [facility] LAB Hematocrit 39.8(L) 42.0 - 54.0 % LAB HEMETOLOGY METHOD 04/27/2025 6:58 AM [facility] LAB MCV 92.1 79.0 - 98.0 FL LAB HEMETOLOGY METHOD 04/27/2025 6:58 AM [facility] LAB MCH 30.1 27.0 - 32.0 pcg LAB HEMETOLOGY METHOD 04/27/2025 6:58 AM [facility] LAB MCHC 32.7 32.0 - 37.0 g/dL LAB HEMETOLOGY METHOD 04/27/2025 6:58 AM [facility] LAB RDW 13.4 11.0 - 15.0 % LAB HEMETOLOGY METHOD 04/27/2025 6:58 AM [facility] LAB Platelets 203 130 - 400 K/mcL LAB HEMETOLOGY METHOD 04/27/2025 6:58 AM EDT [facility] LAB MPV 9.9 7.0 - 11.0 FL LAB HEMETOLOGY METHOD 04/27/2025 6:58 AM [facility] LAB NRBC 0.0 <1.0 % LAB HEMETOLOGY METHOD 04/27/2025 6:58 AM [facility] LAB NRBC Absolute 0.00 <0.10 K/mcL LAB HEMETOLOGY METHOD 04/27/2025 6:58 AM [facility] LAB Neutrophils Relative 77.0 % LAB HEMETOLOGY METHOD 04/27/2025 6:58 AM [facility] LAB Lymphocytes Relative 13.9 % LAB HEMETOLOGY METHOD 04/27/2025 6:58 AM [facility] LAB Monocytes Relative 7.5 % LAB HEMETOLOGY METHOD 04/27/2025 6:58 AM [facility] LAB Eosinophils Relative 0.6 % LAB HEMETOLOGY METHOD 04/27/2025 6:58 AM [facility] LAB Basophils Relative 0.3 % LAB HEMETOLOGY METHOD 04/27/2025 6:58 AM [facility] LAB Immature Granulocytes Relative 0.7 % LAB HEMETOLOGY METHOD 04/27/2025 6:58 AM [facility] LAB Neutrophils Absolute 11.96(H) 1.50 - 7.00 K/mcL LAB HEMETOLOGY METHOD 04/27/2025 6:58 AM [facility] LAB Lymphocytes Absolute 2.16 1.00 - 5.00 K/mcL LAB HEMETOLOGY METHOD 04/27/2025 6:58 AM [facility] LAB Monocytes Absolute 1.16(H) 0.20 - 1.00 K/mcL LAB HEMETOLOGY METHOD 04/27/2025 6:58 AM [facility] LAB Eosinophils Absolute 0.09 0.00 - 0.50 K/mcL LAB HEMETOLOGY METHOD 04/27/2025 6:58 AM EDT [facility] LAB Basophils Absolute 0.04 0.00 - 0.20 K/[facility] LAB HEMETOLOGY METHOD 04/27/2025 6:58 AM EDT [facility] LAB Immature Granulocytes Absolute 0.11(H) 0.00 - 0.03 K/[facility] LAB HEMETOLOGY METHOD 04/27/2025 6:58 AM EDT [facility] LAB Blood Venous blood specimen / Unknown 04/27/2025 6:00 AM EDT 04/27/2025 6:52 AM EDT us August Baldwin MD LAB BLOOD ORDERABLES Final Resul t Performing Organization Address [facility]/ZIP Co de Phone Number [facility] LAB [address] [place] [address], [place] [phone] * Magnesium (04/27/2025 6:00 AM EDT) Magnesium 2.2 1.9 - 2.6 mg/dL LAB CHEMISTRY METHOD 04/27/2025 7:51 AM EDT [facility] LAB Blood Venous blood specimen / Unknown 04/27/2025 6:00 AM EDT 04/27/2025 6:52 AM EDT us August Baldwin MD LAB BLOOD ORDERABLES Final Resul t Performing Organization Address City/[facility]/ZIP Co de Phone Number [facility] [address] [place] [address], [place] [phone] * Hemoglobin A1c (04/27/2025 6:00 AM EDT) [...] t [facility] [address] [place] [address], * (ABNORMAL) Comprehensive metabolic panel (04/27/2025 6:00 AM EDT) Sodium 136 133 - 145 mmol/L LAB CHEMISTRY METHOD 04/27/2025 7:51 AM [facility] Potassium 3.8 3.5 - 5.5 mmol/L LAB CHEMISTRY METHOD 04/27/2025 7:51 AM [facility] LAB Chloride 102 96 - 110 mmol/L LAB CHEMISTRY METHOD 04/27/2025 7:51 AM [facility] LAB CO2 26 21 - 32 mmol/L LAB CHEMISTRY METHOD 04/27/2025 7:51 AM [facility] LAB Anion Gap 8 3 - 11 LAB CHEMISTRY METHOD 04/27/2025 7:51 AM [facility] LAB Glucose 87 70 - 100 mg/dL LAB CHEMISTRY METHOD 04/27/2025 7:51 AM [facility] BUN 18 5 - 25 mg/dL LAB CHEMISTRY METHOD 04/27/2025 7:51 AM [facility] Creatinine 0.85 0.70 - 1.30 mg/dL LAB CHEMISTRY METHOD 04/27/2025 7:51 AM [facility] LAB eGFR 98 >=60 mL/min/1. 73m2 LAB CHEMISTRY METHOD 04/27/2025 7:51 AM [facility] LAB Comment:Calculation based on the Chronic Kidney Disease Epidemiology Collaboration (CKD-EPI) equation refit without adjustment for race. BUN/Creatinine Ratio 21.2 LAB CHEMISTRY METHOD 04/27/2025 7:51 AM [facility] Calcium 9.4 8.5 - 10.5 mg/dL LAB CHEMISTRY METHOD 04/27/2025 7:51 AM [facility] AST (SGOT) 28 10 - 42 unit/L LAB CHEMISTRY METHOD 04/27/2025 7:51 AM [facility] ALT (SGPT) 44 10 - 60 unit/L LAB CHEMISTRY METHOD 04/27/2025 7:51 AM [facility] Alkaline Phosphatase 139(H) 42 - 121 unit/L LAB CHEMISTRY METHOD 04/27/2025 7:51 AM [facility] Total Protein 7.2 6.0 - 8.0 g/dL LAB CHEMISTRY METHOD 04/27/2025 7:51 AM [facility] Albumin 3.6 3.2 - 5.0 g/dL LAB CHEMISTRY METHOD 04/27/2025 7:51 AM [facility] Total Bilirubin 0.4 0.0 - 1.4 mg/dL LAB CHEMISTRY METHOD 04/27/2025 7:51 AM [facility] Blood Venous blood specimen / Unknown 04/27/2025 6:00 AM EDT 04/27/2025 6:52 AM EDT us August Baldwin MD LAB BLOOD ORDERABLES Final Resul t [facility] [address] [place] [address], [place] [phone] documented in this encounter Visit Diagnoses Diagnosis Other senior care (current) drug therapy Type 2 diabetes mellitus without complications (CMS/HCC V24, CMS/HCC V28) documented in this encounter Care Teams Church Administrator Relationship Specialty Start Date End Date August Baldwin MD [address] [place] PCP - General Internal Medicine 12/09/24 documented as of this encounter
--- OUTSIDE RECORDS SUMMARY | 2025-09-21 18:59 | XMS_ITS | Encounter Summary ---
Author Organization [facility] Address [address] [place] [address] Care Team Providers Care Fisher Oyster Name Role Phone August Baldwin MD Primary Care Provider Encounter Details Date Type Department Care Team (Late st Contact Info) Description 10/23/2024 Lab Requisition [facility] - Main Lab [address] [place] [address] August Baldwin MD [address] [place] [address] Dr [address] THI Sparks Schizophrenia, unspecified [...] LAB CHEMISTRY METHOD 10/23/2024 2:25 PM EST [facility] Potassium 4.0 3.5 - 5.5 mmol/L LAB CHEMISTRY METHOD 10/23/2024 2:25 PM EST [facility] Chloride 104 96 - 110 mmol/L LAB CHEMISTRY METHOD 10/23/2024 2:25 PM EST [facility] CO2 28 21 - 32 mmol/L LAB CHEMISTRY METHOD 10/23/2024 2:25 PM [facility] Anion Gap 4 3 - 11 LAB CHEMISTRY METHOD 10/23/2024 2:25 PM [facility] Glucose 114(H) 70 - 100 mg/dL LAB CHEMISTRY METHOD 10/23/2024 2:25 PM [facility] BUN 19 5 - 25 mg/dL LAB CHEMISTRY METHOD 10/23/2024 2:25 PM [facility] Creatinine 0.76 0.70 - 1.30 mg/dL LAB CHEMISTRY METHOD 10/23/2024 2:25 PM [facility] LAB eGFR 102 >=60 mL/min/1. 73m2 LAB CHEMISTRY METHOD 10/23/2024 2:25 PM [facility] Comment:Calculation based on the Chronic Kidney Disease Epidemiology Collaboration (CKD-EPI) equation refit without adjustment for race. BUN/Creatinine Ratio 25.0 LAB CHEMISTRY METHOD 10/23/2024 2:25 PM [facility] Calcium 9.0 8.5 - 10.5 mg/dL LAB CHEMISTRY METHOD 10/23/2024 2:25 PM [facility] Blood Venous blood specimen / Unknown 10/23/2024 1:10 PM EST 10/23/2024 1:52 PM EST us August Baldwin MD LAB BLOOD ORDERABLES Final Resul t [facility] [address] [place] [address], documented in this encounter Visit Diagnoses Diagnosis Schizophrenia, unspecified (CMS/HCC V24, CMS/HCC V28) documented in this encounter Care Teams Fisher Oyster Relationship Specialty Start Date End Date August Baldwin MD [address] [place] [address] Dr Malick Sparks [place] PCP - General Internal Medicine 12/09/24 documented as of this encounter
--- OUTSIDE RECORDS SUMMARY | 2025-09-21 18:59 | XMS_ITS | Encounter Summary ---
Author Organization [facility] Address [address] [place] [address] Care Team Providers Care Podiatry Assistant Name Role Phone August Baldwin MD Primary Care Provider [phone] Encounter Details Date Type Department Care Team (Late st Contact Info) Description 08/17/2025 Lab Requisition [facility] - Main Lab [address] [place] [address] August Baldwin MD [address] [place] [address] Dr [address] THI Sparks Other penitentiary (current) drug therapy Social History Tobacco Use [...] Diagnosis Comments CBC WITH AUTO DIFFERENTIAL Routine 08/17/2025 6:45 AM EDT 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 LAB HEMETOLOGY METHOD 08/17/2025 7:31 AM [facility] RBC 4.00(L) 4.50 - 5.50 M/mcL LAB HEMETOLOGY METHOD 08/17/2025 7:31 AM [facility] Hemoglobin 11.6(L) 13.5 - 17.5 g/dL LAB HEMETOLOGY METHOD 08/17/2025 7:31 AM [facility] Hematocrit 35.6(L) 42.0 - 54.0 % LAB HEMETOLOGY METHOD 08/17/2025 7:31 AM [facility] MCV 89.2 79.0 - 98.0 FL LAB HEMETOLOGY METHOD 08/17/2025 7:31 AM [facility] MCH 29.1 27.0 - 32.0 pcg LAB HEMETOLOGY METHOD 08/17/2025 7:31 AM [facility] MCHC 32.6 32.0 - 37.0 g/dL LAB HEMETOLOGY METHOD 08/17/2025 7:31 AM [facility] RDW 13.5 11.0 - 15.0 % LAB HEMETOLOGY METHOD 08/17/2025 7:31 AM [facility] Platelets 179 130 - 400 K/mcL LAB HEMETOLOGY METHOD 08/17/2025 7:31 AM [facility] MPV 9.7 7.0 - 11.0 FL LAB HEMETOLOGY METHOD 08/17/2025 7:31 AM [facility] NRBC 0.0 <1.0 % LAB HEMETOLOGY METHOD 08/17/2025 7:31 AM [facility] NRBC Absolute 0.00 <0.10 K/mcL LAB HEMETOLOGY METHOD 08/17/2025 7:31 AM [facility] Neutrophils Relative 70.0 % LAB HEMETOLOGY METHOD 08/17/2025 7:31 AM [facility] Lymphocytes Relative 19.5 % LAB HEMETOLOGY METHOD 08/17/2025 7:31 AM [facility] Monocytes Relative 8.3 % LAB HEMETOLOGY METHOD 08/17/2025 7:31 AM [facility] Eosinophils Relative 1.1 % LAB HEMETOLOGY METHOD 08/17/2025 7:31 AM [facility] Basophils Relative 0.4 % LAB HEMETOLOGY METHOD 08/17/2025 7:31 AM [facility] Immature Granulocytes Relative 0.7 % LAB HEMETOLOGY METHOD 08/17/2025 7:31 AM [facility] Neutrophils Absolute 7.91(H) 1.50 - 7.00 K/mcL LAB HEMETOLOGY METHOD 08/17/2025 7:31 AM [facility] Lymphocytes Absolute 2.21 1.00 - 5.00 K/mcL LAB HEMETOLOGY METHOD 08/17/2025 7:31 AM [facility] Monocytes Absolute 0.94 0.20 - 1.00 K/mcL LAB HEMETOLOGY METHOD 08/17/2025 7:31 AM [facility] Eosinophils Absolute 0.13 0.00 - 0.50 K/mcL LAB HEMETOLOGY METHOD 08/17/2025 7:31 AM [facility] Basophils Absolute 0.04 0.00 - 0.20 K/mcL LAB HEMETOLOGY METHOD 08/17/2025 7:31 AM [facility] Immature Granulocytes Absolute 0.08(H) 0.00 - 0.03 K/mcL LAB HEMETOLOGY METHOD 08/17/2025 7:31 AM [facility] Blood Venous blood specimen / Unknown 08/17/2025 6:45 AM EDT 08/17/2025 7:19 AM EDT us August Baldwin MD LAB BLOOD ORDERABLES Final Resul t Performing Organization Address City/[facility]/ZIP Co de Phone Number [facility] [address] [place] [address], [place] [phone] * Magnesium (08/17/2025 6:45 AM EDT) Pathologist [facility] Magnesium 2.2 1.9 - 2.6 mg/dL LAB CHEMISTRY METHOD 08/17/2025 8:42 AM EDT [facility] Blood Venous blood specimen / Unknown 08/17/2025 6:45 AM EDT 08/17/2025 7:19 AM EDT us August Baldwin MD LAB BLOOD ORDERABLES Final Resul t Performing Organization Address [facility] de Phone Number [facility] [address] [place] [address], [place] [phone] * (ABNORMAL) Basic metabolic panel (08/17/2025 6:45 AM EDT) [facility] Sodium 136 133 - 145 mmol/L LAB CHEMISTRY METHOD 08/17/2025 8:42 AM T [facility] Potassium 3.6 3.5 - 5.5 mmol/L LAB CHEMISTRY METHOD 08/17/2025 8:42 AM EDT [facility] Chloride 104 96 - 110 mmol/L LAB CHEMISTRY METHOD 08/17/2025 8:42 AM [facility] CO2 25 21 - 32 mmol/L LAB CHEMISTRY METHOD 08/17/2025 8:42 AM EDT [facility] Anion Gap 7 3 - 11 LAB CHEMISTRY METHOD 08/17[facility]2025 8:[facility] Glucose 78 70 - 100 mg/dL LAB CHEMISTRY METHOD 08/17/2025 8:42 AM EDT [facility] BUN 15 5 - 25 mg/dL LAB CHEMISTRY METHOD 08/17/2025 8:42 AM EDT [facility] Creatinine 0.64(L) 0.70 - 1.30 mg/dL LAB CHEMISTRY METHOD 08/17/2025 8:42 AM EDT [facility] eGFR 107 >=60 mL/min/1. 73m2 LAB CHEMISTRY METHOD 08/17/2025 8:42 AM EDT [facility] Comment:Calculation based on the Chronic Kidney Disease Epidemiology Collaboration (CKD-EPI) equation refit without adjustment for race. 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
--- OUTSIDE RECORDS SUMMARY | 2025-09-21 18:59 | XMS_ITS | Encounter Summary ---
Author Organization [facility] Address [address] [place] [address] Care Team Providers Care Admitting Interviewer Name Role Phone August Baldwin MD Primary Care Provider [phone] Encounter Details Date Type Department Care Team (Late st Contact Info) Description 03/02/[address] [facility] - Main Lab [address] [facility] [place] [place] [address] August Baldwin MD [address] [place] [address] Dr [address] THI Sparks Other [facility] (current) drug therapy; Essential (primary) hypertension Social [...] DIFFERENTIAL Routine 03/02/2025 5:07 AM EDT Other m[facility] (current) drug therapy Essential (primary) hypertension CBC AND DIFFERENTIAL Routine 03/02/2025 5:07 AM EDT Other m[facility] (current) drug therapy Essential (primary) hypertension MAGNESIUM Routine 03/02/2025 5:07 AM EDT Other mcc (current) drug therapy Essential (primary) hypertension BASIC METABOLIC PANEL Routine 03/02/2025 5:07 AM EDT Other mcc (current) drug therapy Essential (primary) hypertension documented in this encounter Results * (ABNORMAL) CBC auto differential (03/02/2025 5:07 AM EDT) WBC 13.0(H) 4.8 - 10.8 K/mcL LAB HEMETOLOGY METHOD 03/02/2025 6:59 AM [facility] RBC 4.10(L) 4.50 - 5.50 M/mcL LAB HEMETOLOGY METHOD 03/02/2025 6:59 AM [facility] Hemoglobin 11.8(L) 13.5 - 17.5 g/dL LAB HEMETOLOGY METHOD 03/02/2025 6:59 AM [facility] Hematocrit 36.7(L) 42.0 - 54.0 % LAB HEMETOLOGY METHOD 03/02/2025 6:59 AM [facility] LAB MCV 90.6 79.0 - 98.0 FL LAB HEMETOLOGY METHOD 03/02/2025 6:59 AM [facility] LAB MCH 29.1 27.0 - 32.0 pcg LAB HEMETOLOGY METHOD 03/02/2025 6:59 AM [facility] LAB MCHC 32.2 32.0 - 37.0 g/dL LAB HEMETOLOGY METHOD 03/02/2025 6:59 AM [facility] RDW 13.5 11.0 - 15.0 % LAB HEMETOLOGY METHOD 03/02/2025 6:59 AM [facility] Platelets 201 130 - 400 K/mcL LAB HEMETOLOGY METHOD 03/02/2025 6:59 AM [facility] MPV 9.8 7.0 - 11.0 FL LAB HEMETOLOGY METHOD 03/02/2025 6:59 AM [facility] NRBC 0.0 <1.0 % LAB HEMETOLOGY METHOD 03/02/2025 6:59 AM [facility] NRBC Absolute 0.00 <0.10 K/mcL LAB HEMETOLOGY METHOD 03/02/2025 6:59 AM [facility] Neutrophils Relative 67.3 % LAB HEMETOLOGY METHOD 03/02/2025 6:59 AM [facility] Lymphocytes Relative 21.9 % LAB HEMETOLOGY METHOD 03/02/2025 6:59 AM [facility] Monocytes Relative 7.8 % LAB HEMETOLOGY METHOD 03/02/2025 6:59 AM [facility] Eosinophils Relative 1.3 % LAB HEMETOLOGY METHOD 03/02/2025 6:59 AM [facility] Basophils Relative 0.5 % LAB HEMETOLOGY METHOD 03/02/2025 6:59 AM [facility] Immature Granulocytes Relative 1.2 % LAB HEMETOLOGY METHOD 03/02/2025 6:59 AM [facility] Neutrophils Absolute 8.74(H) 1.50 - 7.00 K/mcL LAB HEMETOLOGY METHOD 03/02/2025 6:59 AM [facility] Lymphocytes Absolute 2.85 1.00 - 5.00 K/mcL LAB HEMETOLOGY METHOD 03/02/2025 6:59 AM [facility] Monocytes Absolute 1.02(H) 0.20 - 1.00 K/mcL LAB HEMETOLOGY METHOD 03/02/2025 6:59 AM [facility] Eosinophils Absolute 0.17 0.00 - 0.50 K/mcL LAB HEMETOLOGY METHOD 03/02/2025 6:59 AM [facility] Basophils Absolute 0.07 0.00 - 0.20 K/mcL LAB HEMETOLOGY METHOD 03/02/2025 6:59 AM [facility] Immature Granulocytes Absolute 0.15(H) 0.00 - 0.03 K/mcL LAB HEMETOLOGY METHOD 03/02/2025 6:59 AM [facility] Blood Venous blood specimen / Unknown 03/02/2025 5:07 AM EDT 03/02/2025 6:24 AM EDT us August Baldwin MD LAB BLOOD ORDERABLES Final Resul t Performing Organization Address [facility]/ZIP Co de Phone Number [facility] [address] [place] [address], [place] [phone] * Magnesium (03/02/2025 5:07 AM EDT) Magnesium 2.1 1.9 - 2.6 mg/dL LAB CHEMISTRY METHOD 03/02/2025 6:49 AM EDT [facility] Blood Venous blood specimen / Unknown 03/02/2025 5:07 AM EDT 03/02/2025 6:24 AM EDT us August Baldwin MD LAB BLOOD ORDERABLES Final Resul t Performing Organization Address [facility]/ZIP Co de Phone Number [facility] [address] [place] [address], [place] [phone] * Basic metabolic panel (03/02/2025 5:07 AM EDT) Sodium 137 133 - 145 mmol/L LAB CHEMISTRY METHOD 03/02/2025 6:49 AM EDT [facility] Potassium 3.5 3.5 - 5.5 mmol/L LAB CHEMISTRY METHOD 03/02/2025 6:49 AM EDT [facility] Chloride 104 96 - 110 mmol/L LAB CHEMISTRY METHOD 03/02/2025 6:49 AM EDT [facility] CO2 28 21 - 32 mmol/L LAB CHEMISTRY METHOD 03/02/2025 6:49 AM EDT [facility] Anion Gap 5 3 - 11 LAB CHEMISTRY METHOD 03/02/2025 6:49 AM EDT [facility] Glucose 82 70 - 100 mg/dL LAB CHEMISTRY METHOD 03/02/2025 6:49 AM EDT [facility] BUN 15 5 - 25 mg/dL LAB CHEMISTRY METHOD 03/02/2025 6:49 AM EDT [facility] Creatinine 0.76 0.70 - 1.30 mg/dL LAB CHEMISTRY METHOD 03/02/2025 6:49 AM EDT [facility] eGFR 102 >=60 mL/min/1. 73m2 LAB CHEMISTRY METHOD 03/02/2025 6:49 AM EDT [facility] Comment:Calculation based on the Chronic Kidney Disease Epidemiology Collaboration (CKD-EPI) equation refit without adjustment for race. 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
--- OUTSIDE RECORDS SUMMARY | 2025-09-21 18:59 | XMS_ITS | Encounter Summary ---
Author Organization [facility] Address [address] [place] [address] Care Team Providers Care Retail Bakery Manager Name Role Phone August Baldwin MD Primary Care Provider Encounter Details Date Type Department Care Team (Late st Contact Info) Description 11/07/2024 Lab Requisition [facility] - Main Lab [address] [facility] [place] [address] August Baldwin MD [address] [place] [address] Dr [address] THI Sparks Other halfway (current) drug therapy; Type 2 diabetes mellitus [...] DIFFERENTIAL Routine 11/07/2024 12:00 AM EST Other long term care social worker (current) drug therapy Type 2 diabetes mellitus without complications (CMS/HCC) LAVENDER - EDTA Routine 11/07/2024 12:00 AM EST Other halfway (current) drug therapy Type 2 diabetes mellitus without complications (CMS/HCC) CBC AND DIFFERENTIAL Routine 11/07/2024 12:00 AM EST Other long term care social worker (current) drug therapy Type 2 diabetes mellitus without complications (CMS/HCC) MAGNESIUM Routine 11/07/2024 12:00 AM EST Other long term care social worker (current) drug therapy Type 2 diabetes mellitus without complications (CMS/HCC) HEMOGLOBIN A1C Routine 11/07/2024 12:00 AM EST Other long term care social worker (current) drug therapy Type 2 diabetes mellitus without complications (CMS/HCC) BASIC METABOLIC PANEL Routine 11/07/2024 12:00 AM EST Other halfway (current) drug therapy Type 2 diabetes mellitus without complications (CMS/HCC) documented in this encounter Results * Lavender tube (11/07/2024 12:00 AM EST) Pathologist [facility] Extra Tube Hold for add-ons. 11/07/2024 9:01 AM EST [facility] Comment:Auto resulted. Blood Venous blood specimen / Unknown 11/07/2024 11/07/2024 7:28 AM EST us August Baldwin MD LAB BLOOD ORDERABLES Final Resul t [facility] [address] [place] [address], [place] [phone] * (ABNORMAL) CBC auto differential (11/07/2024 12:00 AM EST) [facility] WBC 14.3(H) 4.8 - 10.8 K/mcL LAB HEMETOLOGY METHOD 11/07/2024 7:39 AM [facility] RBC 4.10(L) 4.50 - 5.50 M/mcL LAB HEMETOLOGY METHOD 11/07/2024 7:39 AM [facility] Hemoglobin 12.0(L) 13.5 - 17.5 g/dL LAB HEMETOLOGY METHOD 11/07/2024 7:39 AM [facility] Hematocrit 37.6(L) 42.0 - 54.0 % LAB HEMETOLOGY METHOD 11/07/2024 7:39 AM [facility] MCV 92.6 79.0 - 98.0 FL LAB HEMETOLOGY METHOD 11/07/2024 7:39 AM [facility] MCH 29.6 27.0 - 32.0 pcg LAB HEMETOLOGY METHOD 11/07/2024 7:39 AM [facility] MCHC 31.9(L) 32.0 - 37.0 g/dL LAB HEMETOLOGY METHOD 11/07/2024 7:39 AM [facility] RDW 13.0 11.0 - 15.0 % LAB HEMETOLOGY METHOD 11/07/2024 7:39 AM [facility] Platelets 200 130 - 400 K/mcL LAB HEMETOLOGY METHOD 11/07/2024 7:39 AM [facility] MPV 9.7 7.0 - 11.0 FL LAB HEMETOLOGY METHOD 11/07/2024 7:39 AM [facility] NRBC 0.0 <1.0 % LAB HEMETOLOGY METHOD 11/07/2024 7:39 AM [facility] NRBC Absolute 0.00 <0.10 K/mcL LAB HEMETOLOGY METHOD 11/07/2024 7:39 AM [facility] Neutrophils Relative 67.3 % LAB HEMETOLOGY METHOD 11/07/2024 7:39 AM [facility] Lymphocytes Relative 21.2 % LAB HEMETOLOGY METHOD 11/07/2024 7:39 AM [facility] Monocytes Relative 8.5 % LAB HEMETOLOGY METHOD 11/07/2024 7:39 AM [facility] Eosinophils Relative 1.3 % LAB HEMETOLOGY METHOD 11/07/2024 7:39 AM [facility] Basophils Relative 0.4 % LAB HEMETOLOGY METHOD 11/07/2024 7:39 AM [facility] Immature Granulocytes Relative 1.3 % LAB HEMETOLOGY METHOD 11/07/2024 7:39 AM [facility] Neutrophils Absolute 9.58(H) 1.50 - 7.00 K/mcL LAB HEMETOLOGY METHOD 11/07/2024 7:39 AM EST [facility] Lymphocytes Absolute 3.02 1.00 - 5.00 K/mcL LAB HEMETOLOGY METHOD 11/07/2024 7:39 AM EST [facility] Monocytes Absolute 1.21(H) 0.20 - 1.00 K/mcL LAB HEMETOLOGY METHOD 11/07/2024 7:39 AM EST [facility] Eosinophils Absolute 0.19 0.00 - 0.50 K/[facility] LAB HEMETOLOGY METHOD 11/07/2024 7:39 AM EST [facility] Basophils Absolute 0.06 0.00 - 0.20 K/mcL LAB HEMETOLOGY METHOD 11/07/2024 7:39 AM [facility] Immature Granulocytes Absolute 0.19(H) 0.00 - 0.03 K/[facility] LAB HEMETOLOGY METHOD 11/07/2024 7:39 AM EST [facility] Blood Venous blood specimen / Unknown 11/07/2024 11/07/2024 7:28 AM EST us August Baldwin MD LAB BLOOD ORDERABLES Final Resul t Performing Organization Address City/[facility]/ZIP Co de Phone Number [facility] [address] [place] [address], * Magnesium (11/07/2024 12:00 AM EST) Magnesium 2.2 1.9 - 2.6 mg/dL LAB CHEMISTRY METHOD 11/07/2024 8:14 AM EST [facility] Blood Venous blood specimen / Unknown 11/07/2024 11/07/2024 7:28 AM EST us August Baldwin MD LAB BLOOD ORDERABLES Final Resul t [facility] [address] [place] [address], [place] [phone] * Hemoglobin A1c (11/07/2024 12:00 AM EST) Hemoglobin A1C 5.4 <6.5 % LAB CHEMISTRY METHOD 11/07/2024 12:49 PM EST [facility] Mean Bld Glu Estim. 108 mg/dL LAB CHEMISTRY METHOD 11/07/2024 12:49 PM [facility] Blood Venous blood specimen / Unknown 11/07/2024 11/07/2024 7:28 AM EST August Baldwin MD LAB BLOOD ORDERABLES Final Resul t Performing Organization Address [facility] de Phone Number [facility] [address] [place] [address], [place] [phone] * (ABNORMAL) Basic metabolic panel (11/07/2024 12:00 AM EST) Pathologist [facility] Sodium 136 133 - 145 mmol/L LAB CHEMISTRY METHOD 11/07/2024 8:14 AM [facility] Potassium 3.4(L) 3.5 - 5.5 mmol/L LAB CHEMISTRY METHOD 11/07/2024 8:14 AM [facility] Chloride 102 96 - 110 mmol/L LAB CHEMISTRY METHOD 11/07/2024 8:14 AM [facility] CO2 28 21 - 32 mmol/L LAB CHEMISTRY METHOD 11/07/2024 8:14 AM [facility] Anion Gap 6 3 - 11 LAB CHEMISTRY METHOD 11/07/2024 8:14 AM [facility] Glucose 83 70 - 100 mg/dL LAB CHEMISTRY METHOD 11/07/2024 8:14 AM [facility] BUN 19 5 - 25 mg/dL LAB CHEMISTRY METHOD 11/07/2024 8:14 AM EST [facility] Creatinine 0.81 0.70 - 1.30 mg/dL LAB CHEMISTRY METHOD 11/07/2024 8:14 AM EST [facility] eGFR 100 >=60 mL/min/1. 73m2 LAB CHEMISTRY METHOD 11/07/2024 8:14 AM [facility] Comment:Calculation based on the Chronic Kidney Disease Epidemiology Collaboration (CKD-EPI) equation refit without adjustment for race. BUN/Creatinine Ratio 23.5 LAB CHEMISTRY METHOD 11/07/2024 8:14 AM EST [facility] Calcium 8.9 8.5 - 10.5 mg/dL LAB CHEMISTRY METHOD 11/07/2024 8:14 AM [facility] Blood Venous blood specimen / Unknown 11/07/2024 11/07/2024 7:28 AM EST us August Baldwin MD LAB BLOOD ORDERABLES Final Resul t [facility] [address] [place] [address], documented in this encounter Visit Diagnoses Diagnosis Other long term care social worker (current) drug therapy Type 2 diabetes mellitus without complications (CMS/HCC V24, CMS/HCC V28) documented in this encounter Care Teams Retail Bakery Manager Relationship Specialty Start Date End Date August Baldwin MD [address] [place] [address] Dr [address] [place] PCP - General Internal Medicine 12/09/24 documented as of this encounter
--- OUTSIDE RECORDS SUMMARY | 2025-09-21 18:59 | XMS_ITS | Encounter Summary ---
Author Organization [facility] Address [address] [place] [address] Care Team Providers Care Supervisor Cartography Name Role Phone August Baldwin MD Primary Care Provider [phone] Encounter Details Date Type Department Care Team (Late st Contact Info) Description 09/05/2024 Lab Requisition [facility] - Main Lab [address] [place] [address] August Baldwin MD [address] [place] [address] Dr [address] [place], [place] Essential (primary) hypertension Social History Tobacco Use [...] LAB CHEMISTRY METHOD 09/05/2024 7:08 AM EST [facility] ([facility] Blood Venous blood specimen / Unknown 09/05/2024 5:05 AM EST 09/05/2024 6:01 AM EST us August Baldwin MD LAB BLOOD ORDERABLES Final Resul t [facility] [address] [place] [address], * (ABNORMAL) Basic metabolic panel (09/05/2024 5:05 AM EST) Sodium 137 133 - 145 mmol/L LAB CHEMISTRY METHOD 09/05/2024 7:08 AM [facility] Potassium 3.4(L) 3.5 - 5.5 mmol/L LAB CHEMISTRY METHOD 09/05/2024 7:08 AM [facility] Chloride 101 96 - 110 mmol/L LAB CHEMISTRY METHOD 09/05/2024 7:08 AM [facility] CO2 28 21 - 32 mmol/L LAB CHEMISTRY METHOD 09/05/2024 7:08 AM [facility] Anion Gap 8 3 - 11 LAB CHEMISTRY METHOD 09/05/2024 7:08 AM [facility] Glucose 77 70 - 100 mg/dL LAB CHEMISTRY METHOD 09/05/2024 7:08 AM [facility] BUN 20 5 - 25 mg/dL LAB CHEMISTRY METHOD 09/05/2024 7:08 AM [facility] Creatinine 0.94 0.70 - 1.30 mg/dL LAB CHEMISTRY METHOD 09/05/2024 7:08 AM [facility] eGFR 92 >=60 mL/min/1. 73m2 LAB CHEMISTRY METHOD 09/05/2024 7:08 AM [facility] Comment:Calculation based on the Chronic Kidney Disease Epidemiology Collaboration (CKD-EPI) equation refit without adjustment for race. BUN/Creatinine Ratio 21.3 LAB CHEMISTRY METHOD 09/05/2024 7:08 AM [facility] Calcium 9.8 8.5 - 10.5 mg/dL LAB CHEMISTRY METHOD 09/05/2024 7:08 AM [facility] Blood Venous blood specimen / Unknown 09/05/2024 5:05 AM EST 09/05/2024 6:01 AM EST us August Baldwin MD LAB BLOOD ORDERABLES Final Resul t [facility] ([facility]) [facility] [address] [place] [address], [place] [phone] documented in this encounter Visit Diagnoses Diagnosis Essential (primary) hypertension Unspecified essential hypertension documented in this encounter Care Teams Supervisor Cartography Relationship Specialty Start Date End Date August Baldwin MD [address] [place] [address] Dr [address] [place] PCP - General Internal Medicine 12/09/24 documented as of this encounter
--- OUTSIDE RECORDS SUMMARY | 2025-09-21 18:59 | XMS_ITS | Encounter Summary ---
Author Organization [facility] Address [address] [place] [address] Care Team Providers Care Baby Attendant Name Role Phone August Baldwin MD Primary Care Provider [phone] Encounter Details Date Type Department Care Team (Late st Contact Info) Description 08/05/2025 Lab Requisition [facility] - Main Lab [address] [place] [address] August Baldwin MD [address] [place] [address] Dr [address] [place], [place] Other intermediate (current) drug therapy; Encounter for screening for malignant neoplasm of prostate Social History Tobacco Use Types Packs/Day Years [...] Procedure Name Priority Date/Time Associated Diagnosis Comments PROSTATE SPECIFIC ANTIGEN SCREEN Routine 08/05/2025 5:45 AM EDT Other intermediate project manager (current) drug therapy Encounter for screening for malignant neoplasm of prostate documented in this encounter Results * Prostate specific antigen screen (08/05/2025 5:45 AM EDT) PSA 0.40 0.00 - 4.00 ng/mL LAB CHEMISTRY METHOD 08/05/2025 11:32 AM EDT [facility] Blood Venous blood specimen / Unknown 08/05/2025 5:45 AM EDT 08/05/2025 10:07 AM EDT Narrative [facility] - 08/05/2025 11:32 AM EDT The Siemens Advia Centaur Chemiluminescent Immunoassay is used. Results obtained with different assay methods or kits cannot be used interchangeably. Results cannot be interpreted as absolute evidence of the presence or absence of malignant disease. us August Baldwin MD LAB BLOOD ORDERABLES Final Resul t [facility] ([facility]) [facility] [address] [place] [address], documented in this encounter Visit Diagnoses Diagnosis Other intermediate (current) drug therapy Encounter for screening for malignant neoplasm of prostate documented in this encounter Care Teams Baby Attendant Relationship Specialty Start Date End Date August Baldwin MD [address] [place] [address] Dr [address] [place], [place] PCP - General Internal Medicine 12/09/24 documented as of this encounter
--- OUTSIDE RECORDS SUMMARY | 2025-09-21 18:59 | XMS_ITS | Encounter Summary ---
Author Organization [facility] Address [address] [place] [address] Care Team Providers Care Stamping Operator Name Role Phone August Baldwin MD Primary Care Provider [phone] Encounter Details Date Type Department Care Team (Late st Contact Info) Description 01/05/2025 Lab Requisition [facility] - Main Lab [address] [place] [address] August Baldwin MD [address] [place] [address] Dr [address] THI Sparks Urinary tract [...] AM EDT) WBC 12.9(H) 4.8 - 10.8 K/[facility] LAB HEMETOLOGY METHOD 01/05/2025 8:27 AM [facility] RBC 4.00(L) 4.50 - 5.50 M/mcL LAB HEMETOLOGY METHOD 01/05/2025 8:27 AM [facility] Hemoglobin 11.8(L) 13.5 - 17.5 g/dL LAB HEMETOLOGY METHOD 01/05/2025 8:27 AM [facility] Hematocrit 36.8(L) 42.0 - 54.0 % LAB HEMETOLOGY METHOD 01/05/2025 8:27 AM [facility] MCV 91.3 79.0 - 98.0 FL LAB HEMETOLOGY METHOD 01/05/2025 8:27 AM [facility] MCH 29.3 27.0 - 32.0 pcg LAB HEMETOLOGY METHOD 01/05/2025 8:27 AM [facility] MCHC 32.1 32.0 - 37.0 g/dL LAB HEMETOLOGY METHOD 01/05/2025 8:27 AM [facility] RDW 13.8 11.0 - 15.0 % LAB HEMETOLOGY METHOD 01/05/2025 8:27 AM [facility] Platelets 189 130 - 400 K/mcL LAB HEMETOLOGY METHOD 01/05/2025 8:27 AM [facility] MPV 10.0 7.0 - 11.0 FL LAB HEMETOLOGY METHOD 01/05/2025 8:27 AM [facility] NRBC 0.0 <1.0 % LAB HEMETOLOGY METHOD 01/05/2025 8:27 AM [facility] NRBC Absolute 0.00 <0.10 K/mcL LAB HEMETOLOGY METHOD 01/05/2025 8:27 AM [facility] Neutrophils Relative 69.2 % LAB HEMETOLOGY METHOD 01/05/2025 8:27 AM [facility] Lymphocytes Relative 20.6 % LAB HEMETOLOGY METHOD 01/05/2025 8:27 AM [facility] Monocytes Relative 7.6 % LAB HEMETOLOGY METHOD 01/05/2025 8:27 AM [facility] Eosinophils Relative 1.2 % LAB HEMETOLOGY METHOD 01/05/2025 8:27 AM [facility] Basophils Relative 0.4 % LAB HEMETOLOGY METHOD 01/05/2025 8:27 AM [facility] Immature Granulocytes Relative 1.0 % LAB HEMETOLOGY METHOD 01/05/2025 8:27 AM [facility] Neutrophils Absolute 8.92(H) 1.50 - 7.00 K/mcL LAB HEMETOLOGY METHOD 01/05/2025 8:27 AM [facility] Lymphocytes Absolute 2.66 1.00 - 5.00 K/mcL LAB HEMETOLOGY METHOD 01/05/2025 8:27 AM [facility] Monocytes Absolute 0.98 0.20 - 1.00 K/mcL LAB HEMETOLOGY METHOD 01/05/2025 8:27 AM [facility] Eosinophils Absolute 0.16 0.00 - 0.50 K/mcL LAB HEMETOLOGY METHOD 01/05/2025 8:27 AM [facility] Basophils Absolute 0.05 0.00 - 0.20 K/mcL LAB HEMETOLOGY METHOD 01/05/2025 8:27 AM [facility] Immature Granulocytes Absolute 0.13(H) 0.00 - 0.03 K/mcL LAB HEMETOLOGY METHOD 01/05/2025 8:27 AM [facility] Blood Venous blood specimen / Unknown 01/05/2025 6:55 AM EDT 01/05/2025 7:56 AM EDT us August Baldwin MD LAB BLOOD ORDERABLES Final Resul t [facility] [address] [place] [address], * Basic metabolic panel (01/05/2025 6:55 AM EDT) Sodium 137 133 - 145 mmol/L LAB CHEMISTRY METHOD 01/05/2025 8:47 AM [facility] Potassium 3.6 3.5 - 5.5 mmol/L LAB CHEMISTRY METHOD 01/05/2025 8:47 AM [facility] Chloride 101 96 - 110 mmol/L LAB CHEMISTRY METHOD 01/05/2025 8:47 AM [facility] CO2 28 21 - 32 mmol/L LAB CHEMISTRY METHOD 01/05/2025 8:47 AM [facility] Anion Gap 8 3 - 11 LAB CHEMISTRY METHOD 01/05/2025 8:47 AM [facility] Glucose 76 70 - 100 mg/dL LAB CHEMISTRY METHOD 01/05/2025 8:47 AM [facility] BUN 13 5 - 25 mg/dL LAB CHEMISTRY METHOD 01/05/2025 8:47 AM [facility] Creatinine 0.71 0.70 - 1.30 mg/dL LAB CHEMISTRY METHOD 01/05/2025 8:47 AM [facility] eGFR 104 >=60 mL/min/1. 73m2 LAB CHEMISTRY METHOD 01/05/2025 8:47 AM [facility] Comment:Calculation based on the Chronic Kidney Disease Epidemiology Collaboration (CKD-EPI) equation refit without adjustment for race. BUN/Creatinine Ratio 18.3 LAB CHEMISTRY METHOD 01/05/2025 8:47 AM [facility] Calcium 9.5 8.5 - 10.5 mg/dL LAB CHEMISTRY METHOD 01/05/2025 8:47 AM EDT [facility] Blood Venous blood specimen / Unknown 01/05/2025 6:55 AM EDT 01/05/2025 7:56 AM EDT us August Baldwin MD LAB BLOOD ORDERABLES Final Resul t Performing Organization Address City/[facility]/ZIP Co de Phone Number [facility] [address] [place] [address], [place] [phone] * Magnesium (01/05/2025 6:55 AM EDT) Magnesium 2.4 1.9 - 2.6 mg/dL LAB CHEMISTRY METHOD 01/05/2025 8:47 AM EDT [facility] Blood Venous blood specimen / Unknown 01/05/2025 6:55 AM EDT 01/05/2025 7:56 AM EDT us August Baldwin MD LAB BLOOD ORDERABLES Final Resul t Performing Organization Address City/[facility]/ZIP Co de Phone Number [facility] [address] [place] [address], [place] [phone] documented in this encounter Visit Diagnoses Diagnosis Urinary tract infection, site not specified documented in this encounter Care Teams Stamping Operator Relationship Specialty Start Date End Date August Baldwin MD [address] [facility] [place], [place] PCP - General Internal Medicine 12/09/24 documented as of this encounter
--- OUTSIDE RECORDS SUMMARY | 2025-09-21 18:59 | XMS_ITS | Encounter Summary ---
Author Organization [facility] [address] Address [address] [place] [address] Care Team Providers Care Or Rn Name Role Phone August Baldwin MD Primary Care Provider [phone] Encounter Details Date Type Department Care Team (Late st Contact Info) Description 05/25/2025 Lab Requisition [facility] - Main Lab [address] [place] [address] August Baldwin MD [address] [place] [address] Dr [address] THI Sparks Other half-way (current) drug therapy Social History Tobacco Use [...] DIFFERENTIAL Routine 05/25/2025 6:50 AM EDT Other longshore equipment operator (current) drug therapy CBC AND DIFFERENTIAL Routine 05/25/2025 6:50 AM EDT Other half-way (current) drug therapy MAGNESIUM Routine 05/25/2025 6:50 AM EDT Other longshore equipment operator (current) drug therapy BASIC METABOLIC PANEL Routine 05/25/2025 6:50 AM EDT Other longshore equipment operator (current) drug therapy documented in this encounter Results * (ABNORMAL) CBC auto differential (05/25/2025 6:50 AM EDT) WBC 10.6 4.8 - 10.8 K/[facility] LAB HEMETOLOGY METHOD 05/25/2025 7:16 AM [facility] RBC 4.10(L) 4.50 - 5.50 M/mcL LAB HEMETOLOGY METHOD 05/25/2025 7:16 AM [facility] Hemoglobin 12.2(L) 13.5 - 17.5 g/dL LAB HEMETOLOGY METHOD 05/25/2025 7:16 AM [facility] Hematocrit 37.4(L) 42.0 - 54.0 % LAB HEMETOLOGY METHOD 05/25/2025 7:16 AM [facility] MCV 90.8 79.0 - 98.0 FL LAB HEMETOLOGY METHOD 05/25/2025 7:16 AM [facility] MCH 29.6 27.0 - 32.0 pcg LAB HEMETOLOGY METHOD 05/25/2025 7:16 AM [facility] MCHC 32.6 32.0 - 37.0 g/dL LAB HEMETOLOGY METHOD 05/25/2025 7:16 AM [facility] RDW 13.5 11.0 - 15.0 % LAB HEMETOLOGY METHOD 05/25/2025 7:16 AM [facility] Platelets 188 130 - 400 K/mcL LAB HEMETOLOGY METHOD 05/25/2025 7:16 AM [facility] MPV 9.6 7.0 - 11.0 FL LAB HEMETOLOGY METHOD 05/25/2025 7:16 AM [facility] NRBC 0.0 <1.0 % LAB HEMETOLOGY METHOD 05/25/2025 7:16 AM [facility] NRBC Absolute 0.00 <0.10 K/mcL LAB HEMETOLOGY METHOD 05/25/2025 7:16 AM [facility] Neutrophils Relative 64.0 % LAB HEMETOLOGY METHOD 05/25/2025 7:16 AM [facility] Lymphocytes Relative 25.7 % LAB HEMETOLOGY METHOD 05/25/2025 7:16 AM [facility] Monocytes Relative 7.2 % LAB HEMETOLOGY METHOD 05/25/2025 7:16 AM [facility] Eosinophils Relative 1.6 % LAB HEMETOLOGY METHOD 05/25/2025 7:16 AM [facility] Basophils Relative 0.6 % LAB HEMETOLOGY METHOD 05/25/2025 7:16 AM [facility] Immature Granulocytes Relative 0.9 % LAB HEMETOLOGY METHOD 05/25/2025 7:16 AM [facility] Neutrophils Absolute 6.79 1.50 - 7.00 K/mcL LAB HEMETOLOGY METHOD 05/25/2025 7:16 AM [facility] Lymphocytes Absolute 2.72 1.00 - 5.00 K/mcL LAB HEMETOLOGY METHOD 05/25/2025 7:16 AM [facility] Monocytes Absolute 0.76 0.20 - 1.00 K/mcL LAB HEMETOLOGY METHOD 05/25/2025 7:16 AM [facility] Eosinophils Absolute 0.17 0.00 - 0.50 K/mcL LAB HEMETOLOGY METHOD 05/25/2025 7:16 AM [facility] Basophils Absolute 0.06 0.00 - 0.20 K/mcL LAB HEMETOLOGY METHOD 05/25/2025 7:16 AM [facility] Immature Granulocytes Absolute 0.10(H) 0.00 - 0.03 K/mcL LAB HEMETOLOGY METHOD 05/25/2025 7:16 AM [facility] Blood Venous blood specimen / Unknown 05/25/2025 6:50 AM EDT 05/25/2025 6:51 AM EDT us August Baldwin MD LAB BLOOD ORDERABLES Final Resul t Performing Organization Address City/[facility]/ZIP Co de Phone Number [facility] [address] [place] [address], [place] [phone] * Magnesium (05/25/2025 6:50 AM EDT) Pathologist [facility] Magnesium 2.3 1.9 - 2.6 mg/dL LAB CHEMISTRY METHOD 05/25/2025 7:47 AM EDT [facility] Blood Venous blood specimen / Unknown 05/25/2025 6:50 AM EDT 05/25/2025 6:51 AM EDT us August Baldwin MD LAB BLOOD ORDERABLES Final Resul t Performing Organization Address [facility] Co de Phone Number [facility] [address] [place] [address], [place] [phone] * Basic metabolic panel (05/25/2025 6:50 AM EDT) Pathologist [facility] Sodium 138 133 - 145 mmol/L LAB CHEMISTRY METHOD 05/25/2025 7:47 AM [facility] Potassium 4.1 3.5 - 5.5 mmol/L LAB CHEMISTRY METHOD 05/25/2025 7:47 AM [facility] Chloride 109 96 - 110 mmol/L LAB CHEMISTRY METHOD 05/25/2025 7:47 AM [facility] CO2 25 21 - 32 mmol/L LAB CHEMISTRY METHOD 05/25/2025 7:47 AM [facility] Anion Gap 4 3 - 11 LAB CHEMISTRY METHOD 05/25/2025 7:47 AM [facility] Glucose 76 70 - 100 mg/dL LAB CHEMISTRY METHOD 05/25/2025 7:47 AM [facility] BUN 12 5 - 25 mg/dL LAB CHEMISTRY METHOD 05/25/2025 7:47 AM EDT [facility] Creatinine 0.76 0.70 - 1.30 mg/dL LAB CHEMISTRY METHOD 05/25/2025 7:47 AM EDT [facility] eGFR 102 >=60 mL/min/1. 73m2 LAB CHEMISTRY METHOD 05/25/2025 7:47 AM EDT [facility] Comment:Calculation based on the Chronic Kidney Disease Epidemiology Collaboration (CKD-EPI) equation refit without adjustment for race. BUN/Creatinine Ratio 15.8 LAB CHEMISTRY METHOD 05/25/2025 7:47 AM T [facility] Calcium 9.5 8.5 - 10.5 mg/dL LAB CHEMISTRY METHOD 05/25/2025 7:47 AM T [facility] Blood Venous blood specimen / Unknown 05/25/2025 6:50 AM EDT 05/25/2025 6:51 AM EDT us August Baldwin MD LAB BLOOD ORDERABLES Final Resul t [facility] [address] [place] [address], documented in this encounter Visit Diagnoses Diagnosis Other half-way (current) drug therapy documented in this encounter Care Teams Or Rn Relationship Specialty Start Date End Date August Baldwin MD [address] [place] [address] Dr Teresa [facility] [place], [place] PCP - General Internal Medicine 12/09/24 documented as of this encounter
--- OUTSIDE RECORDS SUMMARY | 2025-09-21 18:59 | XMS_ITS | Encounter Summary ---
Author Organization [facility] Address [address] [place] [address] Care Team Providers Care Cornice Maker Name Role Phone August Baldwin MD Primary Care Provider [phone] Encounter Details Date Type Department Care Team (Late st Contact Info) Description 09/16/2024 Lab Requisition [facility] - Main Lab [address] [place] [address] August Baldwin MD [address] [place] [address] [address] THI Sparks Other care home (current) drug therapy Social History Tobacco [...] DIFFERENTIAL Routine 09/16/2024 7:00 AM EST Other credit control clerk (current) drug therapy CBC AND DIFFERENTIAL Routine 09/16/2024 7:00 AM EST Other care home (current) drug therapy documented in this encounter Results * (ABNORMAL) CBC auto differential (09/16/2024 7:00 AM EST) WBC 16.5(H) 4.8 - 10.8 K/[facility] LAB HEMETOLOGY METHOD 09/16/2024 8:31 AM EST [facility] RBC 4.10(L) 4.50 - 5.50 /[facility] LAB HEMETOLOGY METHOD 09/16/2024 8:31 AM EST [facility] Hemoglobin 12.1(L) 13.5 - 17.5 g/dL LAB HEMETOLOGY METHOD 09/16/2024 8:31 AM [facility] Hematocrit 38.6(L) 42.0 - 54.0 % LAB HEMETOLOGY METHOD 09/16/2024 8:31 AM [facility] MCV 93.9 79.0 - 98.0 FL LAB HEMETOLOGY METHOD 09/16/2024 8:31 AM [facility] MCH 29.4 27.0 - 32.0 pcg LAB HEMETOLOGY METHOD 09/16/2024 8:31 AM [facility] MCHC 31.3(L) 32.0 - 37.0 g/dL LAB HEMETOLOGY METHOD 09/16/2024 8:31 AM [facility] RDW 13.8 11.0 - 15.0 % LAB HEMETOLOGY METHOD 09/16/2024 8:31 AM [facility] Platelets 202 130 - 400 K/mcL LAB HEMETOLOGY METHOD 09/16/2024 8:31 AM [facility] MPV 10.1 7.0 - 11.0 FL LAB HEMETOLOGY METHOD 09/16/2024 8:31 AM [facility] NRBC 0.0 <1.0 % LAB HEMETOLOGY METHOD 09/16/2024 8:31 AM [facility] NRBC Absolute 0.00 <0.10 K/mcL LAB HEMETOLOGY METHOD 09/16/2024 8:31 AM [facility] Neutrophils Relative 68.3 % LAB HEMETOLOGY METHOD 09/16/2024 8:31 AM [facility] Lymphocytes Relative 19.9 % LAB HEMETOLOGY METHOD 09/16/2024 8:31 AM [facility] Monocytes Relative 9.2 % LAB HEMETOLOGY METHOD 09/16/2024 8:31 AM EST [facility] Eosinophils Relative 1.2 % LAB HEMETOLOGY METHOD 09/16/2024 8:31 AM [facility] Basophils Relative 0.4 % LAB HEMETOLOGY METHOD 09/16/2024 8:31 AM [facility] Immature Granulocytes Relative 1.0 % LAB HEMETOLOGY METHOD 09/16/2024 8:31 AM [facility] Neutrophils Absolute 11.25(H) 1.50 - 7.00 K/mcL LAB HEMETOLOGY METHOD 09/16/2024 8:31 AM [facility] Lymphocytes Absolute 3.27 1.00 - 5.00 K/mcL LAB HEMETOLOGY METHOD 09/16/2024 8:31 AM [facility] Monocytes Absolute 1.52(H) 0.20 - 1.00 K/mcL LAB HEMETOLOGY METHOD 09/16/2024 8:31 AM [facility] Eosinophils Absolute 0.20 0.00 - 0.50 K/mcL LAB HEMETOLOGY METHOD 09/16/2024 8:31 AM [facility] Basophils Absolute 0.07 0.00 - 0.20 K/mcL LAB HEMETOLOGY METHOD 09/16/2024 8:31 AM [facility] Immature Granulocytes Absolute 0.16(H) 0.00 - 0.03 K/mcL LAB HEMETOLOGY METHOD 09/16/2024 8:31 AM [facility] Blood Venous blood specimen / Unknown 09/16/2024 7:00 AM EST 09/16/2024 8:04 AM EST us August Baldwin MD LAB BLOOD ORDERABLES Final Resul t [facility] [address] [place] [address], documented in this encounter Visit Diagnoses Diagnosis Other care home (current) drug therapy documented in this encounter Care Teams Cornice Maker Relationship Specialty Start Date End Date August Baldwin MD [address] [place] [address] Dr [address] THI Sparks PCP - General Internal Medicine 12/09/24 documented as of this encounter
--- OUTSIDE RECORDS SUMMARY | 2025-09-21 18:59 | XMS_ITS | Encounter Summary ---
Author Organization [facility] Address [address] [place] [address] Care Team Providers Care Reel Slitter Name Role Phone August Baldwin MD Primary Care Provider [phone] Encounter Details Date Type Department Care Team (Late st Contact Info) Description 10/07/2024 Lab Requisition [facility] - Main Lab [address] [place] [address] August Baldwin MD [address] [place] [address] Dr [address] THI Sparks Diarrhea, unspecified [...] 10/07/2024 7:04 AM EST PRICILLA BRADEN [place] ([facility]) [facility] Blood Venous blood specimen / Unknown 10/07/2024 5:55 AM EST 10/07/2024 6:33 AM EST us August Baldwin MD LAB BLOOD ORDERABLES Final Resul t [facility] [address] [place] [address], * Basic metabolic panel (10/07/2024 5:55 AM EST) Sodium 140 133 - 145 mmol/L LAB CHEMISTRY METHOD 10/07/2024 7:[address] [facility] Potassium 3.8 3.5 - 5.5 mmol/L LAB CHEMISTRY METHOD 10/07/2024 7:[address] [facility] Chloride 104 96 - 110 mmol/L LAB CHEMISTRY METHOD 10/07/2024 7:[address] [facility] CO2 27 21 - 32 mmol/L LAB CHEMISTRY METHOD 10/07/2024 7:[address] [facility] Anion Gap 9 3 - 11 LAB CHEMISTRY METHOD 10/07/2024 7:[address] [facility] Glucose 88 70 - 100 mg/dL LAB CHEMISTRY METHOD 10/07/2024 7:[address] [facility] BUN 13 5 - 25 mg/dL LAB CHEMISTRY METHOD 10/07/2024 7:[address] [facility] Creatinine 0.96 0.70 - 1.30 mg/dL LAB CHEMISTRY METHOD 10/07/2024 7:[address] [facility] eGFR 90 >=60 mL/min/1. 73m2 LAB CHEMISTRY METHOD 10/07/2024 7:[address] [facility] Comment:Calculation based on the Chronic Kidney Disease Epidemiology Collaboration (CKD-EPI) equation refit without adjustment for race. BUN/Creatinine Ratio 13.5 LAB CHEMISTRY METHOD 10/07/2024 7:[address] [facility] Calcium 9.8 8.5 - 10.5 mg/dL LAB CHEMISTRY METHOD 10/07/2024 7:[address] [facility] Blood Venous blood specimen / Unknown 10/07/2024 5:55 AM EST 10/07/2024 6:33 AM EST us August Baldwin MD LAB BLOOD ORDERABLES Final Resul t [facility] ([facility]) [facility] [address] [place] [address], documented in this encounter Visit Diagnoses Diagnosis Diarrhea, unspecified documented in this encounter Care Teams Reel Slitter Relationship Specialty Start Date End Date August Baldwin MD [address] [place] [address] Dr [address] [place], [place] PCP - General Internal Medicine 12/09/24 documented as of this encounter
--- OUTSIDE RECORDS SUMMARY | 2025-09-21 18:59 | XMS_ITS | Encounter Summary ---
Author Organization [facility] Address [address] [place] [address] Care Team Providers Care Admissions Nurse Name Role Phone August Baldwin MD Primary Care Provider [phone] Encounter Details Date Type Department Care Team (Late st Contact Info) Description 07/03/2025 Lab Requisition [facility] - Main Lab [address] [place] [address] August Baldwin MD [address] [place] [address] [address] [place], [place] Encounter for therapeutic drug level monitoring Social [...] LAB CHEMISTRY METHOD 07/03/2025 9:01 AM EDT [facility] Potassium 3.6 3.5 - 5.5 mmol/L LAB CHEMISTRY METHOD 07/03/2025 9:01 AM EDT [facility] Chloride 101 96 - 110 mmol/L LAB CHEMISTRY METHOD 07/03/2025 9:01 AM EDT [facility] CO2 28 21 - 32 mmol/L LAB CHEMISTRY METHOD 07/03/2025 9:01 AM T [facility] Anion Gap 7 3 - 11 LAB CHEMISTRY METHOD 07/03/2025 9:01 AM [facility] Glucose 90 70 - 100 mg/dL LAB CHEMISTRY METHOD 07/03/2025 9:01 AM [facility] BUN 13 5 - 25 mg/dL LAB CHEMISTRY METHOD 07/03/2025 9:01 AM [facility] Creatinine 0.73 0.70 - 1.30 mg/dL LAB CHEMISTRY METHOD 07/03/2025 9:01 AM [facility] eGFR 103 >=60 mL/min/1. 73m2 LAB CHEMISTRY METHOD 07/03/2025 9:01 AM [facility] Comment:Calculation based on the Chronic Kidney Disease Epidemiology Collaboration (CKD-EPI) equation refit without adjustment for race. BUN/Creatinine Ratio 17.8 LAB CHEMISTRY METHOD 07/03/2025 9:01 AM [facility] Calcium 9.4 8.5 - 10.5 mg/dL LAB CHEMISTRY METHOD 07/03/2025 9:01 AM [facility] Blood Venous blood specimen / Unknown 07/03/2025 7:20 AM EDT 07/03/2025 8:14 AM EDT us August Baldwni MD LAB BLOOD ORDERABLES Final Resul t [facility] [address] [place] [address], documented in this encounter Visit Diagnoses Diagnosis Encounter for therapeutic drug level monitoring documented in this encounter Care Teams Admissions Nurse Relationship Specialty Start Date End Date August Baldwin MD [address] [place] [address] Dr Teresa [facility] [place] PCP - General Internal Medicine 12/09/24 documented as of this encounter
--- OUTSIDE RECORDS SUMMARY | 2025-09-21 18:59 | XMS_ITS | Encounter Summary ---
Author Organization [facility] Address [address] [place] [address] Care Team Providers Care Lombardi Developer Name Role Phone August Baldwin MD Primary Care Provider [phone] Encounter Details Date Type Department Care Team (Late st Contact Info) Description 03/30/2025 Lab Requisition [facility] - Main Lab [address] [facility] [place] [address] August Baldwin MD [address] [place] [address] Dr [address] THI Sparks Encounter for [...] K/mcL LAB HEMETOLOGY METHOD 03/30/2025 7:56 AM [facility] RBC 4.40(L) 4.50 - 5.50 M/mcL LAB HEMETOLOGY METHOD 03/30/2025 7:56 AM [facility] Hemoglobin 13.2(L) 13.5 - 17.5 g/dL LAB HEMETOLOGY METHOD 03/30/2025 7:56 AM [facility] Hematocrit 40.3(L) 42.0 - 54.0 % LAB HEMETOLOGY METHOD 03/30/2025 7:56 AM [facility] MCV 91.0 79.0 - 98.0 FL LAB HEMETOLOGY METHOD 03/30/2025 7:56 AM [facility] MCH 29.8 27.0 - 32.0 pcg LAB HEMETOLOGY METHOD 03/30/2025 7:56 AM [facility] MCHC 32.8 32.0 - 37.0 g/dL LAB HEMETOLOGY METHOD 03/30/2025 7:56 AM [facility] RDW 13.1 11.0 - 15.0 % LAB HEMETOLOGY METHOD 03/30/2025 7:56 AM [facility] Platelets 195 130 - 400 K/mcL LAB HEMETOLOGY METHOD 03/30/2025 7:56 AM [facility] MPV 9.6 7.0 - 11.0 FL LAB HEMETOLOGY METHOD 03/30/2025 7:56 AM [facility] NRBC 0.0 <1.0 % LAB HEMETOLOGY METHOD 03/30/2025 7:56 AM [facility] NRBC Absolute 0.00 <0.10 K/mcL LAB HEMETOLOGY METHOD 03/30/2025 7:56 AM [facility] Neutrophils Relative 67.6 % LAB HEMETOLOGY METHOD 03/30/2025 7:56 AM [facility] Lymphocytes Relative 21.1 % LAB HEMETOLOGY METHOD 03/30/2025 7:56 AM [facility] Monocytes Relative 7.9 % LAB HEMETOLOGY METHOD 03/30/2025 7:56 AM [facility] Eosinophils Relative 1.4 % LAB HEMETOLOGY METHOD 03/30/2025 7:56 AM [facility] Basophils Relative 0.5 % LAB HEMETOLOGY METHOD 03/30/2025 7:56 AM [facility] Immature Granulocytes Relative 1.5 % LAB HEMETOLOGY METHOD 03/30/2025 7:56 AM [facility] Neutrophils Absolute 7.44(H) 1.50 - 7.00 K/mcL LAB HEMETOLOGY METHOD 03/30/2025 7:56 AM [facility] Lymphocytes Absolute 2.32 1.00 - 5.00 K/mcL LAB HEMETOLOGY METHOD 03/30/2025 7:56 AM [facility] Monocytes Absolute 0.87 0.20 - 1.00 K/mcL LAB HEMETOLOGY METHOD 03/30/2025 7:56 AM [facility] Eosinophils Absolute 0.15 0.00 - 0.50 K/mcL LAB HEMETOLOGY METHOD 03/30/2025 7:56 AM [facility] Basophils Absolute 0.05 0.00 - 0.20 K/mcL LAB HEMETOLOGY METHOD 03/30/2025 7:56 AM [facility] Immature Granulocytes Absolute 0.16(H) 0.00 - 0.03 K/mcL LAB HEMETOLOGY METHOD 03/30/2025 7:56 AM [facility] Blood Venous blood specimen / Unknown 03/30/2025 6:53 AM EDT 03/30/2025 7:31 AM EDT us August Baldwin MD LAB BLOOD ORDERABLES Final Resul t Performing Organization Address [facility]/ZIP Co de Phone Number [facility] [address] [place] [address], [place] [phone] * Magnesium (03/30/2025 6:53 AM EDT) Pathologist [facility] Magnesium 2.2 1.9 - 2.6 mg/dL LAB CHEMISTRY METHOD 03/30/2025 8:21 AM EDT [facility] Blood Venous blood specimen / Unknown 03/30/2025 6:53 AM EDT 03/30/2025 7:31 AM EDT us August Baldwin MD LAB BLOOD ORDERABLES Final Resul t Performing Organization Address [facility]/ZIP Co de Phone Number [facility] [address] [place] [address], [place] [phone] * (ABNORMAL) Basic metabolic panel (03/30/2025 6:53 AM EDT) [facility] Sodium 135 133 - 145 mmol/L LAB CHEMISTRY METHOD 03/30/2025 8:21 AM T [facility] Potassium 3.6 3.5 - 5.5 mmol/L LAB CHEMISTRY METHOD 03/30/2025 8:21 AM EDT [facility] Chloride 103 96 - 110 mmol/L LAB CHEMISTRY METHOD 03/30/2025 8:21 AM EDT [facility] CO2 26 21 - 32 mmol/L LAB CHEMISTRY METHOD 03/30/2025 8:21 AM T [facility] Anion Gap 6 3 - 11 LAB CHEMISTRY METHOD 03/30/2025 8:21 AM T [facility] Glucose 105(H) 70 - 100 mg/dL LAB CHEMISTRY METHOD 03/30/2025 8:21 AM EDT [facility] BUN 13 5 - 25 mg/dL LAB CHEMISTRY METHOD 03/30/2025 8:21 AM T [facility] Creatinine 0.66(L) 0.70 - 1.30 mg/dL LAB CHEMISTRY METHOD 03/30/2025 8:21 AM [facility] eGFR 107 >=60 mL/min/1. 73m2 LAB CHEMISTRY METHOD 03/30/2025 8:21 AM T [facility] Comment:Calculation based on the Chronic Kidney Disease Epidemiology Collaboration (CKD-EPI) equation refit without adjustment for race. BUN/Creatinine Ratio 19.7 LAB CHEMISTRY METHOD 03/30/2025 8:21 AM [facility] Calcium 9.6 8.5 - 10.5 mg/dL LAB CHEMISTRY METHOD 03/30/2025 8:21 AM [facility] Blood Venous blood specimen / Unknown 03/30/2025 6:53 AM EDT 03/30/2025 7:31 AM EDT us August Baldwin MD LAB BLOOD ORDERABLES Final Resul t [facility] [address] [place] [address], documented in this encounter Visit Diagnoses Diagnosis Encounter for therapeutic drug level monitoring Essential (primary) hypertension Unspecified essential hypertension documented in this encounter Care Teams Lombardi Developer Relationship Specialty Start Date End Date August Baldwin MD [address] [facility] [address] [place] [address] [place] PCP - General Internal Medicine 12/09/24 documented as of this encounter
--- OUTSIDE RECORDS SUMMARY | 2025-09-21 18:59 | XMS_ITS | Encounter Summary ---
Author Organization [facility] Address [address] [place] [address] Care Team Providers Care Bird Sitter Name Role Phone August Baldwin MD Primary Care Provider [phone] Encounter Details Date Type Department Care Team (Late st Contact Info) Description 02/03/2025 Lab Requisition [facility] - Main Lab [address] [facility] [place] [address] August Baldwin MD [address] [place] [address] Dr [address] THI Sparks Type 2 diabetes mellitus without complications (CMS/HCC V24, CMS/HCC V28); Essential (primary) hypertension; Other halfway (current) drug therapy Social History [...] mellitus without complications Essential (primary) hypertension Other halfway (current) drug therapy CBC AND DIFFERENTIAL Routine 02/03/2025 7:00 AM EDT Type 2 diabetes mellitus without complications Essential (primary) hypertension Other long chain quiller tender (current) drug therapy MAGNESIUM Routine 02/03/2025 7:00 AM EDT Type 2 diabetes mellitus without complications Essential (primary) hypertension Other long chain quiller tender (current) drug therapy HEMOGLOBIN A1C Routine 02/03/2025 7:00 AM EDT Type 2 diabetes mellitus without complications Essential (primary) hypertension Other halfway (current) drug therapy BASIC METABOLIC PANEL Routine 02/03/2025 7:00 AM EDT Type 2 diabetes mellitus without complications Essential (primary) hypertension Other halfway (current) drug therapy documented in this encounter Results * Hemoglobin A1c (02/03/2025 7:00 AM EDT) [facility] Hemoglobin A1C 5.4 <6.5 % LAB CHEMISTRY METHOD 02/03/2025 1:55 PM EDT [facility] Mean Bld Glu Estim. 108 mg/dL LAB CHEMISTRY METHOD 02/03/2025 1:55 PM EDT [facility] Blood Venous blood specimen / Unknown 02/03/2025 7:00 AM EDT 02/03/2025 7:50 AM EDT us August Baldwin MD LAB BLOOD ORDERABLES Final Resul t [facility] [address] [place] [address], [place] [phone] * (ABNORMAL) CBC auto differential (02/03/2025 7:00 AM EDT) [facility] WBC 14.4(H) 4.8 - 10.8 K/mcL LAB HEMETOLOGY METHOD 02/03/2025 7:56 AM EDT [facility] RBC 4.40(L) 4.50 - 5.50 M/mcL LAB HEMETOLOGY METHOD 02/03/2025 7:56 AM EDT [facility] Hemoglobin 12.9(L) 13.5 - 17.5 g/dL LAB HEMETOLOGY METHOD 02/03/2025 7:56 AM EDT [facility] Hematocrit 40.2(L) 42.0 - 54.0 % LAB HEMETOLOGY METHOD 02/03/2025 7:56 AM EDT [facility] MCV 91.8 79.0 - 98.0 FL LAB HEMETOLOGY METHOD 02/03/2025 7:56 AM [facility] MCH 29.5 27.0 - 32.0 pcg LAB HEMETOLOGY METHOD 02/03/2025 7:56 AM [facility] MCHC 32.1 32.0 - 37.0 g/dL LAB HEMETOLOGY METHOD 02/03/2025 7:56 AM [facility] RDW 14.1 11.0 - 15.0 % LAB HEMETOLOGY METHOD 02/03/2025 7:56 AM [facility] Platelets 185 130 - 400 K/mcL LAB HEMETOLOGY METHOD 02/03/2025 7:56 AM [facility] MPV 9.4 7.0 - 11.0 FL LAB HEMETOLOGY METHOD 02/03/2025 7:56 AM [facility] NRBC 0.0 <1.0 % LAB HEMETOLOGY METHOD 02/03/2025 7:56 AM [facility] NRBC Absolute 0.00 <0.10 K/mcL LAB HEMETOLOGY METHOD 02/03/2025 7:56 AM [facility] Neutrophils Relative 73.4 % LAB HEMETOLOGY METHOD 02/03/2025 7:56 AM [facility] Lymphocytes Relative 17.3 % LAB HEMETOLOGY METHOD 02/03/2025 7:56 AM [facility] Monocytes Relative 6.9 % LAB HEMETOLOGY METHOD 02/03/2025 7:56 AM [facility] Eosinophils Relative 1.1 % LAB HEMETOLOGY METHOD 02/03/2025 7:56 AM [facility] Basophils Relative 0.5 % LAB HEMETOLOGY METHOD 02/03/2025 7:56 AM [facility] Immature Granulocytes Relative 0.8 % LAB HEMETOLOGY METHOD 02/03/2025 7:56 AM EDT [facility] Neutrophils Absolute 10.56(H) 1.50 - 7.00 K/[facility] LAB HEMETOLOGY METHOD 02/03/2025 7:56 AM EDT [facility] Lymphocytes Absolute 2.49 1.00 - 5.00 K/[facility] LAB HEMETOLOGY METHOD 02/03/2025 7:56 AM EDT [facility] Monocytes Absolute 1.00 0.20 - 1.00 K/[facility] LAB HEMETOLOGY METHOD 02/03/2025 7:56 AM EDT [facility] Eosinophils Absolute 0.16 0.00 - 0.50 K/[facility] LAB HEMETOLOGY METHOD 02/03/2025 7:56 AM EDT [facility] Basophils Absolute 0.07 0.00 - 0.20 K/[facility] LAB HEMETOLOGY METHOD 02/03/2025 7:56 AM EDT [facility] Immature Granulocytes Absolute 0.12(H) 0.00 - 0.03 K/[facility] LAB HEMETOLOGY METHOD 02/03/2025 7:56 AM EDT [facility] Blood Venous blood specimen / Unknown 02/03/2025 7:00 AM EDT 02/03/2025 7:50 AM EDT August Baldwin MD LAB BLOOD ORDERABLES Final Resul t [facility] [address] [place] [address], * Magnesium (02/03/2025 7:00 AM EDT) Magnesium 2.1 1.9 - 2.6 mg/dL LAB CHEMISTRY METHOD 02/03/2025 8:19 AM EDT [facility] Blood Venous blood specimen / Unknown 02/03/2025 7:00 AM EDT 02/03/2025 7:50 AM EDT us August Baldwin MD LAB BLOOD ORDERABLES Final Resul t [facility] [address] [place] [address], [place] [phone] * (ABNORMAL) Basic metabolic panel (02/03/2025 7:00 AM EDT) Sodium 139 133 - 145 mmol/L LAB CHEMISTRY METHOD 02/03/2025 8:19 AM [facility] Potassium 3.8 3.5 - 5.5 mmol/L LAB CHEMISTRY METHOD 02/03/2025 8:19 AM [facility] Chloride 105 96 - 110 mmol/L LAB CHEMISTRY METHOD 02/03/2025 8:19 AM [facility] CO2 28 21 - 32 mmol/L LAB CHEMISTRY METHOD 02/03/2025 8:19 AM [facility] Anion Gap 6 3 - 11 LAB CHEMISTRY METHOD 02/03/2025 8:19 AM [facility] Glucose 87 70 - 100 mg/dL LAB CHEMISTRY METHOD 02/03/2025 8:19 AM [facility] BUN 13 5 - 25 mg/dL LAB CHEMISTRY METHOD 02/03/2025 8:19 AM [facility] Creatinine 0.67(L) 0.70 - 1.30 mg/dL LAB CHEMISTRY METHOD 02/03/2025 8:19 AM [facility] eGFR 106 >=60 mL/min/1. 73m2 LAB CHEMISTRY METHOD 02/03/2025 8:19 AM [facility] Comment:Calculation based on the Chronic Kidney Disease Epidemiology Collaboration (CKD-EPI) equation refit without adjustment for race. BUN/Creatinine Ratio 19.4 LAB CHEMISTRY METHOD 02/03/2025 8:19 AM [facility] Calcium 9.7 8.5 - 10.5 mg/dL LAB CHEMISTRY METHOD 02/03/2025 8:19 AM EDT [facility] Blood Venous blood specimen / Unknown 02/03/2025 7:00 AM EDT 02/03/2025 7:50 AM EDT us August Baldwin MD LAB BLOOD ORDERABLES Final Resul t [facility] [address] [place] [address], [place] [phone] documented in this encounter Visit Diagnoses Diagnosis Type 2 diabetes mellitus without complications (CMS/HCC V24, CMS/HCC V28) Essential (primary) hypertension Unspecified essential hypertension Other long chain quiller tender (current) drug therapy documented in this encounter Care Teams Bird Sitter Relationship Specialty Start Date End Date August Baldwin MD [address] [place], [place] PCP - General Internal Medicine 12/09/24 documented as of this encounter
--- OUTSIDE RECORDS SUMMARY | 2025-09-21 18:59 | XMS_ITS | Encounter Summary ---
Author Organization [facility] Address [address] [place] [address] Care Team Providers Care Director Of Restaurants Name Role Phone August Baldwin MD Primary Care Provider [phone] Encounter Details Date Type Department Care Team (Late st Contact Info) Description 01/21/2025 Lab Requisition [facility] - Main Lab [address] [place] [address] August Baldwin MD [address] [place] [address] [address] THI Sparks Essential (primary) hypertension Social History Tobacco Use [...] LAB CHEMISTRY METHOD 01/21/2025 6:03 AM EDT [facility] Potassium 5.0 3.5 - 5.5 mmol/L LAB CHEMISTRY METHOD 01/21/2025 6:03 AM EDT [facility] Comment:Hemolysis present Chloride 107 96 - 110 mmol/L LAB CHEMISTRY METHOD 01/21/2025 6:03 AM [facility] CO2 26 21 - 32 mmol/L LAB CHEMISTRY METHOD 01/21/2025 6:03 AM [facility] Anion Gap 5 3 - 11 LAB CHEMISTRY METHOD 01/21/2025 6:03 AM [facility] Glucose 82 70 - 100 mg/dL LAB CHEMISTRY METHOD 01/21/2025 6:03 AM [facility] BUN 12 5 - 25 mg/dL LAB CHEMISTRY METHOD 01/21/2025 6:03 AM [facility] Creatinine 0.76 0.70 - 1.30 mg/dL LAB CHEMISTRY METHOD 01/21/2025 6:03 AM [facility] eGFR 102 >=60 mL/min/1. 73m2 LAB CHEMISTRY METHOD 01/21/2025 6:03 AM [facility] Comment:Calculation based on the Chronic Kidney Disease Epidemiology Collaboration (CKD-EPI) equation refit without adjustment for race. BUN/Creatinine Ratio 15.8 LAB CHEMISTRY METHOD 01/21/2025 6:03 AM [facility] Calcium 9.1 8.5 - 10.5 mg/dL LAB CHEMISTRY METHOD 01/21/2025 6:03 AM [facility] AST (SGOT) 44(H) 10 - 42 unit/L LAB CHEMISTRY METHOD 01/21/2025 6:03 AM [facility] Comment:Hemolysis present ALT (SGPT) 48 10 - 60 unit/L LAB CHEMISTRY METHOD 01/21/2025 6:03 AM [facility] Alkaline Phosphatase 123(H) 42 - 121 unit/L LAB CHEMISTRY METHOD 01/21/2025 6:03 AM [facility] Total Protein 7.1 6.0 - 8.0 g/dL LAB CHEMISTRY METHOD 01/21/2025 6:03 AM [facility] Albumin 3.1(L) 3.2 - 5.0 g/dL LAB CHEMISTRY METHOD 01/21/2025 6:03 AM [facility] Total Bilirubin 0.5 0.0 - 1.4 mg/dL LAB CHEMISTRY METHOD 01/21/2025 6:03 AM EDT [facility] Blood Venous blood specimen / Unknown 01/21/2025 5:00 AM EDT 01/21/2025 5:25 AM EDT us August Baldwin MD LAB BLOOD ORDERABLES Final Resul t [facility] [address] [place] [address], [place] [phone] documented in this encounter Visit Diagnoses Diagnosis Essential (primary) hypertension Unspecified essential hypertension documented in this encounter Care Teams Director Of Restaurants Relationship Specialty Start Date End Date August Baldwin MD [address] [place] [address] Dr [address] [place] PCP - General Internal Medicine 12/09/24 documented as of this encounter
--- OUTSIDE RECORDS SUMMARY | 2025-09-21 18:59 | XMS_ITS | Clinical Summary ---
Author Organization [address] Address [address] [place] [address] Phone Care Team Providers Care Fiscal Officer Name Role Phone August Baldwin MD Primary Care Provider [phone] Encounters Date Type Department Care Team Description 09/14/[address] [facility] [address] [place] [phone] August Baldwin MD Other snf (current) drug therapy 08/17/[address] [facility] [address] [place] [phone] August Baldwin MD Other snf (current) drug therapy 08/05/[address] [facility] [address] [place] [phone] August Baldwin MD Other snf (current) drug therapy; Encounter for screening for malignant neoplasm of prostate 07/20/[address] [facility] [address] [place] [phone] August Baldwin MD Other snf (current) drug therapy; Essential (primary) hypertension; Hyperlipidemia, unspecified 07/03/[address] [facility] [address] [place] [phone] August Baldwin MD Encounter for therapeutic drug level monitoring 06/22/[address] [facility] [address] [place] [phone] August Baldwin MD Other snf (current) drug therapy from Last 3 Months Social History Tobacco Use Types Packs/Day Years Used Date Smoking Tobacco: Never Assessed Sex and Gender Information Value Date Recorded Sex Assigned at Not on file Legal Sex Male 10:29 AM EST Gender Identity Not on file Sexual Orientation Not on file Plan of Treatment Health Maintenance Due Date Last Done Comments Colorectal Cancer Screening: Colonoscopy 1963 DTaP,Tdap,and Td Vaccines (1 - Tdap) 1982 Pneumococcal Vaccine: 50+ Years (1 of 2 - PCV) 1982 Zoster Vaccines (1 of 2) 2013 HIV Screening 09/26/2022 Hepatitis C Screening 09/26/2022 Medicare Annual Wellness Visit 09/26/2022 Social Influencers of Health Screening 09/26/2022 Depression Screening 10/29/2024 COVID-19 Vaccine ( - 2024- season) 2025 Influenza Vaccine (#1) 2025 Hypertension/CHF/CAD Annual BMP Blood Test 08/17/2026 08/17/2025, 07/20/2025, 07/03/2025, Additional history exists Cholesterol Screening (Lipid Panel) 07/20/2030 07/20/2025 RSV Immunization Adult Patients (1 - 1-dose [...] DIFFERENTIAL Routine 09/14/2025 6:39 AM EST Other snf (current) drug therapy CBC AND DIFFERENTIAL Routine 09/14/2025 6:39 AM EST Other terminal make up operator (current) drug therapy CBC WITH AUTO DIFFERENTIAL Routine 08/17/2025 6:45 AM EDT Other terminal make up operator (current) drug therapy MAGNESIUM Routine 08/17/2025 6:45 AM EDT Other terminal make up operator (current) drug therapy CBC AND DIFFERENTIAL Routine 08/17/2025 6:45 AM EDT Other terminal make up operator (current) drug therapy BASIC METABOLIC PANEL Routine 08/17/2025 6:45 AM EDT Other terminal make up operator (current) drug therapy PROSTATE SPECIFIC ANTIGEN SCREEN Routine 08/05/2025 5:45 AM EDT Other snf (current) drug therapy Encounter for screening for malignant neoplasm of prostate CBC WITH AUTO DIFFERENTIAL Routine 07/20/2025 5:38 AM EDT Other snf (current) drug therapy Essential (primary) hypertension Hyperlipidemia, unspecified MAGNESIUM Routine 07/20/2025 5:38 AM EDT Other terminal make up operator (current) drug therapy Essential (primary) hypertension Hyperlipidemia, unspecified CBC AND DIFFERENTIAL Routine 07/20/2025 5:38 AM EDT Other terminal make up operator (current) drug therapy Essential (primary) hypertension Hyperlipidemia, unspecified LIPID PANEL WITH REFLEX TO DIRECT LDL Routine 07/20/2025 5:38 AM EDT Other snf (current) drug therapy Essential (primary) hypertension Hyperlipidemia, unspecified COMPREHENSIVE METABOLIC PANEL Routine 07/20/2025 5:38 AM EDT Other terminal make up operator (current) drug therapy Essential (primary) hypertension Hyperlipidemia, unspecified BASIC METABOLIC PANEL Routine 07/03/2025 7:20 AM EDT Encounter for therapeutic drug level monitoring CBC WITH AUTO DIFFERENTIAL Routine 06/22/2025 6:50 AM EDT Other snf (current) drug therapy MAGNESIUM Routine 06/22/2025 6:50 AM EDT Other snf (current) drug therapy CBC AND DIFFERENTIAL Routine 06/22/2025 6:50 AM EDT Other snf (current) drug therapy BASIC METABOLIC PANEL Routine 06/22/2025 6:50 AM EDT Other snf (current) drug therapy from Last 3 Months Results * (ABNORMAL) CBC auto differential (09/14/2025 6:39 AM EST) Only the most recent of4 resultswithin the time period is included. [facility] WBC 11.6(H) 4.8 - 10.8 K/mcL LAB HEMETOLOGY METHOD 09/14/2025 9:[address] [facility] RBC 4.20(L) 4.50 - 5.50 M/mcL LAB HEMETOLOGY METHOD 09/14/2025 9:[address] [facility] Hemoglobin 12.3(L) 13.5 - 17.5 g/dL LAB HEMETOLOGY METHOD 09/14/2025 9:[address] [facility] Hematocrit 38.6(L) 42.0 - 54.0 % LAB HEMETOLOGY METHOD 09/14/2025 9:[address] [facility] MCV 91.7 79.0 - 98.0 FL LAB HEMETOLOGY METHOD 09/14/2025 9:[address] [facility] MCH 29.2 27.0 - 32.0 pcg LAB HEMETOLOGY METHOD 09/14/2025 9:[address] [facility] MCHC 31.9(L) 32.0 - 37.0 g/dL LAB HEMETOLOGY METHOD 09/14/2025 9:[address] [facility] RDW 13.7 11.0 - 15.0 % LAB HEMETOLOGY METHOD 09/14/2025 9:[address] [facility] Platelets 178 130 - 400 K/mcL LAB HEMETOLOGY METHOD 09/14/2025 9:[address] [facility] MPV 10.1 7.0 - 11.0 FL LAB HEMETOLOGY METHOD 09/14/2025 9:[address] [facility] NRBC 0.0 <1.0 % LAB HEMETOLOGY METHOD 09/14/2025 9:[address] [facility] NRBC Absolute 0.00 <0.10 K/mcL LAB HEMETOLOGY METHOD 09/14/2025 9:[address] [facility] Neutrophils Relative 70.0 % LAB HEMETOLOGY METHOD 09/14/2025 9:[address] [facility] Lymphocytes Relative 19.6 % LAB HEMETOLOGY METHOD 09/14/2025 9:[address] [facility] Monocytes Relative 7.9 % LAB HEMETOLOGY METHOD 09/14/2025 9:[address] [facility] Eosinophils Relative 1.6 % LAB HEMETOLOGY METHOD 09/14/2025 9:[address] [facility] Basophils Relative 0.3 % LAB HEMETOLOGY METHOD 09/14/2025 9:[address] [facility] Immature Granulocytes Relative 0.6 % LAB HEMETOLOGY METHOD 09/14/2025 9:[address] [facility] Neutrophils Absolute 8.10(H) 1.50 - 7.00 K/mcL LAB HEMETOLOGY METHOD 09/14/2025 9:[address] [facility] Lymphocytes Absolute 2.27 1.00 - 5.00 K/mcL LAB HEMETOLOGY METHOD 09/14/2025 9:[address] [facility] Monocytes Absolute 0.92 0.20 - 1.00 K/mcL LAB HEMETOLOGY METHOD 09/14/2025 9:23 AM EST [facility] Eosinophils Absolute 0.18 0.00 - 0.50 K/[facility] LAB HEMETOLOGY METHOD 09/14/2025 9:23 AM EST [facility] Basophils Absolute 0.04 0.00 - 0.20 K/[facility] LAB HEMETOLOGY METHOD 09/14/2025 9:23 AM EST [facility] Immature Granulocytes Absolute 0.07(H) 0.00 - 0.03 K/[facility] LAB HEMETOLOGY METHOD 09/14/2025 9:23 AM EST [facility] Blood Venous blood specimen / Unknown 09/14/2025 6:39 AM EST 09/14/2025 8:55 AM EST us August Baldwin MD LAB BLOOD ORDERABLES Final Resul t Performing Organization Address City/[facility]/ZIP Co de Phone Number [facility] [address] [place] [address], [place] [phone] * Magnesium (08/17/2025 6:45 AM EDT) Only the most recent of3 resultswithin the time period is included. Pathologist [facility] Magnesium 2.2 1.9 - 2.6 mg/dL LAB CHEMISTRY METHOD 08/17/2025 8:42 AM EDT [facility] Blood Venous blood specimen / Unknown 08/17/2025 6:45 AM EDT 08/17/2025 7:19 AM EDT us August Baldwin MD LAB BLOOD ORDERABLES Final Resul t Performing Organization Address City/[facility]/ZIP Co de Phone Number [facility] [address] [place] [address], [place] [phone] * (ABNORMAL) Basic metabolic panel (08/17/2025 6:45 AM EDT) Only the most recent of3 resultswithin the time period is included. Sodium 136 133 - 145 mmol/L LAB CHEMISTRY METHOD 08/17/2025 8:[address] [facility] Potassium 3.6 3.5 - 5.5 mmol/L LAB CHEMISTRY METHOD 08/17/2025 8:[address] [facility] Chloride 104 96 - 110 mmol/L LAB CHEMISTRY METHOD 08/17/2025 8:[address] [facility] CO2 25 21 - 32 mmol/L LAB CHEMISTRY METHOD 08/17/2025 8:[address] [facility] Anion Gap 7 3 - 11 LAB CHEMISTRY METHOD 08/17/2025 8:[address] [facility] Glucose 78 70 - 100 mg/dL LAB CHEMISTRY METHOD 08/17/2025 8:[address] [facility] BUN 15 5 - 25 mg/dL LAB CHEMISTRY METHOD 08/17/2025 8:[address] [facility] Creatinine 0.64(L) 0.70 - 1.30 mg/dL LAB CHEMISTRY METHOD 08/17/2025 8:[address] [facility] eGFR 107 >=60 mL/min/1. 73m2 LAB CHEMISTRY METHOD 08/17/2025 8:[address] [facility] Comment:Calculation based on the Chronic Kidney Disease Epidemiology Collaboration (CKD-EPI) equation refit without adjustment for race. BUN/Creatinine Ratio 23.4 LAB CHEMISTRY METHOD 08/17/2025 8:[address] [facility] Calcium 9.1 8.5 - 10.5 mg/dL LAB CHEMISTRY METHOD 08/17/2025 8:[address] [facility] Blood Venous blood specimen / Unknown 08/17/2025 6:45 AM EDT 08/17/2025 7:19 AM EDT us August Baldwin MD LAB BLOOD ORDERABLES Final Resul t [facility] [address] [place] [address], [place] [phone] * Prostate specific antigen screen (08/05/2025 5:45 AM EDT) Pathologist [facility] PSA 0.40 0.00 - 4.00 ng/mL LAB CHEMISTRY METHOD 08/05/2025 11:32 AM EDT [facility] Blood Venous blood specimen / Unknown 08/05/2025 5:45 AM EDT 08/05/2025 10:07 AM EDT Narrative [facility] - 08/05/2025 11:32 AM EDT The Siem[employer] Chemiluminescent Immunoassay is used. Results obtained with different assay methods or kits cannot be used interchangeably. Results cannot be interpreted as absolute evidence of the presence or absence of malignant disease. August Baldwin MD LAB BLOOD ORDERABLES Final Resul t [facility] [address] [place] [address], [place] [phone] * (ABNORMAL) Lipid panel with reflex to direct LDL (07/20/2025 5:38 AM EDT) [facility] Cholesterol 111 0 - 200 mg/dL LAB CHEMISTRY METHOD 07/20/2025 8:14 AM EDT [facility] Triglycerides 176(H) 0 - 150 mg/dL LAB CHEMISTRY METHOD 07/20/2025 8:14 AM EDT [facility] HDL 30(L) >=40 mg/dL LAB CHEMISTRY METHOD 07/20/2025 8:14 AM EDT [facility] LDL Calculated 46 0 - 100 mg/dL LAB CHEMISTRY METHOD 07/20/2025 8:14 AM EDT [facility] Comment:Estimated LDL Calcul ated using equation: Total cholesterol - HDL cholesterol - (Triglycerides/5) VLDL Cholesterol Leonard 35.2 mg/dL LAB CHEMISTRY METHOD 07/20/2025 8:14 AM EDT [facility] Non HDL Chol. (LDL+VLDL) 81 <145 mg/dL LAB CHEMISTRY METHOD 07/20/2025 8:14 AM T [facility] Chol/HDL Ratio 3.7 0.0 - 4.4 LAB CHEMISTRY METHOD 07/20/2025 8:[address] [facility] Blood Venous blood specimen / Unknown 07/20/2025 5:38 AM EDT 07/20/2025 7:18 AM EDT us August Baldwin MD LAB BLOOD ORDERABLES Final Resul t [facility] [address] [place] [address], [place] [phone] * (ABNORMAL) Comprehensive metabolic panel (07/20/2025 5:38 AM EDT) Sodium 137 133 - 145 mmol/L LAB CHEMISTRY METHOD 07/20/2025 8:[address] [facility] Potassium 3.7 3.5 - 5.5 mmol/L LAB CHEMISTRY METHOD 07/20/2025 8:[address] [facility] Chloride 102 96 - 110 mmol/L LAB CHEMISTRY METHOD 07/20/2025 8:[address] [facility] CO2 29 21 - 32 mmol/L LAB CHEMISTRY METHOD 07/20/2025 8:[address] [facility] Anion Gap 6 3 - 11 LAB CHEMISTRY METHOD 07/20/2025 8:[address] [facility] Glucose 89 70 - 100 mg/dL LAB CHEMISTRY METHOD 07/20/2025 8:[address] [facility] BUN 11 5 - 25 mg/dL LAB CHEMISTRY METHOD 07/20/2025 8:[address] [facility] Creatinine 0.61(L) 0.70 - 1.30 mg/dL LAB CHEMISTRY METHOD 07/20/2025 8:[address] [facility] eGFR 109 >=60 mL/min/1. 73m2 LAB CHEMISTRY METHOD 07/20/2025 8:[address] [facility] Comment:Calculation based on the Chronic Kidney Disease Epidemiology Collaboration (CKD-EPI) equation refit without adjustment for race. BUN/Creatinine Ratio 18.0 LAB CHEMISTRY METHOD 07/20/2025 8:[address] [facility] Calcium 9.3 8.5 - 10.5 mg/dL LAB CHEMISTRY METHOD 07/20/2025 8:[address] [facility] AST (SGOT) 20 10 - 42 unit/L LAB CHEMISTRY METHOD 07/20/2025 8:[address] [facility] ALT (SGPT) 45 10 - 60 unit/L LAB CHEMISTRY METHOD 07/20/2025 8:[address] [facility] Alkaline Phosphatase 115 42 - 121 unit/L LAB CHEMISTRY METHOD 07/20/2025 8:[address] [facility] Total Protein 7.1 6.0 - 8.0 g/dL LAB CHEMISTRY METHOD 07/20/2025 8:[address] [facility] Albumin 3.3 3.2 - 5.0 g/dL LAB CHEMISTRY METHOD 07/20/2025 8:[address] [facility] Total Bilirubin 0.3 0.0 - 1.4 mg/dL LAB CHEMISTRY METHOD 07/20/2025 8:[address] [facility] Blood Venous blood specimen / Unknown 07/20/2025 5:38 AM EDT 07/20/2025 7:18 AM EDT us August Baldwin MD LAB BLOOD ORDERABLES Final Resul t [facility] [address] [place] [address], from Last 3 Months Insurance MEDICARE MEDICAID - [place] Care Teams Fiscal Officer Relationship Specialty Start Date End Date August Baldwin MD [address] [place] [address] [address] THI Sparks PCP - General Internal Medicine 12/09/24
--- OUTSIDE RECORDS SUMMARY | 2025-09-21 18:59 | XMS_ITS | Encounter Summary ---
Author Organization [facility] Address [address] [place] [address] Care Team Providers Care Monitor And Storage Bin Tender Name Role Phone August Baldwin MD Primary Care Provider [phone] Encounter Details Date Type Department Care Team (Late st Contact Info) Description 12/09/2024 Lab Requisition [facility] [address] [facility] [place] [address] August Baldwin MD [address] [place] [address] Dr [address] THI Sparks Essential (primary) hypertension; Hypothyroidism, unspecified; Other correction (current) drug therapy [...] EST Essential (primary) hypertension Hypothyroidism, unspecified Other correction (current) drug therapy CBC AND DIFFERENTIAL Routine 12/09/2024 6:05 AM EST Essential (primary) hypertension Hypothyroidism, unspecified Other technician terminal and repeater (current) drug therapy THYROID STIMULATING HORMONE Routine 12/09/2024 6:05 AM EST Essential (primary) hypertension Hypothyroidism, unspecified Other correction (current) drug therapy THYROXINE FREE Routine 12/09/2024 6:05 AM EST Essential (primary) hypertension Hypothyroidism, unspecified Other correction (current) drug therapy MAGNESIUM Routine 12/09/2024 6:05 AM EST Essential (primary) hypertension Hypothyroidism, unspecified Other correction (current) drug therapy BASIC METABOLIC PANEL Routine 12/09/2024 6:05 AM EST Essential (primary) hypertension Hypothyroidism, unspecified Other technician terminal and repeater (current) drug therapy documented in this encounter Results * (ABNORMAL) CBC auto differential (12/09/2024 6:05 AM EST) WBC 12.1(H) 4.8 - 10.8 K/mcL LAB HEMETOLOGY METHOD 12/09/2024 6:48 AM [facility] RBC 4.00(L) 4.50 - 5.50 M/mcL LAB HEMETOLOGY METHOD 12/09/2024 6:48 AM [facility] Hemoglobin 11.9(L) 13.5 - 17.5 g/dL LAB HEMETOLOGY METHOD 12/09/2024 6:48 AM [facility] Hematocrit 36.6(L) 42.0 - 54.0 % LAB HEMETOLOGY METHOD 12/09/2024 6:48 AM [facility] MCV 92.0 79.0 - 98.0 FL LAB HEMETOLOGY METHOD 12/09/2024 6:48 AM [facility] MCH 29.9 27.0 - 32.0 pcg LAB HEMETOLOGY METHOD 12/09/2024 6:48 AM [facility] MCHC 32.5 32.0 - 37.0 g/dL LAB HEMETOLOGY METHOD 12/09/2024 6:48 AM [facility] RDW 13.4 11.0 - 15.0 % LAB HEMETOLOGY METHOD 12/09/2024 6:48 AM [facility] Platelets 169 130 - 400 K/mcL LAB HEMETOLOGY METHOD 12/09/2024 6:48 AM [facility] MPV 9.6 7.0 - 11.0 FL LAB HEMETOLOGY METHOD 12/09/2024 6:48 AM [facility] NRBC 0.0 <1.0 % LAB HEMETOLOGY METHOD 12/09/2024 6:48 AM [facility] NRBC Absolute 0.00 <0.10 K/mcL LAB HEMETOLOGY METHOD 12/09/2024 6:48 AM [facility] Neutrophils Relative 68.1 % LAB HEMETOLOGY METHOD 12/09/2024 6:48 AM [facility] Lymphocytes Relative 17.7 % LAB HEMETOLOGY METHOD 12/09/2024 6:48 AM [facility] Monocytes Relative 11.9 % LAB HEMETOLOGY METHOD 12/09/2024 6:48 AM [facility] Eosinophils Relative 1.1 % LAB HEMETOLOGY METHOD 12/09/2024 6:48 AM [facility] Basophils Relative 0.4 % LAB HEMETOLOGY METHOD 12/09/2024 6:48 AM [facility] Immature Granulocytes Relative 0.8 % LAB HEMETOLOGY METHOD 12/09/2024 6:48 AM [facility] Neutrophils Absolute 8.22(H) 1.50 - 7.00 K/mcL LAB HEMETOLOGY METHOD 12/09/2024 6:48 AM [facility] Lymphocytes Absolute 2.14 1.00 - 5.00 K/mcL LAB HEMETOLOGY METHOD 12/09/2024 6:48 AM [facility] Monocytes Absolute 1.44(H) 0.20 - 1.00 K/mcL LAB HEMETOLOGY METHOD 12/09/2024 6:48 AM [facility] Eosinophils Absolute 0.13 0.00 - 0.50 K/mcL LAB HEMETOLOGY METHOD 12/09/2024 6:48 AM [facility] Basophils Absolute 0.05 0.00 - 0.20 K/mcL LAB HEMETOLOGY METHOD 12/09/2024 6:48 AM EST [facility] Immature Granulocytes Absolute 0.10(H) 0.00 - 0.03 K/mcL LAB HEMETOLOGY METHOD 12/09/2024 6:48 AM EST [facility] Blood Venous blood specimen / Unknown 12/09/2024 6:05 AM EST 12/09/2024 6:36 AM EST us August Baldwin MD LAB BLOOD ORDERABLES Final Resul t Performing Organization Address [facility] Co de Phone Number [facility] [address] [place] [address], [place] [phone] * Thyroid stimulating hormone (12/09/2024 6:05 AM EST) TSH 1.50 0.40 - 4.00 mcIU/mL LAB CHEMISTRY METHOD 12/09/2024 7:31 AM EST [facility] Blood Venous blood specimen / Unknown 12/09/2024 6:05 AM EST 12/09/2024 6:36 AM EST us August Baldwin MD LAB BLOOD ORDERABLES Final Resul t Performing Organization Address [facility] de Phone Number [facility] [address] [place] [address], [place] [phone] * (ABNORMAL) Magnesium (12/09/2024 6:05 AM EST) Magnesium 1.8(L) 1.9 - 2.6 mg/dL LAB CHEMISTRY METHOD 12/09/2024 7:18 AM EST [facility] Blood Venous blood specimen / Unknown 12/09/2024 6:05 AM EST 12/09/2024 6:36 AM EST us August Baldwin MD LAB BLOOD ORDERABLES Final Resul t Performing Organization Address City/[facility]/ZIP Co de Phone Number [facility] [address] [place] [address], [place] [phone] * Thyroxine free (12/09/2024 6:05 AM EST) Free T4 1.10 0.70 - 1.80 ng/dL LAB CHEMISTRY METHOD 12/09/2024 7:31 AM EST [facility] Blood Venous blood specimen / Unknown 12/09/2024 6:05 AM EST 12/09/2024 6:36 AM EST August Baldwin MD LAB BLOOD ORDERABLES Final Resul t Performing Organization Address [facility] Co de Phone Number [facility] [address] [place] [address], [place] [phone] * (ABNORMAL) Basic metabolic panel (12/09/2024 6:05 AM EST) [facility] Sodium 137 133 - 145 mmol/L LAB CHEMISTRY METHOD 12/09/2024 7:18 AM [facility] Potassium 3.4(L) 3.5 - 5.5 mmol/L LAB CHEMISTRY METHOD 12/09/2024 7:18 AM [facility] Chloride 105 96 - 110 mmol/L LAB CHEMISTRY METHOD 12/09/2024 7:18 AM [facility] CO2 27 21 - 32 mmol/L LAB CHEMISTRY METHOD 12/09/2024 7:18 AM [facility] Anion Gap 5 3 - 11 LAB CHEMISTRY METHOD 12/09/2024 7:18 AM [facility] Glucose 88 70 - 100 mg/dL LAB CHEMISTRY METHOD 12/09/2024 7:18 AM [facility] BUN 20 5 - 25 mg/dL LAB CHEMISTRY METHOD 12/09/2024 7:18 AM [facility] Creatinine 0.74 0.70 - 1.30 mg/dL LAB CHEMISTRY METHOD 12/09/2024 7:18 AM EST [facility] eGFR 103 >=60 mL/min/1. 73m2 LAB CHEMISTRY METHOD 12/09/2024 7:18 AM EST [facility] Comment:Calculation based on the Chronic Kidney Disease Epidemiology Collaboration (CKD-EPI) equation refit without adjustment for race. BUN/Creatinine Ratio 27.0 LAB CHEMISTRY METHOD 12/09/2024 7:18 AM EST [facility] Calcium 8.9 8.5 - 10.5 mg/dL LAB CHEMISTRY METHOD 12/09/2024 7:18 AM [facility] Blood Venous blood specimen / Unknown 12/09/2024 6:05 AM EST 12/09/2024 6:36 AM EST us August Baldwin MD LAB BLOOD ORDERABLES Final Resul t [facility] [address] [place] [address], documented in this encounter Visit Diagnoses Diagnosis Essential (primary) hypertension Unspecified essential hypertension Hypothyroidism, unspecified Other correction (current) drug therapy documented in this encounter Care Teams Monitor And Storage Bin Tender Relationship Specialty Start Date End Date August Baldwin MD [address] [place] [address] [address] [place], [place] PCP - General Internal Medicine 12/09/24 documented as of this encounter
--- OUTSIDE RECORDS SUMMARY | 2025-09-21 18:59 | XMS_ITS | Encounter Summary ---
Author Organization [facility] Address [address] [place] [address] Care Team Providers Care Maintainer [employer] Name Role Phone August Baldwin MD Primary Care Provider [phone] Encounter Details Date Type Department Care Team (Late st Contact Info) Description 10/14/2024 Lab Requisition [facility] - Main Lab [address] [place] [address] August Baldwin MD [address] [place] [address] Dr [address] THI Sparks Other group [...] DIFFERENTIAL Routine 10/14/2024 7:26 AM EST Other [facility]erman (current) drug therapy CBC AND DIFFERENTIAL Routine 10/14/2024 7:26 AM EST Other group home (current) drug therapy documented in this encounter Results * (ABNORMAL) CBC auto differential (10/14/2024 7:26 AM EST) WBC 14.2(H) 4.8 - 10.8 K/[facility] LAB HEMETOLOGY METHOD 10/14/2024 8:26 AM EST [facility] LAB RBC 4.40(L) 4.50 - 5.50 M/[facility] LAB HEMETOLOGY METHOD 10/14/2024 8:26 AM EST [facility] LAB Hemoglobin 12.9(L) 13.5 - 17.5 g/dL LAB HEMETOLOGY METHOD 10/14/2024 8:26 AM [facility] LAB Hematocrit 40.2(L) 42.0 - 54.0 % LAB HEMETOLOGY METHOD 10/14/2024 8:26 AM [facility] LAB MCV 91.6 79.0 - 98.0 FL LAB HEMETOLOGY METHOD 10/14/2024 8:26 AM [facility] LAB MCH 29.4 27.0 - 32.0 pcg LAB HEMETOLOGY METHOD 10/14/2024 8:26 AM [facility] LAB MCHC 32.1 32.0 - 37.0 g/dL LAB HEMETOLOGY METHOD 10/14/2024 8:26 AM [facility] LAB RDW 13.3 11.0 - 15.0 % LAB HEMETOLOGY METHOD 10/14/2024 8:26 AM [facility] LAB Platelets 202 130 - 400 K/mcL LAB HEMETOLOGY METHOD 10/14/2024 8:26 AM [facility] LAB MPV 9.8 7.0 - 11.0 FL LAB HEMETOLOGY METHOD 10/14/2024 8:26 AM [facility] LAB NRBC 0.0 <1.0 % LAB HEMETOLOGY METHOD 10/14/2024 8:26 AM [facility] LAB NRBC Absolute 0.00 <0.10 K/mcL LAB HEMETOLOGY METHOD 10/14/2024 8:26 AM [facility] LAB Neutrophils Relative 71.8 % LAB HEMETOLOGY METHOD 10/14/2024 8:26 AM [facility] Lymphocytes Relative 17.7 % LAB HEMETOLOGY METHOD 10/14/2024 8:26 AM [facility] Monocytes Relative 7.8 % LAB HEMETOLOGY METHOD 10/14/2024 8:26 AM [facility] Eosinophils Relative 1.1 % LAB HEMETOLOGY METHOD 10/14/2024 8:26 AM [facility] Basophils Relative 0.4 % LAB HEMETOLOGY METHOD 10/14/2024 8:26 AM [facility] Immature Granulocytes Relative 1.2 % LAB HEMETOLOGY METHOD 10/14/2024 8:26 AM [facility] Neutrophils Absolute 10.16(H) 1.50 - 7.00 K/mcL LAB HEMETOLOGY METHOD 10/14/2024 8:26 AM [facility] Lymphocytes Absolute 2.50 1.00 - 5.00 K/mcL LAB HEMETOLOGY METHOD 10/14/2024 8:26 AM [facility] Monocytes Absolute 1.10(H) 0.20 - 1.00 K/mcL LAB HEMETOLOGY METHOD 10/14/2024 8:26 AM [facility] Eosinophils Absolute 0.16 0.00 - 0.50 K/mcL LAB HEMETOLOGY METHOD 10/14/2024 8:26 AM [facility] Basophils Absolute 0.06 0.00 - 0.20 K/mcL LAB HEMETOLOGY METHOD 10/14/2024 8:26 AM [facility] Immature Granulocytes Absolute 0.17(H) 0.00 - 0.03 K/mcL LAB HEMETOLOGY METHOD 10/14/2024 8:26 AM [facility] Blood Venous blood specimen / Unknown 10/14/2024 7:26 AM EST 10/14/2024 8:12 AM EST us August Baldwin MD LAB BLOOD ORDERABLES Final Resul t [facility] [address] [place] [address], documented in this encounter Visit Diagnoses Diagnosis Other meterman (current) drug therapy documented in this encounter Care Teams Maintainer [employer] Relationship Specialty Start Date End Date August Baldwin MD [address] [place] [address] Dr [address] THI Sparks PCP - General Internal Medicine 12/09/24 documented as of this encounter
--- OUTSIDE RECORDS SUMMARY | 2025-09-21 18:59 | XMS_ITS | Encounter Summary ---
Author Organization [facility] Address [address] [place] [address] Care Team Providers Care Machine Icer Name Role Phone August Baldwin MD Primary Care Provider [phone] Encounter Details Date Type Department Care Team (Late st Contact Info) Description 12/01/2024 Lab Requisition [facility] - Main Lab [address] [place] [address] August Baldwin MD [address] [place] [address] Dr [address] THI Sparks Other penitentiary [...] Routine 12/01/2024 6 :40 AM EST Other penitentiary (current) drug therapy [...] developed and the performance characteristics determined by [facility]. This confirmation testing has not been cleared or approved by the FDA. The laboratory is regulated under CLIA as qualified to perform high-complexity testing. This test is used for patient testing purposes. It should not be regarded as investigational or for research. Test performed at [facility], [address], [place], [place] [id number] Mckenna Lubin MD, PhD - Snowboarding Instructor Blood Venous blood specimen / Unknown 12/01/2024 6:40 AM EST 12/01/2024 7:27 AM EST us August Baldwin MD LAB BLOOD ORDERABLES Final Resul t [facility] [address] [place] [address] documented in this encounter Visit Diagnoses Diagnosis Other terminal block assembler (current) drug therapy documented in this encounter Care Teams Machine Icer Relationship Specialty Start Date End Date August Baldwin MD [address] [place], [place] PCP - General Internal Medicine 12/09/24 documented as of this encounter
== END 2025-09-21 14:33 | disposition home or self-care (01) ==
LOC: HO.HGS 14:04
PROVIDERS: PCP Hospitalist; Visit Provider Surgery
DX: L72.0 Epidermal cyst (principal)
CPT/HCPCS: 99213

== ENCOUNTER → 2025-09-21 14:03 | Outpatient (BNVA) | payer MEDICARE, MEDICAID, SELFPAY | PROVIDERS: PCP Hospitalist; Visit Provider Surgery | DX: L72.0 Epidermal cyst (principal) | CPT/HCPCS: 99212 ==